=== PATIENT | female | born 1945 | race Caucasian/White ===

== ENCOUNTER 2016-05-25 13:44 | Outpatient (RCR) | payer MEDICARE, BC ==
[~2016-05-25 13:44] MED LIST: ABCT PO; ALPR-557 PO; ALPR0.5T72 PO; ALPR1TAB7 PO; ASPI1TAB22 PO; ATRV10T PO; B-12 SHOT; BUPR300T51 PO; CIPR-225 PO; CIPR500T4 PO; CPR500T PO; CYAN100053 IJ; DCS100C PO; DICY10CA12 PO; DICY20TA33 PO; DICY20TA57 PO; FURO40TA4 PO; GBPN300C PO; HYDR-3454 PO; HYDR-3720 PO; HYDR-3820 PO; HYOS0.1216 PO; HYOS0.3710 PO; KCL10CCR PO; LACT1CAP62 PO; LORA1TAB PO; NAPR-243 PO; OMEP20CA12 PO; OMG1KC PO; ONDA-42 SL; OXYC-12 PO; PNT40TEC PO; SANTURA; SCR1T1 PO; TRIA1TAB2 PO; TROS60CA2 PO; VENL25TA5 PO; VENL75TA6 PO; VERA100C4 PO; VERA240T98 PO
--- OUTSIDE RECORDS SUMMARY | 2016-05-25 13:48 | XMS REPORT | Continuity of Care Document ---
Author Author [facility] Organization [facility] Address Unknown Phone Unavailable Care Team Providers Care Promotions Intern Name Role Phone KimberleyAustyn leon PCP [phone] Source Comments Some departments are not documenting in the electronic medical record. If you do not see the information that you expected, contact Release of Information in the Health Information Management department at [phone] for further assistance in locating additional records.[facility] Active Allergies and Adverse Reactions Allergen Noted Date Severity Reactions Comments Sulfa (Sulfonamide 06/26/2014 HIVES Antibiotics) Current Medications Prescription Sig. Disp. Refills Start End Date Status Date omeprazole DR(+) Take 40 mg by mouth Active (PRILOSEC) 20 mg capsule daily. LORazepam (ATIVAN) 1 mg Take 1 mg by mouth every Active tablet 4 hours as needed. trospium ER(+) (SANCTURA Take by mouth. Active XR) 60 mg capsule gabapentin (NEURONTIN) Take 300 mg by mouth Active 300 mg capsule three times daily. venlafaxine XR (EFFEXOR Take 75 mg by mouth Active XR) 75 mg capsule daily. verapamil SR (VERELAN) Take by mouth at bedtime Active 240 mg C24P daily. triamterene-hydrochloroth Take 1 Cap by mouth every Active iazide (DYAZIDE) 37.5-25 morning. mg capsule ALPRAZolam (XANAX) 0.5 mg Take 0.5 mg by mouth at Active tablet bedtime as needed. HYDROcodone-acetaminophen Take 1 Tab by mouth every Active (+) (VICODIN) 10-325 mg 6 hours as needed. tablet pantoprazole DR Take 40 mg by mouth Active (PROTONIX) 40 mg tablet daily. cyanocobalamin (VITAMIN Inject 1,000 mcg to Active B-12, RUBRAMIN) 1,000 area(s) as directed every mcg/mL injection 7 days. butalbital/acetaminophen/ Take 1 Tab by mouth as Active caffeine(+) (FIORICET) Needed. 50/325/40 mg tablet hyoscyamine (ANASPAZ; Place 1 Tab under tongue 90 Tab 1 06/26/19 Active NULEV; SYMAX FASTABS; every 4 hours as needed 15 HYOMAX-FT; ED-SPAZ; for Cramps. OSCIMIN) 0.125 mg rapid dissolve tablet ondansetron (ZOFRAN ODT) Take 1 tab the night 2 Tab 0 06/26/19 Active 8 mg rapid dissolve before your MRI and 1 tab 15 tablet 7 hours before your MRI linaclotide (LINZESS) 145 Take 1 Cap by mouth 30 Cap 3 10/23/19 Active mcg cap daily. 15 dicyclomine (BENTYL) 10 TAKE ONE CAPSULE BY MOUTH 90 Cap 3 01/01/20 Active mg capsule THREE TIMES A DAY 16 Active Problems Problem Noted Date Essential tremor 11/06/2015 Gait disturbance 11/06/2015 Pancreatic cyst 10/02/2014 Overview: EUS 07/26/14 Colon polyps 10/02/2014 Obstruction of bile duct 07/31/2014 Lupus (HCC) 06/26/2014 Osteoporosis 06/26/2014 Recurrent urinary tract infection 03/21/2013 Mixed incontinence 03/21/2013 Most Recent Encounters Date Type Specialty Providers Description 05/17/2016 Telephone Neurology Jorge Kaufman, Referral Social History Tobacco Use Types Packs/Day Years Used Date Current Every Day Smoker Cigarettes 0.5 50 Smokeless Tobacco: Never Used Alcohol Use Drinks/Week oz/Week Comments Yes 2 Cans of 1.2 beer Last Filed Vital Signs Vital Sign Reading Time Taken Blood Pressure 119/79 11/06/2015 2:40 PM CDT Pulse 85 11/06/2015 2:40 PM CDT Temperature 36.5 C (97.7 F) 10/02/2014 9:38 AM CDT Respiratory Rate 18 10/02/2014 9:38 AM CDT Height 1.626 m (5' 4.02") 11/06/2015 2:40 PM CDT Weight 68.947 kg (152 lb) 11/06/2015 2:40 PM CDT Body Mass Index 26.08 11/06/2015 2:40 PM CDT Oxygen Saturation 94% 08/29/2014 10:09 AM CDT Plan of Care Date Type Specialty Providers Description 07/26/2016 Appointment Neurology Ines Fowler MD [address] [place] [address] [phone] (Fax) Health Maintenance Due Date Last Done Comments Hepatitis C Screening 1945 Physical (Comprehensive) 1953 Exam Pertussis Vaccine 1957 Tetanus Vaccine 12/26/1963 Breast Cancer Screening 1986 Shingles Vaccine 2006 Osteoporosis Screening 12/26/2011 Prevnar/Pneumovax (#1) 12/26/2011 Influenza Vaccine 02/19/2016 Colorectal Cancer 07/26/2024 07/26/2014 Screening Results from Last 3 Months Not on file
[2016-05-25 14:15] LABS: BASOPHILS # (AUTO) 0.1 10^3/uL (0.0-0.1); BASOPHILS % (AUTO) 1 % (0-10); EOSINOPHILS # (AUTO) 0.1 10^3/uL (0.0-0.3); EOSINOPHILS % (AUTO) 1 % (0-10); LYMPHOCYTES # (AUTO) 1.9 X 10^3 (1.0-4.0); LYMPHOCYTES % (AUTO) 29 % (12-44); MEAN CORPUSCULAR HEMOGLOBIN 30 PG (25-34); MEAN CORPUSCULAR HGB CONC 33 G/DL (32-36); MEAN CORPUSCULAR VOLUME 91 FL (80-99); MEAN PLATELET VOLUME 10.5 FL (7.4-10.4); MONOCYTES # (AUTO) 0.6 X 10^3 (0.0-1.0); MONOCYTES % (AUTO) 10 % (0-12); NEUTROPHILS # (AUTO) 3.9 X 10^3 (1.8-7.8); NEUTROPHILS % (AUTO) 59 % (42-75); PLATELET COUNT 206 10^3/uL (130-400); RED BLOOD COUNT 4.94 10^6/uL (4.35-5.85); RED CELL DISTRIBUTION WIDTH 12.9 % (10.0-14.5); WHITE BLOOD COUNT 6.6 10^3/uL (4.3-11.0)
[2016-05-25 14:37] LABS: ALBUMIN 4.2 G/DL (3.2-4.5); BILIRUBIN,TOTAL 0.3 MG/DL (0.1-1.0); CALCIUM 9.8 MG/DL (8.5-10.1); CREATININE SERUM 1.24 MG/DL (0.60-1.30); POTASSIUM 3.8 MMOL/L (3.6-5.0); TOTAL PROTEIN 6.6 G/DL (6.4-8.2)
== END 2016-08-23 | disposition home or self-care (01) ==
LOC: ONC 13:44
PROVIDERS: ATTEND Internal Medicine Hematology & Oncology
DX: C50.511 Malignant neoplasm of lower-outer quadrant of right female breast (principal); D50.9 Iron deficiency anemia, unspecified; M85.80 Other specified disorders of bone density and structure, unspecified site; Z17.0 Estrogen receptor positive status [ER+]; Z79.899 Other long term (current) drug therapy
CPT/HCPCS: 36415; 80053; 85025; 99213

== ENCOUNTER → 2016-07-15 | Outpatient (CLI) | payer MEDICARE, BC ==
--- OUTSIDE RECORDS SUMMARY | 2016-07-15 13:13 | XMS REPORT | Continuity of Care Document ---
Author Author [facility] Organization [facility] Address Unknown Phone Unavailable Care Team Providers Care Art Critic Name Role Phone KimberleyAustyn leon PCP [phone] Source Comments Some departments are not documenting in the electronic medical record. If you do not see the information that you expected, contact Release of Information in the Health Information Management department at [phone] for further assistance in locating additional records.[facility] Active Allergies and Adverse Reactions Allergen [...] TAKE ONE CAPSULE BY MOUTH 90 Cap 2 07/09/19 Active mg capsule THREE TIMES A DAY 17 dicyclomine (BENTYL) 10 TAKE ONE CAPSULE BY MOUTH 90 Cap 3 01/01/20 07/07/19 Discontin mg capsule THREE TIMES A DAY 16 17 ued Active Problems Problem Noted Date Essential tremor 11/06/2015 Gait disturbance 11/06/2015 Pancreatic cyst 10/02/2014 Overview: EUS 07/26/14 Colon polyps 10/02/2014 Obstruction of bile duct 07/31/2014 Lupus (HCC) 06/26/2014 Osteoporosis 06/26/2014 Recurrent urinary tract infection 03/21/2013 Mixed incontinence 03/21/2013 Most Recent Encounters Date Type Specialty Providers Description 07/07/2016 Refill Gastroenterology Ousmane De Anda MD 05/17/2016 Telephone Neurology Jorge Kaufman Referral MD Social History Tobacco Use Types Packs/Day Years [...] Description 07/26/2016 Appointment Neurology Ines Fowler MD [address] [place] [address] [phone] (Fax) Health Maintenance Due Date Last Done Comments Hepatitis C Screening 1945 Physical (Comprehensive) 1953 Exam Pertussis Vaccine 1957 Tetanus Vaccine 12/26/1963 Breast Cancer Screening 1986 Shingles Vaccine 2006 Osteoporosis Screening 12/26/2011 Prevnar/Pneumovax (#1) 12/26/2011 Influenza Vaccine 02/19/2016 Colorectal Cancer 07/26/2024 07/26/2014 Screening Results from Last 3 Months Not on file
== END ==
LOC: LAB 13:08
PROVIDERS: ATTEND Family Medicine
DX: E53.8 Deficiency of other specified B group vitamins (principal); Z72.0 Tobacco use

== ENCOUNTER → 2016-09-20 | Outpatient (CLI) | payer MEDICARE, BC ==
--- NOTE | 2016-09-21 19:29 | Diagnostic Imaging Report ---
EXAMINATION: Bilateral diagnostic mammogram. INDICATION: History of breast cancer on the right, bilateral breast pain. COMPARISON: This study was compared to the prior exams of 02/25/2016 and 12/03/2014. The current study was also evaluated with a Computer Aided Detection (CAD) system. FINDINGS: By history, the patient has had a lumpectomy on the right for carcinoma in 2014. The previous mammogram of 02/25/2016 did note architectural distortion in the operative site in the mid portion of the right breast but failed to show any sign of malignancy. On this exam, the postsurgical changes are again evident and do not appear to have changed significantly. There is a small area of increased density in the lateral retroareolar region on the craniocaudad view. This resolves with compression, however. There are scattered fibroglandular densities in the left breast, which could obscure a lesion. When compared to the previous study, there has been no significant change. Deep in the left breast on the craniocaudad view, there is a group of calcifications. These calcifications seem stable when compared to the prior exam of 12/03/2014. These calcifications may be within intramammary fold and could be dermal in nature. There is no abnormality involving either breast to account for the patient's pain. IMPRESSION: 1. The postsurgical changes in the right breast seen previously appear stable. There is no evidence of malignancy. There is no acute abnormality involving either breast to account for the patient's pain. 2. Ultrasound of both breasts is pending for further study. ACR BI-RADS Category 0: Incomplete. (Needs additional imaging evaluation). Result letter will be mailed to the patient. Note: At least 10% of breast cancer is not imaged by mammography. Dictated by: Dictated on workstation # [id number]
--- NOTE | 2016-09-22 20:15 | Diagnostic Imaging Report ---
EXAMINATION: Bilateral breast ultrasound. INDICATION: Bilateral breast pain. FINDINGS: The diagnostic mammogram performed earlier today failed to show any sign of malignancy or of an acute abnormality. On this study, there is no solid mass to suggest malignancy involving either breast. There is no sign of an abscess to account for the patient's breast pain either. The previous bilateral breast ultrasound exam performed on 03/06/2016 did note a minimally complicated cyst in the 1 o'clock position, approximately 2 cm from the nipple. This finding measured approximately 3 x 9 mm. The cystic area is again evident and now measures 4 x 11 mm. This finding still has a generally benign appearance, and there is no internal vascularity to suggest malignancy. Even so, a short-term (six-month) followup ultrasound exam would be recommended. There is also a small roughly 5 mm simple cyst in this area. This cyst may be minimally smaller than on the prior exam. There is no abnormality of the right breast. IMPRESSION: 1. There is no evidence of malignancy or for an acute abnormality of either breast. 2. The complicated cystic mass in the 2 o'clock position of the left breast seen previously is slightly larger on this exam. This finding still has a generally benign appearance, but a short-term six-month followup ultrasound exam would be recommended for further study. 3. These results were discussed with PASHA Beatty. ACR BI-RADS Category 3: Probably benign findings. Dictated by: Dictated on workstation # [id number]
== END ==
LOC: RAD 13:13
PROVIDERS: ATTEND Nurse Practitioner Adult Health
DX: C50.511 Malignant neoplasm of lower-outer quadrant of right female breast (principal)
CPT/HCPCS: 77066

== ENCOUNTER 2016-10-19 13:25 | Outpatient (RCR) | payer MEDICARE, BC ==
[~2016-10-19 13:25] MED LIST changes: +HYOS-20 PO; -HYOS0.1216 PO
[2016-10-19 13:59] LABS: BASOPHILS # (AUTO) 0.1 10^3/uL (0.0-0.1); BASOPHILS % (AUTO) 1 % (0-10); EOSINOPHILS # (AUTO) 0.1 10^3/uL (0.0-0.3); EOSINOPHILS % (AUTO) 2 % (0-10); LYMPHOCYTES # (AUTO) 2.3 X 10^3 (1.0-4.0); LYMPHOCYTES % (AUTO) 35 % (12-44); MEAN CORPUSCULAR HEMOGLOBIN 31 PG (25-34); MEAN CORPUSCULAR HGB CONC 34 G/DL (32-36); MEAN CORPUSCULAR VOLUME 92 FL (80-99); MEAN PLATELET VOLUME 10.5 FL (7.4-10.4); MONOCYTES # (AUTO) 0.4 X 10^3 (0.0-1.0); MONOCYTES % (AUTO) 7 % (0-12); NEUTROPHILS # (AUTO) 3.6 X 10^3 (1.8-7.8); NEUTROPHILS % (AUTO) 56 % (42-75); PLATELET COUNT 215 10^3/uL (130-400); RED BLOOD COUNT 4.91 10^6/uL (4.35-5.85); RED CELL DISTRIBUTION WIDTH 13.1 % (10.0-14.5); WHITE BLOOD COUNT 6.5 10^3/uL (4.3-11.0)
[2016-10-19 14:35] LABS: ALBUMIN 4.1 G/DL (3.2-4.5); BILIRUBIN,TOTAL 0.4 MG/DL (0.1-1.0); CALCIUM 10.7 MG/DL (8.5-10.1); CREATININE SERUM 1.13 MG/DL (0.60-1.30); POTASSIUM 4.2 MMOL/L (3.6-5.0); TOTAL PROTEIN 6.6 G/DL (6.4-8.2)
== END 2017-01-17 | disposition home or self-care (01) ==
LOC: ONC 13:25
PROVIDERS: ATTEND Internal Medicine Hematology & Oncology
DX: C50.511 Malignant neoplasm of lower-outer quadrant of right female breast (principal); D50.9 Iron deficiency anemia, unspecified; M85.80 Other specified disorders of bone density and structure, unspecified site; Z17.0 Estrogen receptor positive status [ER+]; Z79.899 Other long term (current) drug therapy
CPT/HCPCS: 36415; 80053; 85025; 99213

== ENCOUNTER 2017-01-26 13:26 | Outpatient (RCR) | payer MEDICARE, BC ==
[2017-01-26 13:37] LABS: BASOPHILS % (AUTO) 1 % (0-10); EOSINOPHILS # (AUTO) 0.1 10^3/uL (0.0-0.3); EOSINOPHILS % (AUTO) 2 % (0-10); LYMPHOCYTES # (AUTO) 2.2 X 10^3 (1.0-4.0); LYMPHOCYTES % (AUTO) 32 % (12-44); MEAN CORPUSCULAR HEMOGLOBIN 31 PG (25-34); MEAN CORPUSCULAR HGB CONC 34 G/DL (32-36); MEAN CORPUSCULAR VOLUME 92 FL (80-99); MEAN PLATELET VOLUME 10.8 FL (7.4-10.4); MONOCYTES # (AUTO) 0.6 X 10^3 (0.0-1.0); MONOCYTES % (AUTO) 8 % (0-12); NEUTROPHILS % (AUTO) 58 % (42-75); PLATELET COUNT 203 10^3/uL (130-400); RED BLOOD COUNT 4.92 10^6/uL (4.35-5.85); RED CELL DISTRIBUTION WIDTH 13.1 % (10.0-14.5); WHITE BLOOD COUNT 6.9 10^3/uL (4.3-11.0)
[2017-01-26 14:09] LABS: BILIRUBIN,TOTAL 0.4 MG/DL (0.1-1.0); CALCIUM 11.2 MG/DL (8.5-10.1); CREATININE SERUM 1.29 MG/DL (0.60-1.30); POTASSIUM 3.5 MMOL/L (3.6-5.0); TOTAL PROTEIN 6.8 GM/DL (6.4-8.2)
== END 2017-03-19 | disposition home or self-care (01) ==
LOC: ONC 13:26
PROVIDERS: ATTEND Internal Medicine Hematology & Oncology
DX: C50.511 Malignant neoplasm of lower-outer quadrant of right female breast (principal); D50.9 Iron deficiency anemia, unspecified; M85.80 Other specified disorders of bone density and structure, unspecified site; Z17.0 Estrogen receptor positive status [ER+]; Z79.899 Other long term (current) drug therapy
CPT/HCPCS: 36415; 80053; 85025; 99213

== ENCOUNTER → 2017-02-02 | Outpatient (CLI) | payer MEDICARE, BC ==
--- NOTE | 2017-02-02 14:40 | Diagnostic Imaging Report ---
EXAMINATION: Lumbar spine. INDICATION: Back pain. FINDINGS: AP and lateral views were obtained. The previous MRI lumbar spine exam performed on 05/13/2009 noted degenerative disc and bony disease at L3-L4 and L4-L5. On this exam, there is narrowing of the disc spaces at L3-L4 and L4-L5. There is bony overgrowth of the facet joints at these levels as well. There is also moderate narrowing of the disc space at L1-L2 and mild narrowing of the disc space at L5-S1. The L2-L3 level is fairly well maintained. There is no fracture or acute bony abnormality noted. There is no sign of a paraspinal mass. There is mild symmetrical sclerosis of the sacroiliac joints. IMPRESSION: 1. There is degenerative disc and bony disease at L1-L2, L3-L4, and L4-L5. There is no acute bony abnormality identified however. 2. If there is clinical concern regarding spinal stenosis or nerve root encroachment, then a repeat MRI of the lumbar spine exam would be recommended. Dictated by: Dictated on workstation # [id number]
--- NOTE | 2017-02-02 14:50 | Diagnostic Imaging Report ---
Cervical spine. INDICATION: Neck pain. AP, lateral, odontoid and both oblique views were obtained. The previous CT cervical spine exam performed on 08/27/15 noted severe degenerative disc and bony disease at C5-C6 and C6-C7. On this exam, there is again evidence of narrowing of the disc spaces at these two levels as well as osteophyte formation along the opposing surfaces of C5-C6 and C7. The oblique views indicate that there is bony foraminal encroachment bilaterally at these levels as well. Also, as seen on the prior exam there is slight anterior translation of C3 with respect to C4 and there is mild narrowing of disc space at this level. There is also neuroforaminal narrowing bilaterally at this level. There is no fracture or acute bony abnormality evident. There is no sign of retropharyngeal edema. The lung apices are clear. IMPRESSION: 1. There is degenerative disc and bony disease at C3-C4, C5-C6 and C6-C7. The degenerative changes seem similar to the prior exam. However, if there is clinical concern regarding spinal stenosis or nerve root encroachment, then MRI would be recommended for further study. 2. There is no acute bony abnormality noted. Dictated by: Dictated on workstation # [id number]
== END ==
LOC: RAD 12:50
PROVIDERS: ATTEND Chiropractor
DX: M50.31 Other cervical disc degeneration, high cervical region (principal); M51.36 Other intervertebral disc degeneration, lumbar region
CPT/HCPCS: 72050; 72100

== ENCOUNTER → 2017-03-24 | Outpatient (CLI) | payer MEDICARE, BC ==
--- NOTE | 2017-03-24 13:51 | Diagnostic Imaging Report ---
EXAMINATION: DEXA scan. INDICATION: Osteopenia. TECHNIQUE: Bone mineral density estimated based on dual energy radiography over the lumbar spine and femoral necks, was performed. FINDINGS: The lumbar spine T-score is -0.6. This is a 2.2% decreased density measurement compared to 03/24/2017. This is probably an exaggerated density of the lumbar spine due to sclerotic degenerative changes. T score over the left femoral neck is -1.6 and on the right is -1.2. This is 3% decreased density measurement compared to the previous exam. IMPRESSION: Osteopenia. Dictated by: Dictated on workstation # [id number]
== END ==
LOC: RAD 10:52
PROVIDERS: ATTEND Nurse Practitioner Adult Health
DX: M85.89 Other specified disorders of bone density and structure, multiple sites (principal); N18.3 Chronic kidney disease, stage 3 (moderate); C50.511 Malignant neoplasm of lower-outer quadrant of right female breast
CPT/HCPCS: 77080

== ENCOUNTER 2017-05-03 15:43 | Emergency (ER) | payer MEDICARE, BC ==
[~2017-05-03] VITALS: Ht 157.5 cm; Wt 72.6 kg
--- OUTSIDE RECORDS SUMMARY | 2017-05-03 15:48 | XMS REPORT | Encounter Summary ---
Author [facility] Address Unknown Phone Unavailable Care Team Providers Care Artificial Flowers Starcher Name Role Phone PCP Unavailable Reason for Referral * Consult, Test & Treat Status Reason Specialty Diagnoses / Referred By Referred To Procedures Contact Contact New Request Specialty Diagnoses Janie Pa Olyaee, Drake, Services Dysphagia, MONUMENT SETTER MD Required unspecified type [address] [place] [address] Rectal pain [place] [address] [place], [place] [phone] Phone: Encounter Details Date Type Department Care Team Description 03/15/2017 Orders Only [facility] Pita Cade Dysphagia, unspecified Physicians - Internal type (Primary Medicine Dx);Pancreas cyst;Rectal [address] FLO[address] POD B pain;Rectal bleeding [address] [place] [address] Social History Tobacco Use Types Packs/Day Years Used Date Current Every Day Smoker Cigarettes 0.5 50 Smokeless Tobacco: Never Used Alcohol Use Drinks/Week oz/Week Comments Yes 2 Cans of 1.2 beer Sex Assigned at Date Recorded Not on file as of this encounter Plan of Treatment Name Priority Associated Diagnoses Order Schedule AMB REFERRAL TO GI LAB FOR PROCEDURE Routine Dysphagia, unspecified Ordered: 03/15/2017 type Pancreas cyst Rectal pain Rectal bleeding as of this encounter Visit Diagnoses Diagnosis Dysphagia, unspecified type - Primary Pancreas cyst Cyst and pseudocyst of pancreas Rectal pain Anal or rectal pain Rectal bleeding Hemorrhage of rectum and anus in this encounter
--- OUTSIDE RECORDS SUMMARY | 2017-05-03 15:48 | XMS REPORT | Encounter Summary ---
Author Author [facility] Organization [facility] Address Unknown Phone Unavailable Care Team Providers Care Curriculum Director Name Role Phone PCP Unavailable Reason for Visit * Reason Comments Appointment Request EGD/EUS/Flex Sig - [facility] Encounter Details Date Type Department Care Team Description 03/15/2017 Telephone [facility] Pita Cade Appointment Request Physicians - Internal (EGD/EUS/Flex Sig - [facility]) Medicine [address] FLOOR POD [address] [facility] [place] [address] Social History Tobacco Use Types Packs/Day Years Used Date Current Every Day Smoker Cigarettes 0.5 50 Smokeless Tobacco: Never Used Alcohol Use Drinks/Week oz/Week Comments Yes 2 Cans of 1.2 beer Sex Assigned at Date Recorded Not on file as of this encounter Miscellaneous Notes * Telephone Encounter - Pita Cade - 05/03/2017 2:10 PM BARREL DRILLER Letter mailed to home. * Telephone Encounter - Pita Cade - 03/24/2017 10:28 AM CDT Left generic message for patient to return call to schedule EGD/EUS/Flex Sigmoidoscopy. * Telephone Encounter - Pita Cade - 03/15/2017 1:00 PM CDT Left generic message for patient to return call to schedule EGD/EUS/Flex Sigmoidoscopy. in this encounter Plan of Treatment Not on fileas of this encounter Visit Diagnoses Not on filein this encounter
--- OUTSIDE RECORDS SUMMARY | 2017-05-03 15:48 | XMS REPORT | Continuity of Care Document ---
Author Author [facility] Organization [facility] Address Unknown Phone Unavailable Care Team Providers Care Technical Architect Name Role Phone [employer] Unavailable Unavailable Problems Medications Allergies, Adverse Reactions, Alerts Immunizations Results Vital Signs Encounters Location Location Details Encounter Type Encounter Number Reason For Visit Attending Provider ADM Date DC Date Status Source SPECIMEN [id number] MIGUELITO SCHROEDER 08/29/201408/29 Active [facility] Sophia LESLIE 04/21/2017 Active [facility] Procedures Plan of Care Social History Assessment and Plan Family History Value Date Source Advance Directives Order Name Results Value Date Source
--- OUTSIDE RECORDS SUMMARY | 2017-05-03 15:48 | XMS REPORT | Clinical Summary ---
Author Author [facility] Organization [facility] Address Unknown Phone Unavailable Care Team Providers Care Stained Glass Glazier Helper Name Role Phone PCP Unavailable Source Comments Some departments are not documenting in the electronic medical record. If you do not see the information that you expected, contact Release of Information in the Health Information Management department at [phone] for further assistance in locating additional records.[facility] Allergies Active Allergy Reactions Severity Noted Date Comments Sulfa (Sulfonamide HIVES 06/26/2014 Antibiotics) Current Medications Prescription Sig. Disp. Refills Start End Date Status Date LORazepam (ATIVAN) 1 mg Take 1 mg by mouth every Active tablet 4 hours as needed. trospium ER(+) (SANCTURA Take by mouth. Active XR) 60 mg capsule verapamil SR (VERELAN) Take by mouth at bedtime Active 240 mg C24P daily. triamterene-hydrochloroth Take 1 Cap by mouth every Active iazide (DYAZIDE) 37.5-25 morning. mg capsule HYDROcodone-acetaminophen Take 1 tablet by mouth Active (+) (VICODIN) 10-325 mg every 4 hours as needed tablet pantoprazole DR Take 40 mg by mouth Active (PROTONIX) 40 mg tablet daily. cyanocobalamin (VITAMIN Inject 1,000 mcg to Active B-12, RUBRAMIN) 1,000 area(s) as directed every mcg/mL injection 7 days. dicyclomine (BENTYL) 10 Take 1 Cap by mouth every 90 Cap 2 12/23/19 Active mg capsule 6-8 hours as needed. 17 ALPRAZolam (XANAX) 0.5 mg Take 1 mg by mouth daily Active tablet as needed for Anxiety. prochlorperazine maleate Take 10 mg by mouth every Active (COMPAZINE) 10 mg tablet 6 hours as needed for Nausea or Vomiting. butalbital/acetaminophen/ Take 1 tablet by mouth Active caffeine(+) (FIORICET) every 4 hours as needed 50/325/40 mg tablet for Headache. linaclotide(+) (LINZESS) Take 1 capsule by mouth 20 capsule 0 Active 290 mcg capsule daily 30 minutes before 17 breakfast. Active Problems Problem Noted Date Dysphagia 03/07/2017 Overview: Added automatically from request for surgery [id number] Pancreas cyst 03/07/2017 Overview: Added automatically from request for surgery [id number] Rectal pain 03/07/2017 Overview: Added automatically from request for surgery [id number] Rectal bleeding 03/07/2017 Overview: Added automatically from request for surgery [id number] Constipation 03/07/2017 Overview: Added automatically from request for surgery [id number] Essential tremor 11/06/2015 Gait disturbance 11/06/2015 Pancreatic cyst 10/02/2014 Overview: EUS 07/26/14 Colon polyps 10/02/2014 Obstruction of bile duct 07/31/2014 Lupus 06/26/2014 Osteoporosis 06/26/2014 Recurrent urinary tract infection 03/21/2013 Mixed incontinence 03/21/2013 Encounters Date Type Specialty Care Team Description 03/15/2017 Telephone Gastroenterology Pita Cade Appointment Request (EGD/EUS/Flex Sig - [facility]) 03/15/2017 Orders Only Gastroenterology Pita Cade Dysphagia, unspecified type (Primary Dx);Pancreas cyst;Rectal pain;Rectal bleeding 03/07/2017 Office Visit Gastroenterology Janie Pa ARNP Other constipation (Primary Dx);Rectal pain;Pancreatic cyst;Oropharyngeal dysphagia 03/07/2017 Prep for Case Gastroenterology Janie Pa ARNP 03/07/2017 Prep for Case Gastroenterology Janie Pa ARNP 01/31/2017 Telephone Gastroenterology Ousmane De Anda MD Follow-up Phone Call from Last 3 Months Family History Medical History Relation Name Comments Heart Disease Brother Cancer Mother Heart Attack Mother Heart Disease Mother Hypertension Mother Cancer Other Cancer-Colon Neg Hx Celiac Disease Neg Hx Relation Name Status Comments Brother Mother Other Social History Tobacco Use Types Packs/Day Years Used Date Current Every Day Smoker Cigarettes 0.5 50 Smokeless Tobacco: Never Used Alcohol Use Drinks/Week oz/Week Comments Yes 2 Cans of 1.2 beer Sex Assigned at Date Recorded Not on file Last Filed Vital Signs Vital Sign Reading Time Taken Blood Pressure 98/65 03/07/2017 2:40 PM CDT Pulse 87 03/07/2017 2:40 PM CDT Temperature 36.4 C (97.6 F) 03/07/2017 2:40 PM CDT Respiratory Rate 14 03/07/2017 2:40 PM CDT Oxygen Saturation 94% 08/29/2014 10:09 AM CDT Inhaled Oxygen - - Concentration Weight 73 kg (161 lb) 03/07/2017 2:40 PM CDT Height 162.6 cm (5' 4.02") 03/07/2017 2:40 PM CDT Body Mass Index 27.62 03/07/2017 2:40 PM CDT Plan of Treatment Health Maintenance Due Date Last Done Comments HEPATITIS C SCREENING 1945 PHYSICAL (COMPREHENSIVE) 1953 EXAM PERTUSSIS VACCINE 1957 TETANUS VACCINE 12/26/1963 BREAST CANCER SCREENING 1986 SHINGLES VACCINE 2006 OSTEOPOROSIS SCREENING 12/26/2011 PREVNAR/PNEUMOVAX (#1) 12/26/2011 INFLUENZA VACCINE 01/18/2017 COLORECTAL CANCER 07/26/2024 07/26/2014 SCREENING Results Not on filefrom Last 3 Months
--- OUTSIDE RECORDS SUMMARY | 2017-05-03 15:48 | XMS REPORT | Encounter Summary ---
Author Author [facility] Organization [facility] Address Unknown Phone Unavailable Care Team Providers Care Contact Center Consultant Name Role Phone PCP Unavailable Encounter Details Date Type Department Care Team Description 03/07/2017 Prep for Case [facility] Janie Pa ARNP Physicians - Internal [address] [facility] Medicine [address] [place] [address] [address] [facility] MED [phone] [place] [address] Social History Tobacco Use Types Packs/Day Years Used Date Current Every Day Smoker Cigarettes 0.5 50 Smokeless Tobacco: Never Used Alcohol Use Drinks/Week oz/Week Comments Yes 2 Cans of 1.2 beer Sex Assigned at Date Recorded Not on file as of this encounter Plan of Treatment Not on fileas of this encounter Visit Diagnoses Not on filein this encounter
--- OUTSIDE RECORDS SUMMARY | 2017-05-03 15:48 | XMS REPORT | Encounter Summary ---
Author Author [facility] Organization [facility] Address Unknown Phone Unavailable Care Team Providers Care Sports Administrator Name Role Phone PCP Unavailable Encounter Details Date Type Department Care Team Description 03/07/2017 Prep for Case [facility] Janie Pa ARNP Physicians - Internal [address] [facility] Medicine [place] [address] [place] [address] [address] [facility] MED [phone] [place] [address] Social History Tobacco Use Types [...]
--- OUTSIDE RECORDS SUMMARY | 2017-05-03 15:49 | XMS REPORT | Encounter Summary ---
Author Author [facility] Organization [facility] Address Unknown Phone Unavailable Care Team Providers Care Contract Lead Name Role Phone PCP Unavailable Reason for Visit * Reason Comments Constipation rectal pain Rectal Bleeding Encounter Details Date Type Department Care Team Description 03/07/2017 Office Visit [facility] Janie Pa ARNP Other constipation Physicians - Internal [address] (Primary Dx);Rectal Medicine [place] [address] pain;Pancreatic [address] [place] [address] cyst;[place] [address] dysphagia [phone] Social History Tobacco Use Types Packs/Day Years Used Date Current Every Day Smoker Cigarettes 0.5 50 Smokeless Tobacco: Never Used Alcohol Use Drinks/Week oz/Week Comments Yes 2 Cans of 1.2 beer Sex Assigned at Date Recorded Not on file as of this encounter Last Filed Vital Signs Vital Sign Reading Time Taken Blood Pressure 98/65 03/07/2017 2:40 PM CDT Pulse 87 03/07/2017 2:40 PM CDT Temperature 36.4 C (97.6 F) 03/07/2017 2:40 PM CDT Respiratory Rate 14 03/07/2017 2:40 PM CDT Oxygen Saturation - - Inhaled Oxygen - - Concentration Weight 73 kg (161 lb) 03/07/2017 2:40 PM CDT Height 162.6 cm (5' 4.02") 03/07/2017 2:40 PM CDT Body Mass Index 27.62 03/07/2017 2:40 PM CDT in this encounter Instructions * Patient Instructions - Janie Pa ARNP - 03/07/2017 3:00 PM CDT 1. For the constipation, take samples of Linzess. Take 1 tablet daily in the morning on an empty stomach, 1 hour before breakfast. I have given you samples for 20 days, please call my nurse with a progress report in 2 weeks. If this is helpful, we can send in a prescription. This can cause diarrhea which will often improve with time. 2. We have ordered an EGD with ultrasound and Flexible Sigmoidoscopy for you. You have been provided written prep instructions. The GI Scheduling department will contact you to arrange this. If you have not heard from scheduling within 5 buisness days or need to cancel or reschedule this procedure please call Pita at [phone] Please have procedures as recommended to follow up on your swallowing issues, pancreatic cyst, and rectal symptoms as well as constipation. Please call my nurse about 1 week after the procedures to go over results. 3. We will request all of your colonoscopy reports from Dr. Do for review. 4. We have ordered an Anorectal Manometry for you and you have been provided written prep instructions for this. This test will help us find out how the muscles in your rectum and buttocks work. We will also test your ability to feel pain or pressure in those areas. Scheduling will contact you to arrange this. If you have not heard from scheduling or need to reschedule please call them at [phone]. 5. Continue pantoprazole daily, take 30 minutes before breakfast. Due to long- term PPI use addition of Calcium + D 600 mg twice a day and yearly serum magnesium level and routine bone density testing through PCP recommended. We can plan a follow up as needed. Please call my nurse Neva if you have any questions or concerns. [phone]. General Instructions: To have a medication refilled: Please use the [employer] Refill request or contact your pharmacy directly to request medication refills. Please allow 72 hours. [facility] Lab is on the 1st floor. It is open from 7 am-6pm Tuesday-Tuesday and 6:30am-7pm on Mondays, and 7 am - Noon on Saturdays [facility] is located on the 2nd floor and is open 8 am-5 pm Tuesday-Tuesday [facility] lab is located next to the check out desk and is open from 8 AM to 4:45 PM Tuesday through Tuesday. Radiology is on the 2nd floor of the Medical Office Building and the 2nd Floor of [facility]. Radiology Scheduling can be reached at To Schedule office visits: Call [phone]. For procedure scheduling questions at the Main [facility] or [facility] please call ; for a procedure at [facility] please call . To receive appointment reminders on your cell phone: Make sure we have your cell phone number, and Text [facility] to [phone]. Support for many chronic illnesses is available through [facility]: [employer] or [phone]. For urgent questions on nights, weekends or holidays, call the Rubber Roller Grinder Operator at [phone], and ask for the doctor fashion patternmaker for Gastroenterology.Call [phone] for any emergencies. in this encounter Progress Notes * Janie Pa ARNP - 03/07/2017 3:00 PM CDT Formatting of this note may be different from the original. Date of Service: 03/07/2017 Subjective: Rafita Higuera is a 71 y.o. female. History of Present Illness Ms. Higuera is a very pleasant 71 yo female who was originally seen by Dr. De Anda in 06/2014 for evaluation of abdominal pain. Labs revealed normal CBC, chemistry panel, negative celiac panel, and vitamin D deficiency. Hydrogen breath test in 06/2014 was positive. She was treated with Flagyl for two weeks with dramatic improvement in her abdominal cramping, bloating, and gassiness. MRE was essentially normal, showed normal small bowel. She was noted to have an incidental pancreatic cyst. EGD 07/2014 was normal with normal duodenal biopsies. EUS 07/2014 showed a 5 mm pancreatic body cyst, that was benign in appearance. Colonoscopy 07/2014 revealed some tubular adenomas, but overall suboptimal prep and it was recommended that she undergo a repeat procedure. She requested the repeat colonoscopy be performed in [place], [place] by Dr. Do. Her most recent office visit with Dr. De Anda was in 09/2014 when she was having some issues with constipation which had been a lifelong issue but no diarrhea. She wanted to take Ex-Lax as needed. She was also given a prescription for Bentyl 10 mg as needed for abdominal cramping. It was recommended that she have a repeat colonoscopy in [place] but a split dose prep was recommended to hopefully achieve a better outcome. Repeat imaging of the pancreas was also recommended in 07/2016. She is here today for a follow-up office visit and to discuss significant problems with constipation which leads to significant intermittent rectal pain. She reports a lifelong issue with constipation which has been getting progressively worse and require significant straining in order to pass stool. The straining will lead to significant rectal pain. Her current bowel pattern is a BM every 4-5 days which is laxative dependent. She will have to take up to 6 or 7 Ex-Lax in order to have a bowel movement. When she has the rectal pain she will also note bright red blood with wiping. She has had chronic low abdominal pain for 1 year which also seems to be getting worse. No fever or chills. No anorexia. She reports a weight gain of 40 pounds over the past 2 years. She is taking dicyclomine 10 mg twice daily for abdominal cramping which is helpful for that but not with the other abdominal pain. GERD symptoms remain well controlled with pantoprazole 40 mg daily. She does note issues with nausea when constipated and straining with bowel movements but no vomiting. No nausea otherwise. No significant gas or bloating. She has tried MiraLAX in the past along with stool softeners which have not been helpful. She has not been on prescription medication for her chronic constipation. She does report dark stools when constipated. No iron supplements. She has oropharyngeal dysphagia with soft foods and meat for 1 year. No esophageal dysphagia symptoms. Occasional regurgitation. She has not had any follow-up imaging given her history of the pancreatic cyst. She believes she had her follow-up colonoscopy in [place] as recommended by Dr. De Anda previously but does not recall those results. She does not recall if polyps were removed. No records are available for review today. She has been under a significant amount of stress since she saw Dr. De Anda in 2014. Since then she was diagnosed with early breast cancer and had a right breast lumpectomy. She declined mastectomy or any further treatment. She also suffered the of her 45-year-old daughter and her significant other in 2016. Family history: No known family history of colorectal cancer or colon polyps. PAST MEDICAL HISTORY: Lupus. History of microcytic anemia. Migraines. B12 deficiency. Osteoporosis. History of renal cyst. Status post hysterectomy and bilateral salpingo-oophorectomy for uterine cancer at age 27. Status post cholecystectomy. Status post appendectomy. History of rectal tubular adenoma in 2011, 2014. Hemorrhoidectomy 12/07/14. Colonoscopy with tubular adenoma 04/06/12. Repeat colonoscopy 07/2014 - poor prep, multiple adenomatous polyps removed. Vitamin D deficiency. 5mm pancreatic body cyst (EUS 07/26/14) ERCP with ES (biliary sludge noted on EUS) 08/29/14. Hepatic steatosis. Review of Systems Constitutional: Positive for fatigue and unexpected weight change. Negative for appetite change, chills, diaphoresis and fever. HENT: Positive for sore throat and trouble swallowing. Negative for mouth sores and voice change. Eyes: Positive for itching. Negative for pain and visual disturbance. Respiratory: Positive for cough, choking, chest tightness and shortness of breath. Cardiovascular: Positive for chest pain and leg swelling. Gastrointestinal: Positive for abdominal distention, abdominal pain, anal bleeding, blood in stool, constipation, nausea, rectal pain and vomiting. Negative for diarrhea. Endocrine: Positive for polydipsia and polyuria. Genitourinary: Positive for flank pain. Negative for pelvic pain. Musculoskeletal: Positive for back pain and neck pain. Negative for arthralgias. Skin: Positive for color change. Negative for rash. Allergic/Immunologic: Negative. Neurological: Positive for tremors, weakness and headaches. Negative for light- headedness. Hematological: Negative for adenopathy. Bruises/bleeds easily. Psychiatric/Behavioral: Positive for sleep disturbance. The patient is nervous/ anxious. All other systems reviewed and are negative. Objective: ALPRAZolam (XANAX) 0.5 mg tablet Take 1 mg by mouth daily as needed for Anxiety. butalbital/acetaminophen/caffeine(+) (FIORICET) 50/325/40 mg tablet Take 1 tablet by mouth every 4 hours as needed for Headache. cyanocobalamin (VITAMIN B-12, RUBRAMIN) 1,000 mcg/mL injection Inject 1,000 mcg to area(s) as directed every 7 days. dicyclomine (BENTYL) 10 mg capsule Take 1 Cap by mouth every 6-8 hours as needed. HYDROcodone-acetaminophen(+) (VICODIN) 10-325 mg tablet Take 1 tablet by mouth every 4 hours as needed LORazepam (ATIVAN) 1 mg tablet Take 1 mg by mouth every 4 hours as needed. pantoprazole DR (PROTONIX) 40 mg tablet Take 40 mg by mouth daily. prochlorperazine maleate (COMPAZINE) 10 mg tablet Take 10 mg by mouth every 6 hours as needed for Nausea or Vomiting. triamterene-hydrochlorothiazide (DYAZIDE) 37.5-25 mg capsule Take 1 Cap by mouth every morning. trospium ER(+) (SANCTURA XR) 60 mg capsule Take by mouth. verapamil SR (VERELAN) 240 mg C24P Take by mouth at bedtime daily. Vitals: 03/07/17 1440 BP: 98/65 Pulse: 87 Resp: 14 Temp: 36.4 C (97.6 F) TempSrc: Oral Weight: 73 kg (161 lb) Height: 162.6 cm (64.02") Body mass index is 27.62 kg/(m^2). Physical Exam Constitutional: She is oriented to person, place, and time. She appears well- developed and well-nourished. No distress. HENT: Head: Normocephalic and atraumatic. Mouth/Throat: Oropharynx is clear and moist. Eyes: Conjunctivae are normal. Pupils are equal, round, and reactive to light. Right eye exhibits no discharge. Left eye exhibits no discharge. No scleral icterus. Neck: Normal range of motion. Neck supple. No thyromegaly present. Cardiovascular: Normal rate, regular rhythm, normal heart sounds and intact distal pulses. Pulmonary/Chest: Effort normal and breath sounds normal. No respiratory distress. She has no wheezes. Abdominal: Soft. Bowel sounds are normal. She exhibits no distension and no mass. There is tenderness. There is no rebound and no guarding. soft, not distended, mild/generalized tenderness Genitourinary: Genitourinary Comments: Declined Musculoskeletal: Normal range of motion. She exhibits no edema. Lymphadenopathy: She has no cervical adenopathy. Neurological: She is alert and oriented to person, place, and time. Coordination normal. Skin: Skin is warm and dry. No rash noted. She is not diaphoretic. Psychiatric: She has a normal mood and affect. Her behavior is normal. Judgment and thought content normal. Vitals reviewed. Assessment and Plan: 1. Long history of constipation, worse over the past 1 year. Has failed MiraLAX and stool softeners in the past. She is currently laxative dependent and bowel movements require significant straining which results in subsequent significant rectal pain which may be related to hemorrhoids or anal fissure. She declined rectal exam today. No history of anal rectal manometry evaluation. No history of traumatic delivery. No fecal incontinence issues. 2. Oropharyngeal dysphagia. Issues for 1 year with soft foods and meat. No esophageal dysphagia symptoms. 3. GERD. Symptoms well controlled with pantoprazole 40 mg qd. 4. History of 5mm pancreatic body cyst. Found initially on imaging. EUS evaluation 07/2014. Has not had follow up imaging since then. 5. Chronic abdominal pain and cramping for > 1 year. Cramping well controlled with dicyclomine 10 mg bid for now. No fever, chills, weight loss. 6. History of adenomatous colon polyps, 03/2012 and 07/26/2014 (sub-optimal colon preparation). She states she had [place] provider (Dr. Do or Dr. Ott ) repeat colonoscopy since then - no results available for review today. 7. Small bowel bacterial overgrowth, + Hydrogen breath test 06/2014. Treated with Flagyl for 14 days with dramatic improvement of abdominal cramping, bloating, and gassiness. 8. Lupus. Plan: 1. For the constipation, will start her on Linzess 290 mcg samples, #20, given today. She is to take 1 tablet daily in the morning on an empty stomach, 1 hour before breakfast. Warned her of potential diarrhea. She is to call my nurse with a progress report in 2 weeks. If helpful, will send in a prescription. Can adjust dose down if needed for diarrhea. Will also order anorectal manometry to evaluate for pelvic floor dysfunction. 2. EGD, EUS, flex sig to evaluate current symptoms. She is to call the office for test results 1 week after procedures. Will plan follow up based on findings and the subsequent plan of care. 3. Will request colonoscopy results from [place] providers for our review. Can plan next colonoscopy based on those results and upcoming flex sig results. 4. Continue antireflux precautions and pantoprazole 40 mg daily, take 30 minutes before breakfast. Due to long-term PPI use addition of Calcium + D 600 mg twice a day and yearly serum magnesium level and routine bone density testing through PCP recommended. 5. She will continue dicyclomine prn. The plan of care was discussed with Dr. De Anda while patient in clinic. Patient and her brother were advised of the plan and voiced agreement and understanding. Total face to face time spent with patient: 40 minutes with >50% of that time spent counseling the patient on medications, prior study results related to symptoms, differential diagnosis, and options regarding the plan of care. Thank you for allowing me to see your patient in the office today. Please feel free to contact me if you have any questions or concerns. 03/23/17 - Reviewed ~30 pages of outside records from [facility] in [place], [place]: 11/2012 - hemorrhoidectomy by Dr. Do 04/2013 - EGD by Dr. Do - - reflux B-C esophagitis, no stricture - 2.5 cm hiatal hernia - mild gastritis - biopsies - GE junction - no intestinal metaplasia, antrum - negative for H. pylori 07/2015 - COLON by Dr. Do - - internal and external hemorrhoids - hyperplastic rectal polyp removed - 3 adenomatous polyps removed from splenic flexure 01/2016 - EGD by Dr. Do - - class B reflux esophagitis - 2.5 cm hiatal hernia - moderately severe gastritis - mild duodenitis - no esophageal stricture - biopsies - GE junction + for reflux esophagitis - NO intestinal metaplasia - Antrum - negative for H. pylori. in this encounter Plan of Treatment Not on fileas of this encounter Visit Diagnoses Diagnosis Other constipation - Primary Rectal pain Anal or rectal pain Pancreatic cyst Cyst and pseudocyst of pancreas Oropharyngeal dysphagia Dysphagia, oropharyngeal phase in this encounter
--- OUTSIDE RECORDS SUMMARY | 2017-05-03 15:49 | XMS REPORT | Encounter Summary ---
Author Author [facility] Organization [facility] Address Unknown Phone Unavailable Care Team Providers Care Vice President Industrial Relations Name Role Phone PCP Unavailable Reason for Visit * Reason Comments Follow-up Phone Call Encounter Details Date Type Department Care Team Description 01/31/2017 Telephone [facility] Ousmane De Anda MD Follow- up Phone Call Physicians - Internal [address] [facility] [place] [address] [place] [address] [place] [address] Social History Tobacco Use Types Packs/Day Years Used Date Current Every Day Smoker Cigarettes 0.5 50 Smokeless Tobacco: Never Used Alcohol Use Drinks/Week oz/Week Comments Yes 2 Cans of 1.2 beer Sex Assigned at Date Recorded Not on file as of this encounter Miscellaneous Notes * Addendum Note - Neetu Santos RN - 02/01/2017 9:42 AM CDT Addended by: NEETU SANTOS on: 02/01/2017 09:42 AM Modules accepted: Orders * Telephone Encounter - Neetu Santos RN - 02/01/2017 9:30 AM CDT Received outside oncology progress note 01/26/2017 as discussed during phone conversation yesterday with Sayra and medication list updated in chart for upcoming appointment with Janie Pa NP. Will have this note scanned into patient's chart. * Telephone Encounter - Ousmane De Anda MD - 01/31/2017 4:44 PM CDT Ok to set up to see Janie please * Telephone Encounter - Neetu Santos RN - 01/31/2017 4:25 PM CDT RUDDY Colbert [phone] at patient's [address] [facility] had phoned patient to discuss recent mammogram and mentioned to BIOCHEMISTRY TECHNICIAN "little" rectal bleeding "back there" and acid reflux asking if we can move patient's appointment sooner than already scheduled with Dr. De Anda in 04/2017. Sayra to fax current medication list since it has been sometime last seen. Sayra in agreement that OK to be seen by GI BIOCHEMISTRY TECHNICIAN if that helps get patient seen sooner than scheduled and does agree to come to [facility]. Will advise Dr. De Anda and will have scheduling call patient for Janie Pa NP appointment. in this encounter Plan of Treatment Not on fileas of this encounter Visit Diagnoses Not on filein this encounter
--- OUTSIDE RECORDS SUMMARY | 2017-05-03 15:54 | XMS REPORT | Continuity of Care Document ---
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+] 05/19/1411 LIZETH MAIER Ot Z79.899 OTHER NURSING HOME (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 THERAPY 02/04/2012 Ot 786.50 CHEST PAIN NOS 02/04/2012 Ot 786.52 PAINFUL RESPIRATION 04/07/2012 Ot 211.3 BENIGN NEOPLASM LG BOWEL 04/07/2012 Ot 211.4 BENIGN NEOPL RECTUM/ANUS 04/07/2012 Ot 276.8 HYPOPOTASSEMIA 04/07/2012 Ot 285.9 ANEMIA NOS 04/07/2012 Ot 305.1 TOBACCO USE DISORDER 04/07/2012 Ot 401.9 HYPERTENSION NOS 04/07/2012 Ot 530.81 ESOPHAGEAL REFLUX 04/07/2012 Ot 535.50 UNSP GASTRITIS GASTRODUODENITIS W/O ME 04/07/2012 Ot 553.3 DIAPHRAGMATIC HERNIA 04/07/2012 Ot 564.00 UNSPEC CONSTIPATION 04/07/2012 Ot 578.1 BLOOD IN STOOL 04/07/2012 Ot 710.0 SYST LUPUS ERYTHEMATOSIS 04/07/2012 Ot V10.41 HX-CERVICAL MALIGNANCY 04/07/2012 Ot V12.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 04/07/2012 Ot V13.02 PERSONAL HISTORY, URINARY (TRACT) INFECT 04/07/2012 Ot V45.77 ACQRD ABSENCE OF GENITAL ORGANS 07/23/2012 Ot 280.9 IRON DEFIC ANEMIA NOS 07/23/2012 Ot 530.81 ESOPHAGEAL REFLUX 07/23/2012 Ot 564.00 UNSPEC CONSTIPATION 07/23/2012 Ot 585.3 CHRONIC KIDNEY DISEASE, STAGE III (MODER 07/23/2012 Ot V13.02 PERSONAL HISTORY, URINARY (TRACT) INFECT 07/23/2012 Ot V58.69 OTH MED,LT,CURRENT USE 08/24/2012 Ot 682.9 CELLULITIS NOS 11/26/2012 Ot 280.9 IRON DEFIC ANEMIA NOS 11/26/2012 Ot 530.81 ESOPHAGEAL REFLUX 11/26/2012 Ot 564.00 UNSPEC CONSTIPATION 11/26/2012 Ot 585.3 CHRONIC KIDNEY DISEASE, STAGE III (MODER 11/26/2012 Ot V13.02 PERSONAL HISTORY, URINARY (TRACT) INFECT 11/26/2012 Ot V58.69 OTH MED,LT,CURRENT USE 12/07/2012 MADISON ESPINOSA MD Ot 401.9 HYPERTENSION NOS 12/07/2012 MADISON ESPINOSA MD Ot 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 12/07/2012 MADISON ESPINOSA MD Ot 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 12/07/2012 MADISON ESPINOSA MD Ot 455.0 INT HEMORRHOID W/O COMPL 12/07/2012 MADISON ESPINOSA MD Ot 455.3 EXT HEMORRHOID W/O COMPL 12/07/2012 MADISON ESPINOSA MD Ot 710.0 SYST LUPUS ERYTHEMATOSIS 12/07/2012 MADISON ESPINOSA MD Ot 791.9 ABN URINE FINDINGS NEC 12/07/2012 MADISON ESPINOSA MD Ot V58.69 OTH MED,LT,CURRENT USE 12/07/2012 MADISON ESPINOSA MD Ot V74.8 SCREEN-BACTERIAL DIS NEC 02/02/2013 PJ BECKMAN MD Ot 041.49 OTHER AND UNSPECIFIED ESCHERICHIA COLI [ 02/02/2013 PJ BECKMAN MD R Ot 275.2 DIS MAGNESIUM METABOLISM 02/02/2013 PJ BECKMAN MD Ot 276.1 HYPOSMOLALITY 02/02/2013 PJ BECKMAN MD R Ot 276.8 HYPOPOTASSEMIA 02/02/2013 PJ BECKMAN MD R Ot 282.7 HEMOGLOBINOPATHIES NEC 02/02/2013 PJ BECKMAN MD R Ot 300.00 ANXIETY STATE NOS 02/02/2013 PJ BECKMAN MD R Ot 305.1 TOBACCO USE DISORDER 02/02/2013 PJ BECKMAN MD R Ot 311 DEPRESSIVE DISORDER NEC 02/02/2013 PJ BECKMAN MD R Ot 401.9 HYPERTENSION NOS 02/02/2013 PJ BECKMAN MD R Ot 414.01 CORONARY ATHEROSCLEROSIS OF TORRES MARTINEZ CORON 02/02/2013 PJ BECKMAN MD R Ot 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 02/02/2013 PJ BECKMAN MD R Ot 599.0 URIN TRACT INFECTION NOS 02/02/2013 PJ BECKMAN MD R Ot 710.0 SYST LUPUS ERYTHEMATOSIS 02/02/2013 PJ BECKMAN MD R Ot 786.09 RESPIRATORY ABNORM NEC 02/02/2013 PJ BECKMAN MD R Ot 786.59 CHEST PAIN NEC 02/02/2013 PJ BECKMAN MD R Ot 790.5 ABN SERUM ENZY LEVEL NEC 08/31/2013 PJ BECKMAN MD R Ot 300.00 ANXIETY STATE NOS 08/31/2013 PJ BECKMAN MD R Ot 305.1 TOBACCO USE DISORDER 08/31/2013 PJ BECKMAN MD R Ot 401.9 HYPERTENSION NOS 08/31/2013 PJ BECKMAN MD R Ot 496 CHR AIRWAY OBSTRUCT NEC 08/31/2013 PJ BECKMAN MD R Ot 590.80 PYELONEPHRITIS NOS 08/31/2013 PJ BECKMAN MD R Ot 710.0 SYST LUPUS ERYTHEMATOSIS 01/18/2014 LAMONT WILCOX, MIGUEL P Ot 355.6 PLANTAR NERVE LESION 01/18/2014 LAMONT WILCOX, MIGUEL P Ot 733.99 BONE CARTILAGE DIS NEC 05/27/2014 PJ BECKMAN MD R Ot 787.91 DIARRHEA 05/27/2014 PJ BECKMAN MD R Ot 789.00 ABDOMINAL PAIN, UNSPECIFIED SITE 12/06/2014 PJ BECKMAN MD R Ot 285.9 12/06/2014 PJ BECKMAN MD R Ot 611.72 12/06/2014 SEGLIE MD, PJ R Ot 780.79 12/10/2014 KARUNA BEST, PJ R Ot 285.9 12/10/2014 KARUNA BEST, PJ R Ot 611.72 12/10/2014 KARUNA BEST, PJ R Ot 780.79 12/19/2014 QUINCY JAKE LOCKETT Ot 174.9 MALIGN NEOPL BREAST NOS 12/21/2014 JASON WELCH CLINICAL INFORMATICS EDUCATOR Ot 174.9 MALIGN NEOPL BREAST NOS 12/21/2014 JASON WELCH CLINICAL INFORMATICS EDUCATOR Ot 338.18 OTHER ACUTE POSTOPERATIVE PAIN 12/21/2014 JASON WELCH CLINICAL INFORMATICS EDUCATOR Ot 611.72 LUMP OR MASS IN BREAST 12/21/2014 JASON WELCH CLINICAL INFORMATICS EDUCATOR Ot 787.02 NAUSEA ALONE 2014 KARUNA BEST, PJ R Ot 611.72 12/26/2014 KARUNA BEST, PJ R Ot 611.72 12/31/[facility] V72.84 12/31/[facility] 174.9 12/31/2014 [facility] V72.84 01/07/2015 DARRION, BOBAN N Ot 174.9 01/07/2015 DARRION, BOBAN N Ot 174.9 01/07/2015 DARRION, BOBAN N Ot 280.9 01/07/2015 DARRION, BOBAN N Ot 585.3 01/07/2015 DARRION, BOBAN N Ot V58.69 01/07/2015 DARRION, BOBAN N Ot V86.0 01/09/2015 DARRION, BOBAN N Ot 174.9 01/09/2015 DARRION, BOBAN N Ot 174.9 01/09/2015 DARRION, BOBAN N Ot 280.9 01/09/2015 DARRION, BOBAN N Ot 585.3 01/09/2015 DARRION, BOBAN N Ot V58.69 01/09/2015 DARRION, BOBAN N Ot V86.0 01/17/2015 KARUNA BEST, PJ R Ot 611.72 01/17/2015 KARUNA BEST, PJ R Ot 174.9 01/17/2015 KARUNA BEST, PJ R Ot 285.9 01/17/2015 KARUNA BEST, PJ R Ot 780.79 01/17/2015 DARRION, LIZETH N Ot 174.9 01/17/2015 DARRIONLIZETH N Ot 174.9 01/17/2015 DARRION, LIZETH N Ot 280.9 01/17/2015 DARRION, LIZETH N Ot 585.3 01/17/2015 DARRIONLIZETH N Ot V58.69 01/17/2015 DARRIONLIZETH FIGUEROA N Ot V86.0 01/17/2015 QUINCY JAKE LOCKETT D Ot 174.9 01/17/2015 QUINCY JAKE LOCKETT D Ot V72.84 01/22/2015 KARUNA BEST, PJ R Ot 174.9 01/22/2015 KARUNA BEST, PJ R Ot 285.9 01/22/2015 KARUNA BEST, PJ R Ot 780.79 01/23/2015 KARUNA BEST, PJ R Ot 174.9 01/23/2015 KARUNA BEST, PJ R Ot 285.9 01/23/2015 KARUNA BEST, PJ R Ot 780.79 02/12/2015 QUINCY MARITA LOCKETTTT D Ot 174.9 02/12/2015 [facility] Ot V72.84 02/12/2015 [facility] D Ot 174.9 02/12/2015 [facility] JAKE D Ot V72.84 02/13/2015 QUINCY JAKE LOCKETT D Ot 174.9 MALIGN NEOPL BREAST NOS 02/14/2015 [facility] Ot 174.9 02/14/2015 QUINCY JAKE LOCKETT D Ot V72.63 02/14/2015 [facility] Ot V74.8 03/04/2015 [facility] JAKE D Ot 174.9 03/04/2015 [facility] D Ot V72.63 03/04/2015 [facility] Ot V74.8 03/19/2015 LIZETH MAIER N Ot 174.9 MALIGN NEOPL BREAST NOS 03/19/2015 DARRIONLIZETH FIGUEROA N Ot 280.9 IRON DEFIC ANEMIA NOS 03/19/2015 LIZETH MAIER Ot V58.69 OT MED,LT,CURRENT USE 04/03/2015 LIZETH MAIER N Ot 174.9 04/03/2015 LIZETH MAIER N Ot 280.9 04/03/2015 LIZETH MAIER Ot V58.69 04/29/2015 LIZETH MAIER N Ot M81.8 05/12/2015 LIZETH MAIER N Ot M81.8 06/05/2015 LIZETH MAIER N Ot 174.9 06/05/2015 LIZETH MAIER N Ot 280.9 06/05/2015 LIZETH MAIER N Ot V58.69 07/04/2015 LIZETH MAIER N Ot C50.919 07/04/2015 LIZETH MAIER N Ot D50.9 07/04/2015 LIZETH MAIER Ot Z79.899 07/09/2015 LIZETH MAIER Ot C50.919 MALIGNANT NEOPLASM OF [facility] SITE OF [facility] 07/09/2015 LIZETH MAIER Ot D50.9 IRON DEFICIENCY ANEMIA, UNSPECIFIED 07/09/2015 LIZETH MAIER Ot Z79.899 OTHER NURSING HOME (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 THERAPY 07/09/2015 LIZETH MAIER N Ot C50.919 07/09/2015 LIZETH MAIER N Ot D50.9 07/09/2015 LIZETH MAIER N Ot Z79.899 07/15/2015 Ot 593.2 07/15/2015 Ot 599.0 07/15/2015 Ot 788.21 07/15/2015 Ot 788.62 07/15/2015 Ot 780.79 07/15/2015 Ot 786.50 07/15/2015 Ot V58.69 07/15/2015 Ot 733.90 07/15/2015 Ot 599.0 07/15/2015 KARUNA BEST, PJ R Ot 780.79 07/15/2015 KARUNA BEST, PJ R Ot 782.7 07/15/2015 Ot 682.9 07/15/2015 Ot 599.0 07/15/2015 JESÚS BEST, MADISON Ot V72.84 07/15/2015 Ot 280.9 07/15/2015 Ot 530.81 07/15/2015 Ot 564.00 07/15/2015 Ot 585.3 07/15/2015 Ot V13.02 07/15/2015 Ot V58.69 07/15/2015 KARUNA BEST, PJ R Ot 443.9 07/15/2015 TRISTAN BEST, OTIS Nicholson Ot 276.1 07/15/2015 TRISTAN BEST, OTIS Nicholson Ot 276.8 07/15/2015 MORELMARISOL Hatfield SOCIAL MEDIA DESIGNER Ot 280.9 07/15/2015 MORELMARISOL Hatfield S SOCIAL MEDIA DESIGNER Ot 305.1 07/15/2015 MORELMARISOL Hatfield S SOCIAL MEDIA DESIGNER Ot 530.81 07/15/2015 MORELMARISOL Hatfield S SOCIAL MEDIA DESIGNER Ot 564.00 07/15/2015 MORELMARISOL Hatfield S SOCIAL MEDIA DESIGNER Ot 585.3 07/15/2015 MORELMARISOL Hatfield S SOCIAL MEDIA DESIGNER Ot V58.69 07/15/2015 KARUNA BEST, PJ R Ot 440.20 07/15/2015 KARUNA BEST, PJ R Ot 729.5 07/15/2015 JESÚS BEST, MADISON Ot 530.11 07/15/2015 JESÚS BEST, CAITLYNAAKI Ot 535.40 07/15/2015 JESÚS BEST, TAKAAKI Ot 553.3 07/15/2015 JESÚS BEST, TAKAAKI Ot V72.84 07/15/2015 KARUNA BEST, PJ R Ot 784.0 07/15/2015 DARRIONLIZETH N Ot 280.9 07/15/2015 DARRION LIZETH N Ot 564.00 07/15/2015 DARRION BOBAN N Ot 585.3 07/15/2015 DARRIONLIZETH N Ot V58.69 07/15/2015 MIGULE DPM, MIGUEL P Ot 726.91 07/15/2015 MIGUEL DPM, MIGUEL P Ot V72.63 07/15/2015 MIGUEL DPM, MIGUEL P Ot V74.8 07/15/2015 KARUNA BEST, PJ R Ot 729.5 07/15/2015 JOSEPH BEST, WING Stiles Ot 595.2 07/15/2015 KARUNA BEST, PJ R Ot 787.91 07/15/2015 KARUNA BEST, PJ R Ot 789.00 07/15/2015 KARUNA BEST, PJ R Ot 611.72 07/15/2015 KARUNA BEST, PJ R Ot 174.9 07/15/2015 KARUNA BEST, PJ R Ot 285.9 07/15/2015 KARUNA BEST, PJ R Ot 780.79 07/15/2015 DARRIONLIZETH FIGUEROA N Ot 174.9 07/15/2015 DARRION, BOBLAURA N Ot 174.9 07/15/2015 DARRIONLIZETH FIGUEROA N Ot 280.9 07/15/2015 DARRIONLIZETH FIGUEROA N Ot 585.3 07/15/2015 DARRIONLIZETH FIGUEROA N Ot V58.69 07/15/2015 DARRIONLIZETH FIGUEROA N Ot V86.0 07/15/2015 QUINCY DO, JAKE D Ot 174.9 07/15/2015 QUINCY DO, JAKE D Ot V72.84 07/15/2015 QUINCY DO, AJKE D Ot 174.9 07/15/2015 QUINCY DO, JAKE D Ot V72.63 07/15/2015 [facility], JAKE D Ot V74.8 07/15/2015 LIZETH MAIER N Ot M81.8 07/15/2015 MARISOL MOREL SOCIAL MEDIA DESIGNER Ot C50.511 07/15/2015 MARISOL MOREL SOCIAL MEDIA DESIGNER Ot D50.9 07/15/2015 MARISOL MOREL SOCIAL MEDIA DESIGNER Ot M85.80 07/15/2015 MARISOL MOREL SOCIAL MEDIA DESIGNER Ot R26.89 07/15/2015 MARISOL MOREL SOCIAL MEDIA DESIGNER Ot R42 07/15/2015 MARISOL MOREL SOCIAL MEDIA DESIGNER Ot R51 07/15/2015 MARISOL MORELP Ot Z17.0 07/15/2015 MARISOL MOREL SOCIAL MEDIA DESIGNER Ot Z79.899 07/15/2015 LIZETH MAIER N Ot C50.919 07/15/2015 DARRIONLIZETH FIGUEROA N Ot D50.9 07/15/2015 LIZETH MAIER N Ot Z79.899 07/21/2015 MARISOL MOREL SOCIAL MEDIA DESIGNER Ot H57.11 07/21/2015 MARISOL MOREL SOCIAL MEDIA DESIGNER Ot N63 07/21/2015 MARISOL MOREL SOCIAL MEDIA DESIGNER Ot R26.81 07/23/2015 KARUNA BEST, PJ R Ot 611.72 07/23/2015 KARUNA BEST, PJ R Ot 174.9 07/23/2015 KARUNA BEST, PJ R Ot 285.9 07/23/2015 KARUNA BEST, PJ R Ot 780.79 07/23/2015 DARRIONLIZETH FIGUEROA N Ot 174.9 07/23/2015 DARRION, BOBAN N Ot 174.9 07/23/2015 DARRIONLIZETH FIGUEROA N Ot 280.9 07/23/2015 DARRIONLIZETH FIGUEROA N Ot 585.3 07/23/2015 DARRIONLIZETH FIGUEROA N Ot V58.69 07/23/2015 DARRIONLIZETH FIGUEROA N Ot V86.0 07/23/2015 QUINCY DO, JAKE D Ot 174.9 07/23/2015 QUINCY DO, JAKE D Ot V72.84 07/23/2015 QUINCY DO, JAKE D Ot 174.9 07/23/2015 QUINCY DO, JAKE D Ot V72.63 07/23/2015 QUINCY DO, JAKE D Ot V74.8 07/23/2015 LIZETH MAIER N Ot M81.8 07/23/2015 MARISOL MOREL S SOCIAL MEDIA DESIGNER Ot C50.511 07/23/2015 MARISOL MOREL S SOCIAL MEDIA DESIGNER Ot D50.9 07/23/2015 MARISOL MOREL S SOCIAL MEDIA DESIGNER Ot M85.80 07/23/2015 MARISOL MOREL S SOCIAL MEDIA DESIGNER Ot R26.89 07/23/2015 MARISOL MOREL S SOCIAL MEDIA DESIGNER Ot R42 07/23/2015 MARISOL MOREL S SOCIAL MEDIA DESIGNER Ot R51 07/23/2015 MARISOL MOREL S SOCIAL MEDIA DESIGNER Ot Z17.0 07/23/2015 MARISOL MOREL S SOCIAL MEDIA DESIGNER Ot Z79.899 07/23/2015 MARISOL MOREL S SOCIAL MEDIA DESIGNER Ot H57.11 07/23/2015 MARISOL MOREL S SOCIAL MEDIA DESIGNER Ot N63 07/23/2015 MARISOL MOREL S SOCIAL MEDIA DESIGNER Ot R26.81 07/23/2015 LIZETH MAIER N Ot C50.919 07/23/2015 DARRIONLIZETH FIGEUROA N Ot D50.9 07/23/2015 DARRIONLIZETH FIGUEROA N Ot Z79.899 07/23/2015 JESÚS BEST, MADISON Ot Z01.818 07/23/2015 MADISON ESPINOSA MD Ot K63.5 POLYP OF COLON 07/23/2015 MADISON ESPINOSA MD Ot K64.1 SECOND DEGREE HEMORRHOIDS 07/23/2015 MADISON ESPINOSA MD Ot Z09 ENCNTR FOR F/U EXAM AFT TRTMT FOR COND O 07/23/2015 ADRIEL MARISOL Hatfield SOCIAL MEDIA DESIGNER Ot H57.11 07/23/2015 MELVINA MORELMICHAEL S SOCIAL MEDIA DESIGNER Ot N63 07/23/2015 ADRIEL MARISOL S SOCIAL MEDIA DESIGNER Ot R26.81 07/28/2015 ADRIEL MARISOL S SOCIAL MEDIA DESIGNER Ot C50.511 07/28/2015 ADRIEL MARISOL S SOCIAL MEDIA DESIGNER Ot D50.9 07/28/2015 ADRIEL MARISOL S SOCIAL MEDIA DESIGNER Ot M85.80 07/28/2015 ADRIEL MARISOL S SOCIAL MEDIA DESIGNER Ot R26.89 07/28/2015 ADRIEL MARISOL S SOCIAL MEDIA DESIGNER Ot R42 07/28/2015 ADRIEL MARISOL S SOCIAL MEDIA DESIGNER Ot R51 07/28/2015 ADRIEL MARISOL S SOCIAL MEDIA DESIGNER Ot Z17.0 07/28/2015 ADRIEL MARISOL S SOCIAL MEDIA DESIGNER Ot Z79.899 07/31/2015 ADRIEL MARISOL S SOCIAL MEDIA DESIGNER Ot C50.511 07/31/2015 ADRIEL MARISOL S SOCIAL MEDIA DESIGNER Ot D50.9 07/31/2015 ADRIEL MARISOL S SOCIAL MEDIA DESIGNER Ot M85.80 07/31/2015 ADRIEL MARISOL S SOCIAL MEDIA DESIGNER Ot R26.89 07/31/2015 ADRIEL MARISOL S SOCIAL MEDIA DESIGNER Ot R42 07/31/2015 ADRIEL MARISOL S SOCIAL MEDIA DESIGNER Ot R51 07/31/2015 ADRIEL MARISOL S SOCIAL MEDIA DESIGNER Ot Z17.0 07/31/2015 ADRIEL MARISOL S SOCIAL MEDIA DESIGNER Ot Z79.899 08/05/2015 ADRIEL MARISOL S SOCIAL MEDIA DESIGNER Ot H57.11 08/05/2015 ADRIEL MARISOL S SOCIAL MEDIA DESIGNER Ot N63 08/05/2015 ADRIEL MARISOL S SOCIAL MEDIA DESIGNER Ot R26.81 08/06/2015 ADRIEL MARISOL S SOCIAL MEDIA DESIGNER Ot H57.11 08/06/2015 MELVINA MORELMICHAEL S SOCIAL MEDIA DESIGNER Ot N63 08/06/2015 ADRIEL MARISOL S SOCIAL MEDIA DESIGNER Ot R26.81 08/11/2015 MARISOL MOREL SOCIAL MEDIA DESIGNER Ot H57.11 08/11/2015 MARISOL MOREL SOCIAL MEDIA DESIGNER Ot N63 08/11/2015 MARISOL MOREL SOCIAL MEDIA DESIGNER Ot R26.81 08/14/2015 MARISOL MOREL SOCIAL MEDIA DESIGNER Ot H57.11 08/14/2015 MARISOL MOREL SOCIAL MEDIA DESIGNER Ot N63 08/14/2015 MARISOL MOREL SOCIAL MEDIA DESIGNER Ot R26.81 08/14/2015 MARISOL MOREL SOCIAL MEDIA DESIGNER Ot H57.11 08/14/2015 MARISOL MOREL SOCIAL MEDIA DESIGNER Ot N63 08/14/2015 MARISOL MOREL SOCIAL MEDIA DESIGNER Ot R26.81 08/27/2015 Ot 593.2 08/27/2015 Ot 599.0 08/27/2015 Ot 788.21 08/27/2015 Ot 788.62 08/27/2015 Ot 780.79 08/27/2015 Ot 786.50 08/27/2015 Ot V58.69 08/27/2015 Ot 733.90 08/27/2015 Ot 599.0 08/27/2015 KARUNA BEST, PJ R Ot 780.79 08/27/2015 KARUNA BEST, PJ R Ot 782.7 08/27/2015 Ot 682.9 08/27/2015 Ot 599.0 08/27/2015 JESÚS BEST, MADISON Ot V72.84 08/27/2015 Ot 280.9 08/27/2015 Ot 530.81 08/27/2015 Ot 564.00 08/27/2015 Ot 585.3 08/27/2015 Ot V13.02 08/27/2015 Ot V58.69 08/27/2015 KARUNA BEST, PJ R Ot 443.9 08/27/2015 TRISTAN BEST, OTIS Nicholson Ot 276.1 08/27/2015 TRISTAN BEST, OTIS Nicholson Ot 276.8 08/27/2015 MARISOL MOREL SOCIAL MEDIA DESIGNER Ot 280.9 08/27/2015 MARISOL MOREL SOCIAL MEDIA DESIGNER Ot 305.1 08/27/2015 MARISOL MOREL SOCIAL MEDIA DESIGNER Ot 530.81 08/27/2015 MARISOL MOREL SOCIAL MEDIA DESIGNER Ot 564.00 08/27/2015 MARISOL MOREL SOCIAL MEDIA DESIGNER Ot 585.3 08/27/2015 MELVINA MORELMICHAEL Alysia SOCIAL MEDIA DESIGNER Ot V58.69 08/27/2015 KARUNA BEST, PJ R Ot 440.20 08/27/2015 KARUNA BEST, PJ R Ot 729.5 08/27/2015 JESÚS BEST, MADISON Ot 530.11 08/27/2015 JESÚS BEST, MADISON Ot 535.40 08/27/2015 JESÚS BEST, MADISON Ot 553.3 08/27/2015 JESÚS BEST, MADISON Ot V72.84 08/27/2015 KARUNA BEST, PJ R Ot 784.0 08/27/2015 DARRION, BOBAN N Ot 280.9 08/27/2015 DARRION, BOBAN N Ot 564.00 08/27/2015 DARRION, BOBAN N Ot 585.3 08/27/2015 DARRION, BOBAN N Ot V58.69 08/27/2015 MIGUEL DPM, MIGUEL P Ot 726.91 08/27/2015 MIGUEL DPM, MIGUEL P Ot V72.63 08/27/2015 MIGUEL DPM, MIGUEL P Ot V74.8 08/27/2015 KARUNA BEST, PJ R Ot 729.5 08/27/2015 JOSEPH BEST, WING Stiles Ot 595.2 08/27/2015 KARUNA BEST, PJ R Ot 787.91 08/27/2015 KARUNA BEST, PJ R Ot 789.00 08/27/2015 KARUNA BEST, PJ R Ot 611.72 08/27/2015 KARUNA BEST, PJ R Ot 174.9 08/27/2015 KARUNA BEST, PJ R Ot 285.9 08/27/2015 KARUNA BEST, PJ R Ot 780.79 08/27/2015 DARRION, BOBAN N Ot 174.9 08/27/2015 DARRION, BOBAN N Ot 174.9 08/27/2015 DARRION, BOBAN N Ot 280.9 08/27/2015 DARRION, BOBAN N Ot 585.3 08/27/2015 DARRION, BOBAN N Ot V58.69 08/27/2015 DARRION, BOBAN N Ot V86.0 08/27/2015 JAKE THOMAS DO D Ot 174.9 08/27/2015 QUINCY DO, JAKE D Ot V72.84 08/27/2015 QUINCY , JAKE D Ot 174.9 08/27/2015 QUINCY DO, JAKE D Ot V72.63 08/27/2015 [facility] V74.8 08/27/2015 LIZETH MAIER Lata Ot M81.8 08/27/2015 ADRIELMARISOL S SOCIAL MEDIA DESIGNER Ot C50.511 08/27/2015 MORELMARISOL S SOCIAL MEDIA DESIGNER Ot D50.9 08/27/2015 MORELMARISOL S SOCIAL MEDIA DESIGNER Ot M85.80 08/27/2015 MOREL MARISOL S SOCIAL MEDIA DESIGNER Ot R26.89 08/27/2015 MORELMARISOL S SOCIAL MEDIA DESIGNER Ot R42 08/27/2015 MORELMARISOL S SOCIAL MEDIA DESIGNER Ot R51 08/27/2015 MOREL MARISOL S SOCIAL MEDIA DESIGNER Ot Z17.0 08/27/2015 MOREL MARISOL S SOCIAL MEDIA DESIGNER Ot Z79.899 08/27/2015 MORELMARISOL S SOCIAL MEDIA DESIGNER Ot H57.11 08/27/2015 MORELMARISOL S SOCIAL MEDIA DESIGNER Ot N63 08/27/2015 MORELMARISOL S SOCIAL MEDIA DESIGNER Ot R26.81 08/27/2015 MORELMARISOL S SOCIAL MEDIA DESIGNER Ot H57.11 08/27/2015 MORELMARISOL S SOCIAL MEDIA DESIGNER Ot N63 08/27/2015 MOREL MARISOL S SOCIAL MEDIA DESIGNER Ot R26.81 08/27/2015 LIZETH MAIER Lata Ot C50.919 08/27/2015 LIZETH MAIER N Ot D50.9 08/27/2015 LIZETH MAIER N Ot Z79.899 08/27/2015 MADISON ESPINOSA MD Ot Z01.818 08/27/2015 JASON WELCH APRN Ot M43.12 SPONDYLOLISTHESIS, CERVICAL REGION 08/27/2015 JASON WELCH APRN Ot M47.812 SPONDYLOSIS W/O MYELOPATHY OR RADICULOPA 08/27/2015 JASON WELCH APRN Ot S00.11XA CONTUSION OF RIGHT EYELID AND PERIOCULAR 08/27/2015 WELCH, PETER J CLINICAL INFORMATICS EDUCATOR Ot S60.222A CONTUSION OF LEFT HAND, INITIAL ENCOUNTE 08/27/2015 JASON WELCH CLINICAL INFORMATICS EDUCATOR Ot W01.0XXA FALL SAME LEV FROM SLIP/TRIP W/O STRIKE 08/27/2015 JASON WELCH APRN Ot Y92.39 OTH SPORTS AND ATHLETIC AREA PLACE 08/27/2015 JASON WELCH APRN Ot Y93.54 ACTIVITY, BOWLING 08/27/2015 JASON WELCH CLINICAL INFORMATICS EDUCATOR Ot Y99.8 OTHER EXTERNAL CAUSE STATUS 08/28/2015 JASON WELCH CLINICAL INFORMATICS EDUCATOR Ot M43.12 08/28/2015 JASON WELCH CLINICAL INFORMATICS EDUCATOR Ot M47.812 08/28/2015 JASON WELCH CLINICAL INFORMATICS EDUCATOR Ot S00.11XA 08/28/2015 JASON WELCH APRN Ot S60.222A 08/28/2015 JASON WELCH APRN Ot W01.0XXA 08/28/2015 JASON WELCH APRN Ot Y92.39 08/28/2015 JASON WELCH CLINICAL INFORMATICS EDUCATOR Ot Y93.54 08/28/2015 JASON WELCH CLINICAL INFORMATICS EDUCATOR Ot Y99.8 11/27/2015 MARISOL MORELP Ot 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 11/27/2015 MARISOL MOREL Ot D50.9 IRON DEFICIENCY ANEMIA, UNSPECIFIED 11/27/2015 MARISOL MOREL Ot M85.80 OTH DISRD OF BONE DENSITY AND STRUCTURE , 11/27/2015 MARISOL MOREL Ot 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+] 11/27/2015 MARISOL MORELP Ot Z79.899 OTHER NURSING HOME (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 THERAPY 11/28/2015 MARISOL MORELP Ot 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 11/28/2015 MARISOL MOREL Ot D50.9 IRON DEFICIENCY ANEMIA, UNSPECIFIED 11/28/2015 MARISOL MOREL Ot M85.80 OTH DISRD OF BONE DENSITY AND STRUCTURE , 11/28/2015 MARISOL MOREL Ot 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+] 11/28/2015 MARISOL MOREL SOCIAL MEDIA DESIGNER Ot 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 01/20/2016 LIZETH MAIER Ot C50.919 MALIGNANT NEOPLASM OF UNSP SITE OF UNSPE 01/20/2016 LIZETH MAIER Ot D50.9 IRON DEFICIENCY ANEMIA, UNSPECIFIED 01/20/2016 LIZETH MAIER Ot Z79.899 OTHER NURSING HOME (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 THERAPY 01/20/2016 Ot 593.2 CYST OF KIDNEY, ACQUIRED 01/20/2016 Ot 599.0 URIN TRACT INFECTION NOS 01/20/2016 Ot 788.21 INCOMPLETE BLADDER EMPTYING 01/20/2016 Ot 788.62 SLOWING OF URINARY STREAM 01/20/2016 Ot 780.79 OTH MALAISE FATIGUE 01/20/2016 Ot 786.50 CHEST PAIN NOS 01/20/2016 Ot V58.69 OTH MED,LT,CURRENT USE 01/20/2016 Ot 733.90 BONE CARTILAGE DIS NOS 01/20/2016 Ot 599.0 URIN TRACT INFECTION NOS 01/20/2016 KARUNA BEST, PJ Kathleen Ot 780.79 OTH MALAISE FATIGUE 01/20/2016 KARUNA BEST, PJ Kathleen Ot 782.7 SPONTANEOUS ECCHYMOSES 01/20/2016 Ot 682.9 CELLULITIS NOS 01/20/2016 Ot 599.0 URIN TRACT INFECTION NOS 01/20/2016 JESÚS BEST, MADISON Ot V72.84 EXAM PRE-OPERATIVE NOS 01/20/2016 Ot 280.9 IRON DEFIC ANEMIA NOS 01/20/2016 Ot 530.81 ESOPHAGEAL REFLUX 01/20/2016 Ot 564.00 UNSPEC CONSTIPATION 01/20/2016 Ot 585.3 CHRONIC KIDNEY DISEASE, STAGE III (MODER 01/20/2016 Ot V13.02 PERSONAL HISTORY, URINARY (TRACT) INFECT 01/20/2016 Ot V58.69 OTH MED,LT,CURRENT USE 01/20/2016 KARUNA BEST, PJ Kathleen Ot 443.9 PERIPH VASCULAR DIS NOS 01/20/2016 TRISTAN BEST, OTIS Nicholson Ot 276.1 HYPOSMOLALITY 01/20/2016 OTIS HUDSON MD Ot 276.8 HYPOPOTASSEMIA 01/20/2016 MARISOL MORELP Ot 280.9 IRON DEFIC ANEMIA NOS 01/20/2016 MORELMARISOL Hatfield SOCIAL MEDIA DESIGNER Ot 305.1 TOBACCO USE DISORDER 01/20/2016 MORELMARISOL Hatfield SOCIAL MEDIA DESIGNER Ot 530.81 ESOPHAGEAL REFLUX 01/20/2016 MORELMARISOL Hatfield SOCIAL MEDIA DESIGNER Ot 564.00 UNSPEC CONSTIPATION 01/20/2016 MORELMARISOL Hatfield SOCIAL MEDIA DESIGNER Ot 585.3 CHRONIC KIDNEY DISEASE, STAGE III ( MODER 01/20/2016 MARISOL MOREL SOCIAL MEDIA DESIGNER Ot V58.69 OTH MED,LT,CURRENT USE 01/20/2016 PJ BECKMAN MD Ot 440.20 ATHEROSCLEROSIS TORRES MARTINEZ ARTERIES EXTREMIT 01/20/2016 PJ BECKMAN MD Ot 729.5 PAIN IN LIMB 01/20/2016 MADISON ESPINOSA MD Ot 530.11 REFLUX ESOPHAGITIS 01/20/2016 MADISON ESPINOSA MD Ot 535.40 OTH SPECIFIED GASTRITIS,W/O MENTION OF H 01/20/2016 MADISON ESPINOSA MD Ot 553.3 DIAPHRAGMATIC HERNIA 01/20/2016 MADISON ESPINOSA MD Ot V72.84 EXAM PRE-OPERATIVE NOS 01/20/2016 PJ BECKMAN MD R Ot 784.0 HEADACHE 01/20/2016 LIZETH MAIER Ot 280.9 IRON DEFIC ANEMIA NOS 01/20/2016 LIZETH MAIER Ot 564.00 UNSPEC CONSTIPATION 01/20/2016 LIZETH MAIER Ot 585.3 CHRONIC KIDNEY DISEASE, STAGE III (MODER 01/20/2016 LIZETH MAIER Ot V58.69 OTH MED,LT,CURRENT USE 01/20/2016 MIGUEL MIGUEL DPM Ot 726.91 EXOSTOSIS, SITE NOS 01/20/2016 LAMONT WILCOX, MIGUEL Morales Ot V72.63 PRE-PROCEDURAL LABORATORY EXAMINATION 01/20/2016 MIGUEL MIGUEL DPM P Ot V74.8 SCREEN-BACTERIAL DIS NEC 01/20/2016 PJ BECKMAN MD R Ot 729.5 PAIN IN LIMB 01/20/2016 JOSEPH BEST, WING Stiles Ot 595.2 CHRONIC CYSTITIS NEC 01/20/2016 PJ BECKMAN MD Ot 787.91 DIARRHEA 01/20/2016 PJ BECKMAN MD Ot 789.00 ABDOMINAL PAIN, UNSPECIFIED SITE 01/20/2016 PJ BECKMAN MD Ot 611.72 LUMP OR MASS IN BREAST 01/20/2016 KARUNA BEST, PJ R Ot 174.9 MALIGN NEOPL BREAST NOS 01/20/2016 KARUNA BEST, PJ R Ot 285.9 ANEMIA NOS 01/20/2016 KARUNA BEST, PJ R Ot 780.79 OTH MALAISE FATIGUE 01/20/2016 DARRIONLIZETH Ot 174.9 MALIGN NEOPL BREAST NOS 01/20/2016 DARRIONLIZETH N Ot 174.9 MALIGN NEOPL BREAST NOS 01/20/2016 DARRIONLIZETH N Ot 280.9 IRON DEFIC ANEMIA NOS 01/20/2016 DARRIONLIZETH N Ot 585.3 CHRONIC KIDNEY DISEASE, STAGE III (MODER 01/20/2016 DARRIONLIZETH Ot V58.69 OTH MED,LT,CURRENT USE 01/20/2016 DARRIONLIZETH Ot V86.0 ESTROGEN RECEPTOR POSITIVE STATUS [ER+] 01/20/2016 JAKE THOMAS DO Ot 174.9 MALIGN NEOPL BREAST NOS 01/20/2016 JAKE THOMAS DO Ot V72.84 EXAM PRE-OPERATIVE NOS 01/20/2016 JAKE THOMAS DO Ot 174.9 MALIGN NEOPL BREAST NOS 01/20/2016 JAKE THOMAS DO Ot V72.63 PRE-PROCEDURAL LABORATORY EXAMINATION 01/20/2016 JAKE THOMAS DO Ot V74.8 SCREEN-BACTERIAL DIS NEC 01/20/2016 LIZETH MAIER Ot M81.8 OTHER OSTEOPOROSIS WITHOUT CURRENT PATHO 01/20/2016 MARISOL MOREL Ot 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 01/20/2016 MARISOL MOREL Ot D50.9 IRON DEFICIENCY ANEMIA, UNSPECIFIED 01/20/2016 MARISOL MOREL Ot M85.80 OTH DISRD OF BONE DENSITY AND STRUCTURE , 01/20/2016 MARISOL MOREL Ot R26.89 OTHER ABNORMALITIES OF GAIT AND MOBILITY 01/20/2016 MARISOL MOREL Ot R42 DIZZINESS AND GIDDINESS 01/20/2016 MARISOL MOREL Ot R51 HEADACHE 01/20/2016 MOREL, HILAH S SOCIAL MEDIA DESIGNER Ot 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+] 01/20/2016 MARISOL MOREL SOCIAL MEDIA DESIGNER Ot 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 01/20/2016 MARISOL MOREL SOCIAL MEDIA DESIGNER Ot H57.11 OCULAR PAIN, RIGHT EYE 01/20/2016 MARISOL MOREL SOCIAL MEDIA DESIGNER Ot N63 UNSPECIFIED LUMP IN BREAST 01/20/2016 MARISOL MOREL SOCIAL MEDIA DESIGNER Ot R26.81 UNSTEADINESS ON FEET 01/20/2016 MARISOL MOREL SOCIAL MEDIA DESIGNER Ot H57.11 OCULAR PAIN, RIGHT EYE 01/20/2016 MARISOL MOREL SOCIAL MEDIA DESIGNER Ot N63 UNSPECIFIED LUMP IN BREAST 01/20/2016 MARISOL MOREL SOCIAL MEDIA DESIGNER Ot R26.81 UNSTEADINESS ON FEET 01/20/2016 LIZETH MAIER Ot C50.919 MALIGNANT NEOPLASM OF UNSP SITE OF UNSPE 01/20/2016 LIZETH MAIER Ot D50.9 IRON DEFICIENCY ANEMIA, UNSPECIFIED 01/20/2016 LIZETH MAIER Ot 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 01/20/2016 JESÚS BEST, MADISON Ot Z01.818 ENCOUNTER FOR OTHER PREPROCEDURAL EXAMIN 01/20/2016 MOREL MARISOL PROP Ot 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 01/20/2016 MARISOL MORELP Ot D50.9 IRON DEFICIENCY ANEMIA, UNSPECIFIED 01/20/2016 ADRIEL MARISOL PROP Ot 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 , 01/20/2016 ADRIEL MARISOL [place] SOCIAL MEDIA DESIGNER Ot 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+] 01/20/2016 MORELMARISOL [place] SOCIAL MEDIA DESIGNER Ot 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 02/03/2016 Ot 593.2 CYST OF KIDNEY, ACQUIRED 02/03/2016 Ot 599.0 URIN TRACT INFECTION NOS 02/03/2016 Ot 788.21 INCOMPLETE BLADDER EMPTYING 02/03/2016 Ot 788.62 SLOWING OF URINARY STREAM 02/03/2016 Ot 780.79 OTH MALAISE FATIGUE 02/03/2016 Ot 786.50 CHEST PAIN NOS 02/03/2016 Ot V58.69 OTH MED,LT,CURRENT USE 02/03/2016 Ot 733.90 BONE CARTILAGE DIS NOS 02/03/2016 Ot 599.0 URIN TRACT INFECTION NOS 02/03/2016 KARUNA BEST, PJ Kathleen Ot 780.79 OTH MALAISE FATIGUE 02/03/2016 KARUNA BEST, PJ Kathleen Ot 782.7 SPONTANEOUS ECCHYMOSES 02/03/2016 Ot 682.9 CELLULITIS NOS 02/03/2016 Ot 599.0 URIN TRACT INFECTION NOS 02/03/2016 JESÚS BEST, MADISON Ot V72.84 EXAM PRE-OPERATIVE NOS 02/03/2016 Ot 280.9 IRON DEFIC ANEMIA NOS 02/03/2016 Ot 530.81 ESOPHAGEAL REFLUX 02/03/2016 Ot 564.00 UNSPEC CONSTIPATION 02/03/2016 Ot 585.3 CHRONIC KIDNEY DISEASE, STAGE III (MODER 02/03/2016 Ot V13.02 PERSONAL HISTORY, URINARY (TRACT) INFECT 02/03/2016 Ot V58.69 OTH MED,LT,CURRENT USE 02/03/2016 PJ BECKMAN MD Ot 443.9 PERIPH VASCULAR DIS NOS 02/03/2016 TRISTAN BEST, OTIS Nicholson Ot 276.1 HYPOSMOLALITY 02/03/2016 OTIS HUDSON MD Ot 276.8 HYPOPOTASSEMIA 02/03/2016 MARISOL MOREL SOCIAL MEDIA DESIGNER Ot 280.9 IRON DEFIC ANEMIA NOS 02/03/2016 MARISOL MOREL SOCIAL MEDIA DESIGNER Ot 305.1 TOBACCO USE DISORDER 02/03/2016 MARISOL MOREL SOCIAL MEDIA DESIGNER Ot 530.81 ESOPHAGEAL REFLUX 02/03/2016 MARISOL MOREL SOCIAL MEDIA DESIGNER Ot 564.00 UNSPEC CONSTIPATION 02/03/2016 MARISOL MOREL SOCIAL MEDIA DESIGNER Ot 585.3 CHRONIC KIDNEY DISEASE, STAGE III ( MODER 02/03/2016 MARISOL MORELP Ot V58.69 OTH MED,LT,CURRENT USE 02/03/2016 KARUNA BEST, PJ Kathleen Ot 440.20 ATHEROSCLEROSIS TORRES MARTINEZ ARTERIES EXTREMIT 02/03/2016 KARUNA BEST, PJ Kathleen Ot 729.5 PAIN IN LIMB 02/03/2016 MADISON ESPINOSA MD Ot 530.11 REFLUX ESOPHAGITIS 02/03/2016 MADISON ESPINOSA MD Ot 535.40 OTH SPECIFIED GASTRITIS,W/O MENTION OF H 02/03/2016 JESÚS BEST, MADISON Ot 553.3 DIAPHRAGMATIC HERNIA 02/03/2016 MADISON ESPINOSA MD Ot V72.84 EXAM PRE-OPERATIVE NOS 02/03/2016 KARUNA BEST, PJ R Ot 784.0 HEADACHE 02/03/2016 LIZETH MAIER N Ot 280.9 IRON DEFIC ANEMIA NOS 02/03/2016 LIZETH MAIER N Ot 564.00 UNSPEC CONSTIPATION 02/03/2016 LIZETH MAIER Ot 585.3 CHRONIC KIDNEY DISEASE, STAGE III (MODER 02/03/2016 LIZETH MAIER Ot V58.69 OTH MED,LT,CURRENT USE 02/03/2016 LAMONT DPAdam, MIGUEL P Ot 726.91 EXOSTOSIS, SITE NOS 02/03/2016 LAMONT DPM, MIGUEL P Ot V72.63 PRE-PROCEDURAL LABORATORY EXAMINATION 02/03/2016 LAMONT DPAdam, MIGUEL P Ot V74.8 SCREEN-BACTERIAL DIS NEC 02/03/2016 PJ BECKMAN MD R Ot 729.5 PAIN IN LIMB 02/03/2016 WING RUIZ MD Ot 595.2 CHRONIC CYSTITIS NEC 02/03/2016 PJ BECKMAN MD R Ot 787.91 DIARRHEA 02/03/2016 PJ BECKMAN MD R Ot 789.00 ABDOMINAL PAIN, UNSPECIFIED SITE 02/03/2016 PJ BECKMAN MD R Ot 611.72 LUMP OR MASS IN BREAST 02/03/2016 PJ BECKMAN MD R Ot 174.9 MALIGN NEOPL BREAST NOS 02/03/2016 PJ BECKMAN MD R Ot 285.9 ANEMIA NOS 02/03/2016 PJ BECKMAN MD R Ot 780.79 OTH MALAISE FATIGUE 02/03/2016 LIZETH MAIER N Ot 174.9 MALIGN NEOPL BREAST NOS 02/03/2016 LIZETH MAIER N Ot 174.9 MALIGN NEOPL BREAST NOS 02/03/2016 LIZETH MAIER N Ot 280.9 IRON DEFIC ANEMIA NOS 02/03/2016 LIZETH MAIER N Ot 585.3 CHRONIC KIDNEY DISEASE, STAGE III (MODER 02/03/2016 LIZETH MAIER Ot V58.69 OTH MED,LT,CURRENT USE 02/03/2016 LIZETH MAIER Ot V86.0 ESTROGEN RECEPTOR POSITIVE STATUS [ER+] 02/03/2016 THOMAS JAKE LOCKETT Go Ot 174.9 MALIGN NEOPL BREAST NOS 02/03/2016 THOMAS JAKE LOCKETT Go Ot V72.84 EXAM PRE-OPERATIVE NOS 02/03/2016 THOMAS JAKE LOCKETT Ot 174.9 MALIGN NEOPL BREAST NOS 02/03/2016 THOMAS JAKE LOCKETT Go Ot V72.63 PRE-PROCEDURAL LABORATORY EXAMINATION 02/03/2016 THOMAS JAKE D Ot V74.8 SCREEN-BACTERIAL DIS NEC 02/03/2016 LIZETH MAIER Ot M81.8 OTHER OSTEOPOROSIS WITHOUT CURRENT PATHO 02/03/2016 MARISOL MOREL SOCIAL MEDIA DESIGNER Ot 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 02/03/2016 MARISOL MOREL SOCIAL MEDIA DESIGNER Ot D50.9 IRON DEFICIENCY ANEMIA, UNSPECIFIED 02/03/2016 MARISOL MOREL SOCIAL MEDIA DESIGNER Ot M85.80 OTH DISRD OF BONE DENSITY AND STRUCTURE , 02/03/2016 MARISOL MOREL SOCIAL MEDIA DESIGNER Ot R26.89 OTHER ABNORMALITIES OF GAIT AND MOBILITY 02/03/2016 MARISOL MOREL SOCIAL MEDIA DESIGNER Ot R42 DIZZINESS AND GIDDINESS 02/03/2016 MARISOL MOREL SOCIAL MEDIA DESIGNER Ot R51 HEADACHE 02/03/2016 MARISOL MOREL SOCIAL MEDIA DESIGNER Ot 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+] 02/03/2016 MARISOL MOREL SOCIAL MEDIA DESIGNER Ot 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 02/03/2016 MARISOL MOREL SOCIAL MEDIA DESIGNER Ot H57.11 OCULAR PAIN, RIGHT EYE 02/03/2016 MARISOL MOREL SOCIAL MEDIA DESIGNER Ot N63 UNSPECIFIED LUMP IN BREAST 02/03/2016 MARISOL MOREL SOCIAL MEDIA DESIGNER Ot R26.81 UNSTEADINESS ON FEET 02/03/2016 MARISOL MOREL SOCIAL MEDIA DESIGNER Ot H57.11 OCULAR PAIN, RIGHT EYE 02/03/2016 MARISOL MOREL SOCIAL MEDIA DESIGNER Ot N63 UNSPECIFIED LUMP IN BREAST 02/03/2016 MARISOL MOREL SOCIAL MEDIA DESIGNER Ot R26.81 UNSTEADINESS ON FEET 02/03/2016 LIZETH MAIER Ot C50.919 MALIGNANT NEOPLASM OF UNSP SITE OF UNSPE 02/03/2016 LIZETH MAIER Lata Ot D50.9 IRON DEFICIENCY ANEMIA, UNSPECIFIED 02/03/2016 LIZETH MAIER Ot Z79.899 OTHER NURSING HOME (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 THERAPY 02/03/2016 JESÚS BEST, MADISON Ot Z01.818 ENCOUNTER FOR OTHER PREPROCEDURAL EXAMIN 02/03/2016 MARISOL MOREL SOCIAL MEDIA DESIGNER Ot 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 02/03/2016 MARISOL MOREL SOCIAL MEDIA DESIGNER Ot D50.9 IRON DEFICIENCY ANEMIA, UNSPECIFIED 02/03/2016 MARISOL MOREL SOCIAL MEDIA DESIGNER Ot 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 , 02/03/2016 MARISOL MOREL SOCIAL MEDIA DESIGNER Ot 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+] 02/03/2016 MARISOL MOREL SOCIAL MEDIA DESIGNER Ot 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 02/03/2016 Ot 593.2 CYST OF KIDNEY, ACQUIRED 02/03/2016 Ot 599.0 URIN TRACT INFECTION NOS 02/03/2016 Ot 788.21 INCOMPLETE BLADDER EMPTYING 02/03/2016 Ot 788.62 SLOWING OF URINARY STREAM 02/03/2016 Ot 780.79 OTH MALAISE FATIGUE 02/03/2016 Ot 786.50 CHEST PAIN NOS 02/03/2016 Ot V58.69 OTH MED,LT,CURRENT USE 02/03/2016 Ot 733.90 BONE CARTILAGE DIS NOS 02/03/2016 Ot 599.0 URIN TRACT INFECTION NOS 02/03/2016 KARUNA BEST, PJ R Ot 780.79 OTH MALAISE FATIGUE 02/03/2016 KARUNA BEST, PJ R Ot 782.7 SPONTANEOUS ECCHYMOSES 02/03/2016 Ot 682.9 CELLULITIS NOS 02/03/2016 Ot 599.0 URIN TRACT INFECTION NOS 02/03/2016 JESÚS BEST, MADISON Ot V72.84 EXAM PRE-OPERATIVE NOS 02/03/2016 Ot 280.9 IRON DEFIC ANEMIA NOS 02/03/2016 Ot 530.81 ESOPHAGEAL REFLUX 02/03/2016 Ot 564.00 UNSPEC CONSTIPATION 02/03/2016 Ot 585.3 CHRONIC KIDNEY DISEASE, STAGE III (MODER 02/03/2016 Ot V13.02 PERSONAL HISTORY, URINARY (TRACT) INFECT 02/03/2016 Ot V58.69 OTH MED,LT,CURRENT USE 02/03/2016 PJ BECKMAN MD Ot 443.9 PERIPH VASCULAR DIS NOS 02/03/2016 OTIS HUDSON MD Ot 276.1 HYPOSMOLALITY 02/03/2016 OTIS HUDSON MD Ot 276.8 HYPOPOTASSEMIA 02/03/2016 MORELMARISOL [place] SOCIAL MEDIA DESIGNER Ot 280.9 IRON DEFIC ANEMIA NOS 02/03/2016 MARISOL MOREL SOCIAL MEDIA DESIGNER Ot 305.1 TOBACCO USE DISORDER 02/03/2016 MARISOL MOREL SOCIAL MEDIA DESIGNER Ot 530.81 ESOPHAGEAL REFLUX 02/03/2016 MARISOL MOREL SOCIAL MEDIA DESIGNER Ot 564.00 UNSPEC CONSTIPATION 02/03/2016 MARISOL MOREL SOCIAL MEDIA DESIGNER Ot 585.3 CHRONIC KIDNEY DISEASE, STAGE III ( MODER 02/03/2016 MARISOL MOREL SOCIAL MEDIA DESIGNER Ot V58.69 OTH MED,LT,CURRENT USE 02/03/2016 PJ BECKMAN MD R Ot 440.20 ATHEROSCLEROSIS TORRES MARTINEZ ARTERIES EXTREMIT 02/03/2016 PJ BECKMAN MD R Ot 729.5 PAIN IN LIMB 02/03/2016 MADISON ESPINOSA MD Ot 530.11 REFLUX ESOPHAGITIS 02/03/2016 MADISON ESPINOSA MD Ot 535.40 OTH SPECIFIED GASTRITIS,W/O MENTION OF H 02/03/2016 MADISON ESPINOSA MD Ot 553.3 DIAPHRAGMATIC HERNIA 02/03/2016 MADISON ESPINOSA MD Ot V72.84 EXAM PRE-OPERATIVE NOS 02/03/2016 PJ BECKMAN MD R Ot 784.0 HEADACHE 02/03/2016 LIZETH MAIER Ot 280.9 IRON DEFIC ANEMIA NOS 02/03/2016 LIZETH MAIER Ot 564.00 UNSPEC CONSTIPATION 02/03/2016 LIZETH MAIER Ot 585.3 CHRONIC KIDNEY DISEASE, STAGE III (MODER 02/03/2016 LIZETH MAIER Ot V58.69 OTH MED,LT,CURRENT USE 02/03/2016 LAMONT DPM, MIGUEL Morales Ot 726.91 EXOSTOSIS, SITE NOS 02/03/2016 MIGUEL MIGUEL DPM Ot V72.63 PRE-PROCEDURAL LABORATORY EXAMINATION 02/03/2016 MIGUEL MIGUEL DPM Ot V74.8 SCREEN-BACTERIAL DIS NEC 02/03/2016 PJ BECKMAN MD R Ot 729.5 PAIN IN LIMB 02/03/2016 WING RUIZ MD Ot 595.2 CHRONIC CYSTITIS NEC 02/03/2016 BARTOLOME BECKMAN MDYD R Ot 787.91 DIARRHEA 02/03/2016 KARUNA BEST, PJ R Ot 789.00 ABDOMINAL PAIN, UNSPECIFIED SITE 02/03/2016 PJ BECKMAN MD R Ot 611.72 LUMP OR MASS IN BREAST 02/03/2016 PJ BECKMAN MD R Ot 174.9 MALIGN NEOPL BREAST NOS 02/03/2016 PJ BECKMAN MD R Ot 285.9 ANEMIA NOS 02/03/2016 PJ BECKMAN MD R Ot 780.79 OTH MALAISE FATIGUE 02/03/2016 LIZETH MAIER Ot 174.9 MALIGN NEOPL BREAST NOS 02/03/2016 LIZETH MAIER Ot 174.9 MALIGN NEOPL BREAST NOS 02/03/2016 LIZETH MAIER Ot 280.9 IRON DEFIC ANEMIA NOS 02/03/2016 LIZETH MAIER Ot 585.3 CHRONIC KIDNEY DISEASE, STAGE III (MODER 02/03/2016 LIZETH MAIER Ot V58.69 OTH MED,LT,CURRENT USE 02/03/2016 LIZETH MAIER Ot V86.0 ESTROGEN RECEPTOR POSITIVE STATUS [ER+] 02/03/2016 JAKE THOMAS DO Ot 174.9 MALIGN NEOPL BREAST NOS 02/03/2016 JAKE THOMAS DO Ot V72.84 EXAM PRE-OPERATIVE NOS 02/03/2016 JAKE THOMAS DO Ot 174.9 MALIGN NEOPL BREAST NOS 02/03/2016 JAKE THOMAS DO Ot V72.63 PRE-PROCEDURAL LABORATORY EXAMINATION 02/03/2016 JAKE THOMAS DO Ot V74.8 SCREEN-BACTERIAL DIS NEC 02/03/2016 LIZETH MAIER Ot M81.8 OTHER OSTEOPOROSIS WITHOUT CURRENT PATHO 02/03/2016 MARISOL MOREL SOCIAL MEDIA DESIGNER Ot 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 02/03/2016 ADRIEL MARISOL [place] SOCIAL MEDIA DESIGNER Ot D50.9 IRON DEFICIENCY ANEMIA, UNSPECIFIED 02/03/2016 MORELMARISOL [place] SOCIAL MEDIA DESIGNER Ot M85.80 OTH DISRD OF BONE DENSITY AND STRUCTURE , 02/03/2016 MARISOL MOREL SOCIAL MEDIA DESIGNER Ot R26.89 OTHER ABNORMALITIES OF GAIT AND MOBILITY 02/03/2016 ADRIEL MARISOL [place] SOCIAL MEDIA DESIGNER Ot R42 DIZZINESS AND GIDDINESS 02/03/2016 ADRIEL MARISOL [place] SOCIAL MEDIA DESIGNER Ot R51 HEADACHE 02/03/2016 MORELMARISOL [place] SOCIAL MEDIA DESIGNER Ot 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+] 02/03/2016 MORELMARISOL [place] SOCIAL MEDIA DESIGNER Ot Z79.899 OTHER NURSING HOME (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 THERAPY 02/03/2016 MOREL MARISOL [place] SOCIAL MEDIA DESIGNER Ot H57.11 OCULAR PAIN, RIGHT EYE 02/03/2016 ADRIEL MARISOL [place] SOCIAL MEDIA DESIGNER Ot N63 UNSPECIFIED LUMP IN BREAST 02/03/2016 ADRIEL MARISOL [place] SOCIAL MEDIA DESIGNER Ot R26.81 UNSTEADINESS ON FEET 02/03/2016 MOREL MARISOL [place] SOCIAL MEDIA DESIGNER Ot H57.11 OCULAR PAIN, RIGHT EYE 02/03/2016 MORELMARISOL [place] SOCIAL MEDIA DESIGNER Ot N63 UNSPECIFIED LUMP IN BREAST 02/03/2016 MORELMARISOL [place] SOCIAL MEDIA DESIGNER Ot R26.81 UNSTEADINESS ON FEET 02/03/2016 LIZETH MAIER Ot C50.919 MALIGNANT NEOPLASM OF UNSP SITE OF UNSPE 02/03/2016 LIZETH MAIER Ot D50.9 IRON DEFICIENCY ANEMIA, UNSPECIFIED 02/03/2016 LIZETH MAIER Ot Z79.899 OTHER NURSING HOME (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 THERAPY 02/03/2016 JESÚS BEST, MADSION Ot Z01.818 ENCOUNTER FOR OTHER PREPROCEDURAL EXAMIN 02/03/2016 MELVINA MORELMICHAEL [place] SOCIAL MEDIA DESIGNER Ot 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 02/03/2016 ADRIEL MARISOL [place] SOCIAL MEDIA DESIGNER Ot D50.9 IRON DEFICIENCY ANEMIA, UNSPECIFIED 02/03/2016 ADRIEL MARISOL [place] SOCIAL MEDIA DESIGNER Ot M85.80 OTH DISRD OF BONE DENSITY AND STRUCTURE , 02/03/2016 MELVINA MORELMICHAEL [place] SOCIAL MEDIA DESIGNER Ot 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+] 02/03/2016 MARISOL MOREL SOCIAL MEDIA DESIGNER Ot 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 02/04/2016 LIZETH MAIER Ot C50.919 MALIGNANT NEOPLASM OF UNSP SITE OF UNSPE 02/04/2016 LIZETH MAIER Ot D50.9 IRON DEFICIENCY ANEMIA, UNSPECIFIED 02/04/2016 LIZETH MAIER Ot 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 02/04/2016 MARISOL MOREL SOCIAL MEDIA DESIGNER Ot 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 02/04/2016 MARISOL MORELP Ot D50.9 IRON DEFICIENCY ANEMIA, UNSPECIFIED 02/04/2016 MARISOL MOREL Ot M85.80 OTH DISRD OF BONE DENSITY AND STRUCTURE , 02/04/2016 MARISOL MOREL SOCIAL MEDIA DESIGNER Ot 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+] 02/04/2016 MARISOL MORELP Ot 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 02/13/2016 Ot 593.2 CYST OF KIDNEY, ACQUIRED 02/13/2016 Ot 599.0 URIN TRACT INFECTION NOS 02/13/2016 Ot 788.21 INCOMPLETE BLADDER EMPTYING 02/13/2016 Ot 788.62 SLOWING OF URINARY STREAM 02/13/2016 Ot 780.79 OTH MALAISE FATIGUE 02/13/2016 Ot 786.50 CHEST PAIN NOS 02/13/2016 Ot V58.69 OTH MED,LT,CURRENT USE 02/13/2016 Ot 733.90 BONE CARTILAGE DIS NOS 02/13/2016 Ot 599.0 URIN TRACT INFECTION NOS 02/13/2016 KARUNA BEST, PJ Kathleen Ot 780.79 OTH MALAISE FATIGUE 02/13/2016 KARUNA BEST, PJ Kathleen Ot 782.7 SPONTANEOUS ECCHYMOSES 02/13/2016 Ot 682.9 CELLULITIS NOS 02/13/2016 Ot 599.0 URIN TRACT INFECTION NOS 02/13/2016 JESÚS BEST, MADISON Ot V72.84 EXAM PRE-OPERATIVE NOS 02/13/2016 Ot 280.9 IRON DEFIC ANEMIA NOS 02/13/2016 Ot 530.81 ESOPHAGEAL REFLUX 02/13/2016 Ot 564.00 UNSPEC CONSTIPATION 02/13/2016 Ot 585.3 CHRONIC KIDNEY DISEASE, STAGE III (MODER 02/13/2016 Ot V13.02 PERSONAL HISTORY, URINARY (TRACT) INFECT 02/13/2016 Ot V58.69 OTH MED,LT,CURRENT USE 02/13/2016 PJ BECKMAN MD Ot 443.9 PERIPH VASCULAR DIS NOS 02/13/2016 OTIS HUDSON MD Ot 276.1 HYPOSMOLALITY 02/13/2016 OTIS HUDSON MD Ot 276.8 HYPOPOTASSEMIA 02/13/2016 MORELMARISOL [place] SOCIAL MEDIA DESIGNER Ot 280.9 IRON DEFIC ANEMIA NOS 02/13/2016 MARISOL MOREL SOCIAL MEDIA DESIGNER Ot 305.1 TOBACCO USE DISORDER 02/13/2016 MARISOL MOREL SOCIAL MEDIA DESIGNER Ot 530.81 ESOPHAGEAL REFLUX 02/13/2016 MARISOL MOREL SOCIAL MEDIA DESIGNER Ot 564.00 UNSPEC CONSTIPATION 02/13/2016 MARISOL MOREL SOCIAL MEDIA DESIGNER Ot 585.3 CHRONIC KIDNEY DISEASE, STAGE III ( MODER 02/13/2016 MORELMARISOL [place] SOCIAL MEDIA DESIGNER Ot V58.69 OTH MED,LT,CURRENT USE 02/13/2016 PJ BECKMAN MD Ot 440.20 ATHEROSCLEROSIS TORRES MARTINEZ ARTERIES EXTREMIT 02/13/2016 PJ BECKMAN MD Ot 729.5 PAIN IN LIMB 02/13/2016 MADISON ESPINOSA MD Ot 530.11 REFLUX ESOPHAGITIS 02/13/2016 MADISON ESPINOSA MD Ot 535.40 OTH SPECIFIED GASTRITIS,W/O MENTION OF H 02/13/2016 MADISON ESPINOSA MD Ot 553.3 DIAPHRAGMATIC HERNIA 02/13/2016 MADISON ESPINOSA MD Ot V72.84 EXAM PRE-OPERATIVE NOS 02/13/2016 PJ BECKMAN MD Ot 784.0 HEADACHE 02/13/2016 LIZETH MAIER Ot 280.9 IRON DEFIC ANEMIA NOS 02/13/2016 LIZETH MAIER Ot 564.00 UNSPEC CONSTIPATION 02/13/2016 LIZETH MAIER Ot 585.3 CHRONIC KIDNEY DISEASE, STAGE III (MODER 02/13/2016 LIZETH MAIER Ot V58.69 OTH MED,LT,CURRENT USE 02/13/2016 MIGUEL MIGUEL DPM Ot 726.91 EXOSTOSIS, SITE NOS 02/13/2016 LAMONT WILCOX, MIGUEL Morales Ot V72.63 PRE-PROCEDURAL LABORATORY EXAMINATION 02/13/2016 MIGUEL MIGUEL DPM Ot V74.8 SCREEN-BACTERIAL DIS NEC 02/13/2016 KARUNA BEST, PJ R Ot 729.5 PAIN IN LIMB 02/13/2016 WING RUIZ MD Ot 595.2 CHRONIC CYSTITIS NEC 02/13/2016 KARUNA BEST, PJ R Ot 787.91 DIARRHEA 02/13/2016 PJ BECKMAN MD R Ot 789.00 ABDOMINAL PAIN, UNSPECIFIED SITE 02/13/2016 PJ BECKMAN MD R Ot 611.72 LUMP OR MASS IN BREAST 02/13/2016 PJ BECKMAN MD R Ot 174.9 MALIGN NEOPL BREAST NOS 02/13/2016 KARUNA BEST, PJ R Ot 285.9 ANEMIA NOS 02/13/2016 PJ BECKMAN MD R Ot 780.79 OTH MALAISE FATIGUE 02/13/2016 LIZETH MAIER Ot 174.9 MALIGN NEOPL BREAST NOS 02/13/2016 LIZETH MAIER Ot 174.9 MALIGN NEOPL BREAST NOS 02/13/2016 LIZETH MAIER Ot 280.9 IRON DEFIC ANEMIA NOS 02/13/2016 LIZETH MAIER Ot 585.3 CHRONIC KIDNEY DISEASE, STAGE III (MODER 02/13/2016 LIZETH MAIER Ot V58.69 OTH MED,LT,CURRENT USE 02/13/2016 LIZETH MAIER Ot V86.0 ESTROGEN RECEPTOR POSITIVE STATUS [ER+] 02/13/2016 JAKE THOMAS DO Ot 174.9 MALIGN NEOPL BREAST NOS 02/13/2016 AJKE THOMAS DO Ot V72.84 EXAM PRE-OPERATIVE NOS 02/13/2016 JAKE THOMAS DO Ot 174.9 MALIGN NEOPL BREAST NOS 02/13/2016 JAKE THOMAS DO Ot V72.63 PRE-PROCEDURAL LABORATORY EXAMINATION 02/13/2016 JAKE THOMAS DO Ot V74.8 SCREEN-BACTERIAL DIS NEC 02/13/2016 LIZETH MAIER Ot M81.8 OTHER OSTEOPOROSIS WITHOUT CURRENT PATHO 02/13/2016 MOREL, HILAH S SOCIAL MEDIA DESIGNER Ot 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 02/13/2016 MARISOL MOREL SOCIAL MEDIA DESIGNER Ot D50.9 IRON DEFICIENCY ANEMIA, UNSPECIFIED 02/13/2016 MARISOL MOREL SOCIAL MEDIA DESIGNER Ot M85.80 OTH DISRD OF BONE DENSITY AND STRUCTURE , 02/13/2016 MARISOL MOREL SOCIAL MEDIA DESIGNER Ot R26.89 OTHER ABNORMALITIES OF GAIT AND MOBILITY 02/13/2016 MARISOL MOREL SOCIAL MEDIA DESIGNER Ot R42 DIZZINESS AND GIDDINESS 02/13/2016 MARISOL MOREL SOCIAL MEDIA DESIGNER Ot R51 HEADACHE 02/13/2016 MARISOL MOREL SOCIAL MEDIA DESIGNER Ot 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+] 02/13/2016 MARISOL MOREL SOCIAL MEDIA DESIGNER Ot 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 02/13/2016 MARISOL MOREL SOCIAL MEDIA DESIGNER Ot H57.11 OCULAR PAIN, RIGHT EYE 02/13/2016 MARISOL MOREL SOCIAL MEDIA DESIGNER Ot N63 UNSPECIFIED LUMP IN BREAST 02/13/2016 MARISOL MOREL SOCIAL MEDIA DESIGNER Ot R26.81 UNSTEADINESS ON FEET 02/13/2016 MARISOL MOREL SOCIAL MEDIA DESIGNER Ot H57.11 OCULAR PAIN, RIGHT EYE 02/13/2016 MARISOL MOREL SOCIAL MEDIA DESIGNER Ot N63 UNSPECIFIED LUMP IN BREAST 02/13/2016 MARISOL MOREL SOCIAL MEDIA DESIGNER Ot R26.81 UNSTEADINESS ON FEET 02/13/2016 LIZETH MAIER Ot 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 02/13/2016 LIZETH MAIER Ot D50.9 IRON DEFICIENCY ANEMIA, UNSPECIFIED 02/13/2016 LIZETH MAIER Ot M85.80 OTH DISRD OF BONE DENSITY AND STRUCTURE, 02/13/2016 LIZETH MAIER Ot 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+] 02/13/2016 LIZETH MAIER Ot Z79.899 OTHER NURSING HOME (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 THERAPY 02/13/2016 JESÚS BEST, MADISON Ot Z01.818 ENCOUNTER FOR OTHER PREPROCEDURAL EXAMIN 02/13/2016 ADRIEL MARISOL [place] SOCIAL MEDIA DESIGNER Ot 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 02/13/2016 ADRIEL MARISOL [place] SOCIAL MEDIA DESIGNER Ot D50.9 IRON DEFICIENCY ANEMIA, UNSPECIFIED 02/13/2016 MELVINA MORELMICHAEL [place] SOCIAL MEDIA DESIGNER Ot M85.80 OTH DISRD OF BONE DENSITY AND STRUCTURE , 02/13/2016 MELVINA MORELMICHAEL [place] SOCIAL MEDIA DESIGNER Ot 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+] 02/13/2016 MARISOL MOREL Alysia SOCIAL MEDIA DESIGNER Ot Z79.899 OTHER NURSING HOME (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 THERAPY 02/13/2016 MELVINA MORELMICHAEL [place] SOCIAL MEDIA DESIGNER Ot 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 02/13/2016 MARISOL MOREL Alysia SOCIAL MEDIA DESIGNER Ot D50.9 IRON DEFICIENCY ANEMIA, UNSPECIFIED 02/13/2016 MARISOL MOREL SOCIAL MEDIA DESIGNER Ot M85.80 OTH DISRD OF BONE DENSITY AND STRUCTURE , 02/13/2016 MARISOL MOREL SOCIAL MEDIA DESIGNER Ot 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+] 02/13/2016 MARISOL MOREL Alysia SOCIAL MEDIA DESIGNER Ot Z79.899 OTHER NURSING HOME (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 THERAPY 02/17/2016 JESÚS BEST, MADISON Ot R13.10 DYSPHAGIA, UNSPECIFIED 02/17/2016 MADISON ESPINOSA MD Ot Z01.818 ENCOUNTER FOR OTHER PREPROCEDURAL EXAMIN 02/18/2016 MARISOL MOREL SOCIAL MEDIA DESIGNER Ot H57.11 OCULAR PAIN, RIGHT EYE 02/18/2016 MARISOL MOREL SOCIAL MEDIA DESIGNER Ot N63 UNSPECIFIED LUMP IN BREAST 02/18/2016 MARISOL MOREL SOCIAL MEDIA DESIGNER Ot R26.81 UNSTEADINESS ON FEET 02/18/2016 MARISOL MOREL Alysia SOCIAL MEDIA DESIGNER Ot 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 02/18/2016 MARISOL MOREL SOCIAL MEDIA DESIGNER Ot D50.9 IRON DEFICIENCY ANEMIA, UNSPECIFIED 02/18/2016 MARISOL MOREL Alysia SOCIAL MEDIA DESIGNER Ot M85.80 OTH DISRD OF BONE DENSITY AND STRUCTURE , 02/18/2016 MARISOL MOREL SOCIAL MEDIA DESIGNER Ot 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+] 02/18/2016 MARISOL MOREL SOCIAL MEDIA DESIGNER Ot Z79.899 OTHER NURSING HOME (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 THERAPY 02/18/2016 MARISOL MOREL Ot 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 02/18/2016 MARISOL MORELP Ot D50.9 IRON DEFICIENCY ANEMIA, UNSPECIFIED 02/18/2016 MARISOL MOREL Ot M85.80 OTH DISRD OF BONE DENSITY AND STRUCTURE , 02/18/2016 MARISOL MOREL Ot 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+] 02/18/2016 MARISOL MORELP Ot 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 02/18/2016 Ot 593.2 CYST OF KIDNEY, ACQUIRED 02/18/2016 Ot 599.0 URIN TRACT INFECTION NOS 02/18/2016 Ot 788.21 INCOMPLETE BLADDER EMPTYING 02/18/2016 Ot 788.62 SLOWING OF URINARY STREAM 02/18/2016 Ot 780.79 OTH MALAISE FATIGUE 02/18/2016 Ot 786.50 CHEST PAIN NOS 02/18/2016 Ot V58.69 OTH MED,LT,CURRENT USE 02/18/2016 Ot 733.90 BONE CARTILAGE DIS NOS 02/18/2016 Ot 599.0 URIN TRACT INFECTION NOS 02/18/2016 KARUNA BEST, PJ Kathleen Ot 780.79 OTH MALAISE FATIGUE 02/18/2016 KARUNA BEST, PJ Kathleen Ot 782.7 SPONTANEOUS ECCHYMOSES 02/18/2016 Ot 682.9 CELLULITIS NOS 02/18/2016 Ot 599.0 URIN TRACT INFECTION NOS 02/18/2016 MADISON ESPINOSA MD Ot V72.84 EXAM PRE-OPERATIVE NOS 02/18/2016 Ot 280.9 IRON DEFIC ANEMIA NOS 02/18/2016 Ot 530.81 ESOPHAGEAL REFLUX 02/18/2016 Ot 564.00 UNSPEC CONSTIPATION 02/18/2016 Ot 585.3 CHRONIC KIDNEY DISEASE, STAGE III (MODER 02/18/2016 Ot V13.02 PERSONAL HISTORY, URINARY (TRACT) INFECT 02/18/2016 Ot V58.69 OTH MED,LT,CURRENT USE 02/18/2016 PJ BECKMAN MD Ot 443.9 PERIPH VASCULAR DIS NOS 02/18/2016 TRISTAN BEST, OTIS Nicholson Ot 276.1 HYPOSMOLALITY 02/18/2016 OTIS HUDSON MD Ot 276.8 HYPOPOTASSEMIA 02/18/2016 ADRIELMARISOL SOCIAL MEDIA DESIGNER Ot 280.9 IRON DEFIC ANEMIA NOS 02/18/2016 ADRIELMARISOL SOCIAL MEDIA DESIGNER Ot 305.1 TOBACCO USE DISORDER 02/18/2016 ADRIELMARISOL SOCIAL MEDIA DESIGNER Ot 530.81 ESOPHAGEAL REFLUX 02/18/2016 MORELMARISOL SOCIAL MEDIA DESIGNER Ot 564.00 UNSPEC CONSTIPATION 02/18/2016 MORELMARISOL [place] SOCIAL MEDIA DESIGNER Ot 585.3 CHRONIC KIDNEY DISEASE, STAGE III ( MODER 02/18/2016 ADRIELMARISOL SOCIAL MEDIA DESIGNER Ot V58.69 OTH MED,LT,CURRENT USE 02/18/2016 PJ BECKMAN MD Ot 440.20 ATHEROSCLEROSIS TORRES MARTINEZ ARTERIES EXTREMIT 02/18/2016 PJ BECMKAN MD Ot 729.5 PAIN IN LIMB 02/18/2016 MADISON ESPINOSA MD Ot 530.11 REFLUX ESOPHAGITIS 02/18/2016 MADISON ESPINOSA MD Ot 535.40 OTH SPECIFIED GASTRITIS,W/O MENTION OF H 02/18/2016 MADISON ESPINOSA MD Ot 553.3 DIAPHRAGMATIC HERNIA 02/18/2016 MADISON ESPINOSA MD Ot V72.84 EXAM PRE-OPERATIVE NOS 02/18/2016 PJ BECKMAN MD Ot 784.0 HEADACHE 02/18/2016 LIZETH MAIER Ot 280.9 IRON DEFIC ANEMIA NOS 02/18/2016 LIZETH MAIER Ot 564.00 UNSPEC CONSTIPATION 02/18/2016 LIZETH MAIER Ot 585.3 CHRONIC KIDNEY DISEASE, STAGE III (MODER 02/18/2016 LIZETH MAIER Ot V58.69 OTH MED,LT,CURRENT USE 02/18/2016 MIGUEL MIGUEL DPM Ot 726.91 EXOSTOSIS, SITE NOS 02/18/2016 MIGUEL MIGUEL DPM Ot V72.63 PRE-PROCEDURAL LABORATORY EXAMINATION 02/18/2016 MIGUEL MIGUEL DPM Ot V74.8 SCREEN-BACTERIAL DIS NEC 02/18/2016 PJ BECKMAN MD Ot 729.5 PAIN IN LIMB 02/18/2016 WING RUIZ MD Ot 595.2 CHRONIC CYSTITIS NEC 02/18/2016 SEGLIE MD, PJ R Ot 787.91 DIARRHEA 02/18/2016 KARUNA BEST, PJ R Ot 789.00 ABDOMINAL PAIN, UNSPECIFIED SITE 02/18/2016 KARUNA BEST, PJ R Ot 611.72 LUMP OR MASS IN BREAST 02/18/2016 KARUNA BEST, PJ R Ot 174.9 MALIGN NEOPL BREAST NOS 02/18/2016 KARUNA BEST, PJ R Ot 285.9 ANEMIA NOS 02/18/2016 KARUNA BEST, PJ R Ot 780.79 OTH MALAISE FATIGUE 02/18/2016 LIZETH MAIER Ot 174.9 MALIGN NEOPL BREAST NOS 02/18/2016 LIZETH MAIER Ot 174.9 MALIGN NEOPL BREAST NOS 02/18/2016 LIZETH MAIER Ot 280.9 IRON DEFIC ANEMIA NOS 02/18/2016 LIZETH MAIER Ot 585.3 CHRONIC KIDNEY DISEASE, STAGE III (MODER 02/18/2016 LIZETH MAIER Ot V58.69 OTH MED,LT,CURRENT USE 02/18/2016 LIZETH MAIER Ot V86.0 ESTROGEN RECEPTOR POSITIVE STATUS [ER+] 02/18/2016 JAKE THOMAS DO Ot 174.9 MALIGN NEOPL BREAST NOS 02/18/2016 JAKE THOMAS DO Ot V72.84 EXAM PRE-OPERATIVE NOS 02/18/2016 JAKE THOMAS DO Ot 174.9 MALIGN NEOPL BREAST NOS 02/18/2016 JAKE THOMAS DO Ot V72.63 PRE-PROCEDURAL LABORATORY EXAMINATION 02/18/2016 JAKE THOMAS DO Ot V74.8 SCREEN-BACTERIAL DIS NEC 02/18/2016 LIZETH MAIER Ot M81.8 OTHER OSTEOPOROSIS WITHOUT CURRENT PATHO 02/18/2016 MARISOL MOREL Ot 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 02/18/2016 MARISOL MOREL Ot D50.9 IRON DEFICIENCY ANEMIA, UNSPECIFIED 02/18/2016 MARISOL MOREL Ot M85.80 OTH DISRD OF BONE DENSITY AND STRUCTURE , 02/18/2016 MARISOL MOREL Ot R26.89 OTHER ABNORMALITIES OF GAIT AND MOBILITY 02/18/2016 MOREL, HILAH S SOCIAL MEDIA DESIGNER Ot R42 DIZZINESS AND GIDDINESS 02/18/2016 MORELMARISOL [place] SOCIAL MEDIA DESIGNER Ot R51 HEADACHE 02/18/2016 MORELMARISOL [place] SOCIAL MEDIA DESIGNER Ot 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+] 02/18/2016 MORELMARISOL [place] SOCIAL MEDIA DESIGNER Ot 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 02/18/2016 MORELMARISOL [place] SOCIAL MEDIA DESIGNER Ot H57.11 OCULAR PAIN, RIGHT EYE 02/18/2016 MORELMARISOL [place] SOCIAL MEDIA DESIGNER Ot N63 UNSPECIFIED LUMP IN BREAST 02/18/2016 MARISOL MOREL SOCIAL MEDIA DESIGNER Ot R26.81 UNSTEADINESS ON FEET 02/18/2016 MORELMARISOL [place] SOCIAL MEDIA DESIGNER Ot H57.11 OCULAR PAIN, RIGHT EYE 02/18/2016 MARISOL MOREL SOCIAL MEDIA DESIGNER Ot N63 UNSPECIFIED LUMP IN BREAST 02/18/2016 MARISOL MOREL SOCIAL MEDIA DESIGNER Ot R26.81 UNSTEADINESS ON FEET 02/18/2016 LIZETH MAIER Ot 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 02/18/2016 LIZETH MAIER Ot D50.9 IRON DEFICIENCY ANEMIA, UNSPECIFIED 02/18/2016 LIZETH MAIER Ot M85.80 OTH DISRD OF BONE DENSITY AND STRUCTURE, 02/18/2016 LIZETH MAIER Ot 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+] 02/18/2016 LIZETH MAIER N Ot 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 02/18/2016 JESÚS BEST, MADISON Ot Z01.818 ENCOUNTER FOR OTHER PREPROCEDURAL EXAMIN 02/18/2016 MELVINA MORELMICHAEL Alysia SOCIAL MEDIA DESIGNER Ot 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 02/18/2016 ADRIEL MARISOL [place] SOCIAL MEDIA DESIGNER Ot D50.9 IRON DEFICIENCY ANEMIA, UNSPECIFIED 02/18/2016 MARISOL MOREL SOCIAL MEDIA DESIGNER Ot M85.80 OTH DISRD OF BONE DENSITY AND STRUCTURE , 02/18/2016 MARISOL MOREL SOCIAL MEDIA DESIGNER Ot 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+] 02/18/2016 MARISOL MOREL SOCIAL MEDIA DESIGNER Ot 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 02/18/2016 MARISOL MOREL SOCIAL MEDIA DESIGNER Ot 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 02/18/2016 MARISOL MOREL SOCIAL MEDIA DESIGNER Ot D50.9 IRON DEFICIENCY ANEMIA, UNSPECIFIED 02/18/2016 MARISOL MOREL SOCIAL MEDIA DESIGNER Ot M85.80 OTH DISRD OF BONE DENSITY AND STRUCTURE , 02/18/2016 MARISOL MOREL SOCIAL MEDIA DESIGNER Ot 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+] 02/18/2016 MARISOL MOREL SOCIAL MEDIA DESIGNER Ot Z79.899 OTHER NURSING HOME (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 THERAPY 02/18/2016 MADISON ESPINOSA MD Ot R13.10 DYSPHAGIA, UNSPECIFIED 02/18/2016 MADISON ESPINOSA MD, Ot Z01.818 ENCOUNTER FOR OTHER PREPROCEDURAL EXAMIN 02/18/2016 MADISON ESPINOSA MD Ot I10 ESSENTIAL (PRIMARY) HYPERTENSION 02/18/2016 MADISON ESPINOSA MD Ot K21.0 GASTRO-ESOPHAGEAL REFLUX DISEASE WITH ES 02/18/2016 MADISON ESPINOSA MD Ot K29.70 GASTRITIS, UNSPECIFIED, WITHOUT BLEEDING 02/18/2016 MADISON ESPINOSA MD Ot K29.80 DUODENITIS WITHOUT BLEEDING 02/18/2016 MADISON ESPINOSA MD Ot K44.9 DIAPHRAGMATIC HERNIA WITHOUT OBSTRUCTION 02/20/2016 MADISON ESPINOSA MD Ot I10 ESSENTIAL (PRIMARY) HYPERTENSION 02/20/2016 MADISON ESPINOSA MD Ot K21.0 GASTRO-ESOPHAGEAL REFLUX DISEASE WITH ES 02/20/2016 MADISON ESPINOSA MD Ot K29.70 GASTRITIS, UNSPECIFIED, WITHOUT BLEEDING 02/20/2016 MADISON ESPINOSA MD Ot K29.80 DUODENITIS WITHOUT BLEEDING 02/20/2016 MADISON ESPINOSA MD Ot K44.9 DIAPHRAGMATIC HERNIA WITHOUT OBSTRUCTION 02/23/2016 MADISON ESPINOSA MD Ot R13.10 DYSPHAGIA, UNSPECIFIED 02/23/2016 MADISON ESPINOSA MD Ot Z01.818 ENCOUNTER FOR OTHER PREPROCEDURAL EXAMIN 02/25/2016 Ot 593.2 CYST OF KIDNEY, ACQUIRED 02/25/2016 Ot 599.0 URIN TRACT INFECTION NOS 02/25/2016 Ot 788.21 INCOMPLETE BLADDER EMPTYING 02/25/2016 Ot 788.62 SLOWING OF URINARY STREAM 02/25/2016 Ot 780.79 OTH MALAISE FATIGUE 02/25/2016 Ot 786.50 CHEST PAIN NOS 02/25/2016 Ot V58.69 OTH MED,LT,CURRENT USE 02/25/2016 Ot 733.90 BONE CARTILAGE DIS NOS 02/25/2016 Ot 599.0 URIN TRACT INFECTION NOS 02/25/2016 KARUNA BEST, PJ R Ot 780.79 OTH MALAISE FATIGUE 02/25/2016 PJ BECKMAN MD R Ot 782.7 SPONTANEOUS ECCHYMOSES 02/25/2016 Ot 682.9 CELLULITIS NOS 02/25/2016 Ot 599.0 URIN TRACT INFECTION NOS 02/25/2016 JESÚS BEST, MADISON Ot V72.84 EXAM PRE-OPERATIVE NOS 02/25/2016 Ot 280.9 IRON DEFIC ANEMIA NOS 02/25/2016 Ot 530.81 ESOPHAGEAL REFLUX 02/25/2016 Ot 564.00 UNSPEC CONSTIPATION 02/25/2016 Ot 585.3 CHRONIC KIDNEY DISEASE, STAGE III (MODER 02/25/2016 Ot V13.02 PERSONAL HISTORY, URINARY (TRACT) INFECT 02/25/2016 Ot V58.69 OTH MED,LT,CURRENT USE 02/25/2016 KARUNA BEST, PJ Kathleen Ot 443.9 PERIPH VASCULAR DIS NOS 02/25/2016 TRISTAN BEST, OTIS Nicholson Ot 276.1 HYPOSMOLALITY 02/25/2016 TRISTAN BEST, OTIS Nicholson Ot 276.8 HYPOPOTASSEMIA 02/25/2016 MARISOL MOREL SOCIAL MEDIA DESIGNER Ot 280.9 IRON DEFIC ANEMIA NOS 02/25/2016 MARISOL MOREL SOCIAL MEDIA DESIGNER Ot 305.1 TOBACCO USE DISORDER 02/25/2016 MARISOL MOREL SOCIAL MEDIA DESIGNER Ot 530.81 ESOPHAGEAL REFLUX 02/25/2016 MARISOL MOREL SOCIAL MEDIA DESIGNER Ot 564.00 UNSPEC CONSTIPATION 02/25/2016 MARISOL MOREL SOCIAL MEDIA DESIGNER Ot 585.3 CHRONIC KIDNEY DISEASE, STAGE III ( MODER 02/25/2016 MARISOL MORELP Ot V58.69 OTH MED,LT,CURRENT USE 02/25/2016 PJ BECKMAN MD R Ot 440.20 ATHEROSCLEROSIS TORRES MARTINEZ ARTERIES EXTREMIT 02/25/2016 SEGLIE MD, PJ R Ot 729.5 PAIN IN LIMB 02/25/2016 JESÚS BEST, MADISON Ot 530.11 REFLUX ESOPHAGITIS 02/25/2016 MADISON ESPINOSA MD Ot 535.40 OTH SPECIFIED GASTRITIS,W/O MENTION OF H 02/25/2016 MADISON ESPINOSA MD Ot 553.3 DIAPHRAGMATIC HERNIA 02/25/2016 MADISON ESPINOSA MD Ot V72.84 EXAM PRE-OPERATIVE NOS 02/25/2016 PJ BECKMAN MD R Ot 784.0 HEADACHE 02/25/2016 LIZETH MAIER Ot 280.9 IRON DEFIC ANEMIA NOS 02/25/2016 LIZETH MAIER Ot 564.00 UNSPEC CONSTIPATION 02/25/2016 LIZETH MAIER Ot 585.3 CHRONIC KIDNEY DISEASE, STAGE III (MODER 02/25/2016 LIZETH MAIER Ot V58.69 OTH MED,LT,CURRENT USE 02/25/2016 LAMONT DPAdam, MIGUEL P Ot 726.91 EXOSTOSIS, SITE NOS 02/25/2016 LAMONT DPAdam, MIGUEL P Ot V72.63 PRE-PROCEDURAL LABORATORY EXAMINATION 02/25/2016 LAMONT WILCOX MIGUEL P Ot V74.8 SCREEN-BACTERIAL DIS NEC 02/25/2016 PJ BECKMAN MD R Ot 729.5 PAIN IN LIMB 02/25/2016 WING RUIZ MD Ot 595.2 CHRONIC CYSTITIS NEC 02/25/2016 PJ BECKMAN MD R Ot 787.91 DIARRHEA 02/25/2016 PJ BECKMAN MD R Ot 789.00 ABDOMINAL PAIN, UNSPECIFIED SITE 02/25/2016 PJ BECKMAN MD R Ot 611.72 LUMP OR MASS IN BREAST 02/25/2016 PJ BECKMAN MD R Ot 174.9 MALIGN NEOPL BREAST NOS 02/25/2016 PJ BECKMAN MD R Ot 285.9 ANEMIA NOS 02/25/2016 PJ BECKMAN MD R Ot 780.79 OTH MALAISE FATIGUE 02/25/2016 LIZETH MAIER N Ot 174.9 MALIGN NEOPL BREAST NOS 02/25/2016 LIZETH MAIER Ot 174.9 MALIGN NEOPL BREAST NOS 02/25/2016 LIZETH MAIER Ot 280.9 IRON DEFIC ANEMIA NOS 02/25/2016 LIZETH MAIER Ot 585.3 CHRONIC KIDNEY DISEASE, STAGE III (MODER 02/25/2016 LIZETH MAIER Ot V58.69 OTH MED,LT,CURRENT USE 02/25/2016 LIZETH MAIER Ot V86.0 ESTROGEN RECEPTOR POSITIVE STATUS [ER+] 02/25/2016 THOMAS DOMARITATT D Ot 174.9 MALIGN NEOPL BREAST NOS 02/25/2016 THOMAS DO JAKE D Ot V72.84 EXAM PRE-OPERATIVE NOS 02/25/2016 THOMAS DOJAKE D Ot 174.9 MALIGN NEOPL BREAST NOS 02/25/2016 THOMAS DO, JAKE D Ot V72.63 PRE-PROCEDURAL LABORATORY EXAMINATION 02/25/2016 THOMAS DOJAKE D Ot V74.8 SCREEN-BACTERIAL DIS NEC 02/25/2016 LIZETH MAIER Ot M81.8 OTHER OSTEOPOROSIS WITHOUT CURRENT PATHO 02/25/2016 MARISOL MOREL SOCIAL MEDIA DESIGNER Ot 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 02/25/2016 MARISOL MOREL SOCIAL MEDIA DESIGNER Ot D50.9 IRON DEFICIENCY ANEMIA, UNSPECIFIED 02/25/2016 MARISOL MOREL SOCIAL MEDIA DESIGNER Ot M85.80 OTH DISRD OF BONE DENSITY AND STRUCTURE , 02/25/2016 MARISOL MOREL SOCIAL MEDIA DESIGNER Ot R26.89 OTHER ABNORMALITIES OF GAIT AND MOBILITY 02/25/2016 MARISOL MOREL SOCIAL MEDIA DESIGNER Ot R42 DIZZINESS AND GIDDINESS 02/25/2016 MARISOL MOREL SOCIAL MEDIA DESIGNER Ot R51 HEADACHE 02/25/2016 MARISOL MOREL SOCIAL MEDIA DESIGNER Ot 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+] 02/25/2016 MARISOL MOREL SOCIAL MEDIA DESIGNER Ot Z79.899 OTHER NURSING HOME (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 THERAPY 02/25/2016 MARISOL MOREL SOCIAL MEDIA DESIGNER Ot H57.11 OCULAR PAIN, RIGHT EYE 02/25/2016 MARISOL MORELP Ot N63 UNSPECIFIED LUMP IN BREAST 02/25/2016 MARISOL MOREL SOCIAL MEDIA DESIGNER Ot R26.81 UNSTEADINESS ON FEET 02/25/2016 MARISOL MOREL SOCIAL MEDIA DESIGNER Ot H57.11 OCULAR PAIN, RIGHT EYE 02/25/2016 MARISOL MOREL SOCIAL MEDIA DESIGNER Ot N63 UNSPECIFIED LUMP IN BREAST 02/25/2016 MARISOL MOREL SOCIAL MEDIA DESIGNER Ot R26.81 UNSTEADINESS ON FEET 02/25/2016 LIZETH MAIER Ot 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 02/25/2016 LIZETH MAIER Ot D50.9 IRON DEFICIENCY ANEMIA, UNSPECIFIED 02/25/2016 LIZETH MAIER Ot M85.80 OTH DISRD OF BONE DENSITY AND STRUCTURE, 02/25/2016 LIZETH MAIER Ot 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+] 02/25/2016 LIZETH MAIER Ot 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 02/25/2016 JESÚS BEST, MADISON Ot Z01.818 ENCOUNTER FOR OTHER PREPROCEDURAL EXAMIN 02/25/2016 MARISOL MORELP Ot 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 02/25/2016 MARISOL MORELP Ot D50.9 IRON DEFICIENCY ANEMIA, UNSPECIFIED 02/25/2016 MARISOL MOREL SOCIAL MEDIA DESIGNER Ot M85.80 OTH DISRD OF BONE DENSITY AND STRUCTURE , 02/25/2016 MARISOL MORELP Ot 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+] 02/25/2016 MARISOL MOREL SOCIAL MEDIA DESIGNER Ot 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 02/25/2016 MARISOL MOREL SOCIAL MEDIA DESIGNER Ot 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 02/25/2016 MARISOL MOREL SOCIAL MEDIA DESIGNER Ot D50.9 IRON DEFICIENCY ANEMIA, UNSPECIFIED 02/25/2016 MARISOL MOREL SOCIAL MEDIA DESIGNER Ot M85.80 OTH DISRD OF BONE DENSITY AND STRUCTURE , 02/25/2016 MARISOL MORELP Ot 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+] 02/25/2016 MARISOL MOREL SOCIAL MEDIA DESIGNER Ot Z79.899 OTHER NURSING HOME (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 THERAPY 02/25/2016 Ot 593.2 CYST OF KIDNEY, ACQUIRED 02/25/2016 Ot 599.0 URIN TRACT INFECTION NOS 02/25/2016 Ot 788.21 INCOMPLETE BLADDER EMPTYING 02/25/2016 Ot 788.62 SLOWING OF URINARY STREAM 02/25/2016 Ot 780.79 OTH MALAISE FATIGUE 02/25/2016 Ot 786.50 CHEST PAIN NOS 02/25/2016 Ot V58.69 OTH MED,LT,CURRENT USE 02/25/2016 Ot 733.90 BONE CARTILAGE DIS NOS 02/25/2016 Ot 599.0 URIN TRACT INFECTION NOS 02/25/2016 KARUNA BEST, PJ R Ot 780.79 OTH MALAISE FATIGUE 02/25/2016 PJ BECKMAN MD R Ot 782.7 SPONTANEOUS ECCHYMOSES 02/25/2016 Ot 682.9 CELLULITIS NOS 02/25/2016 Ot 599.0 URIN TRACT INFECTION NOS 02/25/2016 JESÚS BEST, MADISON Ot V72.84 EXAM PRE-OPERATIVE NOS 02/25/2016 Ot 280.9 IRON DEFIC ANEMIA NOS 02/25/2016 Ot 530.81 ESOPHAGEAL REFLUX 02/25/2016 Ot 564.00 UNSPEC CONSTIPATION 02/25/2016 Ot 585.3 CHRONIC KIDNEY DISEASE, STAGE III (MODER 02/25/2016 Ot V13.02 PERSONAL HISTORY, URINARY (TRACT) INFECT 02/25/2016 Ot V58.69 OTH MED,LT,CURRENT USE 02/25/2016 KARUNA BEST, PJ Kathleen Ot 443.9 PERIPH VASCULAR DIS NOS 02/25/2016 TRISTAN BEST, OTIS Nicholson Ot 276.1 HYPOSMOLALITY 02/25/2016 TRISTAN BEST, OTIS Nicholson Ot 276.8 HYPOPOTASSEMIA 02/25/2016 MARISOL MOREL SOCIAL MEDIA DESIGNER Ot 280.9 IRON DEFIC ANEMIA NOS 02/25/2016 MARISOL MOREL SOCIAL MEDIA DESIGNER Ot 305.1 TOBACCO USE DISORDER 02/25/2016 MARISOL MOREL SOCIAL MEDIA DESIGNER Ot 530.81 ESOPHAGEAL REFLUX 02/25/2016 MARISOL MOREL SOCIAL MEDIA DESIGNER Ot 564.00 UNSPEC CONSTIPATION 02/25/2016 MARISOL MOREL SOCIAL MEDIA DESIGNER Ot 585.3 CHRONIC KIDNEY DISEASE, STAGE III ( MODER 02/25/2016 MARISOL MORELP Ot V58.69 OTH MED,LT,CURRENT USE 02/25/2016 PJ BECKMAN MD R Ot 440.20 ATHEROSCLEROSIS TORRES MARTINEZ ARTERIES EXTREMIT 02/25/2016 SEGLIE MD, PJ R Ot 729.5 PAIN IN LIMB 02/25/2016 JESÚS BEST, MADISON Ot 530.11 REFLUX ESOPHAGITIS 02/25/2016 MADISON ESPINOSA MD Ot 535.40 OTH SPECIFIED GASTRITIS,W/O MENTION OF H 02/25/2016 MADISON ESPINOSA MD Ot 553.3 DIAPHRAGMATIC HERNIA 02/25/2016 MADISON ESPINOSA MD Ot V72.84 EXAM PRE-OPERATIVE NOS 02/25/2016 PJ BECKMAN MD R Ot 784.0 HEADACHE 02/25/2016 LIZETH MAIER Ot 280.9 IRON DEFIC ANEMIA NOS 02/25/2016 LIZETH MAIER Ot 564.00 UNSPEC CONSTIPATION 02/25/2016 LIZETH MAIER Ot 585.3 CHRONIC KIDNEY DISEASE, STAGE III (MODER 02/25/2016 LIZETH MAIER Ot V58.69 OTH MED,LT,CURRENT USE 02/25/2016 LAMONT DPAdam, MIGUEL P Ot 726.91 EXOSTOSIS, SITE NOS 02/25/2016 LAMONT DPAdam, MIGUEL P Ot V72.63 PRE-PROCEDURAL LABORATORY EXAMINATION 02/25/2016 LAMONT WILCOX MIGUEL P Ot V74.8 SCREEN-BACTERIAL DIS NEC 02/25/2016 PJ BECKMAN MD R Ot 729.5 PAIN IN LIMB 02/25/2016 WING RUIZ MD Ot 595.2 CHRONIC CYSTITIS NEC 02/25/2016 PJ BECKMAN MD R Ot 787.91 DIARRHEA 02/25/2016 PJ BECKMAN MD R Ot 789.00 ABDOMINAL PAIN, UNSPECIFIED SITE 02/25/2016 PJ BECKMAN MD R Ot 611.72 LUMP OR MASS IN BREAST 02/25/2016 PJ BECKMAN MD R Ot 174.9 MALIGN NEOPL BREAST NOS 02/25/2016 PJ BECKMAN MD R Ot 285.9 ANEMIA NOS 02/25/2016 PJ BECKMAN MD R Ot 780.79 OTH MALAISE FATIGUE 02/25/2016 LIZETH MAIER N Ot 174.9 MALIGN NEOPL BREAST NOS 02/25/2016 LIZETH MAIER Ot 174.9 MALIGN NEOPL BREAST NOS 02/25/2016 LIZETH MAIER Ot 280.9 IRON DEFIC ANEMIA NOS 02/25/2016 LIZETH MAIER Ot 585.3 CHRONIC KIDNEY DISEASE, STAGE III (MODER 02/25/2016 LIZETH MAIER Ot V58.69 OTH MED,LT,CURRENT USE 02/25/2016 LIZETH MAIER Ot V86.0 ESTROGEN RECEPTOR POSITIVE STATUS [ER+] 02/25/2016 THOMAS DOMARITATT D Ot 174.9 MALIGN NEOPL BREAST NOS 02/25/2016 THOMAS DO JAKE D Ot V72.84 EXAM PRE-OPERATIVE NOS 02/25/2016 THOMAS DOJAKE D Ot 174.9 MALIGN NEOPL BREAST NOS 02/25/2016 THOMAS DO, JAKE D Ot V72.63 PRE-PROCEDURAL LABORATORY EXAMINATION 02/25/2016 THOMAS DOJAKE D Ot V74.8 SCREEN-BACTERIAL DIS NEC 02/25/2016 LIZETH MAIER Ot M81.8 OTHER OSTEOPOROSIS WITHOUT CURRENT PATHO 02/25/2016 MARISOL MOREL SOCIAL MEDIA DESIGNER Ot 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 02/25/2016 MARISOL MOREL SOCIAL MEDIA DESIGNER Ot D50.9 IRON DEFICIENCY ANEMIA, UNSPECIFIED 02/25/2016 MARISOL MOREL SOCIAL MEDIA DESIGNER Ot M85.80 OTH DISRD OF BONE DENSITY AND STRUCTURE , 02/25/2016 MARISOL MOREL SOCIAL MEDIA DESIGNER Ot R26.89 OTHER ABNORMALITIES OF GAIT AND MOBILITY 02/25/2016 MARISOL MOREL SOCIAL MEDIA DESIGNER Ot R42 DIZZINESS AND GIDDINESS 02/25/2016 MARISOL MOREL SOCIAL MEDIA DESIGNER Ot R51 HEADACHE 02/25/2016 MARISOL MOREL SOCIAL MEDIA DESIGNER Ot 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+] 02/25/2016 MARISOL MOREL SOCIAL MEDIA DESIGNER Ot 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 02/25/2016 MARISOL MOREL SOCIAL MEDIA DESIGNER Ot H57.11 OCULAR PAIN, RIGHT EYE 02/25/2016 MARISOL MORELP Ot N63 UNSPECIFIED LUMP IN BREAST 02/25/2016 MARISOL MOREL SOCIAL MEDIA DESIGNER Ot R26.81 UNSTEADINESS ON FEET 02/25/2016 MARISOL MOREL SOCIAL MEDIA DESIGNER Ot H57.11 OCULAR PAIN, RIGHT EYE 02/25/2016 MARISOL MOREL SOCIAL MEDIA DESIGNER Ot N63 UNSPECIFIED LUMP IN BREAST 02/25/2016 MARISOL MOREL SOCIAL MEDIA DESIGNER Ot R26.81 UNSTEADINESS ON FEET 02/25/2016 LIZETH MAIER Ot 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 02/25/2016 LIZETH MAIER Ot D50.9 IRON DEFICIENCY ANEMIA, UNSPECIFIED 02/25/2016 LIZETH MAIER Ot M85.80 OTH DISRD OF BONE DENSITY AND STRUCTURE, 02/25/2016 LIZETH MAIER Ot 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+] 02/25/2016 LIZETH MAIER Ot 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 02/25/2016 JESÚS BEST, MADISON Ot Z01.818 ENCOUNTER FOR OTHER PREPROCEDURAL EXAMIN 02/25/2016 MARISOL MOREL SOCIAL MEDIA DESIGNER Ot 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 02/25/2016 MARISOL MORELP Ot D50.9 IRON DEFICIENCY ANEMIA, UNSPECIFIED 02/25/2016 MARISOL MOREL SOCIAL MEDIA DESIGNER Ot M85.80 OTH DISRD OF BONE DENSITY AND STRUCTURE , 02/25/2016 MARISOL MORELP Ot 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+] 02/25/2016 MARISOL MOREL SOCIAL MEDIA DESIGNER Ot 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 02/25/2016 MARISOL MOREL SOCIAL MEDIA DESIGNER Ot 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 02/25/2016 MARISOL MOREL SOCIAL MEDIA DESIGNER Ot D50.9 IRON DEFICIENCY ANEMIA, UNSPECIFIED 02/25/2016 MARISOL MOREL SOCIAL MEDIA DESIGNER Ot M85.80 OTH DISRD OF BONE DENSITY AND STRUCTURE , 02/25/2016 MARISOL MORELP Ot 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+] 02/25/2016 MARISOL MOREL SOCIAL MEDIA DESIGNER Ot Z79.899 OTHER NURSING HOME (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 THERAPY 02/25/2016 MARISOL MOREL SOCIAL MEDIA DESIGNER Ot 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 02/26/2016 MARISOL MOREL SOCIAL MEDIA DESIGNER Ot 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 02/27/2016 MARISOL MOREL SOCIAL MEDIA DESIGNER Ot 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 02/27/2016 MORELMARISOL [place] SOCIAL MEDIA DESIGNER Ot 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 02/27/2016 MORELMARISOL [place] SOCIAL MEDIA DESIGNER Ot D50.9 IRON DEFICIENCY ANEMIA, UNSPECIFIED 02/27/2016 MORELMARISOL [place] SOCIAL MEDIA DESIGNER Ot M85.80 OTH DISRD OF BONE DENSITY AND STRUCTURE , 02/27/2016 MORELMARISOL [place] SOCIAL MEDIA DESIGNER Ot 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+] 02/27/2016 MORELMARISOL [place] SOCIAL MEDIA DESIGNER Ot 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 03/02/2016 ADRIEL MARISOL [place] SOCIAL MEDIA DESIGNER Ot 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 03/04/2016 MOREL MARISOL [place] SOCIAL MEDIA DESIGNER Ot 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 03/04/2016 MORELMARISOL [place] SOCIAL MEDIA DESIGNER Ot D50.9 IRON DEFICIENCY ANEMIA, UNSPECIFIED 03/04/2016 MORELMARISOL [place] SOCIAL MEDIA DESIGNER Ot M85.80 OTH DISRD OF BONE DENSITY AND STRUCTURE , 03/04/2016 MARISOL MOREL SOCIAL MEDIA DESIGNER Ot 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+] 03/04/2016 MORELMARISOL [place] SOCIAL MEDIA DESIGNER Ot Z79.899 OTHER NURSING HOME (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 THERAPY 03/18/2016 ADRIEL MARISOL [place] SOCIAL MEDIA DESIGNER Ot 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 03/23/2016 ADRIEL MARISOL [place] SOCIAL MEDIA DESIGNER Ot 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 03/29/2016 LIZETH MAIER N Ot 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 03/29/2016 LIZETH MAIER Ot D50.9 IRON DEFICIENCY ANEMIA, UNSPECIFIED 03/29/2016 LIZETH MAIER Ot M85.80 OTH DISRD OF BONE DENSITY AND STRUCTURE, 03/29/2016 LIZETH MAIER Ot 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+] 03/29/2016 LIZETH MAIER Ot 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 05/26/2016 LIZETH MAIER Ot 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 05/26/2016 LIZTEH MAIER Ot D50.9 IRON DEFICIENCY ANEMIA, UNSPECIFIED 05/26/2016 LIZETH MAIER Ot M85.80 OTH DISRD OF BONE DENSITY AND STRUCTURE, 05/26/2016 LIZETH MAIER Ot 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+] 05/26/2016 LIZETH MAIER Ot Z79.899 OTHER NURSING HOME (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 THERAPY 07/13/2016 LIZETH MAIER Ot 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 07/13/2016 LIZETH MAIER Ot D50.9 IRON DEFICIENCY ANEMIA, UNSPECIFIED 07/13/2016 LIZETH MAIER Ot M85.80 OTH DISRD OF BONE DENSITY AND STRUCTURE, 07/13/2016 LIZETH MAIER Ot 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+] 07/13/2016 LIZETH MAIER Ot Z79.899 OTHER NURSING HOME (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 THERAPY 07/15/2016 Ot 593.2 CYST OF KIDNEY, ACQUIRED 07/15/2016 Ot 599.0 URIN TRACT INFECTION NOS 07/15/2016 Ot 788.21 INCOMPLETE BLADDER EMPTYING 07/15/2016 Ot 788.62 SLOWING OF URINARY STREAM 07/15/2016 Ot 780.79 OTH MALAISE FATIGUE 07/15/2016 Ot 786.50 CHEST PAIN NOS 07/15/2016 Ot V58.69 OTH MED,LT,CURRENT USE 07/15/2016 Ot 733.90 BONE CARTILAGE DIS NOS 07/15/2016 Ot 599.0 URIN TRACT INFECTION NOS 07/15/2016 KARUNA BEST, PJ R Ot 780.79 OTH MALAISE FATIGUE 07/15/2016 KARUNA BEST, PJ R Ot 782.7 SPONTANEOUS ECCHYMOSES 07/15/2016 Ot 682.9 CELLULITIS NOS 07/15/2016 Ot 599.0 URIN TRACT INFECTION NOS 07/15/2016 JESÚS BEST, MADISON Ot V72.84 EXAM PRE-OPERATIVE NOS 07/15/2016 Ot 280.9 IRON DEFIC ANEMIA NOS 07/15/2016 Ot 530.81 ESOPHAGEAL REFLUX 07/15/2016 Ot 564.00 UNSPEC CONSTIPATION 07/15/2016 Ot 585.3 CHRONIC KIDNEY DISEASE, STAGE III (MODER 07/15/2016 Ot V13.02 PERSONAL HISTORY, URINARY (TRACT) INFECT 07/15/2016 Ot V58.69 OTH MED,LT,CURRENT USE 07/15/2016 PJ BECKMAN MD Ot 443.9 PERIPH VASCULAR DIS NOS 07/15/2016 OTIS HUDSON MD Ot 276.1 HYPOSMOLALITY 07/15/2016 OTIS HUDSON MD Ot 276.8 HYPOPOTASSEMIA 07/15/2016 MORELMARISOL [place] SOCIAL MEDIA DESIGNER Ot 280.9 IRON DEFIC ANEMIA NOS 07/15/2016 MARISOL MOREL SOCIAL MEDIA DESIGNER Ot 305.1 TOBACCO USE DISORDER 07/15/2016 MARISOL MOREL SOCIAL MEDIA DESIGNER Ot 530.81 ESOPHAGEAL REFLUX 07/15/2016 MARISOL MORELP Ot 564.00 UNSPEC CONSTIPATION 07/15/2016 MARISOL MOREL SOCIAL MEDIA DESIGNER Ot 585.3 CHRONIC KIDNEY DISEASE, STAGE III ( MODER 07/15/2016 MARISOL MORELP Ot V58.69 OTH MED,LT,CURRENT USE 07/15/2016 PJ BECKMAN MD Ot 440.20 ATHEROSCLEROSIS TORRES MARTINEZ ARTERIES EXTREMIT 07/15/2016 PJ BECKMAN MD Ot 729.5 PAIN IN LIMB 07/15/2016 MADISON ESPINOSA MD Ot 530.11 REFLUX ESOPHAGITIS 07/15/2016 MADISON ESPINOSA MD Ot 535.40 OTH SPECIFIED GASTRITIS,W/O MENTION OF H 07/15/2016 MADISON ESPINOSA MD Ot 553.3 DIAPHRAGMATIC HERNIA 07/15/2016 MADISON ESPINOSA MD Ot V72.84 EXAM PRE-OPERATIVE NOS 07/15/2016 PJ BECKMAN MD Ot 784.0 HEADACHE 07/15/2016 LIZETH MAIER Ot 280.9 IRON DEFIC ANEMIA NOS 07/15/2016 LIZETH MAIER Ot 564.00 UNSPEC CONSTIPATION 07/15/2016 LIZETH MAIER Ot 585.3 CHRONIC KIDNEY DISEASE, STAGE III (MODER 07/15/2016 LIZETH MAIER Ot V58.69 OTH MED,LT,CURRENT USE 07/15/2016 LAMONT DPM, MIGUEL P Ot 726.91 EXOSTOSIS, SITE NOS 07/15/2016 LAMONT DPAdam, MIGUEL Morales Ot V72.63 PRE-PROCEDURAL LABORATORY EXAMINATION 07/15/2016 MIGUEL MIGUEL DPM Ot V74.8 SCREEN-BACTERIAL DIS NEC 07/15/2016 KARUNA BEST, PJ R Ot 729.5 PAIN IN LIMB 07/15/2016 WING RUIZ MD Ot 595.2 CHRONIC CYSTITIS NEC 07/15/2016 KARUNA BEST, PJ R Ot 787.91 DIARRHEA 07/15/2016 KARUNA BEST, PJ R Ot 789.00 ABDOMINAL PAIN, UNSPECIFIED SITE 07/15/2016 PJ BECKMAN MD R Ot 611.72 LUMP OR MASS IN BREAST 07/15/2016 PJ BECKMAN MD R Ot 174.9 MALIGN NEOPL BREAST NOS 07/15/2016 BARTOLOME BECKMAN MDYD R Ot 285.9 ANEMIA NOS 07/15/2016 PJ BECKMAN MD R Ot 780.79 OTH MALAISE FATIGUE 07/15/2016 LIZETH MAIER Ot 174.9 MALIGN NEOPL BREAST NOS 07/15/2016 LIZETH MAIER Ot 174.9 MALIGN NEOPL BREAST NOS 07/15/2016 LIZETH MAIER Ot 280.9 IRON DEFIC ANEMIA NOS 07/15/2016 LIZETH MAIER Ot 585.3 CHRONIC KIDNEY DISEASE, STAGE III (MODER 07/15/2016 LIZETH MAIER Ot V58.69 OT MED,LT,CURRENT USE 07/15/2016 LIZETH MAIER Ot V86.0 ESTROGEN RECEPTOR POSITIVE STATUS [ER+] 07/15/2016 JAKE THOMAS DO Ot 174.9 MALIGN NEOPL BREAST NOS 07/15/2016 JAKE THOMAS DO Ot V72.84 EXAM PRE-OPERATIVE NOS 07/15/2016 JAKE THOMAS DO Ot 174.9 MALIGN NEOPL BREAST NOS 07/15/2016 JAKE THOMAS DO Ot V72.63 PRE-PROCEDURAL LABORATORY EXAMINATION 07/15/2016 JAKE THOMAS DO Ot V74.8 SCREEN-BACTERIAL DIS NEC 07/15/2016 DARRION, BOBAN N Ot M81.8 OTHER OSTEOPOROSIS WITHOUT CURRENT PATHO 07/15/2016 MORELMARISOL [place] SOCIAL MEDIA DESIGNER Ot 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 07/15/2016 MORELMARISOL [place] SOCIAL MEDIA DESIGNER Ot D50.9 IRON DEFICIENCY ANEMIA, UNSPECIFIED 07/15/2016 MORELMARISOL SOCIAL MEDIA DESIGNER Ot M85.80 OTH DISRD OF BONE DENSITY AND STRUCTURE , 07/15/2016 MELVINA MORELMICHAEL [place] SOCIAL MEDIA DESIGNER Ot R26.89 OTHER ABNORMALITIES OF GAIT AND MOBILITY 07/15/2016 MELVINA MORELMICHAEL [place] SOCIAL MEDIA DESIGNER Ot R42 DIZZINESS AND GIDDINESS 07/15/2016 MELVINA MORELMICHAEL [place] SOCIAL MEDIA DESIGNER Ot R51 HEADACHE 07/15/2016 MELVINA MORELMICHAEL [place] SOCIAL MEDIA DESIGNER Ot 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+] 07/15/2016 MELVINA MORELMICHAEL [place] SOCIAL MEDIA DESIGNER Ot 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 07/15/2016 MELVINA MORELMICHAEL [place] SOCIAL MEDIA DESIGNER Ot H57.11 OCULAR PAIN, RIGHT EYE 07/15/2016 MELVINA MORELMICHAEL [place] SOCIAL MEDIA DESIGNER Ot N63 UNSPECIFIED LUMP IN BREAST 07/15/2016 ADRIEL MARISOL [place] SOCIAL MEDIA DESIGNER Ot R26.81 UNSTEADINESS ON FEET 07/15/2016 ADRIEL MARISOL [place] SOCIAL MEDIA DESIGNER Ot H57.11 OCULAR PAIN, RIGHT EYE 07/15/2016 ADRIEL MARISOL [place] SOCIAL MEDIA DESIGNER Ot N63 UNSPECIFIED LUMP IN BREAST 07/15/2016 ADRIEL MARISOL [place] SOCIAL MEDIA DESIGNER Ot R26.81 UNSTEADINESS ON FEET 07/15/2016 JESÚS BEST, MADISON Ot Z01.818 ENCOUNTER FOR OTHER PREPROCEDURAL EXAMIN 07/15/2016 MELVINA MORELMICHAEL [place] SOCIAL MEDIA DESIGNER Ot 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 07/15/2016 MARISOL MOREL Alysia SOCIAL MEDIA DESIGNER Ot D50.9 IRON DEFICIENCY ANEMIA, UNSPECIFIED 07/15/2016 MARISOL MOREL Alysia SOCIAL MEDIA DESIGNER Ot M85.80 OTH DISRD OF BONE DENSITY AND STRUCTURE , 07/15/2016 MARISOL MOREL Alysia SOCIAL MEDIA DESIGNER Ot 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+] 07/15/2016 MELVINA MORELMICHAEL [place] SOCIAL MEDIA DESIGNER Ot 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 07/15/2016 MARISOL MOREL SOCIAL MEDIA DESIGNER Ot 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 07/15/2016 MARISOL MOREL SOCIAL MEDIA DESIGNER Ot D50.9 IRON DEFICIENCY ANEMIA, UNSPECIFIED 07/15/2016 MARISOL MOREL SOCIAL MEDIA DESIGNER Ot M85.80 OTH DISRD OF BONE DENSITY AND STRUCTURE , 07/15/2016 MARISOL MOREL SOCIAL MEDIA DESIGNER Ot 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+] 07/15/2016 MARISOL MOREL SOCIAL MEDIA DESIGNER Ot 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 07/15/2016 MARISOL MOREL SOCIAL MEDIA DESIGNER Ot 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 07/15/2016 DARRIONLIZETH N Ot 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 07/15/2016 LIZETH MAIER N Ot D50.9 IRON DEFICIENCY ANEMIA, UNSPECIFIED 07/15/2016 LIZETH MAIER N Ot M85.80 OTH DISRD OF BONE DENSITY AND STRUCTURE, 07/15/2016 LIZETH MAIER N Ot 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+] 07/15/2016 LIZETH MAIER N Ot 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 07/16/2016 KARUNA BEST, JP R Ot 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 07/16/2016 KARUNA BEST, PJ R Ot Z72.0 TOBACCO USE 07/21/2016 LIZETH MAIER N Ot 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 07/21/2016 LIZETH MAIER N Ot D50.9 IRON DEFICIENCY ANEMIA, UNSPECIFIED 07/21/2016 DARRIONLIZETH FIGUEROA N Ot M85.80 OTH DISRD OF BONE DENSITY AND STRUCTURE, 07/21/2016 LIZETH MAIER N Ot 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+] 07/21/2016 LIZETH MAIER N Ot Z79.899 OTHER NURSING HOME (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 THERAPY 08/23/2016 LIZETH MAIER N Ot 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 08/23/2016 DARRIONLIZETH FIGUEROA N Ot D50.9 IRON DEFICIENCY ANEMIA, UNSPECIFIED 08/23/2016 LIZETH MAIER N Ot M85.80 OTH DISRD OF BONE DENSITY AND STRUCTURE, 08/23/2016 LIZETH MAIER Ot 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+] 08/23/2016 LIZETH MAIER N Ot Z79.899 OTHER NURSING HOME (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 THERAPY 09/20/2016 MARISOL MOREL SOCIAL MEDIA DESIGNER Ot 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 09/20/2016 MARISOL MOERL S SOCIAL MEDIA DESIGNER Ot 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 09/20/2016 MARISOL MOREL SOCIAL MEDIA DESIGNER Ot 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 10/20/2016 LIZETH MAIER N Ot 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 10/20/2016 LIZETH MAIER N Ot D50.9 IRON DEFICIENCY ANEMIA, UNSPECIFIED 10/20/2016 LIZETH MAIER N Ot M85.80 OTH DISRD OF BONE DENSITY AND STRUCTURE, 10/20/2016 LIZETH MAIER N Ot 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+] 10/20/2016 LIZETH MAIER N Ot Z79.899 OTHER NURSING HOME (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 THERAPY 11/04/2016 MARISOL MOREL SOCIAL MEDIA DESIGNER Ot 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 12/09/2016 LIZETH MAIER N Ot 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 12/09/2016 LIZETH MAIER N Ot D50.9 IRON DEFICIENCY ANEMIA, UNSPECIFIED 12/09/2016 LIZETH MAIER N Ot M85.80 OTH DISRD OF BONE DENSITY AND STRUCTURE, 12/09/2016 LIZETH MAEIR N Ot 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+] 12/09/2016 LIZETH MAIER N Ot Z79.899 OTHER NURSING HOME (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 THERAPY 12/15/2016 LIZETH MAIER N Ot 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 12/15/2016 LIZETH MAIER N Ot D50.9 IRON DEFICIENCY ANEMIA, UNSPECIFIED 12/15/2016 DARRIONLIZETH FIGUEROA N Ot M85.80 OTH DISRD OF BONE DENSITY AND STRUCTURE, 12/15/2016 DARRIONLIZETH FIGUEROA N Ot 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+] 12/15/2016 LIZETH MAIER N Ot Z79.899 OTHER NURSING HOME (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 THERAPY 01/17/2017 LIZETH MAIER N Ot 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 01/17/2017 DARRIONLIZETH FIGUEROA N Ot D50.9 IRON DEFICIENCY ANEMIA, UNSPECIFIED 01/17/2017 DARRIONLIZETH FIGUEROA N Ot M85.80 OTH DISRD OF BONE DENSITY AND STRUCTURE, 01/17/2017 DARRIONLIZETH FIGUEROA N Ot 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+] 01/17/2017 LIZETH MAIER N Ot 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 01/26/2017 LIZETH MAIER N Ot 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 01/26/2017 DARRIONLIZETH FIGUEROA N Ot D50.9 IRON DEFICIENCY ANEMIA, UNSPECIFIED 01/26/2017 DARRIONLIZETH FIGUEROA N Ot M85.80 OTH DISRD OF BONE DENSITY AND STRUCTURE, 01/26/2017 DARRIONLIZETH FIGUEROA N Ot 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+] 01/26/2017 LIZETH MAIER N Ot 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 01/27/2017 LIZETH MAIER N Ot 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 01/27/2017 DARRIONLIZETH FIGUEROA N Ot D50.9 IRON DEFICIENCY ANEMIA, UNSPECIFIED 01/27/2017 DARRIONLIZETH N Ot M85.80 OTH DISRD OF BONE DENSITY AND STRUCTURE, 01/27/2017 DARRIONLIZETH FIGUEROA N Ot 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+] 01/27/2017 DARRIONLIZETH N Ot Z79.899 OTHER NURSING HOME (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 THERAPY 01/31/2017 MARISOL MOREL SOCIAL MEDIA DESIGNER Ot M85.9 DISORDER OF BONE DENSITY AND STRUCTURE, 01/31/2017 MARISOL MOREL SOCIAL MEDIA DESIGNER Ot M85.9 DISORDER OF BONE DENSITY AND STRUCTURE, 02/08/2017 LOCKE DC, EVANGELISTA J Ot M50.31 OTHER CERVICAL DISC DEGENERATION, HIGH 02/08/2017 LOCKE DC, EVANGELISTA J Ot M51.36 OTHER INTERVERTEBRAL DISC DEGENERATION, 02/23/2017 LOCKE DC, EVANGELISTA J Ot M50.31 OTHER CERVICAL DISC DEGENERATION, HIGH 02/23/2017 LOCKE DC, EVANGELISTA J Ot M51.36 OTHER INTERVERTEBRAL DISC DEGENERATION, 03/02/2017 LOCKE DC, EVANGELISTA J Ot M50.31 OTHER CERVICAL DISC DEGENERATION, HIGH 03/02/2017 LOCKE DC, EVANGELISTA J Ot M51.36 OTHER INTERVERTEBRAL DISC DEGENERATION, 03/11/2017 LIZETH MAIER N Ot 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 03/11/2017 LIZETH MAIER N Ot D50.9 IRON DEFICIENCY ANEMIA, UNSPECIFIED 03/11/2017 LIZETH MAIER N Ot M85.80 OTH DISRD OF BONE DENSITY AND STRUCTURE, 03/11/2017 LIZETH MAIER N Ot 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+] 03/11/2017 ALISE MAIERAN N Ot 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 03/16/2017 LIZETH MAIER N Ot 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 03/16/2017 DARRIONLIZETH FIGUEROA N Ot D50.9 IRON DEFICIENCY ANEMIA, UNSPECIFIED 03/16/2017 DARRIONLIZETH FIGUEROA N Ot M85.80 OTH DISRD OF BONE DENSITY AND STRUCTURE, 03/16/2017 LIZETH MAIER N Ot 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+] 03/16/2017 DARRION BOBAN N Ot Z79.899 OTHER NURSING HOME (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 THERAPY 03/19/2017 DARRIONLIZETH FIGUEROA N Ot 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 03/19/2017 DARRION BOBLAURA N Ot D50.9 IRON DEFICIENCY ANEMIA, UNSPECIFIED 03/19/2017 DARRIONALISEAN N Ot M85.80 OTH DISRD OF BONE DENSITY AND STRUCTURE, 03/19/2017 DARRIONLIZETH FIGUEROA N Ot 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+] 03/19/2017 DARRION LIZETH N Ot 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 03/23/2017 MARISOL MOREL SOCIAL MEDIA DESIGNER Ot M85.9 DISORDER OF BONE DENSITY AND STRUCTURE, 03/23/2017 MARISOL MOREL SOCIAL MEDIA DESIGNER Ot R92.8 OTH ABN AND INCONCLUSIVE FINDINGS ON DX 04/04/2017 MARISOL MOREL SOCIAL MEDIA DESIGNER Ot 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 04/04/2017 MARISOL MOREL SOCIAL MEDIA DESIGNER Ot M85.89 OTH DISRD OF BONE DENSITY AND STRUCTURE , 04/04/2017 MARISOL MOREL SOCIAL MEDIA DESIGNER Ot N18.3 CHRONIC KIDNEY DISEASE, STAGE 3 ( MODERAT 04/04/2017 MARISOL MOREL SOCIAL MEDIA DESIGNER Ot R92.8 OTH ABN AND INCONCLUSIVE FINDINGS ON DX 04/04/2017 MARISOL MOREL SOCIAL MEDIA DESIGNER Ot 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 04/04/2017 MARISOL MOREL SOCIAL MEDIA DESIGNER Ot M85.89 OTH DISRD OF BONE DENSITY AND STRUCTURE , 04/04/2017 MARISOL MOREL SOCIAL MEDIA DESIGNER Ot N18.3 CHRONIC KIDNEY DISEASE, STAGE 3 ( MODERAT 04/04/2017 MARISOL MOREL SOCIAL MEDIA DESIGNER Ot R92.8 OTH ABN AND INCONCLUSIVE FINDINGS ON DX 04/15/2017 MARISOL MOREL SOCIAL MEDIA DESIGNER Ot 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 04/15/2017 MARISOL MOREL SOCIAL MEDIA DESIGNER Ot M85.89 OTH DISRD OF BONE DENSITY AND STRUCTURE , 04/15/2017 MARISOL MOREL SOCIAL MEDIA DESIGNER Ot N18.3 CHRONIC KIDNEY DISEASE, STAGE 3 ( MODERAT 04/18/2017 Ot 599.0 URIN TRACT INFECTION NOS Procedures Code Description Performed By Performed On 45.16 ESOPHAGOGASTRODUODENOSCOPY [EGD] W/CLOSE 04/06/2012 45.42 ENDOSC POLYPECTOMY OF LG INTEST 04/06/2012 48.36 ENDO RECTUM POLYPECTOMY 04/06/2012 37.22 LEFT HEART CARDIAC CATH 02/01/2013 88.53 LT HEART ANGIOCARDIOGRAM 02/01/2013 88.56 CORONAR ARTERIOGR-2 CATH 02/01/2013 Results Encounters ACCT No. Visit Date/Time Discharge Status Pt. Type Provider Facility Loc./Unit Complaint [id number] 03/24/2017 10:52:00 2016 23:59:59 CLS Outpatient MARISOL MOREL SOCIAL MEDIA DESIGNER [facility] RAD ABNORMAL MAMMO [id number] 03/20/2017 00:38:00 2016 23:59:59 CLS Preadmit LIZETH MAIER [facility] ONC [id number] 01/26/2017 13:26:00 2016 00:01:00 DIS Outpatient LIZETH MAIER [facility] ONC [id number] 02/02/2017 12:50:00 2016 23:59:59 CLS Outpatient CORNELIA ADRIAN, EVANGELISTA Mcnamara [facility] RAD CERVICAL SERIES [id number] 10/19/2016 13:25:00 2016 00:01:00 DIS Outpatient LIZETH MAIER [facility] ONC [id number] 09/20/2016 13:13:00 2016 23:59:59 CLS Outpatient MARISOL MORELP [facility] RAD C50.511 [id number] 05/25/2016 13:44:00 2016 00:01:00 DIS Outpatient LIZETH MAIER [facility] ONC [id number] 07/15/2016 13:08:00 2016 23:59:59 CLS Outpatient KARUNA BEST, PJ R [facility] LAB Z72.0,305.1,E53.8,E78.00,244.8 [id number] 02/03/2016 14:49:00 2015 14:12:00 DIS Outpatient LIZETH MAIER [facility] ONC [id number] 02/25/2016 13:27:00 2015 23:59:59 CLS Outpatient MARISOL MOREL [facility] RAD PRIMARY MALIGNANT NEOPLASM OF RT BREAST [id number] 02/18/2016 09:34:00 2015 12:26:00 DIS [facility] [id number] 02/17/2016 12:30:00 2015 12:55:00 DIS Outpatient MADISON ESPINOSA MD [facility] PREOP DYSPHAGIA [id number] 02/03/2016 14:45:00 2015 23:59:59 CLS Outpatient MARISOL MOREL SOCIAL MEDIA DESIGNER [facility] ONC [id number] 10/21/2015 10:28:00 2015 23:59:59 CLS Outpatient MARISOL MOREL SOCIAL MEDIA DESIGNER [facility] ONC [id number] 08/27/2015 11:02:00 2015 12:52:00 DIS Emergency JASON WELCH APRN [facility] ER MULTIPLE FALLS/HEAD INJURY [id number] 07/23/2015 10:55:00 2015 23:59:59 CLS Outpatient MADISON ESPINOSA MD [facility] HISTORY OF POLYPS;CONSTIPATION [id number] 07/22/2015 05:52:00 2015 23:59:59 CLS Outpatient MADISON ESPINOSA MD [facility] PREOP HISTORY OF POLYPS;CONSTIPATION [id number] 07/16/2015 14:37:00 2015 23:59:59 CLS Outpatient MARISOL MOREL [facility] RAD UNSTEADY GAIT,PAIN IN RIGHT EYE [id number] 07/15/2015 11:41:00 2015 23:59:59 CLS Outpatient MARISOL MOREL SOCIAL MEDIA DESIGNER [facility] CARD BREAST CANCER [id number] 07/08/2015 09:11:00 2015 23:59:59 CLS Outpatient MARISOL MOREL SOCIAL MEDIA DESIGNER [facility] ONC [id number] 04/17/2015 10:45:00 2014 23:59:59 CLS Outpatient LIZETH MAIER [facility] RAD HX OF OSTEOPOROSIS, DRUG INDUCED OSTEOPOROSIS [id number] 04/10/2015 08:47:00 2014 23:59:59 CLS Outpatient LIZETH MAIER [facility] ONC [id number] 03/17/2015 12:51:00 2014 00:01:00 DIS Outpatient LIZETH MAIER [facility] ONC [id number] 02/13/2015 07:09:00 2014 14:20:00 DIS Outpatient JAKE THOMAS DO [facility] CARD RIGHT BREAST CANCER [id number] 02/12/2015 10:26:00 2014 23:59:59 CLS Outpatient JAKE THOMAS DO [facility] PREOP RIGHT BREAST CANCER [id number] 12/21/2014 11:56:00 2014 12:48:00 DIS Emergency EWLCHJASON APRN [facility] ER POST OP CONCERNS [id number] 12/19/2014 08:26:00 2014 15:20:00 DIS Outpatient JAKE THOMAS DO [facility] SDC RIGHT BREAST CANCER [id number] 12/18/2014 05:51:00 2014 23:59:59 CLS Outpatient JAKE THOMAS DO [facility] PREOP RIGHT BREAST CANCER [id number] 12/12/2014 12:31:00 2014 23:59:59 CLS Outpatient LIZETH MAIER [facility] ONC [id number] 12/10/2014 11:58:00 2014 23:59:59 CLS Outpatient LIZETH MAIER [facility] RAD BREAST CANCER [id number] 12/04/2014 12:12:00 2014 23:59:59 CLS Outpatient PJ BECKMAN MD [facility] RAD RT BREAST LUMP AT 7:30 [id number] 12/03/2014 08:35:00 2014 23:59:59 CLS Outpatient PJ BECKMAN MD [facility] RAD RT BREAST LUMP [id number] 05/28/2014 00:10:00 2013 23:59:59 CLS Preadmit PJ BECKMAN MD [facility] LAB DIARRHEA,CRAMPING [id number] 03/01/2014 08:12:00 2013 00:01:00 DIS Outpatient PJ BECKMAN MD [facility] LAB DIARRHEA,CRAMPING [id number] 03/12/2014 09:29:00 2013 23:59:59 CLS Outpatient WING RUIZ MD [facility] RAD CYSTITIS [id number] 03/12/2014 09:24:00 2013 23:59:59 CLS Outpatient PJ BECKMAN MD [facility] RAD PAIN LEFT FOOT [id number] 01/18/2014 06:00:00 2013 12:10:00 DIS Outpatient MIGUEL MIGUEL DPM [facility] EXOSTOSIS FIFTH METATARSAL LEFT FOOT [id number] 01/14/2014 12:45:00 2013 23:59:59 CLS Outpatient MIGUEL MIGUEL DPM [facility] PREOP EXOSTOSIS FIFTH METATARSAL LEFT FOOT [id number] 08/28/2013 14:55:00 2013 08:35:00 DIS Inpatient PJ BECKMAN MD [facility] 4TH PYELONEPHRITIS,UTI [id number] 08/20/2013 09:34:00 2013 23:59:59 CLS Outpatient LIZETH MAIER [facility] ONC [id number] 07/20/2013 11:44:00 2013 23:59:59 CLS Outpatient PJ BECKMAN MD [facility] RAD HEADACHES PERSISTENT PAIN [id number] 05/16/2013 07:20:00 2012 23:59:59 CLS Outpatient MADISON ESPINOSA MD [facility] DYSPHAGIA [id number] 05/09/2013 07:27:00 2012 23:59:59 CLS Outpatient MADISON ESPINOSA MD [facility] PREOP DYSPHAGIA [id number] 02/28/2013 13:21:00 2012 23:59:59 CLS Outpatient PJ BECKMAN MD [facility] RAD LEG PAIN,STENOSIS [id number] 02/20/2013 09:22:00 2012 23:59:59 CLS Outpatient MARISOL MOREL SOCIAL MEDIA DESIGNER [facility] ONC [id number] 02/13/2013 15:18:00 2012 23:59:59 CLS Outpatient PJ BECKMAN MD [facility] RAD CLAUDICATION [id number] 02/12/2013 12:06:00 2012 23:59:59 CLS Outpatient OTIS HUDSON MD [facility] LAB HYPOKALEMIA, [id number] 02/01/2013 13:08:00 2012 11:30:00 DIS Inpatient PJ BECKMAN MD [facility] ICU CHEST PAIN HYPONATREMIA [id number] 01/18/2013 14:44:00 2012 23:59:59 CLS Outpatient PJ BECKMAN MD [facility] LAB BRUSING,FATIGUE [id number] 12/07/2012 08:25:00 2012 14:05:00 DIS Outpatient MADISON ESPINOSA MD [facility] SDC HEMORRHOIDS [id number] 11/30/2012 11:14:00 2012 23:59:59 CLS Outpatient MADISON ESPINOSA MD [facility] PREOP HEMORRHOIDS [id number] 07/15/2015 11:41:00 Document Registration [id number] 07/15/2015 11:40:00 Document Registration [id number] 11/27/2012 00:00:00 Document Registration [id number] 09/08/2012 11:43:00 Document Registration [id number] 08/28/2012 10:09:00 Document Registration [id number] 08/25/2012 00:00:00 Document Registration [id number] 06/04/2012 10:05:00 Document Registration [id number] 05/29/2012 11:20:00 Document Registration [id number] 05/02/2012 09:49:00 Document Registration [id number] 04/06/2012 09:42:00 Document Registration [id number] 02/11/2012 12:12:00 Document Registration [id number] 02/11/2012 12:07:00 Document Registration [id number] 02/04/2012 12:19:00 Document Registration [id number] 01/14/2012 12:07:00 Document Registration
[2017-05-03] MEDS ORDERED: ALPRAZolam 0.25 MG (XANAX) TAB PO ONE (16:00)
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
[2017-05-03 16:50] VITALS: BP 118/86
[2017-05-03 17:04] LABS: BILIRUBIN,URINE NEGATIVE (NEGATIVE); KETONES,URINE NEGATIVE (NEGATIVE); LEUKOCYTE ESTERASE ,URINE 3+ (NEGATIVE); NITRITE,URINE POSITIVE (NEGATIVE); PH,URINE 7 (5-9); PROTEIN,URINE NEGATIVE (NEGATIVE); UROBILINOGEN,URINE NORMAL (NORMAL)
[2017-05-03 17:11] LABS: SQUAMOUS EPITHELIAL CELL,UR 0-2 /HPF; WBC,URINE 25-50 /HPF
[2017-05-03] MEDS ORDERED: NITR100C PO (17:21)
[2017-05-03] MEDS ORDERED: NITROFURANTOIN 100 MG (MACROBID) CAPSULE PO ONE (17:30)
== END 2017-05-03 17:35 | disposition home or self-care (01) ==
LOC: EDUNIT# 15:43 → ER 15:44
DX: F41.9 Anxiety disorder, unspecified (principal); N39.0 Urinary tract infection, site not specified; K21.9 Gastro-esophageal reflux disease without esophagitis; M81.0 Age-related osteoporosis without current pathological fracture; M19.90 Unspecified osteoarthritis, unspecified site; F32.9 Major depressive disorder, single episode, unspecified; F17.210 Nicotine dependence, cigarettes, uncomplicated; Z82.49 Family history of ischemic heart disease and other diseases of the circulatory system; Z85.3 Personal history of malignant neoplasm of breast; Z85.42 Personal history of malignant neoplasm of other parts of uterus; Z90.89 Acquired absence of other organs; Z90.49 Acquired absence of other specified parts of digestive tract; Z90.710 Acquired absence of both cervix and uterus; Z87.440 Personal history of urinary (tract) infections; Z87.19 Personal history of other diseases of the digestive system; Z86.010 Personal history of colon polyps
CPT/HCPCS: 81000; 87088; 87186; 99283

== ENCOUNTER → 2017-05-30 | Outpatient (CLI) | payer MEDICARE, BC ==
[~2017-05-30] MED LIST changes: +NITR100C PO
== END ==
LOC: LAB 18:33
PROVIDERS: ATTEND Family Medicine
DX: R39.9 Unspecified symptoms and signs involving the genitourinary system (principal)
CPT/HCPCS: 87088; 87186

== ENCOUNTER 2017-08-29 10:26 | Outpatient (RCR) | payer MEDICARE, BC ==
[2017-08-29 11:11] LABS: BASOPHILS # (AUTO) 0.1 10^3/uL (0.0-0.1); BASOPHILS % (AUTO) 1 % (0-10); EOSINOPHILS # (AUTO) 0.1 10^3/uL (0.0-0.3); EOSINOPHILS % (AUTO) 1 % (0-10); HEMATOCRIT 44 % (35-52); HEMOGLOBIN 15.1 G/DL (11.5-16.0); LYMPHOCYTES # (AUTO) 2.2 X 10^3 (1.0-4.0); LYMPHOCYTES % (AUTO) 25 % (12-44); MEAN CORPUSCULAR HEMOGLOBIN 31 PG (25-34); MEAN CORPUSCULAR HGB CONC 35 G/DL (32-36); MEAN CORPUSCULAR VOLUME 90 FL (80-99); MEAN PLATELET VOLUME 11.4 FL (7.4-10.4); MONOCYTES # (AUTO) 0.7 X 10^3 (0.0-1.0); MONOCYTES % (AUTO) 8 % (0-12); NEUTROPHILS # (AUTO) 5.5 X 10^3 (1.8-7.8); NEUTROPHILS % (AUTO) 65 % (42-75); PLATELET COUNT 176 10^3/uL (130-400); RED BLOOD COUNT 4.86 10^6/uL (4.35-5.85); RED CELL DISTRIBUTION WIDTH 12.3 % (10.0-14.5); WHITE BLOOD COUNT 8.6 10^3/uL (4.3-11.0)
[2017-08-29 11:32] LABS: ALBUMIN 4.1 GM/DL (3.2-4.5); BILIRUBIN,TOTAL 0.5 MG/DL (0.1-1.0); CALCIUM 10.2 MG/DL (8.5-10.1); CREATININE SERUM 1.43 MG/DL (0.60-1.30); TOTAL PROTEIN 6.9 GM/DL (6.4-8.2)
== END 2017-11-27 | disposition home or self-care (01) ==
LOC: ONC 10:26
PROVIDERS: ATTEND Internal Medicine Hematology & Oncology
DX: C50.911 Malignant neoplasm of unspecified site of right female breast (principal); Z17.0 Estrogen receptor positive status [ER+]; M32.9 Systemic lupus erythematosus, unspecified; M85.88 Other specified disorders of bone density and structure, other site; G20 Parkinson's disease; N18.3 Chronic kidney disease, stage 3 (moderate); K21.9 Gastro-esophageal reflux disease without esophagitis; F17.210 Nicotine dependence, cigarettes, uncomplicated; Z79.899 Other long term (current) drug therapy
CPT/HCPCS: 36415; 80053; 85025; 99213

== ENCOUNTER → 2017-09-05 | Outpatient (CLI) | payer MEDICARE, BC ==
--- NOTE | 2017-09-05 14:06 | Diagnostic Imaging Report ---
INDICATION: Palpable lumps in the left breast. Patient has history of right breast carcinoma status post lumpectomy. COMPARISON: 09/20/2016 and 02/25/2016. TECHNIQUE: Digital diagnostic mammography was performed bilaterally with a Computer Aided Detection (CAD) system. FINDINGS: Post lumpectomy changes in the right breast are identified. The overall parenchymal pattern is stable. There are scattered benign calcifications throughout the right breast. Nodular densities in the upper and outer aspect of the left breast appear to be stable. These were previously shown to represent cysts by ultrasound. There is also a circumscribed nodular density in the left axilla at the second palpable abnormality. This appears benign as well but further evaluation with ultrasound will be performed. No spiculated mass or malignant appearing microcalcifications are seen. IMPRESSION: Nodular densities are noted at the areas of palpable abnormality in the left breast upper outer portion at mid depth as well as the left axilla. Further evaluation with ultrasound is recommended and will be performed. ACR BI-RADS Category 0: Incomplete. (Needs additional imaging evaluation). Result letter will be mailed to the patient. Note: At least 10% of breast cancer is not imaged by mammography. Dictated by: Dictated on workstation # [id number]
--- NOTE | 2017-09-05 19:56 | Diagnostic Imaging Report ---
INDICATION: Palpable lumps in the left breast. COMPARISON: Correlation is made with prior ultrasound from 09/20/2016. FINDINGS: Sonographic interrogation of the area of palpable abnormality in the left axilla was performed. There is a small cyst just below the skin surface at this location measuring 7 mm x 5 mm and is most consistent with a sebaceous cyst. This does contain some internal debris. In addition, the 2:00-2:30 location of the left breast was evaluated at the area of previously noted cyst. There appears to be a cluster of cysts measuring 13 mm x 4 mm x 11 mm, stable when compared with prior exam. No new mass is detected. IMPRESSION: 1. Sebaceous cyst at the area of palpable abnormality in the left axilla. 2. Stable cluster of cysts at the 2 o'clock location of the left breast when compared with prior exam from one year earlier. ACR BI-RADS Category 2: Benign findings. Dictated by: Dictated on workstation # [id number]
== END ==
LOC: RAD 13:20
PROVIDERS: ATTEND Nurse Practitioner Adult Health
DX: N60.02 Solitary cyst of left breast (principal); L72.3 Sebaceous cyst; Z85.3 Personal history of malignant neoplasm of breast; Z90.12 Acquired absence of left breast and nipple
CPT/HCPCS: 76641; 77066

== ENCOUNTER → 2017-09-09 | Outpatient (CLI) | payer MEDICARE, BC ==
[~2017-09-09] MED LIST changes: +CATHETER FLUSH 10 ML SYR IV PRN
--- NOTE | 2017-09-09 12:35 | Diagnostic Imaging Report ---
PROCEDURE: CT chest, abdomen, and pelvis without contrast. TECHNIQUE: Multiple contiguous axial images were obtained through the chest, abdomen, and pelvis without the use of intravenous contrast. INDICATION: Patient with history of uterine carcinoma and breast carcinoma. Patient currently is complaining of abdominal pain and right hip pain. COMPARISON: Comparison is made with prior CT of the chest, abdomen and pelvis performed on 07/15/2015. FINDINGS: CT chest: The area of parenchymal density in the right breast noted on prior study is much less prominent on today's exam. No axillary lymphadenopathy is identified. No internal mammary lymphadenopathy is seen. A right paratracheal lymph node is stable at 8 mm. No definite hilar or mediastinal lymphadenopathy is identified although evaluation is limited without intravenous contrast. No pericardial or pleural fluid is detected. Parenchymal evaluation does show linear densities at bilateral lower lobes as well as the right middle lobe and lingula. Slight nodularity within the medial aspect of the right middle lobe is seen, however this is stable when compared with prior exam and may represent area of scarring or atelectasis. No discrete parenchymal mass is identified. CT abdomen and pelvis: No discrete liver mass is identified. The gallbladder is surgically absent. The pancreas and spleen are unremarkable. No adrenal mass is identified. The kidneys contain several cortical low densities, most suggestive of cysts. These are stable when compared with prior exam. The aorta is non-aneurysmal. No central retroperitoneal or mesenteric lymphadenopathy is identified. The small and large bowel loops are normal in caliber. There is no ascites. The area of questionable wall thickening near the junction of the descending colon and sigmoid is not appreciated on today's exam. The bladder is unremarkable. No inguinal or iliac lymphadenopathy is detected. Bony structures are nonacute. IMPRESSION: Overall stable CT of the chest, abdomen and pelvis when compared with prior examination from 07/15/2015. No findings to suggest lymphadenopathy or metastatic disease are identified. Dictated by: Dictated on workstation # [id number]
--- NOTE | 2017-09-09 15:32 | Diagnostic Imaging Report ---
INDICATION: Right breast carcinoma. TECHNIQUE: The patient was administered 26.7 mCi of technetium-99m MDP intravenously, and whole-body imaging was performed after a three-hour delay. COMPARISON: Correlation is made with prior whole body bone scan from 07/15/2015. FINDINGS: There is normal uptake of activity by the axial and appendicular skeleton. There is uptake by both kidneys with excretion into the urinary bladder. Previously noted mild uptake involving the thoracic spine and bilateral ribs is similar to perhaps slightly decreased in prominence since prior. In particular, the thoracic spine activity has decreased. Degenerative changes in the region of the first MTP joint of the right foot and the midfoot on the left is unchanged. No foci to suggest osseous metastatic disease are identified. IMPRESSION: Stable whole-body bone scan. There are no scintigraphic findings to suggest osseous metastatic disease. Dictated by: Dictated on workstation # [id number]
== END ==
LOC: CARD 10:50
PROVIDERS: ATTEND Nurse Practitioner Adult Health
DX: N63.0 Unspecified lump in unspecified breast (principal); C50.511 Malignant neoplasm of lower-outer quadrant of right female breast
CPT/HCPCS: 71250; 74176; 78306

== ENCOUNTER 2017-11-10 13:05 | Emergency (ER) | payer MEDICARE, BC ==
[~2017-11-10] VITALS: Ht 157.5 cm; Wt 68.0 kg
[~2017-11-10 13:05] MED LIST changes: -CATHETER FLUSH 10 ML SYR IV PRN
--- OUTSIDE RECORDS SUMMARY | 2017-11-10 13:11 | XMS REPORT | Clinical Summary ---
Author Author [facility] Organization [facility] Address Unknown Phone Unavailable Care Team Providers Care Firepot Operator And Tender Name Role Phone Mima Gramajo MD Unavailable Ousmane De Anda MD Unavailable Austyn Ott MD PCP Airam Montelongo Unavailable Unavailable Ami Locke RN Unavailable Unavailable Pita Cade Unavailable Unavailable Martha Cristina APRN Unavailable Drake Arias MD Unavailable Mary Salinas RN Unavailable Unavailable Jorge Kaufman MD Unavailable Source Comments Some departments are not documenting in the electronic medical record. If you do not see the information that you expected, contact Release of Information in the Health Information Management department at [phone] for further assistance in locating additional records.[facility] Allergies Active Allergy Reactions Severity Noted [...] as directed every mcg/mL injection 7 days. ALPRAZolam (XANAX) 0.5 mg Take 1 mg [...] capsule daily 30 minutes before 17 breakfast. 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 Overview: Added automatically from request for surgery [id number] Rectal pain 03/07/2017 Overview: Added automatically from request for surgery [id number] Rectal bleeding 03/07/2017 Overview: Added automatically from request for surgery [id number] Constipation 03/07/2017 Overview: Added automatically from request for surgery [id number] Essential tremor 11/06/2015 Gait disturbance 11/06/2015 Pancreatic cyst 10/02/2014 Overview: EUS 07/26/14 Colon polyps 10/02/2014 Obstruction of bile duct 07/31/2014 Lupus 06/26/2014 Osteoporosis 06/26/2014 Recurrent urinary tract infection 03/21/2013 Mixed incontinence 03/21/2013 Encounters Date Type Specialty Care Team Description 09/20/2017 Refill Gastroenterology Ousmane De Anda MD from Last 3 Months Family History Medical [...] SCREENING 12/26/2011 PREVNAR/PNEUMOVAX (#1) 12/26/2011 INFLUENZA VACCINE 03/20/2018 COLORECTAL CANCER 07/26/2024 07/26/2014 SCREENING Results Not on filefrom Last 3 Months
--- OUTSIDE RECORDS SUMMARY | 2017-11-10 13:11 | XMS REPORT | Encounter Summary ---
Author Author [facility] Organization [facility] Address Unknown Phone Unavailable Care Team Providers Care Harvesting Supervisor Name Role Phone Mima Gramajo MD Unavailable Ousmane De Anda MD Unavailable Austyn Ott MD PCP Airam Montelongo Unavailable Unavailable Ami Locke RN Unavailable Unavailable Pita Cade Unavailable Unavailable Martha Cristina APRN Unavailable Drake Arias MD Unavailable Mary Salinas RN Unavailable Unavailable Jorge Kaufman MD Unavailable Reason for Visit * Reason Comments Medication Refill Encounter Details Date Type Department Care Team Description 09/20/2017 Refill [facility] Ousmane De Anda MD Physicians - Internal [address] [facility] [place] [address] [place] [address] [place] [address] Social History Tobacco Use Types [...]
[2017-11-10 13:40] LABS: BASOPHILS # (AUTO) 0.1 10^3/uL (0.0-0.1); BASOPHILS % (AUTO) 1 % (0-10); EOSINOPHILS # (AUTO) 0.1 10^3/uL (0.0-0.3); EOSINOPHILS % (AUTO) 2 % (0-10); HEMATOCRIT 41 % (35-52); HEMOGLOBIN 14.1 G/DL (11.5-16.0); LYMPHOCYTES # (AUTO) 1.7 X 10^3 (1.0-4.0); LYMPHOCYTES % (AUTO) 31 % (12-44); MEAN CORPUSCULAR HEMOGLOBIN 31 PG (25-34); MEAN CORPUSCULAR HGB CONC 34 G/DL (32-36); MEAN CORPUSCULAR VOLUME 91 FL (80-99); MONOCYTES # (AUTO) 0.3 X 10^3 (0.0-1.0); MONOCYTES % (AUTO) 6 % (0-12); NEUTROPHILS # (AUTO) 3.4 X 10^3 (1.8-7.8); NEUTROPHILS % (AUTO) 61 % (42-75); PLATELET COUNT 194 10^3/uL (130-400); RED BLOOD COUNT 4.55 10^6/uL (4.35-5.85); RED CELL DISTRIBUTION WIDTH 12.8 % (10.0-14.5); WHITE BLOOD COUNT 5.6 10^3/uL (4.3-11.0)
[2017-11-10] MEDS: ASPIRIN 81 MG CHEW (CHILDREN'S ASA) PO ONE (13:48)
[2017-11-10] MEDS: NITROGLYCERIN 0.4 MG SL TABS BTL 25'S SL PRN (13:51)
--- NOTE | 2017-11-10 13:51 | Diagnostic Imaging Report ---
INDICATION: Chest pain. COMPARISON: 02/01/2013. FINDINGS: Single frontal view of the chest demonstrates normal heart size and pulmonary vascularity. Lung travis show blunting of the bilateral costophrenic angles laterally. There is also some curvilinear atelectasis and/or scarring within the left base. Otherwise, lungs are clear. No pneumothorax is seen on either side. Bony structures show no gross acute abnormalities. IMPRESSION: 1. Probable small bibasilar effusions with associated atelectasis. Dictated by: Dictated on workstation # [id number]
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
[2017-11-10 14:06] LABS: PROTHROMBIN TIME PATIENT 12.9 SEC (12.2-14.7)
[2017-11-10 14:16] LABS: ALANINE AMINOTRANSFERASE 12 U/L (0-55); ALBUMIN 4.2 GM/DL (3.2-4.5); ALKALINE PHOSPHATASE 97 U/L (40-136); BILIRUBIN,TOTAL 0.3 MG/DL (0.1-1.0); BUN/CREATININE RATIO 8; CALCIUM 10.6 MG/DL (8.5-10.1); CARBON DIOXIDE 21 MMOL/L (21-32); CHLORIDE 109 MMOL/L (98-107); GFR ESTIMATED 37; GLUCOSE 134 MG/DL (70-105); LIPASE 27 U/L (8-78); MAGNESIUM 1.6 MG/DL (1.8-2.4); POTASSIUM 3.8 MMOL/L (3.6-5.0); SODIUM 141 MMOL/L (135-145); TOTAL PROTEIN 6.8 GM/DL (6.4-8.2)
[2017-11-10 14:24] LABS: MYOGLOBIN SERUM 54.2 NG/ML (10.0-92.0)
[2017-11-10] MEDS: ACETAMINOPHEN 500 MG TAB (TYLENOL) PO ONE (14:25)
--- OUTSIDE RECORDS SUMMARY | 2017-11-10 15:38 | XMS REPORT | Encounter Summary ---
Author Author [facility] Organization [facility] Address Unknown Phone Unavailable Care Team Providers Care Rag Cutting Machine Tender Name Role Phone Mima Gramajo MD [...] Type Department Care Team Description 09/20/2017 Refill [facility] Ousmane De Anda MD Physicians - Internal [address] [facility] Medicine [place] [address] [place] [address] [place] [address] Social History Tobacco Use Types [...]
--- OUTSIDE RECORDS SUMMARY | 2017-11-10 15:38 | XMS REPORT | Clinical Summary ---
Author Author [facility] Organization [facility] Address Unknown Phone Unavailable Care Team Providers Care Study Abroad Advisor Name Role Phone Mima Gramajo MD Unavailable [...] in the Health Information Management department at [phone] for further assistance in locating additional records.[facility] Allergies Active Allergy Reactions Severity Noted [...] Overview: Added automatically from request for surgery [id number] Pancreas cyst 03/07/2017 Overview: Added automatically from request for surgery [id number] Rectal pain 03/07/2017 Overview: Added automatically from request for surgery [id number] Rectal bleeding 03/07/2017 Overview: Added automatically from request for surgery [id number] Constipation 03/07/2017 Overview: Added automatically from request for surgery [id number] Essential tremor 11/06/2015 Gait disturbance 11/06/2015 Pancreatic [...] SHINGLES VACCINE 2006 OSTEOPOROSIS SCREENING 12/26/2011 PREVNAR/PNEUMOVAX 12/26/2011 (retired) (#1) INFLUENZA VACCINE 03/20/2018 COLORECTAL CANCER 07/26/2024 07/26/2014 SCREENING Results Not on filefrom Last 3 Months
[2017-11-10] MEDS: KETOROLAC 30 MG/ML VIAL IVP STA (15:41)
--- NOTE | 2017-11-10 15:45 | Diagnostic Imaging Report ---
INDICATION: Bilateral ankle pain, right foot pain.. TECHNIQUE: 3 views of the bilateral feet CORRELATION STUDY: Left foot 01/18/2014 FINDINGS: Left foot demonstrates surgical changes of a prior hallux valgus primus correction surgery of the great toe. There is a cerclage wire of the proximal phalanx and pin of the metatarsal remains in place. There are advanced degenerative changes, joint space narrowing and osteophyte formation about the first MTP joint. There is a deformity about the proximal interphalangeal joint of the second digit. The remainder of the interphalangeal joint is mildly narrowed but otherwise unremarkable. There is also some asymmetry with joint space narrowing of the second MTP joint. The tarsometatarsal as well as tarsal joints appear relatively unremarkable. Minimal spurring about the superior aspect of the navicular bone. The right foot demonstrates surgical changes of the screw at the of proximal and mid aspect of the first metatarsal. There is rather significantly advanced degenerative changes of the first MTP joint and joint space narrowing, sclerosis and marginal osteophyte formation and cystic change. There are also areas of asymmetric degenerative changes through the interphalangeal joints. Chronic appearing deformity with loss of the normal rounded configuration and margination of the second and third metatarsal heads as well as the base of the proximal phalanges. The tarsal metatarsal articulations and tarsal joints appear overall unremarkable apart from mild osteophyte formation at the superior aspect of the navicular bone. Tiny calcaneal spurring is noted, right greater left. IMPRESSION: 1. Negative for acute bony abnormality about either foot. 2. Prior surgical changes of the first digits bilaterally. Multifocal areas of asymmetric joint space narrowing, deformity and distortion of the joint spaces, as detailed above, likely chronic. Dictated by: Dictated on workstation # [id number]
[2017-11-10 17:45] VITALS: BP 104/83
== END 2017-11-10 17:47 | disposition home or self-care (01) ==
LOC: EDUNIT# 13:05 → ER 13:07 → 4TH 15:34 → UNDOADMOB 15:34 → ER 17:47
DX: R07.89 Other chest pain (principal); K21.9 Gastro-esophageal reflux disease without esophagitis; M81.0 Age-related osteoporosis without current pathological fracture; F41.9 Anxiety disorder, unspecified; F32.9 Major depressive disorder, single episode, unspecified; D64.9 Anemia, unspecified; Z85.3 Personal history of malignant neoplasm of breast; Z85.42 Personal history of malignant neoplasm of other parts of uterus; Z82.49 Family history of ischemic heart disease and other diseases of the circulatory system; Z88.2 Allergy status to sulfonamides; Z77.22 Contact with and (suspected) exposure to environmental tobacco smoke (acute) (chronic); Z90.49 Acquired absence of other specified parts of digestive tract; Z90.710 Acquired absence of both cervix and uterus; Z90.89 Acquired absence of other organs; Z87.440 Personal history of urinary (tract) infections; Z87.19 Personal history of other diseases of the digestive system; Z86.010 Personal history of colon polyps
CPT/HCPCS: 36415; 71045; 80053; 83690; 83735; 83874; 83880; 84484; 85025; 85379; 85610; 85730; 93005; 93041; 96374

== ENCOUNTER → 2017-12-08 | Outpatient (CLI) | payer MEDICARE, BC | LOC: CARD 11:53 | PROVIDERS: ATTEND Internal Medicine Cardiovascular Disease | DX: R07.89 Other chest pain (principal); R42 Dizziness and giddiness; I10 Essential (primary) hypertension; C50.911 Malignant neoplasm of unspecified site of right female breast; M32.9 Systemic lupus erythematosus, unspecified; Z72.0 Tobacco use | CPT/HCPCS: 93306 ==

== ENCOUNTER 2017-12-27 04:17 | Emergency (ER) | payer MEDICARE, BC ==
[~2017-12-27] VITALS: Ht 157.5 cm; Wt 68.0 kg
--- OUTSIDE RECORDS SUMMARY | 2017-12-27 04:25 | XMS REPORT | Clinical Summary ---
Author Author [facility] Organization [facility] Address Unknown Phone Unavailable Care Team Providers Care Induction Coordination Engineer Name Role Phone Mima Gramajo MD Unavailable [...] in the Health Information Management department at [phone] for further assistance in locating additional records.[facility] Allergies Active Allergy Reactions Severity Noted [...] TAKE ONE CAPSULE BY MOUTH 90 capsule 0 12/20/ 20 Active mg capsule EVERY 6 TO 8 HOURS 18 NEEDED dicyclomine (BENTYL) 10 TAKE ONE CAPSULE BY MOUTH 90 capsule 1 09/21/ 12/17/ Discontin mg capsule EVERY 6 TO 8 HOURS 18 18 ued NEEDED Active Problems Problem Noted Date Dysphagia 03/07/2017 Overview: Added automatically from request for surgery [id number] Pancreas cyst 03/07/2017 Overview: Added automatically from request for surgery [id number] Rectal pain 03/07/2017 Overview: Added automatically from request for surgery [id number] Rectal bleeding 03/07/2017 Overview: Added automatically from request for surgery [id number] Constipation 03/07/2017 Overview: Added automatically from request for surgery [id number] Essential tremor 11/06/2015 Gait disturbance 11/06/2015 Pancreatic cyst 10/02/2014 Overview: EUS 07/26/14 Colon polyps 10/02/2014 Obstruction of bile duct 07/31/2014 Lupus 06/26/2014 Osteoporosis 06/26/2014 Recurrent urinary tract infection 03/21/2013 Mixed incontinence 03/21/2013 Encounters Date Type Specialty Care Team Description 12/20/2017 Telephone Gastroenterology Ousmane De Anda MD Follow-up Phone Call 12/17/2017 Refill Gastroenterology Ousmane De Anda MD from [...] VACCINE 12/26/1963 BREAST CANCER SCREENING 1986 SHINGLES RECOMBINANT 1996 VACCINE (1 of 2) OSTEOPOROSIS SCREENING 12/26/2011 PNEUMONIA (PCV13/PPSV23) 12/26/2011 VACCINES (1 of 2 - PCV13) INFLUENZA VACCINE 03/20/2018 05/27/2006, 04/15/2005, 03/25/2003, Additional history exists COLORECTAL CANCER 07/26/2024 07/26/2014 SCREENING Results Not on filefrom Last 3 Months
--- OUTSIDE RECORDS SUMMARY | 2017-12-27 04:25 | XMS REPORT | Encounter Summary ---
Author Author [facility] Organization [facility] Address Unknown Phone Unavailable Care Team Providers Care Charge Manager Name Role Phone Mima Gramajo MD Unavailable Ousmane De Anda MD Unavailable Austyn Ott MD PCP Airam Montelongo Unavailable Unavailable Ami Locke RN Unavailable Unavailable Pita Cade Unavailable Unavailable Martha Cristina APRN Unavailable Drake Arias MD Unavailable Mary Salinas RN Unavailable Unavailable Jorge Kaufman MD Unavailable Reason for Visit * Reason Comments Medication Refill Encounter Details Date Type Department Care Team Description 12/17/2017 Refill [facility] Ousmane De Anda MD Physicians - Internal [address] [facility] Medicine [place] [address] [place] [address] [place] [address] Social History Tobacco Use Types [...]
--- OUTSIDE RECORDS SUMMARY | 2017-12-27 04:25 | XMS REPORT | Encounter Summary ---
Author Author [facility] Organization [facility] Address Unknown Phone Unavailable Care Team Providers Care Shirt Finisher Name Role Phone Mima Gramajo MD Unavailable Ousmane De Anda MD Unavailable Austyn Ott MD PCP Airam Montelongo Unavailable Unavailable Ami Locke RN Unavailable Unavailable Pita Cade Unavailable Unavailable Martha Cristina APRN Unavailable Drake Arias MD Unavailable Mary Salinas RN Unavailable Unavailable Jorge Kaufman MD Unavailable Reason for Visit * Reason Comments Follow-up Phone Call Encounter Details Date Type Department Care Team Description 12/20/2017 Telephone [facility] Ousmane De Anda MD Follow- up Phone Call Physicians - Internal [address] [facility] Medicine [place] [address] [place] [address] [place] [address] Social History Tobacco Use Types Packs/Day Years Used Date Current Every Day Smoker Cigarettes 0.5 50 Smokeless Tobacco: Never Used Alcohol Use Drinks/Week oz/Week Comments Yes 2 Cans of 1.2 beer Sex Assigned at Date Recorded Not on file as of this encounter Miscellaneous Notes * Telephone Encounter - Ousmane De Anda MD - 12/20/2017 8:48 AM CDT Please schedule office visit with Janie this Fall in this encounter Plan of Treatment Not on fileas of this encounter Visit Diagnoses Not on filein this encounter
[2017-12-27] MEDS ORDERED: LIDOCAINE/EPI 2% 1:100,00 (XYLOCAINE) 20 ML VIAL ONE (04:42)
[2017-12-27] MEDS ORDERED: LIDOCAINE/EPI 2% 1:100,00 (XYLOCAINE) 20 ML VIAL INJ ONE (04:45)
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
[2017-12-27] MEDS ORDERED: DOXY100T2 PO (05:12)
[2017-12-27 05:14] VITALS: BP 141/87
== END 2017-12-27 05:14 | disposition home or self-care (01) ==
LOC: EDUNIT# 04:17 → ER 04:21
DX: L02.414 Cutaneous abscess of left upper limb (principal); F17.210 Nicotine dependence, cigarettes, uncomplicated; G20 Parkinson's disease; K21.9 Gastro-esophageal reflux disease without esophagitis; Z87.19 Personal history of other diseases of the digestive system; M81.0 Age-related osteoporosis without current pathological fracture; M19.90 Unspecified osteoarthritis, unspecified site; M32.9 Systemic lupus erythematosus, unspecified; F41.9 Anxiety disorder, unspecified; F32.9 Major depressive disorder, single episode, unspecified; Z88.2 Allergy status to sulfonamides; Z85.3 Personal history of malignant neoplasm of breast; Z85.41 Personal history of malignant neoplasm of cervix uteri; Z85.42 Personal history of malignant neoplasm of other parts of uterus; Z90.49 Acquired absence of other specified parts of digestive tract; Z90.710 Acquired absence of both cervix and uterus
CPT/HCPCS: 10061; 87070; 87205

== ENCOUNTER 2018-03-01 14:23 | Outpatient (RCR) | payer MEDICARE, BC ==
[~2018-03-01 14:23] MED LIST changes: +DOXY100T2 PO
[2018-03-01 14:43] LABS: BASOPHILS # (AUTO) 0.1 10^3/uL (0.0-0.1); BASOPHILS % (AUTO) 1 % (0-10); EOSINOPHILS # (AUTO) 0.1 10^3/uL (0.0-0.3); EOSINOPHILS % (AUTO) 2 % (0-10); HEMATOCRIT 42 % (35-52); HEMOGLOBIN 14.6 G/DL (11.5-16.0); LYMPHOCYTES # (AUTO) 1.8 X 10^3 (1.0-4.0); LYMPHOCYTES % (AUTO) 28 % (12-44); MEAN CORPUSCULAR HEMOGLOBIN 31 PG (25-34); MEAN CORPUSCULAR HGB CONC 35 G/DL (32-36); MEAN CORPUSCULAR VOLUME 89 FL (80-99); MEAN PLATELET VOLUME 11.1 FL (7.4-10.4); MONOCYTES # (AUTO) 0.4 X 10^3 (0.0-1.0); MONOCYTES % (AUTO) 7 % (0-12); NEUTROPHILS % (AUTO) 62 % (42-75); PLATELET COUNT 217 10^3/uL (130-400); RED CELL DISTRIBUTION WIDTH 12.3 % (10.0-14.5); WHITE BLOOD COUNT 6.3 10^3/uL (4.3-11.0)
[2018-03-01 15:08] LABS: ALBUMIN 4.2 GM/DL (3.2-4.5); BILIRUBIN,TOTAL 0.6 MG/DL (0.1-1.0); CALCIUM 10.2 MG/DL (8.5-10.1); CREATININE SERUM 1.86 MG/DL (0.60-1.30); POTASSIUM 3.3 MMOL/L (3.6-5.0); TOTAL PROTEIN 6.8 GM/DL (6.4-8.2)
[2018-03-09] MEDS ORDERED: BUPR150T7 PO (14:13)
[2018-03-09] MEDS ORDERED: TROS60CA4 PO (14:13)
[2018-03-09] MEDS ORDERED: VERA240T98 PO (14:13)
[2018-03-09] MEDS ORDERED: TRIA1CAP4 PO (15:06)
[2018-03-09] MEDS ORDERED: CNC1KV IM (15:06)
[2018-03-09] MEDS ORDERED: PANT40TA3 PO (15:06)
[2018-03-09] MEDS ORDERED: LORA1TAB PO (15:06)
[2018-03-09] MEDS ORDERED: DICY20TA10 PO (15:06)
[2018-03-09] MEDS ORDERED: ALPR2TAB6 PO (15:06)
== END 2018-03-19 | disposition home or self-care (01) ==
LOC: ONC 14:23
PROVIDERS: ATTEND Internal Medicine Hematology & Oncology
DX: C50.911 Malignant neoplasm of unspecified site of right female breast (principal); Z17.0 Estrogen receptor positive status [ER+]; G20 Parkinson's disease; M85.851 Other specified disorders of bone density and structure, right thigh; M85.852 Other specified disorders of bone density and structure, left thigh; M32.9 Systemic lupus erythematosus, unspecified; R10.2 Pelvic and perineal pain; R63.0 Anorexia; R53.83 Other fatigue; F17.210 Nicotine dependence, cigarettes, uncomplicated; Z79.899 Other long term (current) drug therapy
CPT/HCPCS: 36415; 80053; 83921; 85025; 99213

== ENCOUNTER 2018-03-09 05:52 | Outpatient (CLI) | payer MEDICARE, BC ==
[~2018-03-09] VITALS: Ht 160 cm; Wt 64.4 kg
[2018-03-09] MEDS ORDERED: TROS60CA4 PO (14:13)
[2018-03-09] MEDS ORDERED: BUPR150T7 PO (14:13)
[2018-03-09] MEDS ORDERED: VERA240T98 PO (14:13)
[2018-03-09] MEDS ORDERED: CNC1KV IM (15:06)
[2018-03-09] MEDS ORDERED: LORA1TAB PO (15:06)
[2018-03-09] MEDS ORDERED: TRIA1CAP4 PO (15:06)
[2018-03-09] MEDS ORDERED: DICY20TA10 PO (15:06)
[2018-03-09] MEDS ORDERED: ALPR2TAB6 PO (15:06)
[2018-03-09] MEDS ORDERED: PANT40TA3 PO (15:06)
== END 2018-03-09 15:06 | disposition home or self-care (01) ==
LOC: PREOP 05:52
PROVIDERS: ATTEND Surgery
DX: Z01.818 Encounter for other preprocedural examination (principal)

== ENCOUNTER 2018-03-15 09:40 | Day surgery (SDC) | payer MEDICARE, BC ==
[~2018-03-15] VITALS: Ht 160 cm; Wt 64.4 kg
[~2018-03-15 09:40] MED LIST changes: +ALPR2TAB6 PO; +BUPR150T7 PO; +CNC1KV IM; +DICY20TA10 PO; +PANT40TA3 PO; +TRIA1CAP4 PO; +TROS60CA4 PO
--- OUTSIDE RECORDS SUMMARY | 2018-03-15 09:44 | XMS REPORT | Clinical Summary ---
Author Author [facility] Organization [facility] Address Unknown Phone Unavailable Care Team Providers Care Insurance Adviser Name Role Phone Mima Gramajo MD Unavailable [...] in the Health Information Management department at [phone] for further assistance in locating additional records.[facility] Allergies Active Allergy Reactions Severity Noted Date [...] ONE CAPSULE BY MOUTH 90 capsule 0 02/21/ Active mg capsule EVERY 6 TO 8 HOURS 18 NEEDED dicyclomine (BENTYL) 10 TAKE ONE CAPSULE BY MOUTH 90 capsule 0 12/20/ 02/21/20 Discontin mg capsule EVERY 6 TO 8 HOURS 18 18 ued NEEDED Active Problems Problem Noted Date Dysphagia 03/07/2017 Overview: Added automatically from request for surgery [id number] Pancreas cyst 03/07/2017 Overview: Added automatically from request for surgery [id number] Rectal pain 03/07/2017 Overview: Added automatically from request for surgery [id number] Rectal bleeding 03/07/2017 Overview: Added automatically from request for surgery [id number] Constipation 03/07/2017 Overview: Added automatically from request for surgery [id number] Essential tremor 11/06/2015 Gait disturbance 11/06/2015 Pancreatic cyst 10/02/2014 Overview: EUS 07/26/14 Colon polyps 10/02/2014 Obstruction of bile duct 07/31/2014 Lupus 06/26/2014 Osteoporosis 06/26/2014 Recurrent urinary tract infection 03/21/2013 Mixed incontinence 03/21/2013 Encounters Date Type Specialty Care Team Description 02/21/2018 Telephone Gastroenterology Ousmane De Anda MD Appointment Request 02/20/2018 Refill GastroenterOusmane Gillespie MD 12/20/2017 Telephone Ousmane Sosa MD Follow-up Phone Call 12/17/2017 Refill Gastroenterology [...]
--- OUTSIDE RECORDS SUMMARY | 2018-03-15 09:44 | XMS REPORT | Encounter Summary ---
Author Author [facility] Organization [facility] Address Unknown Phone Unavailable Care Team Providers Care Independent Consultant Name Role Phone Mima Gramajo MD Unavailable [...] Type Department Care Team Description 12/17/2017 Refill [facility] Ousmane De Anda MD Physicians - Internal [address] [facility] Medicine [place] [address] [place] [address] [address] [facility] [phone] [place] [address] [phone] Social History Tobacco Use Types Packs/Day Years [...]
--- OUTSIDE RECORDS SUMMARY | 2018-03-15 09:44 | XMS REPORT | Encounter Summary ---
Author Author [facility] Organization [facility] Address Unknown Phone Unavailable Care Team Providers Care Director Broadcast Name Role Phone Mima Gramajo MD Unavailable Ousmane De Anda MD Unavailable Austyn Ott MD PCP Airam Montelongo Unavailable Unavailable Ami Locke RN Unavailable Unavailable Pita Cade Unavailable Unavailable Martha Cristina APRN Unavailable Drake Arias MD Unavailable Mary Salinas RN Unavailable Unavailable Jorge Kaufman MD Unavailable Reason for Visit * Reason Comments Medication Refill Encounter Details Date Type Department Care Team Description 02/20/2018 Refill [facility] Ousmane De Anda MD Physicians - Internal [address] [facility] Medicine [place] [address] [place] [address] [address] [facility] [phone] [place] [address] [phone] Social History Tobacco Use Types Packs/Day Years [...]
--- OUTSIDE RECORDS SUMMARY | 2018-03-15 09:44 | XMS REPORT | Encounter Summary ---
Author Author [facility] Organization [facility] Address Unknown Phone Unavailable Care Team Providers Care Job Analysis Manager Name Role Phone Mima Gramajo MD Unavailable Ousmane De Anda MD Unavailable Austyn Ott MD PCP Airam Montelongo Unavailable Unavailable Ami Locke RN Unavailable Unavailable Pita Cade Unavailable Unavailable Martha Cristina APRN Unavailable Drake Arias MD Unavailable Mary Salinas RN Unavailable Unavailable Jorge Kaufman MD Unavailable Reason for Visit * Reason Comments Appointment Request Encounter Details Date Type Department Care Team Description 02/21/2018 Telephone [facility] Ousmane De Anda MD Appointment Request Physicians - Internal [address] [facility] Medicine [place] [address] [place] [address] [address] [facility] [phone] [place] [address] [phone] Social History Tobacco Use Types Packs/Day Years [...]
--- OUTSIDE RECORDS SUMMARY | 2018-03-15 09:44 | XMS REPORT | Encounter Summary ---
Author Author [facility] Organization [facility] Address Unknown Phone Unavailable Care Team Providers Care Algologist Name Role Phone Mima Gramajo MD Unavailable [...] Type Department Care Team Description 12/20/2017 Telephone [facility] Ousmane De Anda MD Follow- up Phone Call Physicians - Internal [address] [facility] Medicine [place] [address] [place] [address] [address] [facility] [phone] [place] [address] [phone] Social History Tobacco Use Types Packs/Day Years [...]
[2018-03-15] MEDS ORDERED: NS IV 500 ML 500 ML ONE (09:50)
--- OUTSIDE RECORDS SUMMARY | 2018-03-15 09:50 | XMS REPORT | Continuity of Care Document ---
Author Author [facility] Organization [facility] Address Unknown Phone Unavailable Allergies Active Description Code Type Severity Reaction Onset Reported/Identified Relationship to Patient Clinical Status Yes Sulfa (Sulfonamide Antibiotics) [id number] Drug Allergy Unknown N/A 2005 Medications There is no data. 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+] 05/19/1411 LIZETH MAIER Ot Z79.899 OTHER REPORT MANAGER (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 THERAPY 02/04/2012 Ot 786.50 CHEST [...] URINARY (TRACT) INFECT 07/23/2012 Ot V58.69 OTH MED,LT, CURRENT USE 08/24/2012 Ot 682.9 CELLULITIS NOS 11/26/2012 Ot 280.9 IRON DEFIC ANEMIA NOS 11/26/2012 Ot 530.81 ESOPHAGEAL REFLUX 11/26/2012 Ot 564.00 UNSPEC CONSTIPATION 11/26/2012 Ot 585.3 CHRONIC KIDNEY DISEASE, STAGE III (MODER 11/26/2012 Ot V13.02 PERSONAL HISTORY, URINARY (TRACT) INFECT 11/26/2012 Ot V58.69 OTH MED,LT, CURRENT USE 12/07/2012 MADISON ESPINOSA MD Ot 401.9 [...] SCREEN-BACTERIAL DIS NEC 02/02/2013 PJ BECKMAN MD R Ot 041.49 OTHER AND UNSPECIFIED ESCHERICHIA COLI [ 02/02/2013 PJ BECKMAN MD R Ot 275.2 DIS MAGNESIUM METABOLISM 02/02/2013 PJ BECKMAN MD R Ot 276.1 HYPOSMOLALITY 02/02/2013 PJ BECKMAN MD [...] MD R Ot 414.01 CORONARY ATHEROSCLEROSIS OF [place] CORON 02/02/2013 PJ BECKMAN MD R Ot [...] R Ot 710.0 SYST LUPUS ERYTHEMATOSIS 01/18/2014 MIGUEL MIGUEL DPM P Ot 355.6 PLANTAR NERVE LESION 01/18/2014 LAMONT WILCOX, IMGUEL P Ot 733.99 BONE CARTILAGE DIS NEC 05/27/2014 PJ BECKMAN MD R Ot 787.91 DIARRHEA 05/27/2014 PJ BECKMAN MD R Ot 789.00 ABDOMINAL PAIN, UNSPECIFIED SITE 12/06/2014 PJ BECKMAN MD R Ot 285.9 12/06/2014 PJ BECKMAN MD R Ot 611.72 12/06/2014 PJ BECKMAN MD R Ot 780.79 12/10/2014 KARUNA BEST, PJ R Ot 285.9 12/10/2014 KARUNA BEST, PJ R Ot 611.72 12/10/2014 KARUNA BEST, PJ R Ot 780.79 12/19/2014 EMMONS JAKE LOCKETT Ot 174.9 MALIGN NEOPL BREAST NOS 12/21/2014 JASON WELCH COMMERCIAL COUNSEL Ot 174.9 MALIGN NEOPL BREAST NOS 12/21/2014 JASON WELCH COMMERCIAL COUNSEL Ot 338.18 OTHER ACUTE POSTOPERATIVE PAIN 12/21/2014 JASON WELCH COMMERCIAL COUNSEL Ot 611.72 LUMP OR MASS IN BREAST 12/21/2014 JASON WELCH COMMERCIAL COUNSEL Ot 787.02 NAUSEA ALONE 2014 KARUNA BEST, PJ R Ot 611.72 12/26/2014 PJ BECKMAN MD R Ot 611.72 [facility]/31/[facility] 12/[facility]2014 EMMONS JAKE LOCKETT Ot V72.84 12/31/2014 [facility].9 12/31/2014 EMMONS JAKE LOCKETT Ot V72.84 01/07/2015 DARRION, BOBAN N Ot [...] KARUNA BEST, PJ R Ot 611.72 01/17/2015 PJ BECKMAN MD R Ot 174.9 01/17/2015 KARUNA BEST, PJ R Ot 285.9 01/17/2015 KARUNA BEST, PJ R Ot 780.79 01/17/2015 DARRION, LIZETH N Ot 174.9 01/17/2015 DARRIONLIZETH FIGUEROA N Ot 174.9 01/17/2015 DARRION, LIZETH N Ot 280.9 01/17/2015 DARRION, LIZETH N Ot 585.3 01/17/2015 DARRIONLIZETH FIGUEROA N Ot V58.69 01/17/2015 DARRIONLIZETH FIGUEROA N Ot V86.0 01/17/2015 EMMONS MARITA LOCKETTTT D Ot 174.9 01/17/2015 EMMONS MARITA LOCKETTTT D Ot V72.84 01/22/2015 KARUNA BEST, PJ R Ot 174.9 01/22/2015 KARUNA BEST, PJ R Ot 285.9 01/22/2015 KARUNA BEST, PJ R Ot 780.79 01/23/2015 KARUNA BEST, PJ R Ot 174.9 01/23/2015 KARUNA BEST, PJ R Ot 285.9 01/23/2015 KARUNA BEST, PJ R Ot 780.79 02/12/2015 [facility] Ot 174.9 02/12/2015 EMMONS MARITA LOCKETTTT D Ot V72.84 02/12/2015 [facility] JAKE D Ot 174.9 02/12/2015 [facility], JAKE D Ot V72.84 02/13/2015 [facility] Ot 174.9 MALIGN NEOPL BREAST NOS 02/14/2015 [facility], JAKE D Ot 174.9 02/14/2015 EMMONS DO JAKE D Ot V72.63 02/14/2015 [facility] JAKE D Ot V74.8 03/04/2015 [facility], JAKE D Ot 174.9 03/04/2015 [facility] Ot V72.63 03/04/2015 [facility] Ot V74.8 03/19/2015 LIZETH MAIER N Ot 174.9 MALIGN NEOPL BREAST NOS 03/19/2015 DARRIONLIZETH FIGUEROA N Ot 280.9 IRON DEFIC ANEMIA NOS 03/19/2015 LIZETH MAIER Ot V58.69 OT MED,LT,CURRENT USE 04/03/2015 LIZETH MAIER N Ot 174.9 04/03/2015 LIZETH MAIER N Ot 280.9 04/03/2015 LIZETH MAIER N Ot V58.69 04/29/2015 LIZETH MAIER N Ot M81.8 05/12/2015 DARRIONLIZETH FIGUEROA N Ot M81.8 06/05/2015 LIZETH MAIER N Ot 174.9 06/05/2015 DARRIONLIZETH FIGUEROA N Ot 280.9 06/05/2015 LIZETH MAIER N Ot V58.69 07/04/2015 LIZETH MAIER N Ot C50.919 07/04/2015 LIZETH MAIER N Ot D50.9 07/04/2015 LIZETH MAIER N Ot Z79.899 07/09/2015 LIZETH MAIER N Ot C50.919 MALIGNANT NEOPLASM OF [facility] SITE OF [facility] 07/09/2015 LIZETH MAIER N Ot D50.9 IRON DEFICIENCY ANEMIA, UNSPECIFIED 07/09/2015 LIZETH MAIER N Ot Z79.899 OTHER REPORT MANAGER (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 THERAPY 07/09/2015 LIZETH MAIER N [...] TRISTAN BEST, OTIS Nicholson Ot 276.8 07/15/2015 MARISOL MOREL CLINICAL QUALITY ASSURANCE ASSOCIATE Ot 280.9 07/15/2015 MARISOL MOREL S CLINICAL QUALITY ASSURANCE ASSOCIATE Ot 305.1 07/15/2015 MARISOL MOREL S CLINICAL QUALITY ASSURANCE ASSOCIATE Ot 530.81 07/15/2015 MORELMARISOL Hatfield S CLINICAL QUALITY ASSURANCE ASSOCIATE Ot 564.00 07/15/2015 MARISOL MOREL S CLINICAL QUALITY ASSURANCE ASSOCIATE Ot 585.3 07/15/2015 MARISOL MOREL S CLINICAL QUALITY ASSURANCE ASSOCIATE Ot V58.69 07/15/2015 KARUNA BEST, PJ R Ot 440.20 07/15/2015 KARUNA BEST, PJ R Ot 729.5 07/15/2015 JESÚS BEST, MADISON Ot 530.11 07/15/2015 JESÚS BEST, TAKAAKI Ot 535.40 07/15/2015 JESÚS BEST, TAKAAKI Ot 553.3 07/15/2015 JESÚS BEST, TAKAAKI Ot V72.84 07/15/2015 KARUNA BEST, PJ R Ot 784.0 07/15/2015 DARRION ALISELAURA N Ot 280.9 07/15/2015 DARRION BOBLAURA N Ot 564.00 07/15/2015 ALISE MAIERLAURA N Ot 585.3 07/15/2015 LIZETH MAIER N Ot V58.69 07/15/2015 MIGUEL DPM, MIGUEL P Ot 726.91 07/15/2015 MIGUEL DPM, IMGUEL P Ot V72.63 07/15/2015 MIGUEL DPM, MIGUEL P Ot V74.8 07/15/2015 KARUNA BEST, PJ R Ot 729.5 07/15/2015 JOSEPH BEST, WING Stiles Ot 595.2 07/15/2015 KARUNA BSET, PJ R Ot 787.91 07/15/2015 KARUNA BEST, PJ R Ot 789.00 07/15/2015 KARUNA BEST, PJ R Ot 611.72 07/15/2015 KARUNA BEST, PJ R Ot 174.9 07/15/2015 KARUNA BEST, PJ R Ot 285.9 07/15/2015 KARUNA BEST, PJ R Ot 780.79 07/15/2015 LIZETH MAIER N Ot 174.9 07/15/2015 DARRIONLIZETH FIGUEROA N Ot 174.9 07/15/2015 DARRIONLIZETH FIGUEROA N Ot 280.9 07/15/2015 DARRIONLIZETH FIGUEROA N Ot 585.3 07/15/2015 DARRIONLIZETH FIGUEROA N Ot V58.69 07/15/2015 DARRIONLIZETH FIGUEROA N Ot V86.0 07/15/2015 EMMONS DO, JAKE D Ot 174.9 07/15/2015 EMMONS DO, JAKE D Ot V72.84 07/15/2015 EMMONS DO, JAKE D Ot 174.9 07/15/2015 EMMONS DO, JAKE D Ot V72.63 07/15/2015 [facility], JAKE D Ot V74.8 07/15/2015 LIZETH MAIER N Ot M81.8 07/15/2015 MARISOL MOREL CLINICAL QUALITY ASSURANCE ASSOCIATE Ot C50.511 07/15/2015 MARISOL MOREL CLINICAL QUALITY ASSURANCE ASSOCIATE Ot D50.9 07/15/2015 MARISOL MOREL CLINICAL QUALITY ASSURANCE ASSOCIATE Ot M85.80 07/15/2015 MARISOL MOREL CLINICAL QUALITY ASSURANCE ASSOCIATE Ot R26.89 07/15/2015 MARISOL MOREL CLINICAL QUALITY ASSURANCE ASSOCIATE Ot R42 07/15/2015 MARISOL MOREL CLINICAL QUALITY ASSURANCE ASSOCIATE Ot R51 07/15/2015 MARISOL MOREL CLINICAL QUALITY ASSURANCE ASSOCIATE Ot Z17.0 07/15/2015 MARISOL MOREL CLINICAL QUALITY ASSURANCE ASSOCIATE Ot Z79.899 07/15/2015 LIZETH MAIER N Ot C50.919 07/15/2015 LIZETH MAIER N Ot D50.9 07/15/2015 LIZETH MAIER N Ot Z79.899 07/21/2015 MARISOL MOREL CLINICAL QUALITY ASSURANCE ASSOCIATE Ot H57.11 07/21/2015 MARISOL MOREL CLINICAL QUALITY ASSURANCE ASSOCIATE Ot N63 07/21/2015 MARISOL MOREL CLINICAL QUALITY ASSURANCE ASSOCIATE Ot R26.81 07/23/2015 KARUNA BEST, PJ R Ot 611.72 07/23/2015 KARUNA BEST, PJ R Ot 174.9 07/23/2015 KARUNA BEST, PJ R Ot 285.9 07/23/2015 KARUNA BEST, PJ R Ot 780.79 07/23/2015 DARRIONLIZETH FIGUEROA N Ot 174.9 07/23/2015 DARRION, BOBAN N Ot 174.9 07/23/2015 DARRIONALISE FIGUEROAAN N Ot 280.9 07/23/2015 DARRIONLIZETH FIGUEROA N Ot 585.3 07/23/2015 DARRION, BOBLAURA N Ot V58.69 07/23/2015 DARRION, BOBLAURA N Ot V86.0 07/23/2015 EMMONS DO, JAKE D Ot 174.9 07/23/2015 EMMONS DO, JAKE D Ot V72.84 07/23/2015 EMMONS DO, JAKE D Ot 174.9 07/23/2015 [facility], JAKE D Ot V72.63 07/23/2015 [facility], JAKE D Ot V74.8 07/23/2015 DARRIONLIZETH FIGUEROA N Ot M81.8 07/23/2015 MARISOL MOREL CLINICAL QUALITY ASSURANCE ASSOCIATE Ot C50.511 07/23/2015 MARISOL MOREL S CLINICAL QUALITY ASSURANCE ASSOCIATE Ot D50.9 07/23/2015 MARISOL MOREL S CLINICAL QUALITY ASSURANCE ASSOCIATE Ot M85.80 07/23/2015 MARISOL MOREL S CLINICAL QUALITY ASSURANCE ASSOCIATE Ot R26.89 07/23/2015 MARISOL MOREL S CLINICAL QUALITY ASSURANCE ASSOCIATE Ot R42 07/23/2015 MARISOL MOREL S CLINICAL QUALITY ASSURANCE ASSOCIATE Ot R51 07/23/2015 MARISOL MOREL S CLINICAL QUALITY ASSURANCE ASSOCIATE Ot Z17.0 07/23/2015 MARISOL MOREL S CLINICAL QUALITY ASSURANCE ASSOCIATE Ot Z79.899 07/23/2015 MARISOL MOREL S CLINICAL QUALITY ASSURANCE ASSOCIATE Ot H57.11 07/23/2015 MARISOL MOREL S CLINICAL QUALITY ASSURANCE ASSOCIATE Ot N63 07/23/2015 MARISOL MOREL S CLINICAL QUALITY ASSURANCE ASSOCIATE Ot R26.81 07/23/2015 LIZETH MAIER N Ot C50.919 07/23/2015 DARRIONLIZETH FIGUEROA N Ot D50.9 07/23/2015 DARRIONALISE FIGUEROAAN N Ot Z79.899 07/23/2015 MADISON ESPINOSA MD Ot Z01.818 07/23/2015 MADISON ESPINOSA MD Ot K63.5 POLYP OF COLON 07/23/2015 MADISON ESPINOSA MD Ot K64.1 SECOND DEGREE HEMORRHOIDS 07/23/2015 MADISON ESPINOSA MD Ot Z09 ENCNTR FOR F/U EXAM AFT TRTMT FOR COND O 07/23/2015 ADRIEL MARISOL Hatfield CLINICAL QUALITY ASSURANCE ASSOCIATE Ot H57.11 07/23/2015 MELVINA MORELMICHAEL Hatfield CLINICAL QUALITY ASSURANCE ASSOCIATE Ot N63 07/23/2015 ADRIEL MARISOL S CLINICAL QUALITY ASSURANCE ASSOCIATE Ot R26.81 07/28/2015 ADRIEL MARISOL S CLINICAL QUALITY ASSURANCE ASSOCIATE Ot C50.511 07/28/2015 ADRIEL MARISOL S CLINICAL QUALITY ASSURANCE ASSOCIATE Ot D50.9 07/28/2015 ADRIEL MARISOL S CLINICAL QUALITY ASSURANCE ASSOCIATE Ot M85.80 07/28/2015 ADRIEL MARISOL S CLINICAL QUALITY ASSURANCE ASSOCIATE Ot R26.89 07/28/2015 ADRIEL MARISOL S CLINICAL QUALITY ASSURANCE ASSOCIATE Ot R42 07/28/2015 ADRIEL MARISOL S CLINICAL QUALITY ASSURANCE ASSOCIATE Ot R51 07/28/2015 ADRIEL MARISOL S CLINICAL QUALITY ASSURANCE ASSOCIATE Ot Z17.0 07/28/2015 ADRIEL MARISOL S CLINICAL QUALITY ASSURANCE ASSOCIATE Ot Z79.899 07/31/2015 ADRIEL MARISOL S CLINICAL QUALITY ASSURANCE ASSOCIATE Ot C50.511 07/31/2015 ADRIEL MARISOL S CLINICAL QUALITY ASSURANCE ASSOCIATE Ot D50.9 07/31/2015 ADRIEL MARISOL S CLINICAL QUALITY ASSURANCE ASSOCIATE Ot M85.80 07/31/2015 ADRIEL MARISOL S CLINICAL QUALITY ASSURANCE ASSOCIATE Ot R26.89 07/31/2015 ADRIEL MARISOL S CLINICAL QUALITY ASSURANCE ASSOCIATE Ot R42 07/31/2015 ADRIEL MARISOL S CLINICAL QUALITY ASSURANCE ASSOCIATE Ot R51 07/31/2015 ADRIEL MARISOL S CLINICAL QUALITY ASSURANCE ASSOCIATE Ot Z17.0 07/31/2015 ADRIEL MARISOL S CLINICAL QUALITY ASSURANCE ASSOCIATE Ot Z79.899 08/05/2015 ADRIEL MARISOL S CLINICAL QUALITY ASSURANCE ASSOCIATE Ot H57.11 08/05/2015 ADRIEL MARISOL S CLINICAL QUALITY ASSURANCE ASSOCIATE Ot N63 08/05/2015 ADRIEL MARISOL S CLINICAL QUALITY ASSURANCE ASSOCIATE Ot R26.81 08/06/2015 ADRIEL MARISOL S CLINICAL QUALITY ASSURANCE ASSOCIATE Ot H57.11 08/06/2015 MELVINA MORELMICHAEL S CLINICAL QUALITY ASSURANCE ASSOCIATE Ot N63 08/06/2015 ADRIEL HILAH S CLINICAL QUALITY ASSURANCE ASSOCIATE Ot R26.81 08/11/2015 MARISOL MOREL CLINICAL QUALITY ASSURANCE ASSOCIATE Ot H57.11 08/11/2015 MARISOL MOREL CLINICAL QUALITY ASSURANCE ASSOCIATE Ot N63 08/11/2015 MARISOL MOREL CLINICAL QUALITY ASSURANCE ASSOCIATE Ot R26.81 08/14/2015 MARISOL MOREL CLINICAL QUALITY ASSURANCE ASSOCIATE Ot H57.11 08/14/2015 MARISOL MOREL CLINICAL QUALITY ASSURANCE ASSOCIATE Ot N63 08/14/2015 MARISOL MOREL CLINICAL QUALITY ASSURANCE ASSOCIATE Ot R26.81 08/14/2015 MARISOL MOREL CLINICAL QUALITY ASSURANCE ASSOCIATE Ot H57.11 08/14/2015 MARISOL MOREL CLINICAL QUALITY ASSURANCE ASSOCIATE Ot N63 08/14/2015 MARISOL MOREL CLINICAL QUALITY ASSURANCE ASSOCIATE Ot R26.81 08/27/2015 Ot 593.2 08/27/2015 Ot [...] OTIS Nicholson Ot 276.8 08/27/2015 MARISOL MOREL CLINICAL QUALITY ASSURANCE ASSOCIATE Ot 280.9 08/27/2015 MARISOL MOREL CLINICAL QUALITY ASSURANCE ASSOCIATE Ot 305.1 08/27/2015 MARISOL MOREL CLINICAL QUALITY ASSURANCE ASSOCIATE Ot 530.81 08/27/2015 MORELMARISOL Hatfield CLINICAL QUALITY ASSURANCE ASSOCIATE Ot 564.00 08/27/2015 MARISOL MOREL CLINICAL QUALITY ASSURANCE ASSOCIATE Ot 585.3 08/27/2015 MARISOL MOREL CLINICAL QUALITY ASSURANCE ASSOCIATE Ot V58.69 08/27/2015 KARUNA BEST, PJ R [...] R Ot 729.5 08/27/2015 JOSEPH BEST, WING D Ot 595.2 08/27/2015 KARUNA BEST, PJ R [...] 08/27/2015 DARRION, BOBAN N Ot V86.0 08/27/2015 EMMONS DO, JAKE D Ot 174.9 08/27/2015 EMMONS DO, JAKE D Ot V72.84 08/27/2015 EMMONS DO, JAKE D Ot 174.9 08/27/2015 EMMONS DO, JAKE D Ot V72.63 08/27/2015 [facility], JAKE D Ot V74.8 08/27/2015 LIZETH MAIER Lata Ot M81.8 08/27/2015 ADRIELMARISOL S CLINICAL QUALITY ASSURANCE ASSOCIATE Ot C50.511 08/27/2015 MORELMARISOL S CLINICAL QUALITY ASSURANCE ASSOCIATE Ot D50.9 08/27/2015 MORELMARISOL S CLINICAL QUALITY ASSURANCE ASSOCIATE Ot M85.80 08/27/2015 MOREL HILAH S CLINICAL QUALITY ASSURANCE ASSOCIATE Ot R26.89 08/27/2015 MORELMELVINAAH S CLINICAL QUALITY ASSURANCE ASSOCIATE Ot R42 08/27/2015 MOREL MARISOL S CLINICAL QUALITY ASSURANCE ASSOCIATE Ot R51 08/27/2015 ADRIEL MARISOL S CLINICAL QUALITY ASSURANCE ASSOCIATE Ot Z17.0 08/27/2015 MOREL MARISOL S CLINICAL QUALITY ASSURANCE ASSOCIATE Ot Z79.899 08/27/2015 MORELMELVINAAH S CLINICAL QUALITY ASSURANCE ASSOCIATE Ot H57.11 08/27/2015 MORELMARISOL S CLINICAL QUALITY ASSURANCE ASSOCIATE Ot N63 08/27/2015 MOREL MELVINAAH S CLINICAL QUALITY ASSURANCE ASSOCIATE Ot R26.81 08/27/2015 MORELMARISOL S CLINICAL QUALITY ASSURANCE ASSOCIATE Ot H57.11 08/27/2015 MOREL MARISOL S CLINICAL QUALITY ASSURANCE ASSOCIATE Ot N63 08/27/2015 MOREL MARISOL S CLINICAL QUALITY ASSURANCE ASSOCIATE Ot R26.81 08/27/2015 DARRION ALISELAURA N Ot C50.919 08/27/2015 LIZETH MAIER N Ot D50.9 08/27/2015 LIZETH MAIER N Ot Z79.899 08/27/2015 MADISON ESPINOSA MD Ot Z01.818 08/27/2015 JASON WELCH APRN Ot M43.12 SPONDYLOLISTHESIS, CERVICAL REGION 08/27/2015 JASON WELCH APRN Ot M47.812 SPONDYLOSIS W/O MYELOPATHY OR RADICULOPA 08/27/2015 JASON WELCH APRN Ot S00.11XA CONTUSION OF RIGHT EYELID AND PERIOCULAR 08/27/2015 WELCH, PETER J COMMERCIAL COUNSEL Ot S60.222A CONTUSION OF LEFT HAND, INITIAL ENCOUNTE 08/27/2015 JASON WELCH COMMERCIAL COUNSEL Ot W01.0XXA FALL SAME LEV FROM SLIP/TRIP W/O STRIKE 08/27/2015 JASON WELCH APRN Ot Y92.39 OTH SPORTS AND ATHLETIC AREA PLACE 08/27/2015 JASON WELCH COMMERCIAL COUNSEL Ot Y93.54 ACTIVITY, BOWLING 08/27/2015 JASON WELCH COMMERCIAL COUNSEL Ot Y99.8 OTHER EXTERNAL CAUSE STATUS 08/28/2015 JASON WELCH COMMERCIAL COUNSEL Ot M43.12 08/28/2015 JASON WELCH COMMERCIAL COUNSEL Ot M47.812 08/28/2015 JASON WELCH COMMERCIAL COUNSEL Ot S00.11XA 08/28/2015 JASON WELCH APRN Ot S60.222A 08/28/2015 JASON WELCH APRN Ot W01.0XXA 08/28/2015 JASON WELCH APRN Ot Y92.39 08/28/2015 JASON WELCH COMMERCIAL COUNSEL Ot Y93.54 08/28/2015 JASON WELCH COMMERCIAL COUNSEL Ot Y99.8 11/27/2015 MARISOL MORELP Ot 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 11/27/2015 MARISOL MOREL Ot D50.9 IRON DEFICIENCY ANEMIA, UNSPECIFIED 11/27/2015 MARISOL MOREL Ot M85.80 OTH DISRD OF BONE DENSITY AND STRUCTURE, 11/27/2015 MARISOL MORELP Ot 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+] 11/27/2015 MARISOL OMREL CLINICAL QUALITY ASSURANCE ASSOCIATE Ot Z79.899 OTHER REPORT MANAGER (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 THERAPY 11/28/2015 MARISOL MORELP Ot 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 11/28/2015 MARISOL MOREL Ot D50.9 IRON DEFICIENCY ANEMIA, UNSPECIFIED 11/28/2015 MARISOL MOREL Ot M85.80 OTH DISRD OF BONE DENSITY AND STRUCTURE, 11/28/2015 MARISOL MORELP Ot 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+] 11/28/2015 MARISOL MOREL CLINICAL QUALITY ASSURANCE ASSOCIATE Ot Z79.899 OTHER REPORT MANAGER (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 THERAPY 01/20/2016 LIZETH MAIER Ot C50.919 MALIGNANT NEOPLASM OF UNSP SITE OF UNSPE 01/20/2016 LIZETH MAIER Ot D50.9 IRON DEFICIENCY ANEMIA, UNSPECIFIED 01/20/2016 LIZETH MAIER Ot Z79.899 OTHER REPORT MANAGER (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 THERAPY 01/20/2016 Ot 593.2 CYST OF KIDNEY, ACQUIRED 01/20/2016 Ot 599.0 URIN TRACT INFECTION NOS 01/20/2016 Ot 788.21 INCOMPLETE BLADDER EMPTYING 01/20/2016 Ot 788.62 SLOWING OF URINARY STREAM 01/20/2016 Ot 780.79 OTH MALAISE FATIGUE 01/20/2016 Ot 786.50 CHEST PAIN NOS 01/20/2016 Ot V58.69 OTH MED,LT, CURRENT USE 01/20/2016 Ot 733.90 BONE CARTILAGE DIS NOS 01/20/2016 Ot 599.0 URIN TRACT INFECTION NOS 01/20/2016 KARUNA BEST, PJ Kathleen Ot 780.79 OTH MALAISE FATIGUE 01/20/2016 KARUNA BEST, PJ Kathleen Ot 782.7 SPONTANEOUS ECCHYMOSES 01/20/2016 Ot 682.9 CELLULITIS NOS 01/20/2016 Ot 599.0 URIN TRACT INFECTION NOS 01/20/2016 MADISON ESPINOSA MD Ot V72.84 EXAM PRE-OPERATIVE NOS 01/20/2016 Ot 280.9 IRON DEFIC ANEMIA NOS 01/20/2016 Ot 530.81 ESOPHAGEAL REFLUX 01/20/2016 Ot 564.00 UNSPEC CONSTIPATION 01/20/2016 Ot 585.3 CHRONIC KIDNEY DISEASE, STAGE III (MODER 01/20/2016 Ot V13.02 PERSONAL HISTORY, URINARY (TRACT) INFECT 01/20/2016 Ot V58.69 OTH MED,LT, CURRENT USE 01/20/2016 KARUNA BEST, PJ Kathleen Ot 443.9 PERIPH VASCULAR DIS NOS 01/20/2016 OTIS HUDSON MD Ot 276.1 HYPOSMOLALITY 01/20/2016 OTIS HUDSON MD Ot 276.8 HYPOPOTASSEMIA 01/20/2016 MARISOL MOREL CLINICAL QUALITY ASSURANCE ASSOCIATE Ot 280.9 IRON DEFIC ANEMIA NOS 01/20/2016 MORELMARISOL Hatfield CLINICAL QUALITY ASSURANCE ASSOCIATE Ot 305.1 TOBACCO USE DISORDER 01/20/2016 MORELMARISOL Hatfield CLINICAL QUALITY ASSURANCE ASSOCIATE Ot 530.81 ESOPHAGEAL REFLUX 01/20/2016 MORELMARISOL Hatfield CLINICAL QUALITY ASSURANCE ASSOCIATE Ot 564.00 UNSPEC CONSTIPATION 01/20/2016 MORELMARISOL Hatfield CLINICAL QUALITY ASSURANCE ASSOCIATE Ot 585.3 CHRONIC KIDNEY DISEASE, STAGE III (MODER 01/20/2016 MARISOL MOREL CLINICAL QUALITY ASSURANCE ASSOCIATE Ot V58.69 OTH MED,LT,CURRENT USE 01/20/2016 PJ BECKMAN MD R Ot 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 01/20/2016 PJ BECKMAN MD Ot 729.5 PAIN IN LIMB 01/20/2016 MDAISON ESPINOSA MD Ot 530.11 REFLUX ESOPHAGITIS 01/20/2016 MADISON ESPINOSA MD Ot 535.40 OTH SPECIFIED GASTRITIS,W/O MENTION OF H 01/20/2016 MADISON ESPINOSA MD Ot 553.3 DIAPHRAGMATIC HERNIA 01/20/2016 MADISON ESPINOSA MD Ot V72.84 EXAM PRE-OPERATIVE NOS 01/20/2016 PJ BECKMAN MD Ot 784.0 HEADACHE 01/20/2016 LIZETH MAIER Ot 280.9 IRON DEFIC ANEMIA NOS 01/20/2016 LIZETH MAIER Ot 564.00 UNSPEC CONSTIPATION 01/20/2016 LIZETH MAIER Ot 585.3 CHRONIC KIDNEY DISEASE, STAGE III (MODER 01/20/2016 LIZETH MAIER Ot V58.69 OTH MED,LT,CURRENT USE 01/20/2016 MIGUEL MIGUEL DPM Ot 726.91 EXOSTOSIS, SITE NOS 01/20/2016 MIGUEL MIGUEL DPM Ot V72.63 PRE-PROCEDURAL LABORATORY EXAMINATION 01/20/2016 MIGUEL MIGUEL DPM P Ot V74.8 SCREEN-BACTERIAL DIS NEC 01/20/2016 PJ BECKMAN MD R Ot 729.5 PAIN IN LIMB 01/20/2016 JOSEPH BEST, WING Stiles Ot 595.2 CHRONIC CYSTITIS NEC 01/20/2016 PJ BECKMAN MD R Ot 787.91 DIARRHEA 01/20/2016 PJ BECKMAN MD R Ot 789.00 ABDOMINAL PAIN, UNSPECIFIED SITE 01/20/2016 KARUNA BEST, PJ R Ot 611.72 LUMP OR MASS IN BREAST 01/20/2016 KARUNA BEST, PJ R Ot 174.9 MALIGN NEOPL BREAST NOS 01/20/2016 KARUNA BEST, PJ R Ot 285.9 ANEMIA NOS 01/20/2016 KARUNA BEST, PJ R Ot 780.79 OTH MALAISE FATIGUE 01/20/2016 LIZETH MAIER Ot 174.9 MALIGN NEOPL BREAST NOS 01/20/2016 DARRIONLIZETH Ot 174.9 MALIGN NEOPL BREAST NOS 01/20/2016 DARRIONLIZETH N Ot 280.9 IRON DEFIC ANEMIA NOS 01/20/2016 DARRIONLIZETH Ot 585.3 CHRONIC KIDNEY DISEASE, STAGE III [...] OTH DISRD OF BONE DENSITY AND STRUCTURE, 01/20/2016 MARISOL MOREL Ot R26.89 OTHER ABNORMALITIES OF GAIT AND MOBILITY 01/20/2016 MARISOL MOREL Ot R42 DIZZINESS AND GIDDINESS 01/20/2016 MARISOL MORELP Ot R51 HEADACHE 01/20/2016 MOREL, HILAH S CLINICAL QUALITY ASSURANCE ASSOCIATE Ot 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+] 01/20/2016 MARISOL MOREL CLINICAL QUALITY ASSURANCE ASSOCIATE Ot Z79.899 OTHER USP (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 THERAPY 01/20/2016 MARISOL MORELP Ot H57.11 OCULAR PAIN, RIGHT EYE 01/20/2016 MARISOL MORELP Ot N63 UNSPECIFIED LUMP IN BREAST 01/20/2016 MARISOL MORELP Ot R26.81 UNSTEADINESS ON FEET 01/20/2016 MARISOL MOREL CLINICAL QUALITY ASSURANCE ASSOCIATE Ot H57.11 OCULAR PAIN, RIGHT EYE 01/20/2016 MARISOL MOREL CLINICAL QUALITY ASSURANCE ASSOCIATE Ot N63 UNSPECIFIED LUMP IN BREAST 01/20/2016 MARISOL MOREL CLINICAL QUALITY ASSURANCE ASSOCIATE Ot R26.81 UNSTEADINESS ON FEET 01/20/2016 LIZETH MAIER Ot C50.919 MALIGNANT NEOPLASM OF UNSP SITE OF UNSPE 01/20/2016 LIZETH MAIER Ot D50.9 IRON DEFICIENCY ANEMIA, UNSPECIFIED 01/20/2016 LIZETH MAIER Ot Z79.899 OTHER USP (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 THERAPY 01/20/2016 JESÚS BEST, MADISON Ot Z01.818 ENCOUNTER FOR OTHER PREPROCEDURAL EXAMIN 01/20/2016 MOREL MARISOL PROP Ot 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 01/20/2016 MORELMARISOL HatfieldP Ot D50.9 IRON DEFICIENCY ANEMIA, UNSPECIFIED 01/20/2016 ADRIEL MARISOL PROP Ot M85.80 OTH DISRD OF BONE DENSITY AND STRUCTURE, 01/20/2016 MORELMARISOL Hatfield CLINICAL QUALITY ASSURANCE ASSOCIATE Ot 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+] 01/20/2016 MARISOL MOREL CLINICAL QUALITY ASSURANCE ASSOCIATE Ot Z79.899 OTHER REPORT MANAGER (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 THERAPY 02/03/2016 Ot 593.2 CYST OF KIDNEY, ACQUIRED 02/03/2016 Ot 599.0 URIN TRACT INFECTION NOS 02/03/2016 Ot 788.21 INCOMPLETE BLADDER EMPTYING 02/03/2016 Ot 788.62 SLOWING OF URINARY STREAM 02/03/2016 Ot 780.79 OTH MALAISE FATIGUE 02/03/2016 Ot 786.50 CHEST PAIN NOS 02/03/2016 Ot V58.69 OTH MED,LT, CURRENT USE 02/03/2016 Ot 733.90 BONE CARTILAGE DIS NOS 02/03/2016 Ot 599.0 URIN TRACT INFECTION NOS 02/03/2016 KARUNA BEST, JP R Ot 780.79 OTH MALAISE FATIGUE 02/03/2016 [...] URINARY (TRACT) INFECT 02/03/2016 Ot V58.69 OTH MED,LT, CURRENT USE 02/03/2016 KARUNA BEST, PJ R Ot 443.9 PERIPH VASCULAR DIS NOS 02/03/2016 TRISTAN BEST, OTIS Nicholson Ot 276.1 HYPOSMOLALITY 02/03/2016 OTIS HUDSON MD Ot 276.8 HYPOPOTASSEMIA 02/03/2016 MARISOL MOREL CLINICAL QUALITY ASSURANCE ASSOCIATE Ot 280.9 IRON DEFIC ANEMIA NOS 02/03/2016 MARISOL MOREL CLINICAL QUALITY ASSURANCE ASSOCIATE Ot 305.1 TOBACCO USE DISORDER 02/03/2016 MARISOL MOREL CLINICAL QUALITY ASSURANCE ASSOCIATE Ot 530.81 ESOPHAGEAL REFLUX 02/03/2016 MARISOL MOREL CLINICAL QUALITY ASSURANCE ASSOCIATE Ot 564.00 UNSPEC CONSTIPATION 02/03/2016 MARISOL MOREL CLINICAL QUALITY ASSURANCE ASSOCIATE Ot 585.3 CHRONIC KIDNEY DISEASE, STAGE III (MODER 02/03/2016 MARISOL MOREL CLINICAL QUALITY ASSURANCE ASSOCIATE Ot V58.69 OTH MED,LT,CURRENT USE 02/03/2016 KARUNA BEST, PJ R Ot 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 02/03/2016 KARUNA BEST, PJ R Ot 729.5 PAIN IN LIMB 02/03/2016 [...] Ot 564.00 UNSPEC CONSTIPATION 02/03/2016 LIZETH MAIER N Ot 585.3 CHRONIC KIDNEY DISEASE, STAGE III (MODER 02/03/2016 LIZETH MAIER Ot V58.69 OTH MED,LT,CURRENT USE 02/03/2016 MIGUEL DPM, MIGUEL P Ot 726.91 EXOSTOSIS, SITE NOS 02/03/2016 LAMONT DPM, MIGUEL P Ot V72.63 PRE-PROCEDURAL LABORATORY EXAMINATION 02/03/2016 LAMONT DPM, MIGUEL P Ot V74.8 SCREEN-BACTERIAL DIS NEC 02/03/2016 KARUNA BEST, JP R Ot 729.5 PAIN IN LIMB 02/03/2016 JOSEPH BEST, WING Stiles Ot 595.2 CHRONIC CYSTITIS NEC 02/03/2016 PJ BECKMAN MD R Ot 787.91 DIARRHEA 02/03/2016 PJ BECKMAN MD R Ot 789.00 ABDOMINAL PAIN, UNSPECIFIED SITE 02/03/2016 PJ BECKMAN MD R Ot 611.72 LUMP OR MASS IN BREAST 02/03/2016 PJ BECKMAN MD R Ot 174.9 MALIGN NEOPL BREAST NOS 02/03/2016 KARUNA BEST, PJ R Ot 285.9 ANEMIA NOS 02/03/2016 PJ [...] POSITIVE STATUS [ER+] 02/03/2016 JAKE THOMAS DO Go Ot 174.9 MALIGN NEOPL BREAST NOS 02/03/2016 JAKE THOMAS DO Go Ot V72.84 EXAM PRE-OPERATIVE NOS 02/03/2016 JAKE THOMAS DO Go Ot 174.9 MALIGN NEOPL BREAST NOS 02/03/2016 JAKE THOMAS DO Go Ot V72.63 PRE-PROCEDURAL LABORATORY EXAMINATION 02/03/2016 JAKE THOMAS DO Go Ot V74.8 SCREEN-BACTERIAL DIS NEC 02/03/2016 LIZETH MAIER Ot M81.8 OTHER OSTEOPOROSIS WITHOUT CURRENT PATHO 02/03/2016 MARISOL MOREL CLINICAL QUALITY ASSURANCE ASSOCIATE Ot 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 02/03/2016 MARISOL MOREL CLINICAL QUALITY ASSURANCE ASSOCIATE Ot D50.9 IRON DEFICIENCY ANEMIA, UNSPECIFIED 02/03/2016 MARISOL MOREL CLINICAL QUALITY ASSURANCE ASSOCIATE Ot 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, 02/03/2016 MARISOL MOREL CLINICAL QUALITY ASSURANCE ASSOCIATE Ot R26.89 OTHER ABNORMALITIES OF GAIT AND MOBILITY 02/03/2016 MARISOL MOREL CLINICAL QUALITY ASSURANCE ASSOCIATE Ot R42 DIZZINESS AND GIDDINESS 02/03/2016 MARISOL MOREL CLINICAL QUALITY ASSURANCE ASSOCIATE Ot R51 HEADACHE 02/03/2016 MARISOL MOREL CLINICAL QUALITY ASSURANCE ASSOCIATE Ot 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+] 02/03/2016 MARISOL MOREL CLINICAL QUALITY ASSURANCE ASSOCIATE Ot Z79.899 OTHER REPORT MANAGER (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 THERAPY 02/03/2016 MARISOL MOREL CLINICAL QUALITY ASSURANCE ASSOCIATE Ot H57.11 OCULAR PAIN, RIGHT EYE 02/03/2016 MARISOL MOREL CLINICAL QUALITY ASSURANCE ASSOCIATE Ot N63 UNSPECIFIED LUMP IN BREAST 02/03/2016 MARISOL MOREL CLINICAL QUALITY ASSURANCE ASSOCIATE Ot R26.81 UNSTEADINESS ON FEET 02/03/2016 MARISOL MOREL CLINICAL QUALITY ASSURANCE ASSOCIATE Ot H57.11 OCULAR PAIN, RIGHT EYE 02/03/2016 MARISOL MOREL CLINICAL QUALITY ASSURANCE ASSOCIATE Ot N63 UNSPECIFIED LUMP IN BREAST 02/03/2016 MARISOL MOREL CLINICAL QUALITY ASSURANCE ASSOCIATE Ot R26.81 UNSTEADINESS ON FEET 02/03/2016 LIZETH MAIER Ot C50.919 MALIGNANT NEOPLASM OF UNSP SITE OF UNSPE 02/03/2016 LIZETH MAIER Lata Ot D50.9 IRON DEFICIENCY ANEMIA, UNSPECIFIED 02/03/2016 LIZETH MAIER Ot Z79.899 OTHER REPORT MANAGER (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 THERAPY 02/03/2016 JESÚS BEST, MADISON Ot Z01.818 ENCOUNTER FOR OTHER PREPROCEDURAL EXAMIN 02/03/2016 MARISOL MOREL CLINICAL QUALITY ASSURANCE ASSOCIATE Ot 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 02/03/2016 MARISOL MOREL CLINICAL QUALITY ASSURANCE ASSOCIATE Ot D50.9 IRON DEFICIENCY ANEMIA, UNSPECIFIED 02/03/2016 MARISOL MORELP Ot 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, 02/03/2016 MARISOL MOREL CLINICAL QUALITY ASSURANCE ASSOCIATE Ot 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+] 02/03/2016 MARISOL MOREL CLINICAL QUALITY ASSURANCE ASSOCIATE Ot Z79.899 OTHER REPORT MANAGER (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 THERAPY 02/03/2016 Ot 593.2 CYST OF KIDNEY, ACQUIRED 02/03/2016 Ot 599.0 URIN TRACT INFECTION NOS 02/03/2016 Ot 788.21 INCOMPLETE BLADDER EMPTYING 02/03/2016 Ot 788.62 SLOWING OF URINARY STREAM 02/03/2016 Ot 780.79 OTH MALAISE FATIGUE 02/03/2016 Ot 786.50 CHEST PAIN NOS 02/03/2016 Ot V58.69 OTH MED,LT, CURRENT USE 02/03/2016 Ot 733.90 BONE CARTILAGE DIS [...] URINARY (TRACT) INFECT 02/03/2016 Ot V58.69 OTH MED,LT, CURRENT USE 02/03/2016 PJ BECKMAN MD Ot 443.9 PERIPH VASCULAR DIS NOS 02/03/2016 TRISTAN BEST, OTIS Nicholson Ot 276.1 HYPOSMOLALITY 02/03/2016 OTIS HUDSON MD Ot 276.8 HYPOPOTASSEMIA 02/03/2016 MARISOL MOREL CLINICAL QUALITY ASSURANCE ASSOCIATE Ot 280.9 IRON DEFIC ANEMIA NOS 02/03/2016 MARISOL MOREL CLINICAL QUALITY ASSURANCE ASSOCIATE Ot 305.1 TOBACCO USE DISORDER 02/03/2016 MARISOL MOREL CLINICAL QUALITY ASSURANCE ASSOCIATE Ot 530.81 ESOPHAGEAL REFLUX 02/03/2016 MARISOL MOREL CLINICAL QUALITY ASSURANCE ASSOCIATE Ot 564.00 UNSPEC CONSTIPATION 02/03/2016 MARISOL MOREL CLINICAL QUALITY ASSURANCE ASSOCIATE Ot 585.3 CHRONIC KIDNEY DISEASE, STAGE III (MODER 02/03/2016 MARISOL MOREL CLINICAL QUALITY ASSURANCE ASSOCIATE Ot V58.69 OTH MED,LT,CURRENT USE 02/03/2016 PJ BECKMAN MD Ot 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 02/03/2016 PJ BECKMAN MD Ot 729.5 PAIN IN LIMB 02/03/2016 MADISON ESPINOSA MD Ot 530.11 REFLUX ESOPHAGITIS 02/03/2016 MADISON ESPINOSA MD Ot 535.40 OTH SPECIFIED GASTRITIS,W/O MENTION OF H 02/03/2016 MADISON ESPINOSA MD Ot 553.3 DIAPHRAGMATIC HERNIA 02/03/2016 MADISON ESPINOSA MD Ot V72.84 EXAM PRE-OPERATIVE NOS 02/03/2016 PJ BECKMAN MD Ot 784.0 HEADACHE 02/03/2016 LIZETH MAIER Ot 280.9 IRON DEFIC ANEMIA NOS 02/03/2016 LIZETH MAIER Ot 564.00 UNSPEC CONSTIPATION 02/03/2016 LIZETH MAIER Ot 585.3 CHRONIC KIDNEY DISEASE, STAGE III (MODER 02/03/2016 LIZETH MAIER Ot V58.69 OTH MED,LT,CURRENT USE 02/03/2016 MIGUEL MIGUEL DPM Ot 726.91 EXOSTOSIS, SITE NOS 02/03/2016 LAMONT WILCOX, MIGUEL Morales Ot V72.63 PRE-PROCEDURAL LABORATORY EXAMINATION 02/03/2016 MIGUEL MIGUEL DPM Ot V74.8 SCREEN-BACTERIAL DIS NEC 02/03/2016 KARUNA BEST, PJ R Ot 729.5 PAIN IN LIMB 02/03/2016 WING RUIZ MD Ot 595.2 CHRONIC CYSTITIS NEC 02/03/2016 KARUNA BEST, PJ R Ot 787.91 DIARRHEA 02/03/2016 KARUNA BEST, PJ R Ot 789.00 ABDOMINAL PAIN, UNSPECIFIED SITE 02/03/2016 KARUNA BEST, PJ R Ot 611.72 LUMP OR MASS IN BREAST 02/03/2016 KARUNA BEST, PJ R Ot 174.9 MALIGN NEOPL BREAST NOS 02/03/2016 KARUNA BEST, PJ R Ot 285.9 ANEMIA NOS 02/03/2016 KARUNA BEST, PJ R Ot [...] OSTEOPOROSIS WITHOUT CURRENT PATHO 02/03/2016 MARISOL MOREL CLINICAL QUALITY ASSURANCE ASSOCIATE Ot 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 02/03/2016 ADRIEL MARISOL Hatfield CLINICAL QUALITY ASSURANCE ASSOCIATE Ot D50.9 IRON DEFICIENCY ANEMIA, UNSPECIFIED 02/03/2016 MOREL MARISOL Hatfield CLINICAL QUALITY ASSURANCE ASSOCIATE Ot M85.80 OTH DISRD OF BONE DENSITY AND STRUCTURE, 02/03/2016 MARISOL MOREL CLINICAL QUALITY ASSURANCE ASSOCIATE Ot R26.89 OTHER ABNORMALITIES OF GAIT AND MOBILITY 02/03/2016 MELVINA MORELMICHAEL [place]field CLINICAL QUALITY ASSURANCE ASSOCIATE Ot R42 DIZZINESS AND GIDDINESS 02/03/2016 ADRIEL MARISOL Hatfield CLINICAL QUALITY ASSURANCE ASSOCIATE Ot R51 HEADACHE 02/03/2016 MOREL MARISOL Hatfield CLINICAL QUALITY ASSURANCE ASSOCIATE Ot 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+] 02/03/2016 ADRIEL MARISOL Hatfield CLINICAL QUALITY ASSURANCE ASSOCIATE Ot Z79.899 OTHER USP (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 THERAPY 02/03/2016 ADRIEL MARISOL Hatfield CLINICAL QUALITY ASSURANCE ASSOCIATE Ot H57.11 OCULAR PAIN, RIGHT EYE 02/03/2016 MELVINA MORELMICHAEL [place] CLINICAL QUALITY ASSURANCE ASSOCIATE Ot N63 UNSPECIFIED LUMP IN BREAST 02/03/2016 ADRIEL MARISOL Hatfield CLINICAL QUALITY ASSURANCE ASSOCIATE Ot R26.81 UNSTEADINESS ON FEET 02/03/2016 ADRIEL MARISOL Hatfield CLINICAL QUALITY ASSURANCE ASSOCIATE Ot H57.11 OCULAR PAIN, RIGHT EYE 02/03/2016 ADRIEL MARISOL Hatfield CLINICAL QUALITY ASSURANCE ASSOCIATE Ot N63 UNSPECIFIED LUMP IN BREAST 02/03/2016 MORELMARISOL CLINICAL QUALITY ASSURANCE ASSOCIATE Ot R26.81 UNSTEADINESS ON FEET 02/03/2016 LIZETH MAIER Ot C50.919 MALIGNANT NEOPLASM OF UNSP SITE OF UNSPE 02/03/2016 LIZETH MAIER Ot D50.9 IRON DEFICIENCY ANEMIA, UNSPECIFIED 02/03/2016 LIZETH MAIER Ot Z79.899 OTHER USP (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 THERAPY 02/03/2016 JESÚS BEST, MADISON Ot Z01.818 ENCOUNTER FOR OTHER PREPROCEDURAL EXAMIN 02/03/2016 MARISOL MOREL Alysia CLINICAL QUALITY ASSURANCE ASSOCIATE Ot 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 02/03/2016 MARISOL MOREL Alysia CLINICAL QUALITY ASSURANCE ASSOCIATE Ot D50.9 IRON DEFICIENCY ANEMIA, UNSPECIFIED 02/03/2016 MARISOL MOREL Alysia CLINICAL QUALITY ASSURANCE ASSOCIATE Ot M85.80 OTH DISRD OF BONE DENSITY AND STRUCTURE, 02/03/2016 MARISOL MOREL Alysia CLINICAL QUALITY ASSURANCE ASSOCIATE Ot 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+] 02/03/2016 ADRIEL MARISOL Hatfield CLINICAL QUALITY ASSURANCE ASSOCIATE Ot Z79.899 OTHER USP (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 THERAPY 02/04/2016 LIZETH MAIER Ot C50.919 MALIGNANT NEOPLASM OF UNSP SITE OF UNSPE 02/04/2016 LIZETH MAIER Lata Ot D50.9 IRON DEFICIENCY ANEMIA, UNSPECIFIED 02/04/2016 LIZETH MAIER Ot Z79.899 OTHER REPORT MANAGER (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 THERAPY 02/04/2016 MOREL MARISOL Hatfield CLINICAL QUALITY ASSURANCE ASSOCIATE Ot 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 02/04/2016 MARISOL MOREL Alysia CLINICAL QUALITY ASSURANCE ASSOCIATE Ot D50.9 IRON DEFICIENCY ANEMIA, UNSPECIFIED 02/04/2016 MELVINA MORELMICHAEL PROP Ot 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, 02/04/2016 MOREL MARISOL Hatfield CLINICAL QUALITY ASSURANCE ASSOCIATE Ot 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+] 02/04/2016 MELVINA MORELMICHAEL PROP Ot Z79.899 OTHER REPORT MANAGER (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 THERAPY 02/13/2016 Ot 593.2 CYST OF KIDNEY, ACQUIRED 02/13/2016 Ot 599.0 URIN TRACT INFECTION NOS 02/13/2016 Ot 788.21 INCOMPLETE BLADDER EMPTYING 02/13/2016 Ot 788.62 SLOWING OF URINARY STREAM 02/13/2016 Ot 780.79 OTH MALAISE FATIGUE 02/13/2016 Ot 786.50 CHEST PAIN NOS 02/13/2016 Ot V58.69 OTH MED,LT, CURRENT USE 02/13/2016 Ot 733.90 BONE CARTILAGE DIS NOS 02/13/2016 Ot 599.0 URIN TRACT INFECTION NOS 02/13/2016 KARUNA BEST, PJ R Ot 780.79 OTH MALAISE FATIGUE 02/13/2016 KARUNA BEST, PJ R Ot 782.7 SPONTANEOUS ECCHYMOSES 02/13/2016 Ot 682.9 CELLULITIS NOS 02/13/2016 Ot 599.0 URIN TRACT INFECTION NOS 02/13/2016 JESÚS BEST, MADISON Ot V72.84 EXAM PRE-OPERATIVE NOS 02/13/2016 Ot 280.9 IRON DEFIC ANEMIA NOS 02/13/2016 Ot 530.81 ESOPHAGEAL REFLUX 02/13/2016 Ot 564.00 UNSPEC CONSTIPATION 02/13/2016 Ot 585.3 CHRONIC KIDNEY DISEASE, STAGE III (MODER 02/13/2016 Ot V13.02 PERSONAL HISTORY, URINARY (TRACT) INFECT 02/13/2016 Ot V58.69 OTH MED,LT, CURRENT USE 02/13/2016 PJ BECKMAN MD Ot 443.9 PERIPH VASCULAR DIS NOS 02/13/2016 OTIS HUDSON MD Ot 276.1 HYPOSMOLALITY 02/13/2016 OTIS HUDSON MD Ot 276.8 HYPOPOTASSEMIA 02/13/2016 MORELMARISOL Hatfield S CLINICAL QUALITY ASSURANCE ASSOCIATE Ot 280.9 IRON DEFIC ANEMIA NOS 02/13/2016 MARISOL MOREL CLINICAL QUALITY ASSURANCE ASSOCIATE Ot 305.1 TOBACCO USE DISORDER 02/13/2016 MARISOL MOREL CLINICAL QUALITY ASSURANCE ASSOCIATE Ot 530.81 ESOPHAGEAL REFLUX 02/13/2016 MARISOL MOREL CLINICAL QUALITY ASSURANCE ASSOCIATE Ot 564.00 UNSPEC CONSTIPATION 02/13/2016 MARISOL MOREL CLINICAL QUALITY ASSURANCE ASSOCIATE Ot 585.3 CHRONIC KIDNEY DISEASE, STAGE III (MODER 02/13/2016 MARISOL MOREL CLINICAL QUALITY ASSURANCE ASSOCIATE Ot V58.69 OTH MED,LT,CURRENT USE 02/13/2016 PJ BECKMAN MD Ot 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 02/13/2016 PJ BECKMAN MD Ot [...] MAIER Ot V58.69 OTH MED,LT,CURRENT USE 02/13/2016 LAMONT WILCOX, MIGUEL Morales Ot 726.91 EXOSTOSIS, SITE NOS 02/13/2016 LAMONT WILCOX, MIGUEL Morales Ot V72.63 PRE-PROCEDURAL LABORATORY EXAMINATION 02/13/2016 MIGUEL MIGUEL DPM Ot V74.8 SCREEN-BACTERIAL DIS NEC 02/13/2016 KARUNA BEST, PJ R Ot 729.5 PAIN IN LIMB 02/13/2016 WING RUIZ MD Ot 595.2 CHRONIC CYSTITIS NEC 02/13/2016 KARUNA BEST, PJ R Ot 787.91 DIARRHEA 02/13/2016 KARUNA BEST, PJ R Ot 789.00 ABDOMINAL PAIN, UNSPECIFIED SITE 02/13/2016 KARUNA BEST, PJ R Ot 611.72 LUMP OR MASS IN BREAST 02/13/2016 KARUNA BEST, PJ R Ot 174.9 MALIGN NEOPL BREAST NOS 02/13/2016 KARUNA BEST, PJ R Ot 285.9 ANEMIA NOS 02/13/2016 KARUNA BEST, PJ R Ot 780.79 OTH MALAISE FATIGUE 02/13/2016 [...] BREAST NOS 02/13/2016 JAKE THOMAS DO Ot V72.84 EXAM PRE-OPERATIVE NOS 02/13/2016 JAKE THOMAS DO Ot 174.9 MALIGN NEOPL BREAST NOS 02/13/2016 JAKE THOMAS DO Ot V72.63 PRE-PROCEDURAL LABORATORY EXAMINATION 02/13/2016 JAKE THOMAS DO Ot V74.8 SCREEN-BACTERIAL DIS NEC 02/13/2016 LIZETH MAIER Ot M81.8 OTHER OSTEOPOROSIS WITHOUT CURRENT PATHO 02/13/2016 MORELMARISOL CLINICAL QUALITY ASSURANCE ASSOCIATE Ot 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 02/13/2016 MORELMARISOL Hatfield CLINICAL QUALITY ASSURANCE ASSOCIATE Ot D50.9 IRON DEFICIENCY ANEMIA, UNSPECIFIED 02/13/2016 MORELMARISOL Hatfield CLINICAL QUALITY ASSURANCE ASSOCIATE Ot M85.80 OTH DISRD OF BONE DENSITY AND STRUCTURE, 02/13/2016 MARISOL MOREL CLINICAL QUALITY ASSURANCE ASSOCIATE Ot R26.89 OTHER ABNORMALITIES OF GAIT AND MOBILITY 02/13/2016 MOREL MARISOL Hatfield CLINICAL QUALITY ASSURANCE ASSOCIATE Ot R42 DIZZINESS AND GIDDINESS 02/13/2016 MORELMARISOL Hatfield CLINICAL QUALITY ASSURANCE ASSOCIATE Ot R51 HEADACHE 02/13/2016 MORELMARISOL Hatfield CLINICAL QUALITY ASSURANCE ASSOCIATE Ot 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+] 02/13/2016 MORELMARISOL Hatfield CLINICAL QUALITY ASSURANCE ASSOCIATE Ot Z79.899 OTHER REPORT MANAGER (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 THERAPY 02/13/2016 MORELMARISOL Hatfield CLINICAL QUALITY ASSURANCE ASSOCIATE Ot H57.11 OCULAR PAIN, RIGHT EYE 02/13/2016 MORELMARISOL Hatfield CLINICAL QUALITY ASSURANCE ASSOCIATE Ot N63 UNSPECIFIED LUMP IN BREAST 02/13/2016 MARISOL MOREL CLINICAL QUALITY ASSURANCE ASSOCIATE Ot R26.81 UNSTEADINESS ON FEET 02/13/2016 MORELMARISOL Hatfield CLINICAL QUALITY ASSURANCE ASSOCIATE Ot H57.11 OCULAR PAIN, RIGHT EYE 02/13/2016 MARISOL MOREL CLINICAL QUALITY ASSURANCE ASSOCIATE Ot N63 UNSPECIFIED LUMP IN BREAST 02/13/2016 MARISOL MOREL CLINICAL QUALITY ASSURANCE ASSOCIATE Ot R26.81 UNSTEADINESS ON FEET 02/13/2016 LIZETH MAIER Ot 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 02/13/2016 LIZETH MAIER Ot D50.9 IRON DEFICIENCY ANEMIA, UNSPECIFIED 02/13/2016 LIZETH MAIER Ot M85.80 OTH DISRD OF BONE DENSITY AND STRUCTURE, 02/13/2016 LIZETH MAIER Ot 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+] 02/13/2016 LIZETH MAIER Ot Z79.899 OTHER REPORT MANAGER (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 THERAPY 02/13/2016 JESÚS BEST, MADISON Ot Z01.818 ENCOUNTER FOR OTHER PREPROCEDURAL EXAMIN 02/13/2016 MARISOL MOREL S CLINICAL QUALITY ASSURANCE ASSOCIATE Ot 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 02/13/2016 MORELMARISOL Hatfield CLINICAL QUALITY ASSURANCE ASSOCIATE Ot D50.9 IRON DEFICIENCY ANEMIA, UNSPECIFIED 02/13/2016 MOREL MARISOL Hatfield CLINICAL QUALITY ASSURANCE ASSOCIATE Ot M85.80 OTH DISRD OF BONE DENSITY AND STRUCTURE, 02/13/2016 MOREL MARISOL Hatfield CLINICAL QUALITY ASSURANCE ASSOCIATE Ot 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+] 02/13/2016 MELVINA MORELMICHAEL Hatfield CLINICAL QUALITY ASSURANCE ASSOCIATE Ot Z79.899 OTHER USP (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 THERAPY 02/13/2016 MORELMARISOL Hatfield CLINICAL QUALITY ASSURANCE ASSOCIATE Ot 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 02/13/2016 MELVINA MORELMICHAEL Hatfield CLINICAL QUALITY ASSURANCE ASSOCIATE Ot D50.9 IRON DEFICIENCY ANEMIA, UNSPECIFIED 02/13/2016 MELVINA MORELMICHAEL Hatfield CLINICAL QUALITY ASSURANCE ASSOCIATE Ot M85.80 OTH DISRD OF BONE DENSITY AND STRUCTURE, 02/13/2016 MELVINA MORELMICHAEL Hatfield CLINICAL QUALITY ASSURANCE ASSOCIATE Ot 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+] 02/13/2016 MELVINA MORELMICHAEL Hatfield CLINICAL QUALITY ASSURANCE ASSOCIATE Ot Z79.899 OTHER REPORT MANAGER (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 THERAPY 02/17/2016 JESÚS BEST, MADISON Ot R13.10 DYSPHAGIA, UNSPECIFIED 02/17/2016 JESÚS BEST, MADISON Ot Z01.818 ENCOUNTER FOR OTHER PREPROCEDURAL EXAMIN 02/18/2016 MELVINA MORELMICHAEL Hatfield CLINICAL QUALITY ASSURANCE ASSOCIATE Ot H57.11 OCULAR PAIN, RIGHT EYE 02/18/2016 MELVINA MORELMICHAEL Alysia CLINICAL QUALITY ASSURANCE ASSOCIATE Ot N63 UNSPECIFIED LUMP IN BREAST 02/18/2016 MELVINA MORELMICHAEL Hatfield CLINICAL QUALITY ASSURANCE ASSOCIATE Ot R26.81 UNSTEADINESS ON FEET 02/18/2016 ADRIEL MARISOL Hatfield CLINICAL QUALITY ASSURANCE ASSOCIATE Ot 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 02/18/2016 MELVNIA MORELMICHAEL Hatfield CLINICAL QUALITY ASSURANCE ASSOCIATE Ot D50.9 IRON DEFICIENCY ANEMIA, UNSPECIFIED 02/18/2016 MELVINA MORELMICHAEL Hatfield CLINICAL QUALITY ASSURANCE ASSOCIATE Ot M85.80 OTH DISRD OF BONE DENSITY AND STRUCTURE, 02/18/2016 MARISOL MOREL Alysia CLINICAL QUALITY ASSURANCE ASSOCIATE Ot 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+] 02/18/2016 MELVINA MORELMICHAEL Hatfield CLINICAL QUALITY ASSURANCE ASSOCIATE Ot Z79.899 OTHER REPORT MANAGER (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 THERAPY 02/18/2016 MARISOL MOREL Ot 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 02/18/2016 MARISOL MOREL Ot D50.9 IRON DEFICIENCY ANEMIA, UNSPECIFIED 02/18/2016 MARISOL MOREL Ot M85.80 OTH DISRD OF BONE DENSITY AND STRUCTURE, 02/18/2016 MARISOL MOREL Ot 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+] 02/18/2016 MARISOL MOREL Ot Z79.899 OTHER USP (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 THERAPY 02/18/2016 Ot 593.2 CYST OF KIDNEY, ACQUIRED 02/18/2016 Ot 599.0 URIN TRACT INFECTION NOS 02/18/2016 Ot 788.21 INCOMPLETE BLADDER EMPTYING 02/18/2016 Ot 788.62 SLOWING OF URINARY STREAM 02/18/2016 Ot 780.79 OTH MALAISE FATIGUE 02/18/2016 Ot 786.50 CHEST PAIN NOS 02/18/2016 Ot V58.69 OTH MED,LT, CURRENT USE 02/18/2016 Ot 733.90 BONE CARTILAGE DIS NOS 02/18/2016 Ot 599.0 URIN TRACT INFECTION NOS 02/18/2016 KARUNA BEST, PJ R Ot 780.79 OTH MALAISE FATIGUE 02/18/2016 KARUNA BEST, PJ R Ot 782.7 SPONTANEOUS ECCHYMOSES 02/18/2016 Ot 682.9 CELLULITIS NOS 02/18/2016 Ot 599.0 URIN TRACT INFECTION NOS 02/18/2016 JESÚS BEST, MADISON Ot V72.84 EXAM PRE-OPERATIVE NOS 02/18/2016 Ot 280.9 IRON DEFIC ANEMIA NOS 02/18/2016 Ot 530.81 ESOPHAGEAL REFLUX 02/18/2016 Ot 564.00 UNSPEC CONSTIPATION 02/18/2016 Ot 585.3 CHRONIC KIDNEY DISEASE, STAGE III (MODER 02/18/2016 Ot V13.02 PERSONAL HISTORY, URINARY (TRACT) INFECT 02/18/2016 Ot V58.69 OTH MED,LT, CURRENT USE 02/18/2016 KARUNA BEST, PJ R Ot 443.9 PERIPH VASCULAR DIS NOS 02/18/2016 TRISTAN BEST, OTIS Nicholson Ot 276.1 HYPOSMOLALITY 02/18/2016 TRISTAN BEST, OTIS Nicholson Ot 276.8 HYPOPOTASSEMIA 02/18/2016 ADRIELMARISOL CLINICAL QUALITY ASSURANCE ASSOCIATE Ot 280.9 IRON DEFIC ANEMIA NOS 02/18/2016 ADRIELMARISOL Alysia CLINICAL QUALITY ASSURANCE ASSOCIATE Ot 305.1 TOBACCO USE DISORDER 02/18/2016 ADRIELMARISOL CLINICAL QUALITY ASSURANCE ASSOCIATE Ot 530.81 ESOPHAGEAL REFLUX 02/18/2016 ADRIELMARISOL CLINICAL QUALITY ASSURANCE ASSOCIATE Ot 564.00 UNSPEC CONSTIPATION 02/18/2016 ADRIEL MARISOL Hatfield CLINICAL QUALITY ASSURANCE ASSOCIATE Ot 585.3 CHRONIC KIDNEY DISEASE, STAGE III (MODER 02/18/2016 ADRIELMARISOL CLINICAL QUALITY ASSURANCE ASSOCIATE Ot V58.69 OTH MED,LT,CURRENT USE 02/18/2016 PJ BECKMAN MD Ot 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 02/18/2016 PJ BECKMAN MD Ot 729.5 PAIN [...] SCREEN-BACTERIAL DIS NEC 02/18/2016 PJ BECKMAN MD R Ot 729.5 PAIN IN LIMB 02/18/2016 WING RUIZ MD Ot 595.2 CHRONIC CYSTITIS NEC 02/18/2016 SEGLIE MD, PJ R Ot 787.91 DIARRHEA 02/18/2016 KARUNA BEST, PJ R Ot 789.00 ABDOMINAL PAIN, UNSPECIFIED SITE 02/18/2016 KARUNA BEST, PJ R Ot 611.72 LUMP OR MASS IN BREAST 02/18/2016 KARUNA BEST, PJ R Ot 174.9 MALIGN NEOPL BREAST NOS 02/18/2016 PJ BECKMAN MD R Ot 285.9 ANEMIA NOS 02/18/2016 KARUNA [...] DISRD OF BONE DENSITY AND STRUCTURE, 02/18/2016 MARISOL MOREL Ot R26.89 OTHER ABNORMALITIES OF GAIT AND MOBILITY 02/18/2016 MOREL, HILAH S CLINICAL QUALITY ASSURANCE ASSOCIATE Ot R42 DIZZINESS AND GIDDINESS 02/18/2016 MARISOL MOREL CLINICAL QUALITY ASSURANCE ASSOCIATE Ot R51 HEADACHE 02/18/2016 MARISOL MOREL CLINICAL QUALITY ASSURANCE ASSOCIATE Ot 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+] 02/18/2016 MARISOL MOREL CLINICAL QUALITY ASSURANCE ASSOCIATE Ot Z79.899 OTHER USP (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 THERAPY 02/18/2016 MARISOL MOREL CLINICAL QUALITY ASSURANCE ASSOCIATE Ot H57.11 OCULAR PAIN, RIGHT EYE 02/18/2016 MARISOL MOREL CLINICAL QUALITY ASSURANCE ASSOCIATE Ot N63 UNSPECIFIED LUMP IN BREAST 02/18/2016 MARISOL MOREL CLINICAL QUALITY ASSURANCE ASSOCIATE Ot R26.81 UNSTEADINESS ON FEET 02/18/2016 MARISOL MOREL CLINICAL QUALITY ASSURANCE ASSOCIATE Ot H57.11 OCULAR PAIN, RIGHT EYE 02/18/2016 MARISOL MOREL CLINICAL QUALITY ASSURANCE ASSOCIATE Ot N63 UNSPECIFIED LUMP IN BREAST 02/18/2016 MARISOL MOREL CLINICAL QUALITY ASSURANCE ASSOCIATE Ot R26.81 UNSTEADINESS ON FEET 02/18/2016 LIZETH MAIER Ot 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 02/18/2016 LIZETH MAIER Ot D50.9 IRON DEFICIENCY ANEMIA, UNSPECIFIED 02/18/2016 LIZETH MAIER Ot M85.80 OTH DISRD OF BONE DENSITY AND STRUCTURE, 02/18/2016 LIZETH MAIER Ot 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+] 02/18/2016 LIZETH MAIER N Ot Z79.899 OTHER REPORT MANAGER (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 THERAPY 02/18/2016 JESÚS BEST, MADISON Ot Z01.818 ENCOUNTER FOR OTHER PREPROCEDURAL EXAMIN 02/18/2016 MORELMARISOL Hatfield CLINICAL QUALITY ASSURANCE ASSOCIATE Ot 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 02/18/2016 MORELMARISOL Hatfield CLINICAL QUALITY ASSURANCE ASSOCIATE Ot D50.9 IRON DEFICIENCY ANEMIA, UNSPECIFIED 02/18/2016 MORELMARISOL Hatfield CLINICAL QUALITY ASSURANCE ASSOCIATE Ot M85.80 OTH DISRD OF BONE DENSITY AND STRUCTURE, 02/18/2016 MORELMARISOL Hatfield CLINICAL QUALITY ASSURANCE ASSOCIATE Ot 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+] 02/18/2016 ADRIELMARISOL CLINICAL QUALITY ASSURANCE ASSOCIATE Ot Z79.899 OTHER REPORT MANAGER (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 THERAPY 02/18/2016 MARISOL MOREL CLINICAL QUALITY ASSURANCE ASSOCIATE Ot 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 02/18/2016 MARISOL MOREL CLINICAL QUALITY ASSURANCE ASSOCIATE Ot D50.9 IRON DEFICIENCY ANEMIA, UNSPECIFIED 02/18/2016 MARISOL MOREL CLINICAL QUALITY ASSURANCE ASSOCIATE Ot M85.80 OTH DISRD OF BONE DENSITY AND STRUCTURE, 02/18/2016 MARISOL MOREL CLINICAL QUALITY ASSURANCE ASSOCIATE Ot 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+] 02/18/2016 MARISOL MOREL CLINICAL QUALITY ASSURANCE ASSOCIATE Ot Z79.899 OTHER USP (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 THERAPY 02/18/2016 MADISON ESPINOSA MD [...] CHEST PAIN NOS 02/25/2016 Ot V58.69 OTH MED,LT, CURRENT USE 02/25/2016 Ot 733.90 BONE CARTILAGE DIS NOS 02/25/2016 Ot 599.0 URIN TRACT INFECTION NOS 02/25/2016 KARUNA BEST, PJ Kathleen Ot 780.79 OTH MALAISE FATIGUE 02/25/2016 KARUNA BEST, PJ Kathleen Ot 782.7 SPONTANEOUS ECCHYMOSES 02/25/2016 Ot 682.9 CELLULITIS NOS 02/25/2016 Ot 599.0 URIN TRACT INFECTION NOS 02/25/2016 JESÚS BEST, MADISON Ot V72.84 EXAM PRE-OPERATIVE NOS 02/25/2016 Ot 280.9 IRON DEFIC ANEMIA NOS 02/25/2016 Ot 530.81 ESOPHAGEAL REFLUX 02/25/2016 Ot 564.00 UNSPEC CONSTIPATION 02/25/2016 Ot 585.3 CHRONIC KIDNEY DISEASE, STAGE III (MODER 02/25/2016 Ot V13.02 PERSONAL HISTORY, URINARY (TRACT) INFECT 02/25/2016 Ot V58.69 OTH MED,LT, CURRENT USE 02/25/2016 KARUNA BEST, PJ Kathleen Ot 443.9 PERIPH VASCULAR DIS NOS 02/25/2016 TRISTAN BEST, OTIS Nicholson Ot 276.1 HYPOSMOLALITY 02/25/2016 OTIS HUDSON MD Ot 276.8 HYPOPOTASSEMIA 02/25/2016 MARISOL MORELP Ot 280.9 IRON DEFIC ANEMIA NOS 02/25/2016 MARISOL MOREL CLINICAL QUALITY ASSURANCE ASSOCIATE Ot 305.1 TOBACCO USE DISORDER 02/25/2016 MARISOL MOREL CLINICAL QUALITY ASSURANCE ASSOCIATE Ot 530.81 ESOPHAGEAL REFLUX 02/25/2016 MARISOL MORELP Ot 564.00 UNSPEC CONSTIPATION 02/25/2016 MARISOL MOREL CLINICAL QUALITY ASSURANCE ASSOCIATE Ot 585.3 CHRONIC KIDNEY DISEASE, STAGE III (MODER 02/25/2016 MARISOL MORELP Ot V58.69 OTH MED,LT,CURRENT USE 02/25/2016 PJ BECKMAN MD Ot 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 02/25/2016 SEGPJ PINEDA MD Ot 729.5 PAIN IN LIMB 02/25/2016 MADISON ESPINOSA MD Ot 530.11 REFLUX ESOPHAGITIS 02/25/2016 MADISON ESPINOSA [...] Ot V72.63 PRE-PROCEDURAL LABORATORY EXAMINATION 02/25/2016 LAMONT DPAdam MIGUEL P Ot V74.8 SCREEN-BACTERIAL DIS NEC 02/25/2016 PJ BECKMAN MD Ot 729.5 PAIN IN LIMB 02/25/2016 WING RUIZ MD Ot 595.2 CHRONIC CYSTITIS NEC 02/25/2016 PJ BECKMAN MD Ot 787.91 DIARRHEA 02/25/2016 PJ BECKMAN MD Ot 789.00 ABDOMINAL PAIN, UNSPECIFIED SITE 02/25/2016 PJ BECKMAN MD Ot 611.72 LUMP OR MASS IN BREAST 02/25/2016 PJ BECKMAN MD R Ot 174.9 MALIGN NEOPL BREAST NOS 02/25/2016 PJ BECKMAN MD Ot 285.9 ANEMIA NOS 02/25/2016 PJ BECKMAN MD R Ot 780.79 OTH MALAISE FATIGUE 02/25/2016 LIZETH MAIER Ot 174.9 MALIGN NEOPL BREAST NOS 02/25/2016 LIZETH MAIER Ot 174.9 MALIGN NEOPL BREAST NOS 02/25/2016 LIZETH MAIER Ot 280.9 IRON DEFIC ANEMIA NOS 02/25/2016 LIZETH MAIER Ot 585.3 CHRONIC KIDNEY DISEASE, STAGE III (MODER 02/25/2016 LIZETH MAIER Ot V58.69 OTH MED,LT,CURRENT USE 02/25/2016 LIZETH MAIER Ot V86.0 ESTROGEN RECEPTOR POSITIVE STATUS [ER+] 02/25/2016 THOMAS DO, JAKE D Ot 174.9 MALIGN NEOPL BREAST NOS 02/25/2016 THOMAS DO JAKE D Ot V72.84 EXAM PRE-OPERATIVE NOS 02/25/2016 THOMAS DOMARITATT D Ot 174.9 MALIGN NEOPL BREAST NOS 02/25/2016 THOMAS DO, JAKE D Ot V72.63 PRE-PROCEDURAL LABORATORY EXAMINATION 02/25/2016 THOMAS DOJAKE D Ot V74.8 SCREEN-BACTERIAL DIS NEC 02/25/2016 LIZETH MAIER Ot M81.8 OTHER OSTEOPOROSIS WITHOUT CURRENT PATHO 02/25/2016 MARISOL MORELP Ot 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 02/25/2016 MARISOL MOREL CLINICAL QUALITY ASSURANCE ASSOCIATE Ot D50.9 IRON DEFICIENCY ANEMIA, UNSPECIFIED 02/25/2016 MARISOL MOREL CLINICAL QUALITY ASSURANCE ASSOCIATE Ot M85.80 OTH DISRD OF BONE DENSITY AND STRUCTURE, 02/25/2016 MARISOL MOREL CLINICAL QUALITY ASSURANCE ASSOCIATE Ot R26.89 OTHER ABNORMALITIES OF GAIT AND MOBILITY 02/25/2016 MARISOL MORELP Ot R42 DIZZINESS AND GIDDINESS 02/25/2016 MARISOL MORELP Ot R51 HEADACHE 02/25/2016 MARISOL MOREL CLINICAL QUALITY ASSURANCE ASSOCIATE Ot 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 02/25/2016 LIZETH MAIER Ot D50.9 IRON DEFICIENCY ANEMIA, UNSPECIFIED 02/25/2016 LIZETH MAIER Ot M85.80 OTH DISRD OF BONE DENSITY AND STRUCTURE, 02/25/2016 DARRIONLIZETH FIGUEROA Ot 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+] 02/25/2016 LIZETH MAIER Ot Z79.899 OTHER REPORT MANAGER (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 THERAPY 02/25/2016 MADISON ESPINOSA MD Ot Z01.818 ENCOUNTER FOR OTHER PREPROCEDURAL EXAMIN 02/25/2016 MARISOL MORELP Ot 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 02/25/2016 MARISOL MORELP Ot D50.9 IRON DEFICIENCY ANEMIA, UNSPECIFIED 02/25/2016 MARISOL MOREL CLINICAL QUALITY ASSURANCE ASSOCIATE Ot M85.80 OTH DISRD OF BONE DENSITY AND STRUCTURE, 02/25/2016 MARISOL MORELP Ot 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+] 02/25/2016 MARISOL MOREL CLINICAL QUALITY ASSURANCE ASSOCIATE Ot Z79.899 OTHER USP (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 THERAPY 02/25/2016 MARISOL MOREL CLINICAL QUALITY ASSURANCE ASSOCIATE Ot 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 02/25/2016 MARISOL MORELP Ot D50.9 IRON DEFICIENCY ANEMIA, UNSPECIFIED 02/25/2016 MARISOL MORELP Ot M85.80 OTH DISRD OF BONE DENSITY AND STRUCTURE, 02/25/2016 MARISOL MORELP Ot 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+] 02/25/2016 MARISOL MOREL CLINICAL QUALITY ASSURANCE ASSOCIATE Ot Z79.899 OTHER USP (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 THERAPY 02/25/2016 Ot 593.2 CYST OF KIDNEY, ACQUIRED 02/25/2016 Ot 599.0 URIN TRACT INFECTION NOS 02/25/2016 Ot 788.21 INCOMPLETE BLADDER EMPTYING 02/25/2016 Ot 788.62 SLOWING OF URINARY STREAM 02/25/2016 Ot 780.79 OTH MALAISE FATIGUE 02/25/2016 Ot 786.50 CHEST PAIN NOS 02/25/2016 Ot V58.69 OTH MED,LT, CURRENT USE 02/25/2016 Ot 733.90 BONE CARTILAGE DIS NOS 02/25/2016 Ot 599.0 URIN TRACT INFECTION NOS 02/25/2016 KARUNA BEST, PJ Kathleen Ot 780.79 OTH MALAISE FATIGUE 02/25/2016 KARUNA BEST, PJ Kathleen Ot 782.7 SPONTANEOUS ECCHYMOSES 02/25/2016 Ot 682.9 CELLULITIS NOS 02/25/2016 Ot 599.0 URIN TRACT INFECTION NOS 02/25/2016 JESÚS BEST, MADISON Ot V72.84 EXAM PRE-OPERATIVE NOS 02/25/2016 Ot 280.9 IRON DEFIC ANEMIA NOS 02/25/2016 Ot 530.81 ESOPHAGEAL REFLUX 02/25/2016 Ot 564.00 UNSPEC CONSTIPATION 02/25/2016 Ot 585.3 CHRONIC KIDNEY DISEASE, STAGE III (MODER 02/25/2016 Ot V13.02 PERSONAL HISTORY, URINARY (TRACT) INFECT 02/25/2016 Ot V58.69 OTH MED,LT, CURRENT USE 02/25/2016 KARUNA BEST, PJ Kathleen Ot 443.9 PERIPH VASCULAR DIS NOS 02/25/2016 TRISTAN BEST, OTIS Nicholson Ot 276.1 HYPOSMOLALITY 02/25/2016 OTIS HUDSON MD Ot 276.8 HYPOPOTASSEMIA 02/25/2016 MARISOL MORELP Ot 280.9 IRON DEFIC ANEMIA NOS 02/25/2016 MARISOL MOREL CLINICAL QUALITY ASSURANCE ASSOCIATE Ot 305.1 TOBACCO USE DISORDER 02/25/2016 MARISOL MOREL CLINICAL QUALITY ASSURANCE ASSOCIATE Ot 530.81 ESOPHAGEAL REFLUX 02/25/2016 MARISOL MORELP Ot 564.00 UNSPEC CONSTIPATION 02/25/2016 MARISOL MOREL CLINICAL QUALITY ASSURANCE ASSOCIATE Ot 585.3 CHRONIC KIDNEY DISEASE, STAGE III (MODER 02/25/2016 MARISOL MORELP Ot V58.69 OTH MED,LT,CURRENT USE 02/25/2016 PJ BECKMAN MD Ot 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 02/25/2016 SEGPJ PINEDA MD Ot 729.5 PAIN IN LIMB 02/25/2016 MADISON ESPINOSA MD Ot 530.11 REFLUX ESOPHAGITIS 02/25/2016 MADISON ESPINOSA [...] Ot V72.63 PRE-PROCEDURAL LABORATORY EXAMINATION 02/25/2016 LAMONT DPAdam MIGUEL P Ot V74.8 SCREEN-BACTERIAL DIS NEC 02/25/2016 PJ BECKMAN MD Ot 729.5 PAIN IN LIMB 02/25/2016 WING RUIZ MD Ot 595.2 CHRONIC CYSTITIS NEC 02/25/2016 PJ BECKMAN MD Ot 787.91 DIARRHEA 02/25/2016 PJ BECKMAN MD Ot 789.00 ABDOMINAL PAIN, UNSPECIFIED SITE 02/25/2016 PJ BECKMAN MD Ot 611.72 LUMP OR MASS IN BREAST 02/25/2016 PJ BECKMAN MD R Ot 174.9 MALIGN NEOPL BREAST NOS 02/25/2016 PJ BECKMAN MD Ot 285.9 ANEMIA NOS 02/25/2016 PJ BECKMAN MD R Ot 780.79 OTH MALAISE FATIGUE 02/25/2016 LIZETH MAIER Ot 174.9 MALIGN NEOPL BREAST NOS 02/25/2016 LIZETH MAIER Ot 174.9 MALIGN NEOPL BREAST NOS 02/25/2016 LIZETH MAIER Ot 280.9 IRON DEFIC ANEMIA NOS 02/25/2016 LIZETH MAIER Ot 585.3 CHRONIC KIDNEY DISEASE, STAGE III (MODER 02/25/2016 LIZETH MAIER Ot V58.69 OTH MED,LT,CURRENT USE 02/25/2016 LIZETH MAIER Ot V86.0 ESTROGEN RECEPTOR POSITIVE STATUS [ER+] 02/25/2016 THOMAS DO, JAKE D Ot 174.9 MALIGN NEOPL BREAST NOS 02/25/2016 THOMAS DO JAKE D Ot V72.84 EXAM PRE-OPERATIVE NOS 02/25/2016 THOMAS DOMARITATT D Ot 174.9 MALIGN NEOPL BREAST NOS 02/25/2016 THOMAS DO, JAKE D Ot V72.63 PRE-PROCEDURAL LABORATORY EXAMINATION 02/25/2016 THOMAS DOJAKE D Ot V74.8 SCREEN-BACTERIAL DIS NEC 02/25/2016 LIZETH MAIER Ot M81.8 OTHER OSTEOPOROSIS WITHOUT CURRENT PATHO 02/25/2016 MARISOL MORELP Ot 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 02/25/2016 MARISOL MOREL CLINICAL QUALITY ASSURANCE ASSOCIATE Ot D50.9 IRON DEFICIENCY ANEMIA, UNSPECIFIED 02/25/2016 MARISOL MOREL CLINICAL QUALITY ASSURANCE ASSOCIATE Ot M85.80 OTH DISRD OF BONE DENSITY AND STRUCTURE, 02/25/2016 MARISOL MOREL CLINICAL QUALITY ASSURANCE ASSOCIATE Ot R26.89 OTHER ABNORMALITIES OF GAIT AND MOBILITY 02/25/2016 MARISOL MORELP Ot R42 DIZZINESS AND GIDDINESS 02/25/2016 MARISOL MORELP Ot R51 HEADACHE 02/25/2016 MARISOL MOREL CLINICAL QUALITY ASSURANCE ASSOCIATE Ot 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 02/25/2016 LIZETH MAIER Ot D50.9 IRON DEFICIENCY ANEMIA, UNSPECIFIED 02/25/2016 LIZETH MAIER N Ot M85.80 OTH DISRD OF BONE DENSITY AND STRUCTURE, 02/25/2016 DARRIONLIZETH FIGUEROA Ot 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+] 02/25/2016 LIZETH MAIER N Ot Z79.899 OTHER REPORT MANAGER (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 THERAPY 02/25/2016 JESÚS BEST, MADISON Ot Z01.818 ENCOUNTER FOR OTHER PREPROCEDURAL EXAMIN 02/25/2016 MARISOL MORELP Ot 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 02/25/2016 MARISOL MORELP Ot D50.9 IRON DEFICIENCY ANEMIA, UNSPECIFIED 02/25/2016 MARISOL MOREL CLINICAL QUALITY ASSURANCE ASSOCIATE Ot M85.80 OTH DISRD OF BONE DENSITY AND STRUCTURE, 02/25/2016 MARISOL MORELP Ot 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+] 02/25/2016 MARISOL MOREL CLINICAL QUALITY ASSURANCE ASSOCIATE Ot Z79.899 OTHER USP (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 THERAPY 02/25/2016 MARISOL MOREL CLINICAL QUALITY ASSURANCE ASSOCIATE Ot 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 02/25/2016 MARISOL MORELP Ot D50.9 IRON DEFICIENCY ANEMIA, UNSPECIFIED 02/25/2016 MARISOL MORELP Ot M85.80 OTH DISRD OF BONE DENSITY AND STRUCTURE, 02/25/2016 MARISOL MORELP Ot 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+] 02/25/2016 MARISOL MOREL CLINICAL QUALITY ASSURANCE ASSOCIATE Ot Z79.899 OTHER USP (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 THERAPY 02/25/2016 MARISOL MOREL CLINICAL QUALITY ASSURANCE ASSOCIATE Ot 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 02/26/2016 MARISOL MOREL CLINICAL QUALITY ASSURANCE ASSOCIATE Ot 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 02/27/2016 MARISOL MOREL CLINICAL QUALITY ASSURANCE ASSOCIATE Ot 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 02/27/2016 MARISOL MOREL CLINICAL QUALITY ASSURANCE ASSOCIATE Ot 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 02/27/2016 MARISOL MOREL CLINICAL QUALITY ASSURANCE ASSOCIATE Ot D50.9 IRON DEFICIENCY ANEMIA, UNSPECIFIED 02/27/2016 MORELMARISOL Hatfield CLINICAL QUALITY ASSURANCE ASSOCIATE Ot M85.80 OTH DISRD OF BONE DENSITY AND STRUCTURE, 02/27/2016 MORELMARISOL Hatfield CLINICAL QUALITY ASSURANCE ASSOCIATE Ot 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+] 02/27/2016 MORELMARISOL Hatfield CLINICAL QUALITY ASSURANCE ASSOCIATE Ot Z79.899 OTHER REPORT MANAGER (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 THERAPY 03/02/2016 MORELMARISOL Hatfield CLINICAL QUALITY ASSURANCE ASSOCIATE Ot 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 03/04/2016 MORELMARISOL Hatfield CLINICAL QUALITY ASSURANCE ASSOCIATE Ot 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 03/04/2016 MORELMARISOL Hatfield CLINICAL QUALITY ASSURANCE ASSOCIATE Ot D50.9 IRON DEFICIENCY ANEMIA, UNSPECIFIED 03/04/2016 MORELMARISOL Hatfield CLINICAL QUALITY ASSURANCE ASSOCIATE Ot M85.80 OTH DISRD OF BONE DENSITY AND STRUCTURE, 03/04/2016 MARISOL MOREL CLINICAL QUALITY ASSURANCE ASSOCIATE Ot 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+] 03/04/2016 MORELMARISOL Hatfield CLINICAL QUALITY ASSURANCE ASSOCIATE Ot Z79.899 OTHER USP (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 THERAPY 03/18/2016 MOREL MARISOL Hatfield CLINICAL QUALITY ASSURANCE ASSOCIATE Ot 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 03/23/2016 MOREL MARISOL S CLINICAL QUALITY ASSURANCE ASSOCIATE Ot 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 03/29/2016 LIZETH MAIER Ot 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 03/29/2016 LIZETH MAIER Ot D50.9 IRON DEFICIENCY ANEMIA, UNSPECIFIED 03/29/2016 LIZETH MAIER Ot M85.80 OTH DISRD OF BONE DENSITY AND STRUCTURE, 03/29/2016 LIZETH MAIER Ot 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+] 03/29/2016 LIZETH MAIER Ot Z79.899 OTHER REPORT MANAGER (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 THERAPY 05/26/2016 LIZETH MAIER Ot 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 05/26/2016 LIZETH MAIER Ot D50.9 IRON DEFICIENCY ANEMIA, UNSPECIFIED 05/26/2016 LIZETH MAIER Ot M85.80 OTH DISRD OF BONE DENSITY AND STRUCTURE, 05/26/2016 LIZETH MAIER Ot 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+] 05/26/2016 LIZETH MAIER Ot Z79.899 OTHER USP (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 THERAPY 07/13/2016 LIZETH MAIER Ot 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 07/13/2016 LIZETH MAIER Ot D50.9 IRON DEFICIENCY ANEMIA, UNSPECIFIED 07/13/2016 LIZETH MAIER Ot M85.80 OTH DISRD OF BONE DENSITY AND STRUCTURE, 07/13/2016 LIZETH MAIER Ot 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+] 07/13/2016 LIZETH MAIER Ot Z79.899 OTHER USP (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 THERAPY 07/15/2016 Ot 593.2 CYST OF KIDNEY, ACQUIRED 07/15/2016 Ot 599.0 URIN TRACT INFECTION NOS 07/15/2016 Ot 788.21 INCOMPLETE BLADDER EMPTYING 07/15/2016 Ot 788.62 SLOWING OF URINARY STREAM 07/15/2016 Ot 780.79 OTH MALAISE FATIGUE 07/15/2016 Ot 786.50 CHEST PAIN NOS 07/15/2016 Ot V58.69 OTH MED,LT, CURRENT USE 07/15/2016 Ot 733.90 BONE CARTILAGE DIS NOS 07/15/2016 Ot 599.0 URIN TRACT INFECTION NOS 07/15/2016 KARUNA BEST, PJ Kathleen Ot 780.79 OTH MALAISE FATIGUE 07/15/2016 KARUNA [...] URINARY (TRACT) INFECT 07/15/2016 Ot V58.69 OTH MED,LT, CURRENT USE 07/15/2016 PJ BECKMAN MD Ot 443.9 PERIPH VASCULAR DIS NOS 07/15/2016 TRISTAN BEST, OTIS Nicholson Ot 276.1 HYPOSMOLALITY 07/15/2016 OTIS HUDSON MD Ot 276.8 HYPOPOTASSEMIA 07/15/2016 MORELMARISOL Hatfield CLINICAL QUALITY ASSURANCE ASSOCIATE Ot 280.9 IRON DEFIC ANEMIA NOS 07/15/2016 MARISOL MOREL CLINICAL QUALITY ASSURANCE ASSOCIATE Ot 305.1 TOBACCO USE DISORDER 07/15/2016 MARISOL MOREL CLINICAL QUALITY ASSURANCE ASSOCIATE Ot 530.81 ESOPHAGEAL REFLUX 07/15/2016 MARISOL MOREL CLINICAL QUALITY ASSURANCE ASSOCIATE Ot 564.00 UNSPEC CONSTIPATION 07/15/2016 MARISOL MOREL CLINICAL QUALITY ASSURANCE ASSOCIATE Ot 585.3 CHRONIC KIDNEY DISEASE, STAGE III (MODER 07/15/2016 MARISOL MOREL CLINICAL QUALITY ASSURANCE ASSOCIATE Ot V58.69 OTH MED,LT,CURRENT USE 07/15/2016 PJ BECKMAN MD R Ot 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 07/15/2016 PJ BECKMAN MD Ot [...] Ot 789.00 ABDOMINAL PAIN, UNSPECIFIED SITE 07/15/2016 KARUNA BEST, PJ R Ot 611.72 LUMP OR MASS IN BREAST 07/15/2016 PJ BECKMAN MD R Ot 174.9 MALIGN NEOPL BREAST NOS 07/15/2016 BARTOLOME BECKMAN MDYD R Ot 285.9 ANEMIA NOS 07/15/2016 KARUNA BEST, PJ R Ot 780.79 OTH MALAISE FATIGUE 07/15/2016 LIZETH MAIER Ot 174.9 MALIGN NEOPL BREAST NOS 07/15/2016 LIZETH MAIER Ot 174.9 MALIGN NEOPL BREAST NOS 07/15/2016 LIZETH MAIER Ot 280.9 IRON DEFIC ANEMIA NOS 07/15/2016 LIZETH MAIER Ot 585.3 CHRONIC KIDNEY DISEASE, STAGE III (MODER 07/15/2016 LIZETH MAIER Ot V58.69 OTH MED,LT,CURRENT USE 07/15/2016 LIZETH MAIER Ot V86.0 ESTROGEN RECEPTOR POSITIVE STATUS [ER+] 07/15/2016 JAKE THOMAS DO Ot 174.9 MALIGN NEOPL BREAST NOS 07/15/2016 JAKE THOMAS DO Ot V72.84 EXAM PRE-OPERATIVE NOS 07/15/2016 JAKE THOMAS DO Ot 174.9 MALIGN NEOPL BREAST NOS 07/15/2016 JAKE THOMAS DO Ot V72.63 PRE-PROCEDURAL LABORATORY EXAMINATION 07/15/2016 JAKE THOMAS DO Ot V74.8 SCREEN-BACTERIAL DIS NEC 07/15/2016 LIZETH MAIER Ot M81.8 OTHER OSTEOPOROSIS WITHOUT CURRENT PATHO 07/15/2016 MORELMARISOL CLINICAL QUALITY ASSURANCE ASSOCIATE Ot 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 07/15/2016 ADRIEL MARISOL Hatfield CLINICAL QUALITY ASSURANCE ASSOCIATE Ot D50.9 IRON DEFICIENCY ANEMIA, UNSPECIFIED 07/15/2016 ADRIEL MARISOL [place] CLINICAL QUALITY ASSURANCE ASSOCIATE Ot M85.80 OTH DISRD OF BONE DENSITY AND STRUCTURE, 07/15/2016 MELVINA MORELMICHAEL [place] CLINICAL QUALITY ASSURANCE ASSOCIATE Ot R26.89 OTHER ABNORMALITIES OF GAIT AND MOBILITY 07/15/2016 MELVINA MORELMICHAEL [place] CLINICAL QUALITY ASSURANCE ASSOCIATE Ot R42 DIZZINESS AND GIDDINESS 07/15/2016 MELVINA MORELMICHAEL [place] CLINICAL QUALITY ASSURANCE ASSOCIATE Ot R51 HEADACHE 07/15/2016 MELVINA MORELMICHAEL [place] CLINICAL QUALITY ASSURANCE ASSOCIATE Ot 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+] 07/15/2016 MELVINA MORELMICHAEL [place] CLINICAL QUALITY ASSURANCE ASSOCIATE Ot Z79.899 OTHER REPORT MANAGER (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 THERAPY 07/15/2016 MELVINA MORELMICHAEL [place] CLINICAL QUALITY ASSURANCE ASSOCIATE Ot H57.11 OCULAR PAIN, RIGHT EYE 07/15/2016 MELVINA MORELMICHAEL [place] CLINICAL QUALITY ASSURANCE ASSOCIATE Ot N63 UNSPECIFIED LUMP IN BREAST 07/15/2016 ADRIEL MARISOL [place]field CLINICAL QUALITY ASSURANCE ASSOCIATE Ot R26.81 UNSTEADINESS ON FEET 07/15/2016 MELVINA OMRELMICHAEL [place]field CLINICAL QUALITY ASSURANCE ASSOCIATE Ot H57.11 OCULAR PAIN, RIGHT EYE 07/15/2016 ADRIEL MARISOL [place]field CLINICAL QUALITY ASSURANCE ASSOCIATE Ot N63 UNSPECIFIED LUMP IN BREAST 07/15/2016 ADRIEL MARISOL [place]field CLINICAL QUALITY ASSURANCE ASSOCIATE Ot R26.81 UNSTEADINESS ON FEET 07/15/2016 JESÚS BEST, MADISON Ot Z01.818 ENCOUNTER FOR OTHER PREPROCEDURAL EXAMIN 07/15/2016 MARISOL MOREL Alysia CLINICAL QUALITY ASSURANCE ASSOCIATE Ot 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 07/15/2016 MARISOL MOREL Alysia CLINICAL QUALITY ASSURANCE ASSOCIATE Ot D50.9 IRON DEFICIENCY ANEMIA, UNSPECIFIED 07/15/2016 MARISOL MOREL Alysia CLINICAL QUALITY ASSURANCE ASSOCIATE Ot M85.80 OTH DISRD OF BONE DENSITY AND STRUCTURE, 07/15/2016 MARISOL MOREL Alysia CLINICAL QUALITY ASSURANCE ASSOCIATE Ot 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+] 07/15/2016 MARISOL MOREL Alysia CLINICAL QUALITY ASSURANCE ASSOCIATE Ot Z79.899 OTHER REPORT MANAGER (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 THERAPY 07/15/2016 MARISOL MOREL CLINICAL QUALITY ASSURANCE ASSOCIATE Ot 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 07/15/2016 MARISOL MOREL CLINICAL QUALITY ASSURANCE ASSOCIATE Ot D50.9 IRON DEFICIENCY ANEMIA, UNSPECIFIED 07/15/2016 MARISOL MOREL CLINICAL QUALITY ASSURANCE ASSOCIATE Ot M85.80 OTH DISRD OF BONE DENSITY AND STRUCTURE, 07/15/2016 MARISOL MOREL CLINICAL QUALITY ASSURANCE ASSOCIATE Ot 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+] 07/15/2016 MARISOL MOREL CLINICAL QUALITY ASSURANCE ASSOCIATE Ot Z79.899 OTHER REPORT MANAGER (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 THERAPY 07/15/2016 MARISOL MOREL CLINICAL QUALITY ASSURANCE ASSOCIATE Ot 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 07/15/2016 DARRIONLIZETH N Ot 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 07/15/2016 LIZETH MAIER N Ot D50.9 IRON DEFICIENCY ANEMIA, UNSPECIFIED 07/15/2016 LIZETH MAIER N Ot M85.80 OTH DISRD OF BONE DENSITY AND STRUCTURE, 07/15/2016 LIZETH MAIER N Ot 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+] 07/15/2016 LIZETH MAIER N Ot Z79.899 OTHER REPORT MANAGER (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 THERAPY 07/16/2016 KARUNA BEST, PJ R Ot 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 07/16/2016 KARUNA BEST, PJ R Ot Z72.0 TOBACCO USE 07/21/2016 LIZETH MAIER N Ot 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 07/21/2016 LIZETH MAIER N Ot D50.9 IRON DEFICIENCY ANEMIA, UNSPECIFIED 07/21/2016 LIZETH MAIER N Ot M85.80 OTH DISRD OF BONE DENSITY AND STRUCTURE, 07/21/2016 LIZETH MAIER N Ot 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+] 07/21/2016 LIZETH MAIER N Ot Z79.899 OTHER USP (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 THERAPY 08/23/2016 LIZETH MAIER N Ot 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 08/23/2016 LIZETH MAIER N Ot D50.9 IRON DEFICIENCY ANEMIA, UNSPECIFIED 08/23/2016 LIZETH MAIER N Ot M85.80 OTH DISRD OF BONE DENSITY AND STRUCTURE, 08/23/2016 LIZETH MAIER Ot 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+] 08/23/2016 LIZETH MAIER N Ot Z79.899 OTHER USP (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 THERAPY 09/20/2016 MARISOL MOREL CLINICAL QUALITY ASSURANCE ASSOCIATE Ot 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 09/20/2016 MARISOL MOREL S CLINICAL QUALITY ASSURANCE ASSOCIATE Ot 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 09/20/2016 MARISOL MOREL CLINICAL QUALITY ASSURANCE ASSOCIATE Ot 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 10/20/2016 LIZETH MAIER N Ot 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 10/20/2016 LIZETH MAIER N Ot D50.9 IRON DEFICIENCY ANEMIA, UNSPECIFIED 10/20/2016 LIZETH MAIER N Ot M85.80 OTH DISRD OF BONE DENSITY AND STRUCTURE, 10/20/2016 LIZETH MAIER Ot 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+] 10/20/2016 LIZETH MAIER N Ot Z79.899 OTHER USP (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 THERAPY 11/04/2016 MARISOL MOREL S CLINICAL QUALITY ASSURANCE ASSOCIATE Ot 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 12/09/2016 LIZETH MAIER N Ot 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 12/09/2016 LIZETH MAIER N Ot D50.9 IRON DEFICIENCY ANEMIA, UNSPECIFIED 12/09/2016 LIZETH MAIER N Ot M85.80 OTH DISRD OF BONE DENSITY AND STRUCTURE, 12/09/2016 LIZETH MAIER Ot 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+] 12/09/2016 LIZETH MAIER N Ot Z79.899 OTHER USP (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 THERAPY 12/15/2016 LIZETH MAIER N Ot 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 12/15/2016 LIZETH MAIER N Ot D50.9 IRON DEFICIENCY ANEMIA, UNSPECIFIED 12/15/2016 LIZETH MAIER N Ot M85.80 OTH DISRD OF BONE DENSITY AND STRUCTURE, 12/15/2016 LIZETH MAIER N Ot 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+] 12/15/2016 LIZETH MAIER N Ot Z79.899 OTHER REPORT MANAGER (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 THERAPY 01/17/2017 LIZETH MAIER N Ot 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 01/17/2017 DARRIONLIZETH FIGUEROA N Ot D50.9 IRON DEFICIENCY ANEMIA, UNSPECIFIED 01/17/2017 LIZETH MAIER N Ot M85.80 OTH DISRD OF BONE DENSITY AND STRUCTURE, 01/17/2017 LIZETH MAIER N Ot 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+] 01/17/2017 LIZETH MAIER N Ot Z79.899 OTHER USP (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 THERAPY 01/26/2017 LIZETH MAIER N Ot 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 01/26/2017 LIZETH MAIER N Ot D50.9 IRON DEFICIENCY ANEMIA, UNSPECIFIED 01/26/2017 DARRIONLIZETH FIGUEROA N Ot M85.80 OTH DISRD OF BONE DENSITY AND STRUCTURE, 01/26/2017 LIZETH MAIER N Ot 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+] 01/26/2017 LIZETH MAIER N Ot Z79.899 OTHER USP (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 THERAPY 01/27/2017 LIZETH MAIER N Ot 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 01/27/2017 LIZETH MAIER N Ot D50.9 IRON DEFICIENCY ANEMIA, UNSPECIFIED 01/27/2017 LIZETH MAIER N Ot M85.80 OTH DISRD OF BONE DENSITY AND STRUCTURE, 01/27/2017 LIZETH MAIER N Ot 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+] 01/27/2017 DARRIONLIZETH N Ot Z79.899 OTHER REPORT MANAGER (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 THERAPY 01/31/2017 MARISOL MOREL CLINICAL QUALITY ASSURANCE ASSOCIATE Ot M85.9 DISORDER OF BONE DENSITY AND STRUCTURE, 01/31/2017 MARISOL MORELP Ot M85.9 DISORDER OF BONE DENSITY AND [...] MALIG NEOPLM OF LOWER-OUTER QUADRANT OF 03/11/2017 DARRIONLIZETH FIGUEROA N Ot D50.9 IRON DEFICIENCY ANEMIA, UNSPECIFIED 03/11/2017 DARRIONLIZETH FIGUEROA N Ot M85.80 OTH DISRD OF BONE DENSITY AND STRUCTURE, 03/11/2017 LIZETH MAIER N Ot 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+] 03/11/2017 DARRIONALISE FIGUEROAAN N Ot Z79.899 OTHER USP (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 THERAPY 03/16/2017 DARRIONLIZETH FIGUEROA N Ot 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 03/16/2017 DARRION BOBAN N Ot D50.9 IRON DEFICIENCY ANEMIA, UNSPECIFIED 03/16/2017 DARRIONLIZETH FIGUEROA N Ot M85.80 OTH DISRD OF BONE DENSITY AND STRUCTURE, 03/16/2017 DARRIONLIZETH FIGUEROA N Ot 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+] 03/16/2017 DARRION BOBAN N Ot Z79.899 OTHER USP (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 THERAPY 03/19/2017 DARRIONLIZETH FIGUEROA N Ot 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 03/19/2017 DARRION BOBAN N Ot D50.9 IRON DEFICIENCY ANEMIA, UNSPECIFIED 03/19/2017 DARRION BOBAN N Ot M85.80 OTH DISRD OF BONE DENSITY AND STRUCTURE, 03/19/2017 DARRIONLIZETH FIGUEROA N Ot 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+] 03/19/2017 DARRION BOBAN N Ot Z79.899 OTHER USP (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 THERAPY 03/23/2017 MARISOL MOREL CLINICAL QUALITY ASSURANCE ASSOCIATE Ot M85.9 DISORDER OF BONE DENSITY AND STRUCTURE, 03/23/2017 MARISOL MORELP Ot R92.8 OTH ABN AND INCONCLUSIVE FINDINGS ON DX 04/04/2017 MARISOL MOREL CLINICAL QUALITY ASSURANCE ASSOCIATE Ot 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 04/04/2017 MARISOL MOREL CLINICAL QUALITY ASSURANCE ASSOCIATE Ot M85.89 OTH DISRD OF BONE DENSITY AND STRUCTURE, 04/04/2017 MARISOL MOREL CLINICAL QUALITY ASSURANCE ASSOCIATE Ot N18.3 CHRONIC KIDNEY DISEASE, STAGE 3 (MODERAT 04/04/2017 MARISOL MOREL CLINICAL QUALITY ASSURANCE ASSOCIATE Ot R92.8 OTH ABN AND INCONCLUSIVE FINDINGS ON DX 04/04/2017 MARISOL MOREL CLINICAL QUALITY ASSURANCE ASSOCIATE Ot 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 04/04/2017 MARISOL MOREL CLINICAL QUALITY ASSURANCE ASSOCIATE Ot M85.89 OTH DISRD OF BONE DENSITY AND STRUCTURE, 04/04/2017 MARISOL MOREL CLINICAL QUALITY ASSURANCE ASSOCIATE Ot N18.3 CHRONIC KIDNEY DISEASE, STAGE 3 (MODERAT 04/04/2017 MARISOL MOREL CLINICAL QUALITY ASSURANCE ASSOCIATE Ot R92.8 OTH ABN AND INCONCLUSIVE FINDINGS ON DX 04/15/2017 MARISOL MOREL CLINICAL QUALITY ASSURANCE ASSOCIATE Ot 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 04/15/2017 MARISOL MOREL CLINICAL QUALITY ASSURANCE ASSOCIATE Ot M85.89 OTH DISRD OF BONE DENSITY AND STRUCTURE, 04/15/2017 MARISOL MOREL CLINICAL QUALITY ASSURANCE ASSOCIATE Ot N18.3 CHRONIC KIDNEY DISEASE, STAGE 3 (MODERAT 04/18/2017 Ot 599.0 URIN TRACT INFECTION NOS 05/03/2017 CARO BEST, FARHAT Stiles Ot F17.210 NICOTINE DEPENDENCE, CIGARETTES, UNCOMPL 05/03/2017 FARHAT ELIZONDO MD Ot F32.9 MAJOR DEPRESSIVE DISORDER, SINGLE EPISOD 05/03/2017 FARHAT ELIZONDO MD Ot F41.0 PANIC DISORDER [EPISODIC PAROXYSMAL ANXI 05/03/2017 FARHAT ELIZONDO MD Ot F41.9 ANXIETY DISORDER, UNSPECIFIED 05/03/2017 FARHAT ELIZONDO MD Ot K21.9 GASTRO-ESOPHAGEAL REFLUX DISEASE WITHOUT 05/03/2017 FARHAT ELIZONDO MD, Ot M19.90 UNSPECIFIED OSTEOARTHRITIS, UNSPECIFIED 05/03/2017 FARHAT ELIZONDO MD, Ot M81.0 AGE-RELATED OSTEOPOROSIS W/O CURRENT PAT 05/03/2017 FARHAT ELIZONDO MD, Ot N39.0 URINARY TRACT INFECTION, SITE NOT SPECIF 05/03/2017 FARHAT ELIZONDO MD, Ot Z82.49 FAMILY HX OF ISCHEM HEART DIS AND OTH DI 05/03/2017 FARHAT ELIZONDO MD, Ot Z85.3 PERSONAL HISTORY OF MALIGNANT NEOPLASM O 05/03/2017 FARHAT ELIZONDO MD, Ot Z85.42 PERSONAL HISTORY OF MALIGNANT NEOPLASM O 05/03/2017 FARHAT ELIZONDO MD, Ot Z86.010 PERSONAL HISTORY OF COLONIC POLYPS 05/03/2017 FARHAT ELIZONDO MD, Ot Z87.19 PERSONAL HISTORY OF OTHER DISEASES OF TH 05/03/2017 FARHAT ELIZONDO MD, Ot Z87.440 PERSONAL HISTORY OF URINARY (TRACT) INFE 05/03/2017 FARHAT ELIZONDO MD, Ot Z90.49 ACQUIRED ABSENCE OF OTHER SPECIFIED PART 05/03/2017 FARHAT ELIZONDO MD, Ot Z90.710 ACQUIRED ABSENCE OF BOTH CERVIX AND UTER 05/03/2017 FARHAT ELIZONDO MD, Ot Z90.89 ACQUIRED ABSENCE OF OTHER ORGANS 06/06/2017 PJ BECKMAN MD Ot R39.9 UNSP SYMPTOMS AND SIGNS INVOLVING THE GE 06/17/2017 PJ BECKMAN MD Ot R39.9 UNSP SYMPTOMS AND SIGNS INVOLVING THE GE 07/05/2017 PJ BECKMAN MD Ot R39.9 UNSP SYMPTOMS AND SIGNS INVOLVING THE GE 09/06/2017 MARISOL MOREL Ot L72.3 SEBACEOUS CYST 09/06/2017 MARISOL MOREL Ot N63.21 UNSPECIFIED LUMP IN THE LEFT BREAST, UPP 09/06/2017 MARISOL MOREL Ot Z85.3 PERSONAL HISTORY OF MALIGNANT NEOPLASM O 09/06/2017 MARISOL MOREL Ot 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 ABSENCE OF LEFT BREAST AND NIPP 09/06/2017 MARISOL MOREL Ot L72.3 SEBACEOUS CYST 09/06/2017 MARISOL MOREL CLINICAL QUALITY ASSURANCE ASSOCIATE Ot 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 09/06/2017 MARISOL MOREL CLINICAL QUALITY ASSURANCE ASSOCIATE Ot Z85.3 PERSONAL HISTORY OF MALIGNANT NEOPLASM O 09/06/2017 MARISOL MOREL CLINICAL QUALITY ASSURANCE ASSOCIATE Ot 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 ABSENCE OF LEFT BREAST AND NIPP 09/12/2017 MARISOL MOREL CLINICAL QUALITY ASSURANCE ASSOCIATE Ot 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 09/12/2017 MARISOL MOREL CLINICAL QUALITY ASSURANCE ASSOCIATE Ot N63.0 UNSPECIFIED LUMP IN UNSPECIFIED BREAST 10/06/2017 MARISOL MOREL CLINICAL QUALITY ASSURANCE ASSOCIATE Ot L72.3 SEBACEOUS CYST 10/06/2017 MARISOL MOREL CLINICAL QUALITY ASSURANCE ASSOCIATE Ot 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 10/06/2017 MARISOL MOREL CLINICAL QUALITY ASSURANCE ASSOCIATE Ot Z85.3 PERSONAL HISTORY OF MALIGNANT NEOPLASM O 10/06/2017 MORELMARISOL Hatfield CLINICAL QUALITY ASSURANCE ASSOCIATE Ot 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 ABSENCE OF LEFT BREAST AND NIPP 10/07/2017 MELVINA MORELMICHAEL Hatfield CLINICAL QUALITY ASSURANCE ASSOCIATE Ot 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 10/07/2017 MARISOL MOREL CLINICAL QUALITY ASSURANCE ASSOCIATE Ot N63.0 UNSPECIFIED LUMP IN UNSPECIFIED BREAST 10/12/2017 LIZETH MAIER Ot C50.911 MALIGNANT NEOPLASM OF UNSP SITE OF RIGHT 10/12/2017 LIZETH MAIER Ot F17.210 NICOTINE DEPENDENCE, CIGARETTES, UNCOMPL 10/12/2017 LIZETH MAIER Ot G20 PARKINSON'S DISEASE 10/12/2017 LIZETH MAIER Ot K21.9 GASTRO-ESOPHAGEAL REFLUX DISEASE WITHOUT 10/12/2017 LIZETH MAIER Ot M32.9 SYSTEMIC LUPUS ERYTHEMATOSUS, UNSPECIFIE 10/12/2017 LIZETH MAIER Ot M85.88 OTH DISRD OF BONE DENSITY AND STRUCTURE, 10/12/2017 LIZETH MAIER Ot N18.3 CHRONIC KIDNEY DISEASE, STAGE 3 (MODERAT 10/12/2017 LIZETH MAIER Ot 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+] 10/12/2017 LIZETH MAIER Ot Z79.899 OTHER USP (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 THERAPY 10/12/2017 MARISOL MOREL CLINICAL QUALITY ASSURANCE ASSOCIATE Ot 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 10/12/2017 MARISOL MOREL CLINICAL QUALITY ASSURANCE ASSOCIATE Ot N63.0 UNSPECIFIED LUMP IN UNSPECIFIED BREAST 10/12/2017 LIZETH MAIER Ot C50.911 MALIGNANT NEOPLASM OF UNSP SITE OF RIGHT 10/12/2017 LIZETH MAIER Ot F17.210 NICOTINE DEPENDENCE, CIGARETTES, UNCOMPL 10/12/2017 LIZETH MAIER Ot G20 PARKINSON'S DISEASE 10/12/2017 LIZETH MAIER Ot K21.9 GASTRO-ESOPHAGEAL REFLUX DISEASE WITHOUT 10/12/2017 LIZETH MAIER Ot M32.9 SYSTEMIC LUPUS ERYTHEMATOSUS, UNSPECIFIE 10/12/2017 LIZETH MAIER Ot M85.88 OTH DISRD OF BONE DENSITY AND STRUCTURE, 10/12/2017 LIZETH MAIER Ot N18.3 CHRONIC KIDNEY DISEASE, STAGE 3 (MODERAT 10/12/2017 LIZETH MAIER Ot 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+] 10/12/2017 LIZETH MAIER Ot Z79.899 OTHER REPORT MANAGER (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 THERAPY 11/10/2017 MARISOL MOREL S CLINICAL QUALITY ASSURANCE ASSOCIATE Ot H57.11 OCULAR PAIN, RIGHT EYE 11/10/2017 MARISOL MOREL CLINICAL QUALITY ASSURANCE ASSOCIATE Ot N63 UNSPECIFIED LUMP IN BREAST 11/10/2017 MARISOL MOREL S CLINICAL QUALITY ASSURANCE ASSOCIATE Ot R26.81 UNSTEADINESS ON FEET 11/10/2017 MARISOL MOREL CLINICAL QUALITY ASSURANCE ASSOCIATE Ot 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 11/10/2017 MARISOL MOREL CLINICAL QUALITY ASSURANCE ASSOCIATE Ot D50.9 IRON DEFICIENCY ANEMIA, UNSPECIFIED 11/10/2017 MARISOL MOREL CLINICAL QUALITY ASSURANCE ASSOCIATE Ot M85.80 OTH DISRD OF BONE DENSITY AND STRUCTURE, 11/10/2017 MARISOL MOERL CLINICAL QUALITY ASSURANCE ASSOCIATE Ot 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+] 11/10/2017 MARISOL MOREL S CLINICAL QUALITY ASSURANCE ASSOCIATE Ot Z79.899 OTHER USP (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 THERAPY 11/10/2017 MARISOL MOREL S CLINICAL QUALITY ASSURANCE ASSOCIATE Ot 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 11/10/2017 MARISOL MOREL CLINICAL QUALITY ASSURANCE ASSOCIATE Ot D50.9 IRON DEFICIENCY ANEMIA, UNSPECIFIED 11/10/2017 MARISOL MOREL CLINICAL QUALITY ASSURANCE ASSOCIATE Ot M85.80 OTH DISRD OF BONE DENSITY AND STRUCTURE, 11/10/2017 MARISOL MOREL CLINICAL QUALITY ASSURANCE ASSOCIATE Ot 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+] 11/10/2017 MARISOL MOREL CLINICAL QUALITY ASSURANCE ASSOCIATE Ot Z79.899 OTHER USP (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 THERAPY 11/10/2017 MORELMARISOL Hatfield CLINICAL QUALITY ASSURANCE ASSOCIATE Ot 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 11/10/2017 MARISOL MOREL CLINICAL QUALITY ASSURANCE ASSOCIATE Ot 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 11/10/2017 KARUNA BEST, PJ Kathleen Ot 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 11/10/2017 KARUNA BEST, PJ Kathleen Ot Z72.0 TOBACCO USE 11/10/2017 MORELMARISOL Hatfield CLINICAL QUALITY ASSURANCE ASSOCIATE Ot 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 11/10/2017 MORELMARISOL Hatfield CLINICAL QUALITY ASSURANCE ASSOCIATE Ot M85.89 OTH DISRD OF BONE DENSITY AND STRUCTURE, 11/10/2017 MORELMARISOL Hatfield CLINICAL QUALITY ASSURANCE ASSOCIATE Ot N18.3 CHRONIC KIDNEY DISEASE, STAGE 3 (MODERAT 11/10/2017 EVANGELISTA LOCKE DC Ot M50.31 OTHER CERVICAL DISC DEGENERATION, HIGH 11/10/2017 EVANGELISTA LOCKE DC Ot M51.36 OTHER INTERVERTEBRAL DISC DEGENERATION, 11/10/2017 LIZETH MAIER Ot C50.911 MALIGNANT NEOPLASM OF UNSP SITE OF RIGHT 11/10/2017 LIZETH MAIER Ot F17.210 NICOTINE DEPENDENCE, CIGARETTES, UNCOMPL 11/10/2017 LIZETH MAIER Ot G20 PARKINSON'S DISEASE 11/10/2017 LIZETH MAIER Ot K21.9 GASTRO-ESOPHAGEAL REFLUX DISEASE WITHOUT 11/10/2017 LIZETH MAIER Ot M32.9 SYSTEMIC LUPUS ERYTHEMATOSUS, UNSPECIFIE 11/10/2017 LIZETH MAIER Ot M85.88 OTH DISRD OF BONE DENSITY AND STRUCTURE, 11/10/2017 LIZETH MAIER Ot N18.3 CHRONIC KIDNEY DISEASE, STAGE 3 (MODERAT 11/10/2017 DARRION, BOBAN N Ot 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+] 11/10/2017 LIZETH MAIER Ot Z79.899 OTHER REPORT MANAGER (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 THERAPY 11/10/2017 KARUNA BEST, PJ Kathleen Ot R39.9 UNSP SYMPTOMS AND SIGNS INVOLVING THE GE 11/10/2017 MARISOL MOREL CLINICAL QUALITY ASSURANCE ASSOCIATE Ot L72.3 SEBACEOUS CYST 11/10/2017 MARISOL MOREL CLINICAL QUALITY ASSURANCE ASSOCIATE Ot 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 11/10/2017 MARISOL MOREL CLINICAL QUALITY ASSURANCE ASSOCIATE Ot Z85.3 PERSONAL HISTORY OF MALIGNANT NEOPLASM O 11/10/2017 MARISOL MOREL CLINICAL QUALITY ASSURANCE ASSOCIATE Ot 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 ABSENCE OF LEFT BREAST AND NIPP 11/10/2017 MARISOL MOREL CLINICAL QUALITY ASSURANCE ASSOCIATE Ot 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 11/10/2017 MARISOL MOREL CLINICAL QUALITY ASSURANCE ASSOCIATE Ot N63.0 UNSPECIFIED LUMP IN UNSPECIFIED BREAST 11/10/2017 FARHAT ELIZONDO MD Ot D64.9 ANEMIA, UNSPECIFIED 11/10/2017 FRAHAT ELIZONDO MD, Ot F32.9 MAJOR DEPRESSIVE DISORDER, SINGLE EPISOD 11/10/2017 FARHAT ELIZONDO MD, Ot F41.9 ANXIETY DISORDER, UNSPECIFIED 11/10/2017 FARHAT ELIZONDO MD, Ot K21.9 GASTRO-ESOPHAGEAL REFLUX DISEASE WITHOUT 11/10/2017 FARHAT ELIZONDO MD Ot M81.0 AGE-RELATED OSTEOPOROSIS W/O CURRENT PAT 11/10/2017 FARHAT ELIZONDO MD Ot R07.89 OTHER CHEST PAIN 11/10/2017 FARHAT ELIZONDO MD Ot Z77.22 CNTCT W AND EXPSR TO ENVIRON TOBACCO SMO 11/10/2017 FARHAT ELIZONDO MD Ot Z82.49 FAMILY HX OF ISCHEM HEART DIS AND OTH DI 11/10/2017 FARHAT ELIZONDO MD, Ot Z85.3 PERSONAL HISTORY OF MALIGNANT NEOPLASM O 11/10/2017 FARHAT ELIZONDO MD, Ot Z85.42 PERSONAL HISTORY OF MALIGNANT NEOPLASM O 11/10/2017 FARHAT ELIZONDO MD, Ot Z86.010 PERSONAL HISTORY OF COLONIC POLYPS 11/10/2017 RESIGHINI MD, FARHAT D Ot Z87.19 PERSONAL HISTORY OF OTHER DISEASES OF TH 11/10/2017 FARHAT ELIZONDO MD, Ot Z87.440 PERSONAL HISTORY OF URINARY (TRACT) INFE 11/10/2017 FARHAT ELIZONDO MD, Ot Z88.2 ALLERGY STATUS TO SULFONAMIDES STATUS 11/10/2017 FARHAT ELIZONDO MD, Ot Z90.49 ACQUIRED ABSENCE OF OTHER SPECIFIED PART 11/10/2017 FARHAT ELIZONDO MD, Ot Z90.710 ACQUIRED ABSENCE OF BOTH CERVIX AND UTER 11/10/2017 FARHAT ELIZONDO MD Ot Z90.89 ACQUIRED ABSENCE OF OTHER ORGANS 11/14/2017 FARHAT ELIZONDO MD, Ot D64.9 ANEMIA, UNSPECIFIED 11/14/2017 FARHAT ELIZONDO MD, Ot F32.9 MAJOR DEPRESSIVE DISORDER, SINGLE EPISOD 11/14/2017 FARHAT ELIZONDO MD, Ot F41.9 ANXIETY DISORDER, UNSPECIFIED 11/14/2017 FARHAT ELIZONDO MD, Ot K21.9 GASTRO-ESOPHAGEAL REFLUX DISEASE WITHOUT 11/14/2017 FARHAT ELIZONDO MD Ot M81.0 AGE-RELATED OSTEOPOROSIS W/O CURRENT PAT 11/14/2017 FARHAT ELIZONDO MD Ot R07.89 OTHER CHEST PAIN 11/14/2017 FARHAT ELIZONDO MD Ot Z77.22 CNTCT W AND EXPSR TO ENVIRON TOBACCO SMO 11/14/2017 FARHAT ELIZONDO MD Ot Z82.49 FAMILY HX OF ISCHEM HEART DIS AND OTH DI 11/14/2017 FARHAT ELIZONDO MD, Ot Z85.3 PERSONAL HISTORY OF MALIGNANT NEOPLASM O 11/14/2017 FARHAT ELIZNODO MD Ot Z85.42 PERSONAL HISTORY OF MALIGNANT NEOPLASM O 11/14/2017 FARHAT ELIZONDO MD Ot Z86.010 PERSONAL HISTORY OF COLONIC POLYPS 11/14/2017 FARHAT ELIZONDO MD Ot Z87.19 PERSONAL HISTORY OF OTHER DISEASES OF 11/14/2017 FARHAT ELIZONDO MD Ot Z87.440 PERSONAL HISTORY OF URINARY (TRACT) INFE 11/14/2017 FARHAT ELIZONDO MD, Ot Z88.2 ALLERGY STATUS TO SULFONAMIDES STATUS 11/14/2017 FARHAT ELIZONDO MD, Ot Z90.49 ACQUIRED ABSENCE OF OTHER SPECIFIED PART 11/14/2017 CARO BEST, FARHAT Stiles Ot Z90.710 ACQUIRED ABSENCE OF BOTH CERVIX AND UTER 11/14/2017 CARO BEST, FARHAT Stiles Ot Z90.89 ACQUIRED ABSENCE OF OTHER ORGANS 11/27/2017 DARRIONALISEAN N Ot C50.911 MALIGNANT NEOPLASM OF UNSP SITE OF RIGHT 11/27/2017 DARRIONLIZETH FIGUEROA N Ot F17.210 NICOTINE DEPENDENCE, CIGARETTES, UNCOMPL 11/27/2017 DARRION, BOBAN N Ot G20 PARKINSON'S DISEASE 11/27/2017 DARRION, BOBAN N Ot K21.9 GASTRO-ESOPHAGEAL REFLUX DISEASE WITHOUT 11/27/2017 DARRION, BOBAN N Ot M32.9 SYSTEMIC LUPUS ERYTHEMATOSUS, UNSPECIFIE 11/27/2017 DARRION, BOBAN N Ot M85.88 OTH DISRD OF BONE DENSITY AND STRUCTURE, 11/27/2017 DARRION BOBAN N Ot N18.3 CHRONIC KIDNEY DISEASE, STAGE 3 (MODERAT 11/27/2017 DARRION, BOBAN N Ot 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+] 11/27/2017 DARRION, BOBAN N Ot Z79.899 OTHER USP (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 THERAPY 11/28/2017 DARRION, BOBAN N Ot C50.911 MALIGNANT NEOPLASM OF UNSP SITE OF RIGHT 11/28/2017 DARRION BOBAN N Ot F17.210 NICOTINE DEPENDENCE, CIGARETTES, UNCOMPL 11/28/2017 DARRION, BOBAN N Ot G20 PARKINSON'S DISEASE 11/28/2017 DARRION, BOBAN N Ot K21.9 GASTRO-ESOPHAGEAL REFLUX DISEASE WITHOUT 11/28/2017 DARRION, BOBAN N Ot M32.9 SYSTEMIC LUPUS ERYTHEMATOSUS, UNSPECIFIE 11/28/2017 DARRION, BOBAN N Ot M85.88 OTH DISRD OF BONE DENSITY AND STRUCTURE, 11/28/2017 DARRION BOBAN N Ot N18.3 CHRONIC KIDNEY DISEASE, STAGE 3 (MODERAT 11/28/2017 DARRION, BOBAN N Ot 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+] 11/28/2017 DARRION, BOBAN N Ot Z79.899 OTHER REPORT MANAGER (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 THERAPY 12/09/2017 BONIFACIO BEST, GARY Mcnamara Ot C50.911 MALIGNANT NEOPLASM OF UNSP SITE OF RIGHT 12/09/2017 GARY VALDOVINOS MD Ot I10 ESSENTIAL (PRIMARY) HYPERTENSION 12/09/2017 GARY VALDOVINOS MD Ot M32.9 SYSTEMIC LUPUS ERYTHEMATOSUS, UNSPECIFIE 12/09/2017 GARY VALDOVINOS MD Ot R07.89 OTHER CHEST PAIN 12/09/2017 GARY VALDOVINOS MD Ot R42 DIZZINESS AND GIDDINESS 12/09/2017 GARY VALDOVINOS MD Ot Z72.0 TOBACCO USE 12/14/2017 GARY VALDOVINOS MD Ot 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 12/14/2017 GARY VALDOVINOS MD Ot I10 ESSENTIAL (PRIMARY) HYPERTENSION 12/14/2017 GARY VALDOVINOS MD Ot M32.9 SYSTEMIC LUPUS ERYTHEMATOSUS, UNSPECIFIE 12/14/2017 GARY VALDOVINOS MD Ot R07.9 CHEST PAIN, UNSPECIFIED 12/14/2017 GARY VALDOVINOS MD Ot R42 DIZZINESS AND GIDDINESS 12/14/2017 GARY VALDOVINOS MD Ot Z72.0 TOBACCO USE 12/20/2017 GARY VALDOVINOS MD Ot 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 12/20/2017 GARY VALDOVINOS MD Ot I10 ESSENTIAL (PRIMARY) HYPERTENSION 12/20/2017 GARY VALDOVINOS MD Ot M32.9 SYSTEMIC LUPUS ERYTHEMATOSUS, UNSPECIFIE 12/20/2017 GARY VALDOVINOS MD Ot R07.9 CHEST PAIN, UNSPECIFIED 12/20/2017 GARY VALDOVINOS MD Ot R42 DIZZINESS AND GIDDINESS 12/20/2017 GARY VALDOVINOS MD Ot Z72.0 TOBACCO USE 12/27/2017 FARHAT ELIZONDO MD Ot F17.210 NICOTINE DEPENDENCE, CIGARETTES, UNCOMPL 12/27/2017 FARHAT ELIZONDO MD Ot F32.9 MAJOR DEPRESSIVE DISORDER, SINGLE EPISOD 12/27/2017 FARHAT ELIZONDO MD Ot F41.9 ANXIETY DISORDER, UNSPECIFIED 12/27/2017 FARHAT ELIZONDO MD Ot G20 PARKINSON'S DISEASE 12/27/2017 FARHAT ELIZONDO MD Ot K21.9 GASTRO-ESOPHAGEAL REFLUX DISEASE WITHOUT 12/27/2017 FARHAT ELIZONDO MD Ot L02.414 CUTANEOUS ABSCESS OF LEFT UPPER LIMB 12/27/2017 FARHAT ELIZONDO MD, Ot M19.90 UNSPECIFIED OSTEOARTHRITIS, UNSPECIFIED 12/27/2017 FARHAT ELIZONDO MD, Ot M32.9 SYSTEMIC LUPUS ERYTHEMATOSUS, UNSPECIFIE 12/27/2017 FARHAT ELIZONDO MD Ot M81.0 AGE-RELATED OSTEOPOROSIS W/O CURRENT PAT 12/27/2017 FARHAT ELIZONDO MD, Ot R60.9 EDEMA, UNSPECIFIED 12/27/2017 FARHAT ELIZONDO MD, Ot Z85.3 PERSONAL HISTORY OF MALIGNANT NEOPLASM O 12/27/2017 FARHAT ELIZONDO MD, Ot Z85.41 PERSONAL HISTORY OF MALIGNANT NEOPLASM O 12/27/2017 FARHAT ELIZONDO MD, Ot Z85.42 PERSONAL HISTORY OF MALIGNANT NEOPLASM O 12/27/2017 FARHAT ELIZONDO MD, Ot Z87.19 PERSONAL HISTORY OF OTHER DISEASES OF TH 12/27/2017 FARHAT ELIZONDO MD, Ot Z88.2 ALLERGY STATUS TO SULFONAMIDES STATUS 12/27/2017 FARHAT ELIZONDO MD Ot Z90.49 ACQUIRED ABSENCE OF OTHER SPECIFIED PART 12/27/2017 FARHAT ELIZONDO MD Ot Z90.710 ACQUIRED ABSENCE OF BOTH CERVIX AND UTER 12/29/2017 FARHAT ELIZONDO MD Ot F17.210 NICOTINE DEPENDENCE, CIGARETTES, UNCOMPL 12/29/2017 FARHAT ELIZONDO MD Ot F32.9 MAJOR DEPRESSIVE DISORDER, SINGLE EPISOD 12/29/2017 FARHAT ELIZONDO MD Ot F41.9 ANXIETY DISORDER, UNSPECIFIED 12/29/2017 FARHAT ELIZONDO MD Ot G20 PARKINSON'S DISEASE 12/29/2017 FARHAT ELIZONDO MD, Ot K21.9 GASTRO-ESOPHAGEAL REFLUX DISEASE WITHOUT 12/29/2017 FARHAT ELIZONDO MD Ot L02.414 CUTANEOUS ABSCESS OF LEFT UPPER LIMB 12/29/2017 FARHAT ELIZONDO MD, Ot M19.90 UNSPECIFIED OSTEOARTHRITIS, UNSPECIFIED 12/29/2017 FARHAT ELIZONDO MD Ot M32.9 SYSTEMIC LUPUS ERYTHEMATOSUS, UNSPECIFIE 12/29/2017 FARHAT ELIZONDO MD Ot M81.0 AGE-RELATED OSTEOPOROSIS W/O CURRENT PAT 12/29/2017 FARHAT LEIZONDO MD Ot R60.9 EDEMA, UNSPECIFIED 12/29/2017 FARHAT ELIZONDO MD Ot Z85.3 PERSONAL HISTORY OF MALIGNANT NEOPLASM O 12/29/2017 FARHAT ELIZONDO MD Ot Z85.41 PERSONAL HISTORY OF MALIGNANT NEOPLASM O 12/29/2017 FARHAT ELIZONDO MD Ot Z85.42 PERSONAL HISTORY OF MALIGNANT NEOPLASM O 12/29/2017 FARHAT ELIZONDO MD Ot Z87.19 PERSONAL HISTORY OF OTHER DISEASES OF TH 12/29/2017 FARHAT ELIZONDO MD Ot Z88.2 ALLERGY STATUS TO SULFONAMIDES STATUS 12/29/2017 FARHAT ELIZONDO MD Ot Z90.49 ACQUIRED ABSENCE OF OTHER SPECIFIED PART 12/29/2017 FARHAT ELIZONDO MD Ot Z90.710 ACQUIRED ABSENCE OF BOTH CERVIX AND UTER 12/30/2017 GARY VALDOVINOS MD Ot C50.911 MALIGNANT NEOPLASM OF UNSP SITE OF RIGHT 12/30/2017 GARY VALDOVINOS MD Ot I10 ESSENTIAL (PRIMARY) HYPERTENSION 12/30/2017 GARY VALDOVINOS MD Ot M32.9 SYSTEMIC LUPUS ERYTHEMATOSUS, UNSPECIFIE 12/30/2017 GARY VALDOVINOS MD Ot R07.89 OTHER CHEST PAIN 12/30/2017 GARY VALDOVINOS MD Ot R42 DIZZINESS AND GIDDINESS 12/30/2017 GARY VALDOVINOS MD Ot Z72.0 TOBACCO USE 01/04/2018 GARY VALDOVINOS MD Ot C50.911 MALIGNANT NEOPLASM OF UNSP SITE OF RIGHT 01/04/2018 GARY VALDOVINOS MD Ot I10 ESSENTIAL (PRIMARY) HYPERTENSION 01/04/2018 GARY VALDOVINOS MD Ot M32.9 SYSTEMIC LUPUS ERYTHEMATOSUS, UNSPECIFIE 01/04/2018 GARY VALDOVINOS MD Ot R07.89 OTHER CHEST PAIN 01/04/2018 GARY VALDOVINOS MD Ot R42 DIZZINESS AND GIDDINESS 01/04/2018 GARY VALDOVINOS MD Ot Z72.0 TOBACCO USE 01/11/2018 GARY VALDOVINOS MD Ot 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 01/11/2018 GARY VALDOVINOS MD Ot I10 ESSENTIAL (PRIMARY) HYPERTENSION 01/11/2018 GARY VALDOVINOS MD Ot M32.9 SYSTEMIC LUPUS ERYTHEMATOSUS, UNSPECIFIE 01/11/2018 BONIFACIO BEST, GARY Mcnamara Ot R07.9 CHEST PAIN, UNSPECIFIED 01/11/2018 BONIFACIO BEST, AGRY Mcnamara Ot R42 DIZZINESS AND GIDDINESS 01/11/2018 GARY VALDOVINOS MD Ot Z72.0 TOBACCO USE 03/01/2018 KARUNA BEST, PJ R Ot 780.79 OTH MALAISE FATIGUE 03/01/2018 KARUNA BEST, PJ R Ot 782.7 SPONTANEOUS ECCHYMOSES 03/01/2018 JESÚS BEST, MADISON Ot V72.84 EXAM PRE-OPERATIVE NOS 03/01/2018 Ot 280.9 IRON DEFIC ANEMIA NOS 03/01/2018 Ot 530.81 ESOPHAGEAL REFLUX 03/01/2018 Ot 564.00 UNSPEC CONSTIPATION 03/01/2018 Ot 585.3 CHRONIC KIDNEY DISEASE, STAGE III (MODER 03/01/2018 Ot V13.02 PERSONAL HISTORY, URINARY (TRACT) INFECT 03/01/2018 Ot V58.69 OTH MED,LT, CURRENT USE 03/01/2018 KARUNA BEST, PJ R Ot 443.9 PERIPH VASCULAR DIS NOS 03/01/2018 TRISTAN BEST, OTIS Nicholson Ot 276.1 HYPOSMOLALITY 03/01/2018 OTIS HUDSON MD Ot 276.8 HYPOPOTASSEMIA 03/01/2018 MARISOL MOREL CLINICAL QUALITY ASSURANCE ASSOCIATE Ot 280.9 IRON DEFIC ANEMIA NOS 03/01/2018 MARISOL MOREL CLINICAL QUALITY ASSURANCE ASSOCIATE Ot 305.1 TOBACCO USE DISORDER 03/01/2018 MARISOL MOREL CLINICAL QUALITY ASSURANCE ASSOCIATE Ot 530.81 ESOPHAGEAL REFLUX 03/01/2018 MARISOL MOREL CLINICAL QUALITY ASSURANCE ASSOCIATE Ot 564.00 UNSPEC CONSTIPATION 03/01/2018 MARISOL MOREL CLINICAL QUALITY ASSURANCE ASSOCIATE Ot 585.3 CHRONIC KIDNEY DISEASE, STAGE III (MODER 03/01/2018 MARISOL MORELP Ot V58.69 OTH MED,LT,CURRENT USE 03/01/2018 KARUNA BEST, PJ R Ot 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 03/01/2018 KARUNA BEST, PJ R Ot 729.5 PAIN IN LIMB 03/01/2018 MADISON ESPINOSA MD Ot 530.11 REFLUX ESOPHAGITIS 03/01/2018 MADISON ESPINOSA MD Ot 535.40 OTH SPECIFIED GASTRITIS,W/O MENTION OF H 03/01/2018 MADISON ESPINOSA MD Ot 553.3 DIAPHRAGMATIC HERNIA 03/01/2018 MADISON ESPINOSA MD Ot V72.84 EXAM PRE-OPERATIVE NOS 03/01/2018 KARUNA BEST, PJ R Ot 784.0 HEADACHE 03/01/2018 LIZETH MAIER Ot 280.9 IRON DEFIC ANEMIA NOS 03/01/2018 LIZETH MAIER N Ot 564.00 UNSPEC CONSTIPATION 03/01/2018 LIZETH MAIER N Ot 585.3 CHRONIC KIDNEY DISEASE, STAGE III (MODER 03/01/2018 LIZETH MAIER Ot V58.69 OTH MED,LT,CURRENT USE 03/01/2018 MIGUEL DPM, MIGUEL P Ot 726.91 EXOSTOSIS, SITE NOS 03/01/2018 LAMONT DPM, MIGUEL P Ot V72.63 PRE-PROCEDURAL LABORATORY EXAMINATION 03/01/2018 LAMONT DPM, MIGUEL P Ot V74.8 SCREEN-BACTERIAL DIS NEC 03/01/2018 KARUNA BEST, PJ R Ot 729.5 PAIN IN LIMB 03/01/2018 JOSEPH BEST, WING Stiles Ot 595.2 CHRONIC CYSTITIS NEC 03/01/2018 KARUNA BEST, PJ R Ot 787.91 DIARRHEA 03/01/2018 KARUNA BEST, PJ R Ot 789.00 ABDOMINAL PAIN, UNSPECIFIED SITE 03/01/2018 KARUNA BEST, PJ R Ot 611.72 LUMP OR MASS IN BREAST 03/01/2018 KARUNA BEST, PJ R Ot 174.9 MALIGN NEOPL BREAST NOS 03/01/2018 KARUNA BEST, PJ R Ot 285.9 ANEMIA NOS 03/01/2018 KARUNA BEST, PJ R Ot 780.79 OTH MALAISE FATIGUE 03/01/2018 LIZETH MAIER N Ot 174.9 MALIGN NEOPL BREAST NOS 03/01/2018 LIZETH MAIER N Ot 174.9 MALIGN NEOPL BREAST NOS 03/01/2018 LIZETH MAIER N Ot 280.9 IRON DEFIC ANEMIA NOS 03/01/2018 LIZETH MAIER N Ot 585.3 CHRONIC KIDNEY DISEASE, STAGE III (MODER 03/01/2018 LIZETH MAIER N Ot V58.69 OTH MED,LT,CURRENT USE 03/01/2018 LIZETH MAIER Ot V86.0 ESTROGEN RECEPTOR POSITIVE STATUS [ER+] 03/01/2018 THOMAS DOMARITANATA Stiles Ot 174.9 MALIGN NEOPL BREAST NOS 03/01/2018 THOMAS MARITA LOCKETTNATA Stiles Ot V72.84 EXAM PRE-OPERATIVE NOS 03/01/2018 THOMAS MARITA LOCKETTTT D Ot 174.9 MALIGN NEOPL BREAST NOS 03/01/2018 THOMAS DOMARITANATA Stiles Ot V72.63 PRE-PROCEDURAL LABORATORY EXAMINATION 03/01/2018 THOMAS MARITA LOCKETTNATA Stiles Ot V74.8 SCREEN-BACTERIAL DIS NEC 03/01/2018 LIZETH MAIER Lata Ot M81.8 OTHER OSTEOPOROSIS WITHOUT CURRENT PATHO 03/01/2018 MARISOL MOREL CLINICAL QUALITY ASSURANCE ASSOCIATE Ot 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 03/01/2018 MARISOL MOREL CLINICAL QUALITY ASSURANCE ASSOCIATE Ot D50.9 IRON DEFICIENCY ANEMIA, UNSPECIFIED 03/01/2018 MARISOL MOREL CLINICAL QUALITY ASSURANCE ASSOCIATE Ot 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, 03/01/2018 MARISOL MOREL CLINICAL QUALITY ASSURANCE ASSOCIATE Ot R26.89 OTHER ABNORMALITIES OF GAIT AND MOBILITY 03/01/2018 MARISOL MORELP Ot R42 DIZZINESS AND GIDDINESS 03/01/2018 MARISOL MOREL CLINICAL QUALITY ASSURANCE ASSOCIATE Ot R51 HEADACHE 03/01/2018 MARISOL MOREL CLINICAL QUALITY ASSURANCE ASSOCIATE Ot 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+] 03/01/2018 MAIRSOL MOREL CLINICAL QUALITY ASSURANCE ASSOCIATE Ot Z79.899 OTHER REPORT MANAGER (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 THERAPY 03/01/2018 MARISOL MOREL CLINICAL QUALITY ASSURANCE ASSOCIATE Ot H57.11 OCULAR PAIN, RIGHT EYE 03/01/2018 MARISOL MOREL CLINICAL QUALITY ASSURANCE ASSOCIATE Ot N63 UNSPECIFIED LUMP IN BREAST 03/01/2018 MARISOL MOREL CLINICAL QUALITY ASSURANCE ASSOCIATE Ot R26.81 UNSTEADINESS ON FEET 03/01/2018 MARISOL MOREL CLINICAL QUALITY ASSURANCE ASSOCIATE Ot H57.11 OCULAR PAIN, RIGHT EYE 03/01/2018 MARISOL MOREL CLINICAL QUALITY ASSURANCE ASSOCIATE Ot N63 UNSPECIFIED LUMP IN BREAST 03/01/2018 MARISOL MOREL CLINICAL QUALITY ASSURANCE ASSOCIATE Ot R26.81 UNSTEADINESS ON FEET 03/01/2018 JESÚS BEST, MADISON Ot Z01.818 ENCOUNTER FOR OTHER PREPROCEDURAL EXAMIN 03/01/2018 MORELMARISOL Hatfield CLINICAL QUALITY ASSURANCE ASSOCIATE Ot 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 03/01/2018 MARISOL MOREL CLINICAL QUALITY ASSURANCE ASSOCIATE Ot D50.9 IRON DEFICIENCY ANEMIA, UNSPECIFIED 03/01/2018 MARISOL MOREL CLINICAL QUALITY ASSURANCE ASSOCIATE Ot M85.80 OTH DISRD OF BONE DENSITY AND STRUCTURE, 03/01/2018 MARISOL MOREL CLINICAL QUALITY ASSURANCE ASSOCIATE Ot 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+] 03/01/2018 MARISOL MOREL S CLINICAL QUALITY ASSURANCE ASSOCIATE Ot Z79.899 OTHER USP (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 THERAPY 03/01/2018 MARISOL MOREL CLINICAL QUALITY ASSURANCE ASSOCIATE Ot 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 03/01/2018 MOREL MARISOL Hatfield CLINICAL QUALITY ASSURANCE ASSOCIATE Ot D50.9 IRON DEFICIENCY ANEMIA, UNSPECIFIED 03/01/2018 MARISOL MOREL CLINICAL QUALITY ASSURANCE ASSOCIATE Ot M85.80 OTH DISRD OF BONE DENSITY AND STRUCTURE, 03/01/2018 MORELMARISOL Hatfield CLINICAL QUALITY ASSURANCE ASSOCIATE Ot 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+] 03/01/2018 MORELMARISOL Hatfield CLINICAL QUALITY ASSURANCE ASSOCIATE Ot Z79.899 OTHER USP (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 THERAPY 03/01/2018 ADRIEL MARISOL Hatfield CLINICAL QUALITY ASSURANCE ASSOCIATE Ot 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 03/01/2018 ADRIEL MARISOL Hatfield CLINICAL QUALITY ASSURANCE ASSOCIATE Ot 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 03/01/2018 KARUNA BEST, PJ R Ot 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 03/01/2018 KARUNA BEST, PJ Kathleen Ot Z72.0 TOBACCO USE 03/01/2018 ADRIEL MARISOL S CLINICAL QUALITY ASSURANCE ASSOCIATE Ot 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 03/01/2018 ADRIEL MARISOL S CLINICAL QUALITY ASSURANCE ASSOCIATE Ot M85.89 OTH DISRD OF BONE DENSITY AND STRUCTURE, 03/01/2018 ADRIEL MARISOL S CLINICAL QUALITY ASSURANCE ASSOCIATE Ot N18.3 CHRONIC KIDNEY DISEASE, STAGE 3 (MODERAT 03/01/2018 CORNELIA ADRIAN, EVANGELISTA Mcnamara Ot M50.31 OTHER CERVICAL DISC DEGENERATION, HIGH 03/01/2018 CORNELIA ADRIAN, EVANGELISTA Mcnamara Ot M51.36 OTHER INTERVERTEBRAL DISC DEGENERATION, 03/01/2018 KARUNA BEST, PJ Kathleen Ot R39.9 UNSP SYMPTOMS AND SIGNS INVOLVING THE GE 03/01/2018 MORELMARISOL Hatfield CLINICAL QUALITY ASSURANCE ASSOCIATE Ot L72.3 SEBACEOUS CYST 03/01/2018 MELVINA MORELMICHAEL Hatfield CLINICAL QUALITY ASSURANCE ASSOCIATE Ot 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 03/01/2018 MELVINA MORELMICHAEL Hatfield CLINICAL QUALITY ASSURANCE ASSOCIATE Ot Z85.3 PERSONAL HISTORY OF MALIGNANT NEOPLASM O 03/01/2018 MORELMELVINAMICHAEL Hatfield CLINICAL QUALITY ASSURANCE ASSOCIATE Ot 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 ABSENCE OF LEFT BREAST AND NIPP 03/01/2018 MARISOL MOREL Alysia CLINICAL QUALITY ASSURANCE ASSOCIATE Ot 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 03/01/2018 MARISOL MOREL Alysia CLINICAL QUALITY ASSURANCE ASSOCIATE Ot N63.0 UNSPECIFIED LUMP IN UNSPECIFIED BREAST 03/01/2018 GARY VALDOVINOS MD Ot 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 03/01/2018 GARY VALDOVINOS MD Ot I10 ESSENTIAL (PRIMARY) HYPERTENSION 03/01/2018 GARY VALDOVINOS MD Ot M32.9 SYSTEMIC LUPUS ERYTHEMATOSUS, UNSPECIFIE 03/01/2018 GARY VALDOVINOS MD Ot R07.9 CHEST PAIN, UNSPECIFIED 03/01/2018 GARY VALDOVINOS MD Ot R42 DIZZINESS AND GIDDINESS 03/01/2018 GARY VALDOVINOS MD Ot Z72.0 TOBACCO USE 03/01/2018 GARY VALDOVINOS MD Ot C50.911 MALIGNANT NEOPLASM OF UNSP SITE OF RIGHT 03/01/2018 GARY VALDOVINOS MD Ot I10 ESSENTIAL (PRIMARY) HYPERTENSION 03/01/2018 GARY VALDOVINOS MD Ot M32.9 SYSTEMIC LUPUS ERYTHEMATOSUS, UNSPECIFIE 03/01/2018 GARY VALDOVINOS MD Ot R07.89 OTHER CHEST PAIN 03/01/2018 GARY VALDOVINOS MD Ot R42 DIZZINESS AND GIDDINESS 03/01/2018 GARY VALDOVINOS MD Ot Z72.0 TOBACCO USE 03/09/2018 MADISON ESPINOSA MD Ot Z01.818 ENCOUNTER FOR OTHER PREPROCEDURAL EXAMIN Procedures Code Description Performed By Performed On 45.16 ESOPHAGOGASTRODUODENOSCOPY [ EGD] W/CLOSE 04/06/2012 45.42 ENDOSC POLYPECTOMY OF LG INTEST 04/06/2012 48.36 ENDO RECTUM POLYPECTOMY 04/06/2012 37.22 LEFT HEART CARDIAC CATH 02/01/2013 88.53 LT HEART ANGIOCARDIOGRAM 02/01/2013 88.56 CORONAR ARTERIOGR-2 CATH 02/01/2013 Results Test Result Range Complete urinalysis with reflex to culture - 05/03/17 16:53 Urine color determination YELLOW NRG Urine clarity determination SLIGHTLY CLOUDY NRG Urine pH measurement by test strip 7 5-9 Specific gravity of urine by test strip 1.005 1.016- 1.022 Urine protein assay by test strip, semi-quantitative NEGATIVE NEGATIVE Urine glucose detection by automated test strip NEGATIVE NEGATIVE Erythrocytes detection in urine sediment by light microscopy NEGATIVE NEGATIVE Urine ketones detection by automated test strip NEGATIVE NEGATIVE Urine nitrite detection by test strip POSITIVE NEGATIVE Urine total bilirubin detection by test strip NEGATIVE NEGATIVE Urine urobilinogen measurement by automated test strip (mass/volume) NORMAL NORMAL Urine leukocyte esterase detection by dipstick 3+ NEGATIVE Automated urine sediment erythrocyte count by microscopy (number/high power field) NONE NRG Automated urine sediment leukocyte count by microscopy (number/high power field ) [HPF] NRG Bacteria detection in urine sediment by light microscopy LARGE NRG Squamous epithelial cells detection in urine sediment by light microscopy 0-2 NRG Crystals detection in urine sediment by light microscopy NONE NRG Casts detection in urine sediment by light microscopy NONE NRG Mucus detection in urine sediment by light microscopy NEGATIVE NRG Complete urinalysis with reflex to culture YES NRG Bacterial urine culture - 05/03/17 16:53 Bacterial urine culture [id number] NRG COLONY COUNT >100,000/ML NRG FTX;REPORTABLE SENSITIVITY REPORTED 05/04/17 17:10 NRG URINE CULTURE RESULTS <10,000/ML NRG Bacterial susceptibility panel - 05/03/17 16:53 Gentamicin susceptibility test by minimum inhibitory concentration < = NRG Trimethoprim/sulfamethoxazole susceptibility test by minimum inhibitoryconcentration S NRG Ampicillin susceptibility test by minimum inhibitory concentration 4 NRG Tobramycin susceptibility test by minimum inhibitory concentration < = NRG Cefazolin susceptibility test by minimum inhibitory concentration < = NRG Ceftriaxone susceptibility test by minimum inhibitory concentration <= NRG Ampicillin/sulbactam susceptibility test by minimum inhibitory concentration <= NRG Piperacillin/tazobactam susceptibility test by minimum inhibitory concentration <= NRG Ciprofloxacin susceptibility test by minimum inhibitory concentration <= NRG Meropenem susceptibility test by minimum inhibitory concentration < = NRG Nitrofurantoin susceptibility test by minimum inhibitory concentration <= NRG Aztreonam susceptibility test by minimum inhibitory concentration < = NRG Extended spectrum beta lactamase (ESBL) producing bacteria susceptibility test by minimum inhibitory concentration - NRG Bacterial urine culture - 05/30/17 15:45 Bacterial urine culture [id number] NRG COLONY COUNT >100,000/ML NRG FTX;REPORTABLE SENSITIVITY REPORTED 06/01/17 7:45 NRG FREE TEXT ENTRY 2 PLUS, NRG FREE TEXT ENTRY 3 MIXED GRAM POSITIVES <10,000/ML NR Bacterial susceptibility panel - 05/30/17 15:45 Gentamicin susceptibility test by minimum inhibitory concentration < = NRG Trimethoprim/sulfamethoxazole susceptibility test by minimum inhibitoryconcentration S NRG Ampicillin susceptibility test by minimum inhibitory concentration 4 NRG Tobramycin susceptibility test by minimum inhibitory concentration < = NRG Cefazolin susceptibility test by minimum inhibitory concentration < = NRG Ceftriaxone susceptibility test by minimum inhibitory concentration <= NRG Ampicillin/sulbactam susceptibility test by minimum inhibitory concentration S NRG Piperacillin/tazobactam susceptibility test by minimum inhibitory concentration <= NRG Ciprofloxacin susceptibility test by minimum inhibitory concentration <= NRG Meropenem susceptibility test by minimum inhibitory concentration < = NRG Nitrofurantoin susceptibility test by minimum inhibitory concentration <= NRG Aztreonam susceptibility test by minimum inhibitory concentration < = NRG Extended spectrum beta lactamase (ESBL) producing bacteria susceptibility test by minimum inhibitory concentration - NRG Complete blood count (CBC) with automated white blood cell (WBC) differential - 11/10/17 13:29 Blood leukocytes automated count (number/volume) 5.6 10*3/uL 4.3-11.0 Blood erythrocytes automated count (number/volume) 4.55 10*6/uL 4.35-5.85 Venous blood hemoglobin measurement (mass/volume) 14.1 g/dL 11.5-16.0 Blood hematocrit (volume fraction) 41 % 35-52 Automated erythrocyte mean corpuscular volume 91 [foz_us] 80-99 Automated erythrocyte mean corpuscular hemoglobin (mass per erythrocyte) 31 pg 25-34 Automated erythrocyte mean corpuscular hemoglobin concentration measurement ( mass/volume) 34 g/dL 32-36 Automated erythrocyte distribution width ratio 12.8 % 10.0-14.5 Automated blood platelet count (count/volume) 194 10*3/uL 130-400 Automated blood platelet mean volume measurement 11.0 [foz_us] 7.4-10.4 Automated blood neutrophils/100 leukocytes 61 % 42-75 Automated blood lymphocytes/100 leukocytes 31 % 12-44 Blood monocytes/100 leukocytes 6 % 0-12 Automated blood eosinophils/100 leukocytes 2 % 0-10 Automated blood basophils/100 leukocytes 1 % 0-10 Blood neutrophils automated count (number/volume) 3.4 10*3 1.8-7.8 Blood lymphocytes automated count (number/volume) 1.7 10*3 1.0-4.0 Blood monocytes automated count (number/volume) 0.3 10*3 0.0-1.0 Automated eosinophil count 0.1 10*3/uL 0.0-0.3 Automated blood basophil count (count/volume) 0.1 10*3/uL 0.0-0.1 PT panel in platelet poor plasma by coagulation assay - 11/10/17 13:29 Prothrombin time (PT) in platelet poor plasma by coagulation assay 12.9 s 12.2-14.7 INR in platelet poor plasma or blood by coagulation assay 1.0 0.8-1.4 Activated partial thromboplastin time (aPTT) in platelet poor plasma bycoagulation assay - 11/10/17 13:29 Activated partial thromboplastin time (aPTT) in platelet poor plasma bycoagulation assay 29 s 24-35 Fibrin D-dimer FEU measurement in platelet poor plasma (mass/volume) - 13:29 Fibrin D-dimer FEU measurement in platelet poor plasma (mass/volume) 0.33 ug/mL 0.00-0.49 Comprehensive metabolic panel - 11/10/17 13:29 Serum or plasma sodium measurement (moles/volume) 141 mmol/L 135-145 Serum or plasma potassium measurement (moles/volume) 3.8 mmol/L 3.6-5.0 Serum or plasma chloride measurement (moles/volume) 109 mmol/L 98-107 Carbon dioxide 21 mmol/L 21-32 Serum or plasma anion gap determination (moles/volume) 11 mmol/L 5-14 Serum or plasma urea nitrogen measurement (mass/volume) 11 mg/dL 7-18 Serum or plasma creatinine measurement (mass/volume) 1.40 mg/dL 0.60-1.30 Serum or plasma urea nitrogen/creatinine mass ratio 8 NRG Serum or plasma creatinine measurement with calculation of estimated glomerular filtration rate 37 NRG Serum or plasma glucose measurement (mass/volume) 134 mg/dL 70-105 Serum or plasma calcium measurement (mass/volume) 10.6 mg/dL 8.5-10.1 Serum or plasma total bilirubin measurement (mass/volume) 0.3 mg/dL 0.1-1.0 Serum or plasma alkaline phosphatase measurement (enzymatic activity/volume) 97 U/L 40-136 Serum or plasma aspartate aminotransferase measurement (enzymatic activity/ volume) 13 U/L 5-34 Serum or plasma alanine aminotransferase measurement (enzymatic activity/volume ) 12 U/L 0-55 Serum or plasma protein measurement (mass/volume) 6.8 g/dL 6.4-8.2 Serum or plasma albumin measurement (mass/volume) 4.2 g/dL 3.2-4.5 Magnesium - 11/10/17 13:29 Magnesium 1.6 mg/dL 1.8-2.4 Serum or plasma troponin i.cardiac measurement (mass/volume) - 11/10/17 13:29 Serum or plasma troponin i.cardiac measurement (mass/volume) < ng/ mL <0.30 Serum or plasma lithium measurement (moles/volume) - 11/10/17 13:29 BNP level 101.3 pg/mL <100.0 Myoglobin, serum - 11/10/17 13:29 Myoglobin, serum 54.2 ng/mL 10.0-92.0 Lipase - 11/10/17 13:29 Lipase 27 U/L 8-78 Serum or plasma troponin i.cardiac measurement (mass/volume) - 11/10/17 16:46 Serum or plasma troponin i.cardiac measurement (mass/volume) < ng/ mL <0.30 Gram stain microscopy - 12/27/17 04:55 GRAM STAIN RESULT RARE GRAM POSITIVE MARK NRG Bacteria identification in wound by culture - 12/27/17 04:55 Bacteria identification in wound by culture [id number] NRG FREE TEXT EXTERNAL AT LEAST 2 COLONY TYPES OBSERVED NRG QUANTITY OF GROWTH Moderate Growth NRG Encounters ACCT No. Visit Date/Time Discharge Status Pt. Type Provider Facility Loc./Unit Complaint [id number] 03/09/2018 05:52:00 03/09/2018 15:06:00 DIS Outpatient MADISON ESPINOSA MD [facility] PREOP COLONOSCOPY/EGD [id number] 03/01/2018 14:23:00 03/01/2018 23:59:59 CLS Preadmit DEONTE LUCERO MD [facility] ONC [id number] 12/27/2017 04:21:00 12/27/2017 05:14:00 DIS Emergency CARO BEST, FAHRAT Stiles [facility] ER GROWTH ON LEFT ARM, HOT PAINFUL [id number] 12/14/2017 08:07:00 12/14/2017 23:59:59 CLS Outpatient GARY VALDOVINOS MD [facility] CARD CHEST PAIN SYNDROME [id number] 12/08/2017 11:53:00 12/08/2017 23:59:59 CLS Outpatient GARY VALDOVINOS MD [facility] CARD CHEST PAIN SYNDROME [id number] 08/29/2017 10:26:00 11/27/2017 00:01:00 DIS Outpatient ALISE MAIERLAURA Guido [facility] ONC [id number] 11/10/2017 13:07:00 11/10/2017 17:47:00 DIS Emergency FARHAT ELIZONDO MD [facility] ER CHEST PAIN [id number] 09/09/2017 10:50:00 09/09/2017 23:59:59 CLS Outpatient MARISOL MOREL [facility] 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 [id number] 09/05/2017 13:20:00 09/05/2017 23:59:59 CLS Outpatient MARISOL MORELP [facility] RAD BREAST NODULE,BREAST TENDERNESS IN FEMALE [id number] 05/30/2017 18:33:00 05/30/2017 23:59:59 CLS Outpatient KARUNA BEST, PJ Kathleen [facility] LAB [id number] 05/24/2017 14:52:00 05/24/2017 23:59:59 CLS Preadmit MARISOL MOREL CLIN[employer] QUALITY ASSURANCE ASSOCIATE [facility] RAD R92.8 ABNORMAL MAMMO [id number] 05/03/2017 15:44:00 05/03/2017 17:35:00 DIS Emergency CARO BEST, FARHAT Stiles [facility] ER PANIC ATTACK [id number] 03/24/2017 10:52:00 03/24/2017 23:59:59 CLS Outpatient MARISOL MOREL CL[employer] QUALITY ASSURANCE ASSOCIATE [facility] RAD ABNORMAL MAMMO [id number] 01/26/2017 13:26:00 03/19/2017 00:01:00 DIS Outpatient LIZETH MAIER [facility] ONC [id number] 02/02/2017 12:50:00 02/02/2017 23:59:59 CLS Outpatient CORNELIA ADRIAN, EVANGELISTA Mcnamara [facility] RAD CERVICAL SERIES [id number] 10/19/2016 13:25:00 01/17/2017 00:01:00 DIS Outpatient LIZETH MAIER [facility] ONC [id number] 09/20/2016 13:13:00 09/20/2016 23:59:59 CLS Outpatient MARISOL MORELP [facility] RAD C50.511 [id number] 05/25/2016 13:44:00 08/23/2016 00:01:00 DIS Outpatient LIZETH MAIER [facility] ONC [id number] 07/15/2016 13:08:00 07/15/2016 23:59:59 CLS Outpatient KARUNA BEST, PJ Kathleen [facility] LAB Z72.0,305.1,E53.8,E78.00, 244.8 [id number] 02/03/2016 14:49:00 03/29/2016 14:12:00 DIS Outpatient LIZETH MAIER [facility] ONC [id number] 02/25/2016 13:27:00 02/25/2016 23:59:59 CLS Outpatient MARISOL MOREL CL[employer] QUALITY ASSURANCE ASSOCIATE [facility] RAD PRIMARY MALIGNANT NEOPLASM OF RT BREAST [id number] 02/18/2016 09:34:00 02/18/2016 12:26:00 DIS [id number] 02/17/2016 12:30:00 02/17/2016 12:55:00 DIS Outpatient MADISON ESPINOSA MD [facility] PREOP DYSPHAGIA [id number] 02/03/2016 14:45:00 02/03/2016 23:59:59 CLS Outpatient MARISOL MORELP [facility] ONC [id number] 10/21/2015 10:28:00 10/21/2015 23:59:59 CLS Outpatient MARISOL MOREL CL[employer]ICAL QUALITY ASSURANCE ASSOCIATE [facility] ONC [id number] 08/27/2015 11:02:00 08/27/2015 12:52:00 DIS Emergency JASON WELCH APRN [facility] ER MULTIPLE FALLS/HEAD INJURY [id number] 07/23/2015 10:55:00 07/23/2015 23:59:59 CLS Outpatient MADISON ESPINOSA MD [facility] HISTORY OF POLYPS; CONSTIPATION [id number] 07/22/2015 05:52:00 07/22/2015 23:59:59 CLS Outpatient MADISON ESPINOSA MD [facility] PREOP HISTORY OF POLYPS; CONSTIPATION [id number] 07/16/2015 14:37:00 07/16/2015 23:59:59 CLS Outpatient MARISOL MORELP [facility] RAD UNSTEADY GAIT,PAIN IN RIGHT EYE [id number] 07/15/2015 11:41:00 07/15/2015 23:59:59 CLS Outpatient MARISOL MOREL CLINICAL QUALITY ASSURANCE ASSOCIATE [facility] CARD BREAST CANCER [id number] 07/08/2015 09:11:00 07/08/2015 23:59:59 CLS Outpatient MARISOL MOREL CLINICAL QUALITY ASSURANCE ASSOCIATE [facility] ONC [id number] 04/17/2015 10:45:00 04/17/2015 23:59:59 CLS Outpatient LIZETH MAIER [facility] RAD HX OF OSTEOPOROSIS, DRUG INDUCED OSTEOPOROSIS [id number] 04/10/2015 08:47:00 04/10/2015 23:59:59 CLS Outpatient LIZETH MAIER [facility] ONC [id number] 03/17/2015 12:51:00 03/19/2015 00:01:00 DIS Outpatient LIZETH MAIER [facility] ONC [id number] 02/13/2015 07:09:00 02/13/2015 14:20:00 DIS Outpatient JAKE THOMAS DO [facility] CARD RIGHT BREAST CANCER [id number] 02/12/2015 10:26:00 02/12/2015 23:59:59 CLS Outpatient JAKE THOMAS DO [facility] PREOP RIGHT BREAST CANCER [id number] 12/21/2014 11:56:00 12/21/2014 12:48:00 DIS Emergency JASON WELCH APRN [facility] ER POST OP CONCERNS [id number] 12/19/2014 08:26:00 12/19/2014 15:20:00 DIS Outpatient JAKE THOMAS DO [facility] SDC RIGHT BREAST CANCER [id number] 12/18/2014 05:51:00 12/18/2014 23:59:59 CLS Outpatient JAKE THOMAS DO [facility] PREOP RIGHT BREAST CANCER [id number] 12/12/2014 12:31:00 12/12/2014 23:59:59 CLS Outpatient LIZETH MAIER [facility] ONC [id number] 12/10/2014 11:58:00 12/10/2014 23:59:59 CLS Outpatient LIZETH MAIER [facility] RAD BREAST CANCER [id number] 12/04/2014 12:12:00 12/04/2014 23:59:59 CLS Outpatient PJ BECKMAN MD [facility] RAD RT BREAST LUMP AT 7:30 [id number] 12/03/2014 08:35:00 12/03/2014 23:59:59 CLS Outpatient PJ BECKMAN MD [facility] RAD RT BREAST LUMP [id number] 05/28/2014 00:10:00 05/28/2014 23:59:59 CLS Preadmit PJ BECKMAN MD [facility] LAB DIARRHEA,CRAMPING [id number] 03/01/2014 08:12:00 05/27/2014 00:01:00 DIS Outpatient PJ BECKMAN MD [facility] LAB DIARRHEA,CRAMPING [id number] 03/12/2014 09:29:00 03/12/2014 23:59:59 CLS Outpatient WING RUIZ MD [facility] RAD CYSTITIS [id number] 03/12/2014 09:24:00 03/12/2014 23:59:59 CLS Outpatient PJ BECKMAN MD [facility] RAD PAIN LEFT FOOT [id number] 01/18/2014 06:00:00 01/18/2014 12:10:00 DIS Outpatient MIGUEL MIGUEL DPM [facility] EXOSTOSIS FIFTH METATARSAL LEFT FOOT [id number] 01/14/2014 12:45:00 01/14/2014 23:59:59 CLS Outpatient MIGUEL MIGUEL DPM [facility] PREOP EXOSTOSIS FIFTH METATARSAL LEFT FOOT [id number] 08/28/2013 14:55:00 08/31/2013 08:35:00 DIS Inpatient PJ BECKMAN MD [facility] 4TH PYELONEPHRITIS,UTI [id number] 08/20/2013 09:34:00 08/20/2013 23:59:59 CLS Outpatient LIZETH MAIER [facility] ONC [id number] 07/20/2013 11:44:00 07/20/2013 23:59:59 CLS Outpatient PJ BECKMAN MD [facility] RAD HEADACHES PERSISTENT PAIN [id number] 05/16/2013 07:20:00 05/16/2013 23:59:59 CLS Outpatient MADISON ESPINOSA MD [facility] SDC DYSPHAGIA [id number] 05/09/2013 07:27:00 05/09/2013 23:59:59 CLS Outpatient MADISON ESPINOSA MD [facility] PREOP DYSPHAGIA [id number] 02/28/2013 13:21:00 02/28/2013 23:59:59 CLS Outpatient PJ BECKMAN MD [facility] RAD LEG PAIN,STENOSIS [id number] 02/20/2013 09:22:00 02/20/2013 23:59:59 CLS Outpatient MARISOL MOREL CLINICAL QUALITY ASSURANCE ASSOCIATE [facility] ONC [id number] 02/13/2013 15:18:00 02/13/2013 23:59:59 CLS Outpatient PJ BECKMAN MD [facility] RAD CLAUDICATION [id number] 02/12/2013 12:06:00 02/12/2013 23:59:59 CLS Outpatient OTIS HUDSON MD [facility] LAB HYPOKALEMIA, [id number] 02/01/2013 13:08:00 02/02/2013 11:30:00 DIS Inpatient PJ BECKMAN MD [facility] ICU CHEST PAIN HYPONATREMIA [id number] 01/18/2013 14:44:00 01/18/2013 23:59:59 CLS Outpatient PJ BECKMAN MD [facility] LAB BRUSING,FATIGUE [id number] 12/07/2012 08:25:00 12/07/2012 14:05:00 DIS Outpatient MADISON ESPINOSA MD [facility] SDC HEMORRHOIDS [id number] 11/30/2012 11:14:00 11/30/2012 23:59:59 CLS Outpatient MADISON ESPINOSA MD [facility] PREOP HEMORRHOIDS [id number] 09/11/2018 13:15:00 PEN Preadmit DEONTE LUCERO MD [facility] RAD M32.9 SLE/C50.511 MALIGNANT NEOPLASM RT BREAST [id number] 03/15/2018 11:00:00 PEN Preadmit MADISON ESPINOSA MD [facility] ENDO WT LOSS/ABD PAIN/HX OF POLYPS [id number] 07/15/2015 11:41:00 Document Registration [id number] 07/15/2015 11:40:00 Document Registration [id number] 11/27/2012 00:00:00 Document Registration [id number] 09/08/2012 11:43:00 Document Registration [id number] 08/28/2012 10:09:00 Document Registration [id number] 08/25/2012 00:00:00 Document Registration [id number] 06/04/2012 10:05:00 Document Registration [id number] 05/29/2012 11:20:00 Document Registration [id number] 05/02/2012 09:49:00 Document Registration [id number] 04/06/2012 09:42:00 Document Registration [id number] 02/11/2012 12:12:00 Document Registration [id number] 02/11/2012 12:07:00 Document Registration [id number] 02/04/2012 12:19:00 Document Registration [id number] 01/14/2012 12:07:00 Document Registration [id number] 03/17/2015 12:51:56 ACT Document Registration
[2018-03-15] MEDS ORDERED: NS IV 500 ML 500 ML IV PRN (10:09)
[2018-03-15 10:13] VITALS: BP 133/92
[2018-03-15] MEDS ORDERED: MIDAZOLAM 2 MG/2 ML (VERSED) VIAL IVP ONE (10:15)
[2018-03-15] MEDS ORDERED: fentaNYL INJECTION 100 MCG/2 ML AMP IVP ONE (10:15)
[2018-03-15] MEDS ORDERED: HURRICAINE EXT TUBE (BENZOCAINE) XX PRN (10:15)
[2018-03-15] MEDS ORDERED: LIDOCAINE JELLY 2% (XYLOCAINE) 30 ML TUBE TOP PRN (10:30)
--- NOTE | 2018-03-15 11:01 | Conscious Sedation/ASA ---
Conscious Sedation Pre-Proced Time 11:00 ASA Score 2 For ASA 3 and 4: Consider anesthesia and medical clearance. Also, for patients with a history of failed moderate sedation consider anesthesia. Airway Lungs Heart ASA score ASA 1: a normal healthy patient ASA 2: a patient with a mild systemic disease (mid diabetes, controlled hypertension, obesity ASA 3: a patient with a severe systemic disease that limits activity (angina , COPD, prior Myocardial infarction) ASA 4: a patient with an incapacitating disease that is a constant threat to life (CHF, renal failure) ASA 5: a moribund patient not expected to survive 24 hrs. (ruptured aneurysm) ASA 6: a declared brain patient whose organs are being harvested. For emergent operations, add the letter E after the classification Mallampati Classification Grade 2 Sedation Plan Analgesia, Amnesia, Plan communicated to team members, Discussed options with patient/fam, Discussed risks with patient/fam The patient is an appropriate candidate to undergo the planned procedure, sedation, and anesthesia. The patient immediately re-assessed prior to indication. MADISON ESIPNOSA MD Mar 15, 2018 11:01 am
--- NOTE | 2018-03-15 11:03 | Progress Note-Pre Operative ---
Pre-Operative Progress Note H&P Reviewed The H&P was reviewed, patient examined and no changes noted. Date Seen by Provider: Mar 15, 2018 Time Seen by Provider: 11:00 Date H&P Reviewed: Mar 15, 2018 Time H&P Reviewed: 11:00 Pre-Operative Diagnosis: weight loss, rectal bleed, dark tarry stools. MADISON ESPINOSA MD Mar 15, 2018 11:03 am
[2018-03-15] MEDS ORDERED: ACETAMINOPHEN 325 MG TABLET PO PRN (11:15)
[2018-03-15] MEDS ORDERED: morphine INJ 10 MG/ML 1ML (SYR OR VIAL) IV PRN (11:15)
[2018-03-15] MEDS ORDERED: ONDANSETRON 4 MG/2 ML (SDV) Z0FRAN IV PRN (11:15)
[2018-03-15] MEDS ORDERED: HYDROcodone/APAP 5 MG/325 MG (LORTAB) TAB PO PRN (11:15)
[2018-03-15] MEDS ORDERED: MIDAZOLAM 2 MG/2 ML (VERSED) VIAL ONE ×7 (12:48→13:35)
[2018-03-15] MEDS ORDERED: fentaNYL INJECTION 100 MCG/2 ML AMP ONE ×3 (12:48→13:26)
[2018-03-15] MEDS ORDERED: HURRICAINE EXT TUBE (BENZOCAINE) ONE (12:48)
--- NOTE | 2018-03-15 13:58 | Progress Note-Post Operative ---
Post-Operative Progess Note Surgeon (s)/Engine Manager (s) Surgeon MADISON ESPINOSA MD Engine Manager: none Pre-Operative Diagnosis weight loss, rectal bleed, dark tarry stools. Post-Operative Diagnosis reflux esophagitis(stage2), small HH, mild gastritis. chronic stage 2 ext and int hemorrhoids. Procedure & Operative Findings Date of Procedure 03/15/18 Procedure Performed/Findings EGD with bx. Colonoscopy. Anesthesia Type CS Estimated Blood Loss Estimated blood loss (mL): minimal Specimens/Packing Specimens Removed GE jxn, antrum MADISON ESPINOSA MD Mar 15, 2018 1:58 pm
--- NOTE | 2018-03-15 14:00 | Discharge Inst-Surgical ---
D/C Lap Instructions-JESÚS Follow Up Appt in 6 weeks. Activity as tolerated High Fiber Diet 25g or more per day Avoid Alcohol, Caffeine, Spicy [place] and Acid foods. Drink 64 fluid oz or more of fluids per day. Symptoms to Report: Fever over 101 degree F, Nausea/Vomiting If any problems/questions: Contact your physician or go to Emergency Room MADISON ESPINOSA MD Mar 15, 2018 2:00 pm
[2018-03-15 14:25] VITALS: BP 120/70
[2018-03-15 14:50] VITALS: BP 130/78
[2018-03-15 14:53] VITALS: BP 130/78
--- NOTE | 2018-03-15 15:46 | OPERATIVE REPORT ---
DATE OF SERVICE: 03/15/2018 ATTENDING PRIMARY CARE PHYSICIAN: Dr. Ott. PREOPERATIVE DIAGNOSIS: Weight loss, dark tarry stool, rectal bleed. POSTOPERATIVE DIAGNOSES: Reflux esophagitis stage II, no strictures or ulcerations, no hiatal hernia, mild gastritis, no distal obstructions. Chronic stage II external and internal hemorrhoids. Remainder of the colon was normal. There were no polyps or any neoplasms identified. PROCEDURE: EGD with biopsy, colonoscopy. SURGEON: Madison Do MD ANESTHESIA: Conscious sedation. ESTIMATED BLOOD LOSS: Minimal. FINDINGS: EGD, reflux esophagitis stage II, no ulcers or strictures. No hiatal hernia, mild gastritis. No formal ulcerations, polyps or any neoplasms. Pylorus and duodenum appeared normal, no distal obstructions. Colonoscopy, chronic stage II external and internal hemorrhoids, not actively edematous nor inflamed and no bleeding. The remainder of the rectum and colon were normal. There were no mucosal inflammatory changes nor any polyps or any other neoplasms. DISPOSITION: The patient tolerated the procedure well. INDICATIONS: The patient is a 72-year-old female known to us. We have seen her in July 2015 for a history of polyps. She had also reported dysphagia in the past. We had done an EGD and colonoscopy on her before and she was found to have small polyps which were benign and hyperplastic polyps. The EGD did show reflux esophagitis as well as a small hiatal hernia, moderate severity gastritis and mild duodenitis. Biopsies were negative for H. pylori as well as negative for Hong's esophagus. She reports that she has had issues with constipation as well as diarrhea. She also has noted some small amounts of red blood per rectum as well as an occasional dark tarry stool. She also reports that she has lost approximately 20 pounds in the past several months inadvertently. She does not report any fever, chills or any night sweats. DESCRIPTION OF PROCEDURE: The patient was brought to the endoscopy suite, laid in the left lateral decubitus position. After adequate IV pain and sedating medications and conscious sedation anesthesia, a mouthpiece was applied. Endoscope was placed in the mouth, visualizing the pharynx and hypopharyngeal region. Vocal cords, epiglottis and vallecula identified and appeared to be normal. The endoscope was gently intubated in the esophageal opening and esophagus insufflated. A mild severity gastritis was noted. There were no ulcers, polyps or any neoplasms identified. A biopsy was taken of the stomach in the antrum for H. pylori with visualization of good hemostasis. Endoscope was then advanced to the pylorus and first and second portion of the duodenum, which appeared normal and no distal obstructions. The endoscope was then slowly withdrawn with taking a second look and suctioning of residual air with no additional findings. The patient tolerated the procedure well. We will recommend continued medical management with the necessary lifestyle and diet accommodation including small and more frequent meals, avoidance of eating at night as well as head elevation while lying supine. She also needs to avoid caffeinated beverages, spicy, greasy and acidic foods. Under the same anesthesia, we then proceeded with the colonoscopy portion of the procedure. A digital rectal examination was performed, which revealed chronic stage II external and internal hemorrhoids, not actively edematous nor inflamed and no bleeding. Normal sphincter tone was felt and there were no palpable masses. The endoscope was then intubated to the anus and the rectum gently insufflated. The endoscope was then advanced to the valves of M[place] of the rectum with no polyps or any neoplasms identified. Through the sigmoid colon no significant diverticulosis identified. The endoscope was then advanced to the remainder of the descending, transverse and ascending colon to the cecum. These segments were normal. There were no polyps or any neoplasms identified throughout the colon or rectum. The endoscope was then slowly withdrawn while taking a second look and suctioning of residual air with no additional findings. The patient tolerated the procedure well. We will recommend a high fiber diet with at least 25 to 30 grams of fiber per day as well as at least 64 fluid ounces of water daily to promote soft stools on a daily basis. We are unsure for the etiology of her weight loss; however, this may be due to other related medical problems or medications. If there is concern of potential recurrent cancer she may need further evaluation with CT scanning, laboratory work as well as diagnostic imaging or other imaging modalities. Job ID: [id number] DocumentID: [id number] Dictated Date: 03/15/2018 13:55:56 Brand Leader Date: 03/15/2018 15:46:01 Dictated By: MADISON DO MD
== END 2018-03-15 15:00 | disposition home or self-care (01) ==
LOC: ENDO 09:40
PROVIDERS: ATTEND Surgery
DX: K21.0 Gastro-esophageal reflux disease with esophagitis (principal); K29.70 Gastritis, unspecified, without bleeding; K64.1 Second degree hemorrhoids; R63.4 Abnormal weight loss; K59.00 Constipation, unspecified; R19.7 Diarrhea, unspecified; K62.5 Hemorrhage of anus and rectum; Z86.010 Personal history of colon polyps; Z79.899 Other long term (current) drug therapy

== ENCOUNTER → 2018-03-30 | Outpatient (CLI) | payer MEDICARE, BC ==
[2018-03-30 12:31] LABS: HEMOGLOBIN 14.5 G/DL (11.5-16.0); MEAN PLATELET VOLUME 10.7 FL (7.4-10.4); RED BLOOD COUNT 4.75 10^6/uL (4.35-5.85); RED CELL DISTRIBUTION WIDTH 12.7 % (10.0-14.5); WHITE BLOOD COUNT 6.3 10^3/uL (4.3-11.0)
[2018-03-30 12:58] LABS: ALBUMIN 4.2 GM/DL (3.2-4.5); BILIRUBIN,TOTAL 0.4 MG/DL (0.1-1.0); CALCIUM 10.4 MG/DL (8.5-10.1); CREATININE SERUM 1.3 MG/DL (0.60-1.30); POTASSIUM 3.8 MMOL/L (3.6-5.0); TOTAL PROTEIN 6.9 GM/DL (6.4-8.2)
--- NOTE | 2018-03-30 14:19 | Diagnostic Imaging Report ---
PROCEDURE: CT abdomen and pelvis without contrast. TECHNIQUE: Multiple contiguous axial images were obtained through the abdomen and pelvis without the use of intravenous contrast. INDICATION: Gastric carcinoma. CORRELATION STUDY: 09/09/2017. FINDINGS: The lung bases are with minimal areas of scarring or atelectasis. Heart size is normal. Small hiatal hernia. Unenhanced liver, spleen, atrophic pancreas, and adrenal glands are unremarkable. Gallbladder is absent with clips in the fossa. Kidneys demonstrate relatively rounded low-density mass in the interpolar region of the right kidney, favoring probable cyst. No calcification or hydronephrosis. Abdominal aorta is with minimal wall calcification, nonaneurysmal. No pathologically enlarged central retroperitoneal or mesenteric lymphadenopathy. Stomach is relatively collapsed. This likely results in areas of gastric wall thickening. Small bowel is unremarkable without obstruction. High-density contrast is noted within the gastrointestinal tract. The colon demonstrates mild severity of fecal retention. No obstruction or inflammation. Few colonic diverticula are present. Urinary bladder is decompressed. Uterus is absent. Surgical changes of the anterior abdominal wall. Osseous structures demonstrate multilevel degenerative changes to be present. IMPRESSION: 1. Relatively stable-appearing noncontrast CT imaging of the abdomen and pelvis demonstrates no acute abnormality. No definitive evidence to suggest abdominopelvic metastatic disease. Dictated by: Dictated on workstation # [id number]
== END ==
LOC: RAD 11:58
PROVIDERS: ATTEND Surgery
DX: C16.9 Malignant neoplasm of stomach, unspecified (principal); R97.1 Elevated cancer antigen 125 [CA 125]
CPT/HCPCS: 36415; 74176; 80053; 82150; 82378; 83690; 85027; 86304

== ENCOUNTER 2018-04-21 13:52 | Outpatient (RCR) | payer MEDICARE, BC | END 2018-07-20 | disposition home or self-care (01) | LOC: ONC 13:52 | PROVIDERS: ATTEND Internal Medicine Hematology & Oncology | DX: C16.3 Malignant neoplasm of pyloric antrum (principal); Z85.3 Personal history of malignant neoplasm of breast; G20 Parkinson's disease; M85.851 Other specified disorders of bone density and structure, right thigh; M85.852 Other specified disorders of bone density and structure, left thigh; M32.9 Systemic lupus erythematosus, unspecified; R63.0 Anorexia; R53.83 Other fatigue; F17.210 Nicotine dependence, cigarettes, uncomplicated; Z79.899 Other long term (current) drug therapy | CPT/HCPCS: 99213 ==

== ENCOUNTER → 2018-06-06 | Outpatient (CLI) | payer MEDICARE, BC ==
[2018-06-06 14:23] LABS: ALBUMIN 4.3 GM/DL (3.2-4.5); BILIRUBIN,TOTAL 0.5 MG/DL (0.1-1.0); CALCIUM 10.6 MG/DL (8.5-10.1); CREATININE SERUM 1.81 MG/DL (0.60-1.30); TOTAL PROTEIN 7.3 GM/DL (6.4-8.2)
== END ==
LOC: LAB 13:44
PROVIDERS: ATTEND Family Medicine
DX: C16.9 Malignant neoplasm of stomach, unspecified (principal); R63.4 Abnormal weight loss
CPT/HCPCS: 36415; 80053